=== PATIENT | male | born 1990 | race Caucasian/White ===

== ENCOUNTER 2020-04-23 16:08 | Outpatient (REF) | payer OTHER, SELFPAY ==
[2020-04-23 17:02] LABS: MANUAL DIFF FLAG NO
[2020-04-23 17:07] LABS: Basophils Absolute Auto 0.1 X10*3/uL (0.0-0.2); Basophils Percent Auto 1.1 % (0-2); Eosinophils Percent Auto 0.9 % (0-4); Hematocrit 40.9 % (42-52); Hemoglobin 14.4 g/dl (14.0-18.0); Imm Gran Abs Auto 0.02 X10*3/uL (0.00-0.03); Imm Gran Pct Auto 0.4 % (0.0-0.4); Lymphocytes Absolute Auto 1.6 X10*3/uL (1.2-4.9); Lymphocytes Percent Auto 35.2 % (20-40); Mean Corpuscular HGB Conc 35.2 g/dl (31.0-36.0); Mean Corpuscular Volume 96.7 fL (80-98); Monocytes Absolute Auto 0.5 X10*3/uL (0.1-1.2); Neutrophils Absolute Auto 2.4 X10*3/uL (2.0-8.3); Neutrophils Percent Auto 52.4 % (45-73); Platelet Count 203 X10*3/uL (160-400); Red Blood Count 4.23 X10*6/uL (4.60-5.80); Red Cell Distribution Width 12.5 % (11.0-16.0); White Blood Count 4.6 X10*3/uL (4.8-10.8)
[2020-04-23 17:29] LABS: Alanine Aminotransferase 39 U/L (0-40); Albumin Level 4.3 g/dL (3.5-5.0); Alkaline Phosphatase 61 U/L (39-117); Anion Gap 14 (12-20); Aspartate Amino Transferase 63 U/L (5-37); Bilirubin Total 1.3 mg/dL (0.0-1.0); Blood Urea Nitrogen 12 mg/dL (9-16); Calcium 8.9 mg/dL (8.4-10.2); Carbon Dioxide 30 mmol/L (22-29); Chloride 96 mmol/L (96-108); Estimated Glomerular Filt Rate > 60; Glucose Random 78 mg/dL (60-115); Magnesium 1.8 mg/dL (1.6-2.6); Potassium 4.1 mmol/l (3.3-5.1); Sodium 136 mmol/L (135-145)
[2020-04-23 18:00] LABS: Folate 2.5 ng/mL (> or = 4.0); Vitamin B12 363 pg/mL (200-900)
== END 2020-04-23 16:09 | disposition home or self-care (01) ==
LOC: HO.LAB 16:08
PROVIDERS: PCP Internal Medicine; Visit Provider Internal Medicine
DX: F10.10 Alcohol abuse, uncomplicated (principal); I10 Essential (primary) hypertension
CPT/HCPCS: 36415; 80053; 82607; 82746; 83735; 85025

== ENCOUNTER 2020-09-16 10:27 | Outpatient (REF) | payer OTHER, SELFPAY ==
[2020-09-16 12:20] LABS: SARS COV2 PCR INHOUSE NEGATIVE (Negative)
== END 2020-09-16 10:28 | disposition home or self-care (01) ==
LOC: HO.LAB 10:27
PROVIDERS: Visit Provider Internal Medicine
DX: Z20.822 Contact with and (suspected) exposure to COVID-19 (principal)
CPT/HCPCS: C9803; U0003

== ENCOUNTER 2020-09-17 00:10 | Inpatient (IN) | payer OTHER, SELFPAY ==
[2020-09-17] VITALS (11 sets, daily range): BP systolic 125–150; BP diastolic 08–110; PULSE 69–99; RESP 15–22; TEMP 36.7–36.8; O2SAT 97–98; BMI 23.0
--- NOTE | ~2020-09-17 | XR_ITS ---
EXAMINATION: CHEST 1 VIEW CLINICAL INFORMATION: Chest pain. COMPARISON: None. TECHNIQUE: An AP view of the chest is provided. FINDINGS: The cardiac silhouette is not enlarged. The mediastinal and hilar contours are unremarkable. There are neither pleural effusions nor pneumothoraces. There are no consolidations. The osseous structures are unremarkable. XR/XR chest 1V IMPRESSION: No evidence for acute disease.
--- NOTE | ~2020-09-17 | CT_ITS ---
EXAMINATION: CT ABDOMEN AND PELVIS WITH CONTRAST CLINICAL INFORMATION: Abdominal pain. COMPARISON: None. TECHNIQUE: Contiguous axial thin section helical images of the abdomen and pelvis were performed following the administration of 100 mL of intravenous Omnipaque 350. The data set was reformatted in the coronal and sagittal planes and reviewed on an independent workstation. DLP: 496 mGy-cm. FINDINGS: The visualized lung bases are clear. The visualized portions of the heart are unremarkable. The liver is of normal size and attenuation without focal lesions nor intrahepatic biliary ductal dilation. A normal gallbladder is identified. There is no wall thickening or discernible pericholecystic fluid. The spleen and adrenal glands are unremarkable. The pancreas is of overall normal attenuation. There is edema to the pancreatic tail and distal body. There is fat stranding noted about the pancreatic tail along with a small amount of free fluid. There are no drainable fluid collections. Both kidneys are of normal size and attenuation without hydronephrosis or nephrolithiasis. Following the administration of IV contrast, prompt symmetric nephrograms are displayed. There is neither mesenteric nor retroperitoneal lymphadenopathy. Normal unopacified loops of small and large bowel are identified. A normal appendix is identified. There is a small amount of pelvic free fluid. The urinary bladder is unremarkable. There is neither pelvic nor inguinal lymphadenopathy. Bone windows: Neither sclerotic nor lytic bone lesions are identified. CT/CT abdomen pelvis w con IMPRESSION: Fat stranding noted about an edematous pancreatic tail and distal body with adjacent and trace free fluid suggestive of pancreatitis. There are no drainable fluid collections. Automated exposure control (Care Dose) Adjustment of the mA and/or kv according to patient size (this includes techniques or standardized protocols for targeted exams where dose is matched to indication / reason for exam; i.e. extremities or head).
--- NOTE | 2020-09-17 00:39 | ED_ITS ---
HPI - Abdominal Pain General Chief Complaint: Abdominal Pain Stated Complaint: body aches Time Seen by Provider: 09/17/20 00:39 Source: patient Mode of arrival: EMS Limitations: no limitations History of Present Illness HPI narrative: Patient with history of Crohn's disease is in remission for last 10 years drinks alcohol almost every day comes here with pain in epigastric area for last 3 - 4 days getting worse with nausea and vomiting unable to eat anything MD elicited complaint: abdominal pain Onset (ago): day(s) Location: epigastric Severity: moderate Migration to: epigastric Exacerbating factors: eating and vomiting Associated symptoms: nausea and vomiting Related Data Previous Rx's Medication Instructions Recorded chlordiazepoxide HCl 25 mg capsule 25 mg PO Q8H PRN 10 Days #30 cap 03/31/20 magnesium oxide 400 mg PO BID 30 Days #60 tab 03/31/20 thiamine HCl (vitamin B1) 100 mg 100 mg PO DAILY 30 Days #30 tab 03/31/20 tablet bupropion HCl 150 mg 24 hr tablet, 150 mg PO QAM 30 Days #30 tab 08/11/20 extended release esomeprazole magnesium 40 mg 40 mg PO DAILY 30 Days #30 cap 08/11/20 capsule,delayed release hydroxyzine HCl 25 mg tablet See Rx Instructions .ROUTE 08/11/20 .COMPLEX 30 Days #60 tab Allergies Allergy/AdvReac Type Severity Reaction Status Date / Time citalopram AdvReac Intermediate nausea Verified 08/11/20 17:42 Review of Systems Review of Systems Constitutional : No Weight loss, No Fever, No Chills ENT/Mouth : No sore throat, No Rhinorrhea Eyes: No Eye Pain, No Swelling Cardiovascular : No Chest Pain, no palpitations Respiratory : No Cough, No Sputum, no shortness of breath Gastrointestinal : ++Nausea, ++Vomiting, No Diarrhea, ++ abdominal Pain, no black stools Genitourinary : No Dysuria, No Urinary Frequency Musculoskeletal : No joint pain, No Myalgias, No Joint Swelling Skin : No Skin Lesions, No rash Neuro : No Weakness, No Numbness, No Dizziness, No Headache Psych : No Anxiety/Panic, No Depression Heme/Lymph: No Bruising, No Lymphadenopathy Endocrine : No Polyuria, No Polydipsia All other systems reviewed and are negative Physical Exam Vital Signs: Vital Signs: Last Vital Signs Temp 98.0 F 09/17/20 00:39 Pulse 81 09/17/20 00:54 Resp 18 09/17/20 00:54 BP 139/101 H 09/17/20 00:54 Pulse Ox 98 09/17/20 00:54 Body Mass Index 23.0 Appearance: Alert. Oriented X3. No acute distress. Eyes: Pupils equal, round and reactive to light. ENT: Pharynx normal. Neck: Normal inspection. Neck supple. CVS: Normal heart rate and rhythm. Pulses normal. Respiratory: No respiratory distress. Breath sounds normal. Abdomen: Soft , tenderness epigastric area no rebound tenderness or guarding Bowel sounds are present, no mass palpable, no CVA tenderness Skin: Skin warm and dry. Normal skin color. Normal skin turgor. Extremities: No lower extremity edema. Neuro: Oriented X 3. No motor deficit. No sensory deficit. MDM - Abdominal Pain MDM Narrative Medical decision making narrative: Patient with acute pancreatitis with upper abdominal pain with history of alcohol abuse likely the etiology for pancreatitis. Patient has lactic acidosis secondary to alcohol use and dehydration not from sepsis. Will give him IV fluids admit for pain control and IV hydration patient's triglycerides are also elevated will start him on Lopid Differential Diagnosis Differential diagnosis: Likely abdominal pain and pancreatitis Medical Records Attestation: I reviewed the patient's medical records. Lab Data Attestation: I reviewed the patient's lab results. Result diagrams: 09/17/20 00:57 09/17/20 00:57 Labs: Lab Results 09/17/20 09/17/20 09/17/20 Range/Units 00:57 00:57 00:57 WBC 7.2 (4.8-10.8) X10*3/uL RBC 4.18 L (4.60-5.80) X10*6/uL Hgb 14.5 (14.0-18.0) g/dl Hct 41.1 L (42-52) % MCV 98.3 H (80-98) fL MCH 34.7 H (27.0-33.0) pg MCHC 35.3 (31.0-36.0) g/dl RDW 12.8 (11.0-16.0) % Plt Count 158 L (160-400) X10*3/uL MPV 9.0 L (9.4-12.4) fL Immature Gran % (Auto) 0.8 H (0.0-0.4) % Neut % (Auto) 74.3 H (45-73) % Lymph % (Auto) 19.1 L (20-40) % [place] % (Auto) 4.7 (2-11) % Eos % (Auto) 0.7 (0-4) % Baso % (Auto) 0.4 (0-2) % Lymph # (Auto) 1.4 (1.2-4.9) X10*3/uL [place] # (Auto) 0.3 (0.1-1.2) X10*3/uL Eos # (Auto) 0.1 (0.0-0.4) X10*3/uL Baso # (Auto) 0.0 (0.0-0.2) X10*3/uL Abs Immat Gran (auto) 0.06 H (0.00-0.03) X10*3/uL Absolute Neuts (auto) 5.3 (2.0-8.3) X10*3/uL Absolute Nucleated RBC 0.000 (0.0-0.012) X10*3/uL Nucleated RBC % (auto) 0.0 (0.0-0.2) /100WBC PT 11.4 (10.8-13.0) SEC INR 1.0 (0.9-1.1) APTT 25.0 (24.1-38.0) SEC Sodium 143 (135-145) mmol/L Potassium 3.7 (3.3-5.1) mmol/L Chloride 103 (96-108) mmol/L Carbon Dioxide 25 (22-29) mmol/L Anion Gap 19 (12-20) BUN 13 (9-16) mg/dL Creatinine 0.85 (0.5-1.4) mg/dL Estim Creat Clear Calc 139.8 Estimated GFR > 60 Random Glucose 122 H D (60-115) mg/dL Lactic Acid (0.5-2.0) mmol/L Calcium 7.5 L D (8.4-10.2) mg/dL Magnesium 2.3 (1.6-2.6) mg/dL Total Bilirubin 0.5 (0.0-1.0) mg/dL Direct Bilirubin 0.2 (0.0-0.5) mg/dL AST 93 H (5-37) U/L ALT 65 H (0-40) U/L Alkaline Phosphatase 62 (39-117) U/L Troponin I High Sens (<3.5-35.0) ng/L Total Protein 6.6 (6.5-8.0) g/dL Albumin 4.0 (3.5-5.0) g/dL Triglycerides 782 mg/dL Lipase 387 H (8-78) U/L 09/17/20 09/17/20 Range/Units 00:57 00:57 WBC (4.8-10.8) X10*3/uL RBC (4.60-5.80) X10*6/uL Hgb (14.0-18.0) g/dl Hct (42-52) % MCV (80-98) fL MCH (27.0-33.0) pg MCHC (31.0-36.0) g/dl RDW (11.0-16.0) % Plt Count (160-400) X10*3/uL MPV (9.4-12.4) fL Immature Gran % (Auto) (0.0-0.4) % Neut % (Auto) (45-73) % Lymph % (Auto) (20-40) % [place] % (Auto) (2-11) % Eos % (Auto) (0-4) % Baso % (Auto) (0-2) % Lymph # (Auto) (1.2-4.9) X10*3/uL [place] # (Auto) (0.1-1.2) X10*3/uL Eos # (Auto) (0.0-0.4) X10*3/uL Baso # (Auto) (0.0-0.2) X10*3/uL Abs Immat Gran (auto) (0.00-0.03) X10*3/uL Absolute Neuts (auto) (2.0-8.3) X10*3/uL Absolute Nucleated RBC (0.0-0.012) X10*3/uL Nucleated RBC % (auto) (0.0-0.2) /100WBC PT (10.8-13.0) SEC INR (0.9-1.1) APTT (24.1-38.0) SEC Sodium (135-145) mmol/L Potassium (3.3-5.1) mmol/L Chloride (96-108) mmol/L Carbon Dioxide (22-29) mmol/L Anion Gap (12-20) BUN (9-16) mg/dL Creatinine (0.5-1.4) mg/dL Estim Creat Clear Calc Estimated GFR Random Glucose (60-115) mg/dL Lactic Acid 3.1 H* (0.5-2.0) mmol/L Calcium (8.4-10.2) mg/dL Magnesium (1.6-2.6) mg/dL Total Bilirubin (0.0-1.0) mg/dL Direct Bilirubin (0.0-0.5) mg/dL AST (5-37) U/L ALT (0-40) U/L Alkaline Phosphatase (39-117) U/L Troponin I High Sens < 3.5 (<3.5-35.0) ng/L Total Protein (6.5-8.0) g/dL Albumin (3.5-5.0) g/dL Triglycerides mg/dL Lipase (8-78) U/L Imaging Data CT scan - abdomen: Attestation: I personally reviewed and interpreted this imaging study as follows: Radiologist's impression: Ordering Physician: Nino Vargas MD Date of Service: 09/17/20 Procedure(s): CT abdomen pelvis w con Accession Number(s): [id number] cc: Nino Vargas MD~ EXAMINATION: CT ABDOMEN AND PELVIS WITH CONTRAST CLINICAL INFORMATION: Abdominal pain. COMPARISON: None. TECHNIQUE: Contiguous axial thin section helical images of the abdomen and pelvis were performed following the administration of 100 mL of intravenous Omnipaque 350. The data set was reformatted in the coronal and sagittal planes and reviewed on an independent workstation. DLP: 496 mGy-cm. FINDINGS: The visualized lung bases are clear. The visualized portions of the heart are unremarkable. The liver is of normal size and attenuation without focal lesions nor intrahepatic biliary ductal dilation. A normal gallbladder is identified. There is no wall thickening or discernible pericholecystic fluid. The spleen and adrenal glands are unremarkable. The pancreas is of overall normal attenuation. There is edema to the pancreatic tail and distal body. There is fat stranding noted about the pancreatic tail along with a small amount of free fluid. There are no drainable fluid collections. Both kidneys are of normal size and attenuation without hydronephrosis or nephrolithiasis. Following the administration of IV contrast, prompt symmetric nephrograms are displayed. There is neither mesenteric nor retroperitoneal lymphadenopathy. Normal unopacified loops of small and large bowel are identified. A normal appendix is identified. There is a small amount of pelvic free fluid. The urinary bladder is unremarkable. There is neither pelvic nor inguinal lymphadenopathy. Bone windows: Neither sclerotic nor lytic bone lesions are identified. CT/CT abdomen pelvis w con IMPRESSION: Fat stranding noted about an edematous pancreatic tail and distal body with adjacent and trace free fluid suggestive of pancreatitis. There are no drainable fluid collections. ECG Data Attestation: I personally reviewed and interpreted this ECG as follows: Interpretation: Normal sinus rhythm with heart rate 82 beats per minute normal intervals normal axis no acute ST T wave changes early repolarization of the ST segments no acute ischemia Discharge Plan Discharge Clinical Impression: Alcohol abuse, Essential hypertriglyceridemia Acute alcoholic pancreatitis Qualifiers: Acute pancreatitis complication: no infection or necrosis Qualified Code(s): K85.20 - Alcohol induced acute pancreatitis without necrosis or infection Patient Disposition: Admitted As Inpatient [facility] Past Medical History Medical History Alcohol abuse Anxiety Depression GERD without esophagitis Insomnia Myalgia Ulcerative colitis Surgical History No significant past surgical history Family History Family History Other Family history non-contributory Social History Social History Alcohol intake: current Alcohol intake frequency: 3 or more drinks per day Alcohol type: beer and hard liquor Smoking Status: Current every day smoker Tobacco Type: Cigarette Cigarettes Per Day: 3 Use of substances other than those prescribed or required for medical reasons: No Advance Directives: No
--- NOTE | 2020-09-17 00:52 | ECG_ITS ---
Test Reason : ABD PAIN Blood Pressure : / mmHG Vent. Rate : 082 BPM Atrial Rate : 082 BPM P-R Int : 166 ms QRS Dur : 086 ms QT Int : 382 ms P-R-T Axes : 073 058 056 degrees QTc Int : 446 ms Normal sinus rhythm Possible Left atrial enlargement Borderline ECG No previous ECGs available Referred By: Nino Vargas Electronically Signed By:Rigo Brunson
[2020-09-17 01:02] LABS: Basophils Percent Auto 0.4 % (0-2); Eosinophils Absolute Auto 0.1 X10*3/uL (0.0-0.4); Eosinophils Percent Auto 0.7 % (0-4); Hematocrit 41.1 % (42-52); Hemoglobin 14.5 g/dl (14.0-18.0); Imm Gran Abs Auto 0.06 X10*3/uL (0.00-0.03); Imm Gran Pct Auto 0.8 % (0.0-0.4); Lymphocytes Absolute Auto 1.4 X10*3/uL (1.2-4.9); Lymphocytes Percent Auto 19.1 % (20-40); MANUAL DIFF FLAG NO; Mean Corpuscular HGB Conc 35.3 g/dl (31.0-36.0); Mean Corpuscular Hemoglobin 34.7 pg (27.0-33.0); Mean Corpuscular Volume 98.3 fL (80-98); Monocytes Absolute Auto 0.3 X10*3/uL (0.1-1.2); Monocytes Percent Auto 4.7 % (2-11); Neutrophils Absolute Auto 5.3 X10*3/uL (2.0-8.3); Neutrophils Percent Auto 74.3 % (45-73); Platelet Count 158 X10*3/uL (160-400); Red Blood Count 4.18 X10*6/uL (4.60-5.80); Red Cell Distribution Width 12.8 % (11.0-16.0); White Blood Count 7.2 X10*3/uL (4.8-10.8)
[2020-09-17 01:07] LABS: Prothrombin Time 11.4 SEC (10.8-13.0)
[2020-09-17 01:36] LABS: Lactic Acid 3.1 mmol/L (0.5-2.0)
[2020-09-17 01:37] LABS: Alanine Aminotransferase 65 U/L (0-40); Alkaline Phosphatase 62 U/L (39-117); Anion Gap 19 (12-20); Aspartate Amino Transferase 93 U/L (5-37); Bilirubin Direct 0.2 mg/dL (0.0-0.5); Bilirubin Total 0.5 mg/dL (0.0-1.0); Blood Urea Nitrogen 13 mg/dL (9-16); Calcium 7.5 mg/dL (8.4-10.2); Carbon Dioxide 25 mmol/L (22-29); Chloride 103 mmol/L (96-108); Creatinine Clr Calc Pharmacy 139.8; Estimated Glomerular Filt Rate > 60; Glucose Random 122 mg/dL (60-115); Potassium 3.7 mmol/L (3.3-5.1); Sodium 143 mmol/L (135-145); Total Protein 6.6 g/dL (6.5-8.0)
[2020-09-17 01:42] LABS: Troponin-I High Sensitivity < 3.5 ng/L (<3.5-35.0)
[2020-09-17 01:53] LABS: Lipase 387 U/L (8-78)
[2020-09-17] MEDS: iohexoL 350 MG/ML 100 ML INFUS..BTL IV (02:08)
[2020-09-17 02:15] LABS: Magnesium 2.3 mg/dL (1.6-2.6)
[2020-09-17] MEDS: 0.9 % Sodium Chloride 1,000 ML 999 ML IVCONT ×2 (02:50→04:42)
[2020-09-17] MEDS: Morphine Sulfate 4 MG/ML CARTRIDGE IVPUSH ×2 (02:51→04:42)
[2020-09-17] MEDS: ondansetron HCL 4 MG/2 ML VIAL IVPUSH (02:51)
[2020-09-17] MEDS: Famotidine/PF 20 MG/2 ML VIAL IVPUSH ×2 (02:51→08:57)
[2020-09-17 02:58] LABS: Triglycerides 782 mg/dL
[2020-09-17 03:01] LABS: Reflex Lactate? Lactic Acid Added
--- NOTE | 2020-09-17 03:31 | P.HPHOSP_ITS ---
History of Present Illness Date of Service: 09/17/20 Chief Complaint: Abd pain 30-year-old male with a past medical history of anxiety, depression, alcohol use presented to the hospital with a chief complaint of abdominal pain. Patient reports that he has a history of Crohn's disease and has not had any flares re cently. Has been drinking alcohol on a regular basis. Over the past few days he has been having nausea vomiting unable to keep anything down. Also had epigastric abdominal discomfort or the same period of time. Denies any numbness tingling. Denies any diarrhea. Denies any blood in the vomitus or blood in the stool. Denies any fever chills cough. Review of all other systems is negative except meds were ER course: Per ER team patient noted to have epigastric tenderness and noted to have lipase elevated and are CT scan showed pancolitis. Home a admitted to the hospital for further management. [facility] Medical History Alcohol abuse Anxiety Depression GERD without esophagitis Insomnia Myalgia Ulcerative colitis Family History Other Family history non-contributory Surgical History No significant past surgical history Social History Alcohol intake: current Alcohol intake frequency: 3 or more drinks per day Alcohol type: hard liquor Smoking Status: Current every day smoker Tobacco Type: Cigarette Cigarettes Per Day: 3 Use of substances other than those prescribed or required for medical reasons: Yes Substance Use Type: Marijuana Substance Use Frequency: Occasionally Advance Directives: No service: No Current occupational status: employed Meds Allergies Allergy/AdvReac Type Severity Reaction Status Date / Time citalopram AdvReac Intermediate nausea Verified 09/17/20 05:38 Active Medications: Current Medications Generic Name Dose Route Start Last Admin Trade Name Freq PRN Reason Stop Dose Admin Famotidine 20 mg 09/17/20 09:00 Famotidine/Pf 20 Mg/2 Ml Vial IVPUSH BID LUANN Folic Acid 1 mg 09/17/20 09:00 Folic Acid 1 Mg Tablet PO 09/20/20 08:59 DAILY LUANN Dextrose/Sodium Chloride 1,000 mls @ 100 mls/hr 09/17/20 03:30 D51/2ns IVCONT .Q10H [facility] Lorazepam 1 mg 09/17/20 03:26 Lorazepam 1 Mg Tablet PO 09/21/20 03:25 Q4H PRN Breakthrough alcohol withdrawa Morphine Sulfate 1 mg 09/17/20 03:26 Morphine Sulfate 4 Mg/Ml Cartridge IVPUSH Q4H PRN Pain, Severe (Pain Scale 7-10) Multivitamins 1 tab 09/17/20 09:00 B-Complex With Vitamin C Tablet PO DAILY [facility] Senna 17.2 mg 09/17/20 03:26 Sennosides 8.6 Mg Tablet PO BEDTIME PRN Constipation Sodium Chloride 3 ml 09/17/20 08:00 0.9 % Sodium Chloride Flush 3 Ml Syringe IVFLUSH QSHIFT [facility] Thiamine HCl 100 mg 09/17/20 09:00 Thiamine Hcl 100 Mg Tablet PO 09/20/20 08:59 DAILY [facility] Home Medications Medication Instructions Recorded Confirmed Last Taken Type No Known Home Meds 09/17/20 09/17/20 Unknown History Physical Exam Vital Signs and Narrative: Vital Signs: Last Vital Signs Temp 98.0 F 09/17/20 00:39 Pulse 81 09/17/20 00:54 Resp 18 09/17/20 00:54 BP 139/101 H 09/17/20 00:54 Pulse Ox 98 09/17/20 00:54 Body Mass Index 23.0 Gen: Appears be in no acute distress HEENT: NCAT, dry mucosa. Pulmonary: Vesicular breath sounds, fair air entry CVS: Normal S1-S2 Abdomen: BS+, Soft, diffusely tender but more tender in the epigastric. No guarding no rigidity. Extremities: Warm well perfused Neuro: Alert and awake. Results Labs CBC and Chem 7: 09/17/20 06:59 09/17/20 06:59 Labs: Laboratory Results - last 24 hr 09/17/20 09/17/20 09/17/20 00:57 00:57 00:57 MCV 98.3 H MCH 34.7 H MCHC 35.3 RDW 12.8 Plt Count 158 L MPV 9.0 L Immature Gran % (Auto) 0.8 H Neut % (Auto) 74.3 H Lymph % (Auto) 19.1 L [place] % (Auto) 4.7 Eos % (Auto) 0.7 Baso % (Auto) 0.4 Lymph # (Auto) 1.4 [place] # (Auto) 0.3 Eos # (Auto) 0.1 Baso # (Auto) 0.0 Abs Immat Gran (auto) 0.06 H Absolute Neuts (auto) 5.3 Absolute Nucleated RBC 0.000 Nucleated RBC % (auto) 0.0 PT 11.4 INR 1.0 APTT 25.0 Anion Gap 19 Estim Creat Clear Calc 139.8 Estimated GFR > 60 Random Glucose 122 H D Lactic Acid Calcium 7.5 L D Magnesium 2.3 Total Bilirubin 0.5 Direct Bilirubin 0.2 AST 93 H ALT 65 H Alkaline Phosphatase 62 Troponin I High Sens Total Protein 6.6 Albumin 4.0 Triglycerides 782 Lipase 387 H 09/17/20 09/17/20 00:57 00:57 MCV MCH MCHC RDW Plt Count MPV Immature Gran % (Auto) Neut % (Auto) Lymph % (Auto) [place] % (Auto) Eos % (Auto) Baso % (Auto) Lymph # (Auto) [place] # (Auto) Eos # (Auto) Baso # (Auto) Abs Immat Gran (auto) Absolute Neuts (auto) Absolute Nucleated RBC Nucleated RBC % (auto) PT INR APTT Anion Gap Estim Creat Clear Calc Estimated GFR Random Glucose Lactic Acid 3.1 H* Calcium Magnesium Total Bilirubin Direct Bilirubin AST ALT Alkaline Phosphatase Troponin I High Sens < 3.5 Total Protein Albumin Triglycerides Lipase Imaging Radiologist's Impressions: Impressions Chest X-Ray 09/17/20 00:52 IMPRESSION: No evidence for acute disease. Abdomen/Pelvis CT 09/17/20 00:54 IMPRESSION: Fat stranding noted about an edematous pancreatic tail and distal body with adjacent and trace free fluid suggestive of pancreatitis. There are no drainable fluid collections. Automated exposure control (Care Dose) Adjustment of the mA and/or kv according to patient size (this includes techniques or standardized protocols for targeted exams where dose is matched to indication / reason for exam; i.e. extremities or head). Assessment and Plan (1) Acute alcoholic pancreatitis: Qualifiers: Acute pancreatitis complication: no infection or necrosis Qualified Code(s): K85.20 - Alcohol induced acute pancreatitis without necrosis or infection Status: Acute 30-year-old male with a past medical history of Crohn's disease, anxiety, depression, alcohol use presented to the hospital with a chief complaint of nausea vomiting and abdominal discomfort. Noted to have pancreatitis. Admitted for further management. Acute pancreatitis: Likely in the setting of alcohol use. Also noted to have elevated triglyceride to 780. Pain control IV fluids Zofran p.r.n. Nausea/vomiting: Likely alcoholic gastritis. Pepcid IV b.i.d.. Hypertriglyceridemia: Will keep the patient on gemfibrozil. Recommended repeat triglyceride levels in 6-8 weeks with PCP. Transaminitis: Likely in setting of alcohol use. Will obtain acute hepatitis panel. Monitor liver enzymes. Lactic acidosis: Likely in setting of dehydration/alcohol use. IV fluids. Monitor levels. Alcohol abuse: Monitor on CIWA protocol with Ativan. Will give the patient on thiamine, folate, multivitamins. DVT prophylaxis: SCD boots Code status: Full code
[2020-09-17 03:40] LABS: Cholesterol 169 mg/dL; HDL Cholesterol 35 mg/dL
[2020-09-17] MEDS: LORazepam 2 MG/ML VIAL 1 MG IVPUSH (03:52)
[2020-09-17 04:43] LABS: ~Lactic Acid-LAB USE ONLY 3.2 mmol/L (0.5-2.0)
[2020-09-17] MEDS: Dextrose 5 % and 0.45 % NaCl 1,000 ML 100 ML IVCONT ×2 (05:21→16:05)
[2020-09-17 06:09] LABS: Reflex Lactate? 2 Y
[2020-09-17] MEDS: gemfibroziL 600 MG TABLET PO (06:42)
[2020-09-17 07:18] LABS: MANUAL DIFF FLAG NO
[2020-09-17 07:34] LABS: Basophils Percent Auto 0.2 % (0-2); Eosinophils Percent Auto 0.1 % (0-4); Hematocrit 40.1 % (42-52); Hemoglobin 14.1 g/dl (14.0-18.0); Imm Gran Abs Auto 0.04 X10*3/uL (0.00-0.03); Imm Gran Pct Auto 0.5 % (0.0-0.4); Lymphocytes Absolute Auto 1.7 X10*3/uL (1.2-4.9); Lymphocytes Percent Auto 19.1 % (20-40); Mean Corpuscular HGB Conc 35.2 g/dl (31.0-36.0); Mean Corpuscular Hemoglobin 34.5 pg (27.0-33.0); Mean Platelet Volume 9.3 fL (9.4-12.4); Monocytes Absolute Auto 0.6 X10*3/uL (0.1-1.2); Monocytes Percent Auto 7.1 % (2-11); Neutrophils Absolute Auto 6.3 X10*3/uL (2.0-8.3); Platelet Count 165 X10*3/uL (160-400); Red Blood Count 4.09 X10*6/uL (4.60-5.80); Red Cell Distribution Width 12.6 % (11.0-16.0); White Blood Count 8.7 X10*3/uL (4.8-10.8)
[2020-09-17 07:53] LABS: Anion Gap 17 (12-20); Blood Urea Nitrogen 10 mg/dL (9-16); Calcium 6.8 mg/dL (8.4-10.2); Carbon Dioxide 23 mmol/L (22-29); Chloride 104 mmol/L (96-108); Creatinine Clr Calc Pharmacy 156.4; Estimated Glomerular Filt Rate > 60; Glucose Random 102 mg/dL (60-115); Potassium 4.2 mmol/L (3.3-5.1); Sodium 140 mmol/L (135-145)
[2020-09-17 07:53] LABS: ~Lactic Acid-LAB USE ONLY 3.5 mmol/L (0.5-2.0)
--- NOTE | 2020-09-17 08:04 | PC.NURSE ---
Dr. Sánchez aware of a.m. Calcium and lactate levels and trends from last values.
[2020-09-17 08:55] LABS: HBS Num1 5.75 mIU/mL (0-7.99); HBc Num1 0.11 S/CO (0.00-0.79); Hepatitis A Antibody IgM 0.07 Index (0-0.79); Hepatitis B Core Antibody Nonreactive (Nonreactive); ~HepC Num1 0.08 S/CO (0.00-0.79); ~Hepatitis A Antibody IgM Nonreactive (Nonreactive); ~Hepatitis B Surface Antibody NONREACTIVE (Nonreactive); ~Hepatitis C Antibody Nonreactive (Nonreactive)
[2020-09-17] MEDS: Folic Acid 1 MG TABLET PO (08:56)
[2020-09-17] MEDS: Thiamine HCL 100 MG TABLET PO (08:56)
[2020-09-17] MEDS: Morphine Sulfate 2 MG/ML CARTRIDGE 1 MG IVPUSH (08:57)
[2020-09-17 09:25] LABS: HBsAGNum1 0.13 S/CO (0.00-0.99); Hepatitis B Surface Antigen Negative (Negative)
--- NOTE | 2020-09-17 11:07 | MHC.CM.PN ---
Met with patient in regards to discharge planning. Patient lives alone, ambulates independently and had no services prior to coming to hospital. No services anticipated to be needed because patient is not homebound. PCP verified as Dr Kline. Patient states he has a HCP at [facility] and will attempt to obtain a copy. Patient will need the hospital shuttle for transport home when medically stable. Continue to monitor for d/c needs.
--- NOTE | 2020-09-17 11:11 | MHC.CM.PN ---
[facility] does not have a HCP on file for patient.
[2020-09-17] MEDS: Morphine Sulfate 2 MG/ML CARTRIDGE IVPUSH (14:42)
[2020-09-17] MEDS: 0.9 % Sodium Chloride Flush 3 ML SYRINGE IVFLUSH (16:05)
--- NOTE | 2020-09-17 16:28 | PC.NURSE ---
3 times contacted hospitalist for concerns about need for CIWA and medical management. no answer .continuing to monitor.
--- NOTE | 2020-09-17 16:30 | PC.NURSE ---
3 times contacted hospitalisit for management regarding CIWA. No answer continuing to monitor.
--- NOTE | 2020-09-17 17:11 | PC.NURSE ---
pt to start phenobarb protocol confirmed with both hospitalist and pharmacy.
--- NOTE | 2020-09-17 17:13 | PC.NURSE ---
1600:called pharmacy for 1630 med. not in pyxis. 1713: med documented against. not supplied by pharmacy.
[2020-09-17] MEDS: PHENobarbitaL sodium 130 MG/ML VIAL 310 MG IM (17:32)
--- NOTE | 2020-09-17 19:45 | PC.NURSE ---
ATTEMPTED TO GIVE REPORT X2.
--- NOTE | 2020-09-17 19:45 | PC.NURSE ---
ATTEMPTED TO GIVE REPORT 2X
--- NOTE | 2020-09-17 21:48 | PM.EVENT ---
Event Note Date of Service: 09/17/20 Event Note: Against medical advice note: Patient wanted to leave against medical advice. I spoke to the patient in detail about his current health condition and the risks and benefits involved in staying in the hospital and the receiving the treatment. Patient denies pain hospital. Explained risks and benefits and risks which not only involve worsening current clinical condition and may even lead to . Patient verbalized that he understood the risks and still wanted to leave against medical advice. Signed AMA form.
--- NOTE | 2020-09-18 08:05 | PM.DS ---
DS: Providers Provider Date of Service: 09/18/20 Date of admission: 09/17/20 03:26 Primary care physician: Unknown Physician Consults: 09/17/20 03:26 Consult to Gastroenterology Routine Consulting Provider: Anthony Ba Reason for consultation: pancreatitis DS: Diagnosis Discharge Diagnosis (1) Acute alcoholic pancreatitis: Status: Acute DS: Medications Discharge Medications Home Medications: Home Medications Medication Instructions Recorded Confirmed No Known Home Meds 09/17/20 09/17/20 DS: Summary Hospital Course Hospital Course: Patient was admitted and treated for acute alcoholic pancreatitis, and alcohol withdrawal and left AMA on 09/17/20 around 2300. See additional note from covering provider at that time. Time Spent with Patient Time attestation: Total time spent providing and/or coordinating discharge services: Discharge coordination time: Less than 30 minutes Physical Exam Vital Signs: Vital Signs: Last Vital Signs Temp 98.2 F 09/17/20 11:52 Pulse 76 09/17/20 14:47 Resp 20 09/17/20 14:47 BP 146/103 H 09/17/20 14:47 Pulse Ox 98 09/17/20 14:47 Body Mass Index 23.0 DS: Data Data Completed and Pending Labs on day of discharge: Laboratory Results - last 24 hr 09/17/20 04:04 Hepatitis A IgM Ab Nonreactive Hep Bs Antigen Negative Hep Bs Antibody NONREACTIVE Hep B Core Total Ab Nonreactive Hepatitis C Ab (EIA) Nonreactive Preliminary micro results at discharge 09/17/20 03:32 Blood Culture - Preliminary Blood - Venous No growth after 24 hours. 09/17/20 03:39 Blood Culture - Preliminary Blood - Venous No growth after 24 hours. Discharge Plan Discharge Anticipated Discharge Date/Time: 09/17/20 23:11 Patient Disposition: Left Against Medical Advice Referrals: Physician,Unknown [Primary Care Provider] - Discharge Medications: No Action No Known Home Meds RF: 0 Discharge Orders: Discharge Order (Routine); Ordered 09/17/20 Ordered By: Jacobo Sánchez Care Plan Goals: left ama Health Concerns: left ama Plan of Treatment: left ama Discharge Date/Time: 09/17/20 23:03
== END 2020-09-17 23:03 | disposition left against medical advice (07) | DRG 282 ==
LOC: HO.ED 03:34 → HO.EDOVER 03:36 → HO.IMC 18:47
PROVIDERS: Admitting Provider Hospitalist; Emergency Provider Internal Medicine; PCP Internal Medicine; Visit Provider Internal Medicine
DX: K85.20 Alcohol induced acute pancreatitis without necrosis or infection (principal); E87.2 Acidosis; E78.1 Pure hyperglyceridemia; F17.210 Nicotine dependence, cigarettes, uncomplicated; Z71.6 Tobacco abuse counseling; F41.9 Anxiety disorder, unspecified; F32.9 Major depressive disorder, single episode, unspecified; R74.01 Elevation of levels of liver transaminase levels; F10.10 Alcohol abuse, uncomplicated
CPT/HCPCS: 36415; 71045; 74177; 80048; 80061; 80076; 83605; 83690; 83735; 84478; 84484; 85025; 85610; 85730; 86704; 86706; 86709; 86803; 87040; 87340; 93005; 96361; 96374; 96375; 99285; J2060; J2270; J2405; J2560; Q9967

== ENCOUNTER 2020-10-09 16:11 | Outpatient (REF) | payer OTHER, SELFPAY ==
[2020-10-10 12:29] LABS: Amphetamine Screen Urine Not Detected (Not Detect); Barbiturates, Urine POSITIVE (Not Detect); Benzodiazepines Screen Urine Not Detected (Not Detect); Cannabinoid Screen Urine POSITIVE (Not Detect); Cocaine Screen Urine Not Detected (Not Detect); Opiate Screen Urine Not Detected (Not Detect); Phencyclidine Screen Urine Not Detected (Not Detect)
== END 2020-10-09 16:12 | disposition home or self-care (01) ==
LOC: HO.LAB 16:11
PROVIDERS: Visit Provider Nurse Practitioner Family
DX: Z02.83 Encounter for blood-alcohol and blood-drug test (principal)
CPT/HCPCS: 80307

== ENCOUNTER 2021-05-07 15:16 | Emergency (ER) | payer OTHER, SELFPAY ==
--- NOTE | ~2021-05-07 | XR_ITS ---
EXAMINATION: XR CHEST CLINICAL INFORMATION: Chest pain. COMPARISON: None TECHNIQUE: Frontal view of the chest was obtained. FINDINGS: The lungs are hyperinflated but clear. The heart size and pulmonary vascularity is normal. No gross bony abnormality seen. XR/XR chest 1V IMPRESSION: Hyperinflated lungs without acute process.
--- NOTE | 2021-05-07 15:37 | ECG_ITS ---
Test Reason : NAUSEA/HYPERTENSION Blood Pressure : / mmHG Vent. Rate : 094 BPM Atrial Rate : 094 BPM P-R Int : 132 ms QRS Dur : 074 ms QT Int : 340 ms P-R-T Axes : 082 041 043 degrees QTc Int : 425 ms Normal sinus rhythm Biatrial enlargement Nonspecific ST abnormality Abnormal ECG When compared with ECG of 17-SEP-2020 00:57, No significant change was found Referred By: Generic ED Physician Electronically Signed By:BRANDEN DALTON MD
[2021-05-07 15:54] VITALS: BP 163/120; PULSE 86; RESP 18; TEMP 37.2; O2SAT 99; BMI 23.0
[2021-05-07 16:01] LABS: MANUAL DIFF FLAG NO
[2021-05-07 16:02] LABS: Basophils Percent Auto 0.4 % (0-2); Eosinophils Percent Auto 0.3 % (0-4); Hematocrit 45.4 % (42.0-52.0); Hemoglobin 16.4 g/dl (14.0-18.0); Imm Gran Abs Auto 0.03 X10*3/uL (0.00-0.03); Imm Gran Pct Auto 0.4 % (0.0-0.4); Lymphocytes Absolute Auto 0.9 X10*3/uL (1.2-4.9); Lymphocytes Percent Auto 12.3 % (20-40); Mean Corpuscular HGB Conc 36.1 g/dl (31.0-36.0); Mean Corpuscular Hemoglobin 33.9 pg (27.0-33.0); Mean Corpuscular Volume 93.8 fL (80.0-98.0); Mean Platelet Volume 9.2 fL (9.4-12.4); Monocytes Absolute Auto 0.5 X10*3/uL (0.1-1.2); Monocytes Percent Auto 6.2 % (2-11); Neutrophils Absolute Auto 5.8 x10*3/uL (2.0-8.3); Neutrophils Percent Auto 80.4 % (45-73); Platelet Count 177 X10*3/uL (160-400); Red Blood Count 4.84 X10*6/uL (4.60-5.80); Red Cell Distribution Width 13.1 % (11.0-16.0); White Blood Count 7.2 X10*3/uL (4.8-10.8)
[2021-05-07 16:15] LABS: Anion Gap 20 (12-20); Blood Urea Nitrogen 15 mg/dL (9-16); Calcium 10.1 mg/dL (8.4-10.2); Carbon Dioxide 30 mmol/L (22-29); Chloride 92 mmol/L (96-108); Creatinine Clr Calc Pharmacy 113.2; Estimated Glomerular Filt Rate > 60; Glucose Random 97 mg/dL (60-115); Potassium 3.7 mmol/L (3.3-5.1); Sodium 138 mmol/L (135-145)
[2021-05-07 16:22] LABS: Troponin-I High Sensitivity < 3.5 ng/L (<3.5-35.0)
[2021-05-07 21:30] VITALS: BP 168/124; PULSE 94; RESP 19; O2SAT 99
--- NOTE | 2021-05-07 21:30 | PC.NURSE ---
Pt alert and oriented x4, calm and cooperative. Pt BP very elevated, see charting, MD Aguilar aware. BP taken multiple times. Pt complains of nausea and dizziness at this time. Pt ambulating without issues. Denies headache. Pt restign in stretcher calmly at this time.
[2021-05-07 21:37] VITALS: BP 168/124; PULSE 94
[2021-05-07] MEDS: amLODIPine Besylate 5 MG TABLET PO (21:37)
[2021-05-07 22:03] LABS: COVID-19 Test Negative (Negative)
[2021-05-07 22:17] VITALS: BP 170/119; PULSE 80; RESP 16; O2SAT 99
[2021-05-07 23:04] VITALS: BP 154/118; PULSE 99; RESP 18; O2SAT 96
[2021-05-07 23:13] VITALS: BP 154/118; PULSE 99
[2021-05-07] MEDS: amLODIPine Besylate 10 MG TABLET PO (23:13)
[2021-05-08 00:19] VITALS: BP 173/128; PULSE 89; RESP 16; O2SAT 99
--- NOTE | 2021-05-08 00:29 | ED_ITS ---
HPI - General Adult General Chief complaint: Chest Pain Stated complaint: Chest pain Time Seen by Provider: 05/07/21 18:31 Source: patient Mode of arrival: ambulatory Limitations: no limitations History of Present Illness HPI narrative: 31-year-old male came in for evaluation of nausea and vomiting with diarrhea. 31-year-old male came in from urgent care for further evaluation of elevated high blood pressure diagnosed at the walk-in clinic. Patient been having chest pain for many months burning sensation in the midchest, comes and goes, not exertional, moderate in severity, no other associated symptoms. Never had these symptoms in the past. Related Data Home Medications Medication Instructions Recorded Confirmed No Known Home Meds 09/17/20 05/07/21 Allergies Allergy/AdvReac Type Severity Reaction Status Date / Time citalopram AdvReac Intermediate nausea Verified 05/07/21 15:54 Review of Systems Review of Systems: All other systems are reviewed and are negative Constitutional: Reports as per HPI and Reports no additional constitutional complaints Eyes: Reports as per HPI and Reports no additional eye complaints Reports system reviewed and no additional complaints, except as documented Cardiovascular: Reports as per HPI and Reports no additional cardiovascular complaints Respiratory: Reports as per HPI and Reports no additional respiratory complaints Gastrointestinal: Reports as per HPI and Reports no additional gastrointestinal complaints Genitourinary: Reports no additional female genitourinary complaints Musculoskeletal: Reports no additional musculoskeletal complaints Skin/Breast: Reports system reviewed and no additional complaints, except as docu Psychiatric: Reports no additional psychiatric complaints Endocrine: Reports no additional endocrine complaints Hematologic/Lymphatic: Reports no additional hematologic/lymphatic complaints Allergic/Immunologic: Reports no additional allergic/immunologic complaints Reports system reviewed and no additional complaints, except as documented and Reports Abnormal speech present [facility] Past Medical History Medical History Alcohol abuse Anxiety Depression GERD without esophagitis Insomnia Myalgia Ulcerative colitis Surgical History History of shoulder surgery Family History Family History Other Family history non-contributory Substance use disorder Social History Social History Housing: House Alcohol intake: current Alcohol intake frequency: 3 or more drinks per day Alcohol type: hard liquor Patient Tobacco Use Status: Former Tobacco user Cigarettes Per Day: 3 e-Cigarette/Vaping Use: Never Used Second Hand Smoke Exposure: No Substance Use Type: Marijuana Advance Directives: No Advance Directives Information Provided: No service: No Current occupational status: employed Cognitive needs: No Hearing needs: No Vision needs: Yes (Glasses) Physical Exam Vital Signs: Vital Signs: Last Vital Signs Temp 98.9 F 05/07/21 15:54 Pulse 89 05/08/21 00:19 Resp 16 05/08/21 00:19 BP 173/128 H 05/08/21 00:19 Pulse Ox 99 05/08/21 00:19 Body Mass Index 23.0 Vital signs have been reviewed as appeared to be correct. Blood pressure elevated. Heart rate normal. Respiration rate normal. Temperature normal. Oxygen saturation normal. Appearance: Alert. Oriented X3. No acute distress. Head: Normal external exam. Normocephalic. Atraumatic. No Finney signs noted. No raccoon eyes noted Eyes: PERRLA. EOMI. Conjunctiva and sclera normal. Eyelids normal. ENT: TM's Normal. Pharynx normal. Uvula midline. Moist mucous membranes. No trismus noted. No drooling noted. No muffled voice noted. Neck: Normal inspection. Neck supple. FROM. No adenopathy. Thyroid Normal. No meningeal signs. No neck mass noted. CVS: Normal heart rate and rhythm. Heart sound normal. No murmurs noted. Pulses normal throughout. Respiratory: No respiratory distress. Painless inspiration. Breath sounds normal. No wheezes/rales/rhonchi noted. Chest nontender. No accessory muscle usage noted or decreased air movement noted. Abdomen: Soft and nontender. Bowel sounds normal in all 4 quadrants. No distention noted. No organomegaly noted. No visible injury noted. Back: No CVA tenderness. Full range of motion noted. Skin: Skin warm and dry. Normal skin color. Normal skin turgor. No rashes/lesions/lacerations noted. Extremities: No lower extremity edema. Extremities exhibit normal range of motion. Extremities nontender. Neuro: Oriented X 3. Cranial nerve exam: II-XII are grossly intact No motor deficit. No sensory deficit. Reflexes normal. Medical Decision Making Medical Records Medical records reviewed: Yes I reviewed the patient's medical records. Lab Data Lab results reviewed: Yes I reviewed the patient's lab results. Result diagrams: 05/07/21 15:50 05/07/21 15:50 Labs: Lab Results 05/07/21 05/07/21 05/07/21 Range/Units 15:50 15:50 15:50 WBC 7.2 (4.8-10.8) X10*3/uL RBC 4.84 (4.60-5.80) X10*6/uL Hgb 16.4 (14.0-18.0) g/dl Hct 45.4 (42.0-52.0) % MCV 93.8 (80.0-98.0) fL MCH 33.9 H (27.0-33.0) pg MCHC 36.1 H (31.0-36.0) g/dl RDW 13.1 (11.0-16.0) % Plt Count 177 (160-400) X10*3/uL MPV 9.2 L (9.4-12.4) fL Immature Gran % (Auto) 0.4 (0.0-0.4) % Neut % (Auto) 80.4 H (45-73) % Lymph % (Auto) 12.3 L (20-40) % [place] % (Auto) 6.2 (2-11) % Eos % (Auto) 0.3 (0-4) % Baso % (Auto) 0.4 (0-2) % Lymph # (Auto) 0.9 L (1.2-4.9) X10*3/uL [place] # (Auto) 0.5 (0.1-1.2) X10*3/uL Eos # (Auto) 0.0 (0.0-0.4) X10*3/uL Baso # (Auto) 0.0 (0.0-0.2) X10*3/uL Abs Immat Gran (auto) 0.03 (0.00-0.03) X10*3/uL Absolute Neuts (auto) 5.8 (2.0-8.3) x10*3/uL Absolute Nucleated RBC 0.000 (0.0-0.012) X10*3/uL Nucleated RBC % (auto) 0.0 (0.0-0.2) /100WBC Sodium 138 (135-145) mmol/L Potassium 3.7 (3.3-5.1) mmol/L Chloride 92 L (96-108) mmol/L Carbon Dioxide 30 H (22-29) mmol/L Anion Gap 20 (12-20) BUN 15 (9-16) mg/dL Creatinine 1.04 (0.5-1.4) mg/dL Estim Creat Clear Calc 113.2 Estimated GFR > 60 Random Glucose 97 (60-115) mg/dL Calcium 10.1 D (8.4-10.2) mg/dL Troponin I High Sens < 3.5 (<3.5-35.0) ng/L COVID-19 (ANICETO) (Negative) COVID-19 Clin Com 05/07/21 Range/Units 21:41 WBC (4.8-10.8) X10*3/uL RBC (4.60-5.80) X10*6/uL Hgb (14.0-18.0) g/dl Hct (42.0-52.0) % MCV (80.0-98.0) fL MCH (27.0-33.0) pg MCHC (31.0-36.0) g/dl RDW (11.0-16.0) % Plt Count (160-400) X10*3/uL MPV (9.4-12.4) fL Immature Gran % (Auto) (0.0-0.4) % Neut % (Auto) (45-73) % Lymph % (Auto) (20-40) % [place] % (Auto) (2-11) % Eos % (Auto) (0-4) % Baso % (Auto) (0-2) % Lymph # (Auto) (1.2-4.9) X10*3/uL [place] # (Auto) (0.1-1.2) X10*3/uL Eos # (Auto) (0.0-0.4) X10*3/uL Baso # (Auto) (0.0-0.2) X10*3/uL Abs Immat Gran (auto) (0.00-0.03) X10*3/uL Absolute Neuts (auto) (2.0-8.3) x10*3/uL Absolute Nucleated RBC (0.0-0.012) X10*3/uL Nucleated RBC % (auto) (0.0-0.2) /100WBC Sodium (135-145) mmol/L Potassium (3.3-5.1) mmol/L Chloride (96-108) mmol/L Carbon Dioxide (22-29) mmol/L Anion Gap (12-20) BUN (9-16) mg/dL Creatinine (0.5-1.4) mg/dL Estim Creat Clear Calc Estimated GFR Random Glucose (60-115) mg/dL Calcium (8.4-10.2) mg/dL Troponin I High Sens (<3.5-35.0) ng/L COVID-19 (ANICETO) Negative (Negative) COVID-19 Clin Com See Note Imaging Data Chest x-ray: Attestation: I personally reviewed and interpreted this imaging study as follows: Radiologist's impression: Hyperinflated lungs without acute process ECG Data Attestation: I personally reviewed and interpreted this ECG as follows: Interpretation: 1 normal sinus rhythm at 94 beats per minute, normal axis deviation, normal intervals, LVH, nonspecific ST-T changes. Discharge Plan Discharge Clinical Impression: Hypertension, Viral gastroenteritis Prescriptions: No Action No Known Home Meds RF: 0
== END 2021-05-08 01:12 | disposition home or self-care (01) ==
PROVIDERS: Emergency Provider Emergency Medicine; PCP Internal Medicine
DX: A08.4 Viral intestinal infection, unspecified (principal); I10 Essential (primary) hypertension; R11.2 Nausea with vomiting, unspecified; Z20.822 Contact with and (suspected) exposure to COVID-19
CPT/HCPCS: 36415; 71045; 80048; 84484; 85025; 87635; 93005; 99283; 99284

== ENCOUNTER 2021-05-29 07:55 | Outpatient (REF) | payer OTHER, SELFPAY ==
[2021-05-29 08:01] LABS: MANUAL DIFF FLAG NO
[2021-05-29 08:30] LABS: Basophils Percent Auto 0.7 % (0-2); Eosinophils Absolute Auto 0.1 X10*3/uL (0.0-0.4); Eosinophils Percent Auto 2.4 % (0-4); Hematocrit 38.6 % (42.0-52.0); Hemoglobin 13.5 g/dl (14.0-18.0); Imm Gran Abs Auto 0.02 X10*3/uL (0.00-0.03); Imm Gran Pct Auto 0.4 % (0.0-0.4); Lymphocytes Absolute Auto 1.8 X10*3/uL (1.2-4.9); Mean Corpuscular Hemoglobin 33.1 pg (27.0-33.0); Mean Corpuscular Volume 94.6 fL (80.0-98.0); Mean Platelet Volume 9.2 fL (9.4-12.4); Monocytes Absolute Auto 0.4 X10*3/uL (0.1-1.2); Monocytes Percent Auto 8.2 % (2-11); Neutrophils Absolute Auto 2.2 x10*3/uL (2.0-8.3); Neutrophils Percent Auto 49.3 % (45-73); Platelet Count 176 X10*3/uL (160-400); Red Blood Count 4.08 X10*6/uL (4.60-5.80); Red Cell Distribution Width 12.7 % (11.0-16.0); White Blood Count 4.5 X10*3/uL (4.8-10.8)
[2021-05-29 09:13] LABS: Alanine Aminotransferase 105 U/L (0-40); Albumin Level 4.4 g/dL (3.5-5.0); Alkaline Phosphatase 98 U/L (39-117); Anion Gap 16 (12-20); Aspartate Amino Transferase 164 U/L (5-37); Bilirubin Total 0.5 mg/dL (0.0-1.0); Blood Urea Nitrogen 12 mg/dL (9-16); C Reactive Protein 0.03 mg/dL (< or = 0.50); Calcium 9.5 mg/dL (8.4-10.2); Carbon Dioxide 24 mmol/L (22-29); Chloride 101 mmol/L (96-108); Estimated Glomerular Filt Rate > 60; Glucose Random 92 mg/dL (60-115); Lipase 153 U/L (8-78); Potassium 3.4 mmol/L (3.3-5.1); Sodium 138 mmol/L (135-145); Total Protein 7.5 g/dL (6.5-8.0)
[2021-05-29 09:16] LABS: TSH reflex Free T4 1.84 uIU/mL (0.32-4.0); Vitamin D 25-OH Total 17.4 ng/mL (>30)
[2021-05-29 09:20] LABS: Erythrocyte Sedimentation Rate 4 MM/HR (0-15)
[2021-05-29 10:51] LABS: Vitamin B12 278 pg/mL (200-900)
[2021-05-31 01:27] LABS: Lyme Abs Screen <0.90 index
== END 2021-05-29 07:56 | disposition home or self-care (01) ==
LOC: HO.LAB 07:55
PROVIDERS: PCP Internal Medicine; Visit Provider Internal Medicine
DX: M79.7 Fibromyalgia (principal); I10 Essential (primary) hypertension; E53.8 Deficiency of other specified B group vitamins; E55.9 Vitamin D deficiency, unspecified; R10.9 Unspecified abdominal pain; R20.2 Paresthesia of skin; E78.00 Pure hypercholesterolemia, unspecified
CPT/HCPCS: 36415; 80053; 82306; 82550; 82607; 82746; 83690; 84425; 84443; 85025; 85652; 86140; 86617; 86618

== ENCOUNTER 2021-06-06 11:42 | Inpatient (IN) | payer OTHER, SELFPAY ==
--- NOTE | ~2021-06-06 | US_ITS ---
EXAMINATION: US ABDOMEN LIMITED CLINICAL INFORMATION: Right upper quadrant pain. Elevated LFTs.. COMPARISON: CT dated 09/17/2020 TECHNIQUE: Real-time imaging of the right upper quadrant abdominal viscera. FINDINGS: PANCREAS: Normal. LIVER: Normal. The liver is normal in size. The liver contour is normal. There is diffuse increased liver parenchymal echogenicity, consistent with hepatic steatosis. No focal hepatic lesion. There is no intrahepatic biliary duct dilatation seen. GALLBLADDER: Multiple stones are present within the gallbladder. No gallbladder wall thickening or pericholecystic fluid. Sonographic Santillan sign is negative. COMMON BILE DUCT: Normal in caliber measuring 0.3 cm in diameter. RIGHT KIDNEY: Normal. No hydronephrosis. No renal calculi or focal parenchymal lesions. The kidney measures 12.6 cm in maximum dimension. FREE FLUID: None. US/US abdomen limited IMPRESSION: Cholelithiasis. No sonographic evidence of cholecystitis. Hepatic steatosis. No biliary dilatation.
--- NOTE | ~2021-06-06 | CT_ITS ---
EXAM: CT scan of the head and cervical spine. INDICATION: Reason for Exam fall w/ head strike TECHNIQUE: A noncontrast CT scan was performed from the skull base to the vertex. A noncontrast CT scan of the cervical spine was performed from the base of the skull through T1 at 2.5 mm and 1.25 mm collimation. Coronal and sagittal reformats were obtained at the acquisition workstation. This CT examination was performed using dose optimization techniques as appropriate, variously including the following: *Automated exposure control *Adjustment of mA and/or kV according to patient size (this includes techniques or standardized protocols for targeted exams where dose is matched to indication/reason for exam; i.e. extremities or head) *Use of iterative reconstruction technique DLP: 812 and 502 mGy-cm COMPARISON: None FINDINGS: Head: There is no evidence of acute intracranial hemorrhage or territorial infarction. Pollack-white matter differentiation is preserved. No abnormal mass effect or midline shift. No extra-axial fluid collections. No abnormal attenuation is demonstrated within the brain parenchyma. The ventricles and sulcal spaces are proportional without hydrocephalus. Proportional prominence of the ventricles and sulcal spaces. [place] and soft tissue swelling overlying the vertex of the brain right paramedian location consistent with a subgaleal hematoma. No Fracture. The mastoid air cells and visualized portions of the paranasal sinuses are well aerated. Cervical Spine: The atlantooccipital and atlantoaxial articulations remain well aligned. Straightening of the normal cervical lordosis. Otherwise, there is anatomic alignment of the vertebral bodies and posterior elements. No evidence of acute fracture or subluxation. The vertebral body heights and disc spaces are maintained. There is no prevertebral soft tissue swelling. The thyroid gland and remaining cervical soft tissues are normal in appearance. The lung apices demonstrate no abnormalities. CT/CT cervical spine wo con IMPRESSION: No acute intracranial pathology. No fracture subluxation cervical spine. Soft tissue injury right vertex of skull.
--- NOTE | ~2021-06-06 | XR_ITS ---
EXAMINATION: XR ANKLE, LEFT CLINICAL INFORMATION: Injury. Pain and bruising. COMPARISON: None TECHNIQUE: AP, lateral, and mortise views of the left ankle. FINDINGS: There is an ossific density adjacent to the tip of the medial malleolus. This appears well-corticated and may be related to remote injury. Acute injury is not excluded. Donor site is not evident. There is a small joint effusion. No significant soft tissue swelling is seen. Alignment the ankle mortise is anatomic. XR/XR ankle LT min 3V IMPRESSION: Small ossific density at the tip of the medial malleolus consistent with avulsion injury of undetermined chronicity.
--- NOTE | ~2021-06-06 | CT_ITS ---
EXAM: CT scan of the head and cervical spine. INDICATION: Reason for Exam fall w/ head strike TECHNIQUE: A noncontrast CT scan was performed from the skull base to the vertex. A noncontrast CT scan of the cervical spine was performed from the base of the skull through T1 at 2.5 mm and 1.25 mm collimation. Coronal and sagittal reformats were obtained at the acquisition workstation. This CT examination was performed using dose optimization techniques as appropriate, variously including the following: *Automated exposure control *Adjustment of mA and/or kV according to patient size (this includes techniques or standardized protocols for targeted exams where dose is matched to indication/reason for exam; i.e. extremities or head) *Use of iterative reconstruction technique DLP: 812 and 502 mGy-cm COMPARISON: None FINDINGS: Head: There is no evidence of acute intracranial hemorrhage or territorial infarction. Pollack-white matter differentiation is preserved. No abnormal mass effect or midline shift. No extra-axial fluid collections. No abnormal attenuation is demonstrated within the brain parenchyma. The ventricles and sulcal spaces are proportional without hydrocephalus. Proportional prominence of the ventricles and sulcal spaces. [place] and soft tissue swelling overlying the vertex of the brain right paramedian location consistent with a subgaleal hematoma. No Fracture. The mastoid air cells and visualized portions of the paranasal sinuses are well aerated. Cervical Spine: The atlantooccipital and atlantoaxial articulations remain well aligned. Straightening of the normal cervical lordosis. Otherwise, there is anatomic alignment of the vertebral bodies and posterior elements. No evidence of acute fracture or subluxation. The vertebral body heights and disc spaces are maintained. There is no prevertebral soft tissue swelling. The thyroid gland and remaining cervical soft tissues are normal in appearance. The lung apices demonstrate no abnormalities. CT/CT head/brain wo con IMPRESSION: No acute intracranial pathology. No fracture subluxation cervical spine. Soft tissue injury right vertex of skull.
[2021-06-06 11:49] VITALS: BP 172/111; PULSE 116; RESP 19; TEMP 36.6; O2SAT 98; BMI 24.4
--- NOTE | 2021-06-06 12:20 | ED_ITS ---
HPI - General Adult General Chief complaint: General Medical <ANICETO Villanueva - Last Filed: 06/06/21 14:01> Stated complaint: Seizure <ANICETO Villanueva - Last Filed: 06/06/21 14:01> Time Seen by Provider: 06/06/21 12:05 <ANICETO Villanueva Last Filed: 06/06/21 14:01> Source: patient <ANICETO Villanueva - Last Filed: 06/06/21 14:01> Mode of arrival: ambulatory <ANICETO Villanueva Last Filed: 06/06/21 14:01> Limitations: no limitations <ANICETO Villanueva Last Filed: 06/06/21 14:01> History of Present Illness HPI narrative: 31-year-old male with history of alcohol abuse and dependence, history of alcohol withdrawal seizures, history of acute alcoholic pancreatitis, Crohn's disease, HTN, anxiety, GERD who presents to the ER for evaluation of a head injury after he had a witnessed seizure last night at 5:30pm. He reports daily ETOH use but cannot quantify, states it is different each day. Yesterday he got out of work at 3:30pm, had 2-3 rum drinks and went to his ex-'s house. This is less than his usual ETOH intake. At 5:30 he states he fell backward hitting his head on the ground and had a seizure. His ex- called 911 but he was combative and uncooperative, did not go to the ER. He drove himself home, almost got lost going home. He tried to go to bed and was up all night vomiting. He c/o blurry vision, posterior headache, and anxiety. He reports epigasric abdominal pain and cramping in his abdominal muscles for the last few weeks as well. No bloody diarrhea and no blood in his vomit. <ANICETO Villanueva - Last Filed: 06/06/21 14:01> MD complaint: head lac, s/p seizure <ANICETO Villanueva Last Filed: 06/06/21 14:01> Onset (ago): hour(s) (18) <ANICETO Villanueva Last Filed: 06/06/21 14:01> Location: head <ANICETO Villanueva Last Filed: 06/06/21 14:01> Radiation: non-radiation <ANICETO Villanueva Last Filed: 06/06/21 14:01> Severity: moderate <ANICETO Villanueva Last Filed: 06/06/21 14:01> Severity scale (1-10): 7 <ANICETO Villanueva Last Filed: 06/06/21 14:01> Quality: aching <ANICETO Villanueva Last Filed: 06/06/21 14:01> Pain Consistency: constant <ANICETO Villanueva Last Filed: 06/06/21 14:01> Relieving factors: none <ANICETO Villanueva Last Filed: 06/06/21 14:01> Exacerbating factors: none <ANICETO Villanueva Last Filed: 06/06/21 14:01> Associated symptoms: confusion, diaphoresis, headaches, loss of appetite, malaise, nausea/vomiting, seizure and weakness <ANICETO Villanueva Last Filed: 06/06/21 14:01> Treatments prior to arrival: none <ANICETO Villanueva Last Filed: 06/06/21 14:01> Related Data Home medications: Previous Rx's Medication Instructions Recorded amlodipine 10 mg tablet 10 mg PO DAILY 90 Days #90 tab 05/27/21 <ANICETO Villanueva Last Filed: 06/06/21 14:01> Allergies/adverse reactions: Allergies Allergy/AdvReac Type Severity Reaction Status Date / Time citalopram AdvReac Intermediate nausea Verified 05/28/21 04:17 <ANICETO Villanueva Last Filed: 06/06/21 14:01> Review of Systems Review of Systems: Constitutional: No Fever, No Chills ENT/Mouth: No sore throat, No Rhinorrhea, No Swallowing Difficulty Eyes: No Eye Pain, No Swelling, No Redness, +blurry vision Cardiovascular: No Chest Pain, No SOB, No Orthopnea, No Edema Respiratory: No Cough, No Sputum, No Wheezing, No dyspnea Gastrointestinal: + Nausea, + Vomiting, No Diarrhea, + abdominal Pain, No Hematochezia, No Melena Genitourinary: No Dysuria, No Urinary Frequency, No Hematuria Musculoskeletal: No joint pain, No Myalgias Skin: + Skin Lesions, No rash Neuro: No Weakness, No Numbness, + Dizziness, + Headache Psych: + Anxiety/Panic, + Depression Heme/Lymph: + Bruising, No Lymphadenopathy Endocrine: No Polyuria, No Polydipsia <ANICETO Villanueva - Last Filed: 06/06/21 14:01> [facility] Past Medical History Medical History: Medical History (Updated 06/06/21 @ 15:23 by ANICETO Rizo) Alcohol abuse Anxiety Benign essential hypertension Depression GERD without esophagitis Hypertriglyceridemia Insomnia Myalgia Ulcerative colitis <ANICETO Villanueva - Last Filed: 06/06/21 14:01> Surgical History: Surgical History History of shoulder surgery <ANICETO Villanueva - Last Filed: 06/06/21 14:01> Family History Family History: Family History Other Family history non-contributory Substance use disorder <ANICETO Villanueva - Last Filed: 06/06/21 14:01> Social History Social History: Social History Housing: House Alcohol intake: current Alcohol intake frequency: 3 or more drinks per day Alcohol type: hard liquor Patient Tobacco Use Status: Former Tobacco user e-Cigarette/Vaping Use: Never Used Second Hand Smoke Exposure: No Substance Use Type: Marijuana Advance Directives: No Advance Directives Information Provided: Yes service: No Current occupational status: employed Cognitive needs: No Hearing needs: No Vision needs: Yes (Glasses) <ANICETO Villanueva - Last Filed: 06/06/21 14:01> Physical Exam Vital Signs: Vital Signs: Last Vital Signs Temp 98 F 06/06/21 11:49 Pulse 116 H 06/06/21 11:49 Resp 19 06/06/21 11:49 BP 172/111 H 06/06/21 11:49 Pulse Ox 98 06/06/21 11:49 BMI result Body Mass Index 24.4 <ANICETO Villanueva - Last Filed: 06/06/21 14:01> Vital Signs: Last Vital Signs Temp 98 F 06/06/21 11:49 Pulse 116 H 06/06/21 11:49 Resp 19 06/06/21 11:49 BP 172/111 H 06/06/21 11:49 Pulse Ox 98 06/06/21 11:49 BMI result Body Mass Index 24.4 <ANICETO Rizo - Last Filed: 06/06/21 15:27> Appearance: Alert. Oriented X3. No acute distress. Head: Long hair with dried red blood posteriorly. T shaped deep laceration to the vertex. No active bleeding. Eyes: Pupils equal, round and reactive to light. ENT: Pharynx normal. Neck: Normal inspection. Neck supple. CVS: Tachycardic regular rhythm Pulses normal. Respiratory: No respiratory distress. Breath sounds normal. Abdomen: Soft and nontender. +BS x4 Skin: Skin warm and dry. Normal skin color. Normal skin turgor. No rashes. Extremities: left ankle with diffuse medial ecchymosis and mild swelling, normal ROM, no point tenderness. Neuro: Oriented X 3. No motor deficit. No sensory deficit. Slight tremor of the hands <ANICETO Villanueva - Last Filed: 06/06/21 14:01> Course Course Course Narrative: 31-year-old male with history of alcohol abuse and dependence, history of alcohol withdrawal, pancreatitis, Crohn's, anxiety, HTN, hypertriglyceridemia who presents to the ER with a head laceration and it would is seizure that occurred last night. He has been having ongoing headaches, blurry vision, dizziness and vomiting since. Concern for concussion versus possible intracranial hemorrhage. Stat CT scan has been ordered. He is neurologically intact. He is tachycardic and hypertensive consistent with alcohol withdrawal. Will treat with IV Ativan and clonidine for now. He will require admission to [facility] with phenobarbital protocol. <ANICETO Villanueva - Last Filed: 06/06/21 14:01> Reevaluation(s) Reevaluation #1: -4584-- CT head/brain wo con CT cervical spine wo con IMPRESSION: No acute intracranial pathology. No fracture subluxation cervical spine. Soft tissue injury right vertex of skull. -1518--patient admitted to hospitalist service for further management. Additional potassium repletion ordered IV and p.o. -US abdomen limited IMPRESSION: Cholelithiasis. No sonographic evidence of cholecystitis. Hepatic steatosis. No biliary dilatation. <ANICETO Rizo - Last Filed: 06/06/21 15:27> Procedures Laceration Laceration 1: Description: irregular <ANICETO Villanueva - Last Filed: 06/06/21 14:01> Depth: simple, single layer <ANICETO Villanueva - Last Filed: 06/06/21 14:01> Pre-repair: wound explored and irrigated extensively <ANICETO Villanueva - Last Filed: 06/06/21 14:01> Skin layer closed with: other (manuel - 5) <ANICETO Villanueva - Last Filed: 06/06/21 14:01> Medical Decision Making Lab Data Result diagrams: : 06/06/21 12:59 06/06/21 12:59 <ANICETO Villanueva - Last Filed: 06/06/21 14:01> Labs: Lab Results 06/06/21 06/06/21 06/06/21 Range/Units 12:59 12:59 12:59 WBC 8.3 (4.8-10.8) X10*3/uL RBC 3.88 L (4.60-5.80) X10*6/uL Hgb 13.3 L (14.0-18.0) g/dl Hct 36.8 L (42.0-52.0) % MCV 94.8 (80.0-98.0) fL MCH 34.3 H (27.0-33.0) pg MCHC 36.1 H (31.0-36.0) g/dl RDW 13.4 (11.0-16.0) % Plt Count 171 (160-400) X10*3/uL MPV 9.2 L (9.4-12.4) fL Immature Gran % (Auto) 0.4 (0.0-0.4) % Neut % (Auto) 80.5 H (45-73) % Lymph % (Auto) 9.1 L (20-40) % [place] % (Auto) 9.5 (2-11) % Eos % (Auto) 0.4 (0-4) % Baso % (Auto) 0.1 (0-2) % Lymph # (Auto) 0.8 L (1.2-4.9) X10*3/uL [place] # (Auto) 0.8 (0.1-1.2) X10*3/uL Eos # (Auto) 0.0 (0.0-0.4) X10*3/uL Baso # (Auto) 0.0 (0.0-0.2) X10*3/uL Abs Immat Gran (auto) 0.03 (0.00-0.03) X10*3/uL Absolute Neuts (auto) 6.7 (2.0-8.3) x10*3/uL Absolute Nucleated RBC 0.000 (0.0-0.012) X10*3/uL Nucleated RBC % (auto) 0.0 (0.0-0.2) /100WBC PT (9.9-13.0) SEC INR (0.9-1.1) APTT (24.1-38.0) SEC Sodium 136 (135-145) mmol/L Potassium 2.9 L (3.3-5.1) mmol/L Chloride 98 (96-108) mmol/L Carbon Dioxide 25 (22-29) mmol/L Anion Gap 16 (12-20) BUN 9 (9-16) mg/dL Creatinine 0.84 (0.5-1.4) mg/dL Estim Creat Clear Calc 141.1 Estimated GFR > 60 Random Glucose 93 (60-115) mg/dL Lactic Acid 0.8 (0.5-2.0) mmol/L Calcium 9.4 (8.4-10.2) mg/dL Magnesium 2.1 (1.6-2.6) mg/dL Total Bilirubin 1.8 H (0.0-1.0) mg/dL Direct Bilirubin 0.8 H (0.0-0.5) mg/dL AST 164 H (5-37) U/L ALT 88 H (0-40) U/L Alkaline Phosphatase 98 (39-117) U/L Total Creatine Kinase 1497 H D (38-174) U/L Total Protein 7.4 (6.5-8.0) g/dL Albumin 4.7 (3.5-5.0) g/dL Triglycerides mg/dL Lipase 68 (8-78) U/L Ethyl Alcohol mg/dL COVID-19 (ANICETO) (Negative) COVID-19 Clin Com 06/06/21 06/06/21 06/06/21 Range/Units 12:59 12:59 12:59 WBC (4.8-10.8) X10*3/uL RBC (4.60-5.80) X10*6/uL Hgb (14.0-18.0) g/dl Hct (42.0-52.0) % MCV (80.0-98.0) fL MCH (27.0-33.0) pg MCHC (31.0-36.0) g/dl RDW (11.0-16.0) % Plt Count (160-400) X10*3/uL MPV (9.4-12.4) fL Immature Gran % (Auto) (0.0-0.4) % Neut % (Auto) (45-73) % Lymph % (Auto) (20-40) % [place] % (Auto) (2-11) % Eos % (Auto) (0-4) % Baso % (Auto) (0-2) % Lymph # (Auto) (1.2-4.9) X10*3/uL [place] # (Auto) (0.1-1.2) X10*3/uL Eos # (Auto) (0.0-0.4) X10*3/uL Baso # (Auto) (0.0-0.2) X10*3/uL Abs Immat Gran (auto) (0.00-0.03) X10*3/uL Absolute Neuts (auto) (2.0-8.3) x10*3/uL Absolute Nucleated RBC (0.0-0.012) X10*3/uL Nucleated RBC % (auto) (0.0-0.2) /100WBC PT 10.8 (9.9-13.0) SEC INR 1.0 (0.9-1.1) APTT 28.8 (24.1-38.0) SEC Sodium (135-145) mmol/L Potassium (3.3-5.1) mmol/L Chloride (96-108) mmol/L Carbon Dioxide (22-29) mmol/L Anion Gap (12-20) BUN (9-16) mg/dL Creatinine (0.5-1.4) mg/dL Estim Creat Clear Calc Estimated GFR Random Glucose (60-115) mg/dL Lactic Acid (0.5-2.0) mmol/L Calcium (8.4-10.2) mg/dL Magnesium (1.6-2.6) mg/dL Total Bilirubin (0.0-1.0) mg/dL Direct Bilirubin (0.0-0.5) mg/dL AST (5-37) U/L ALT (0-40) U/L Alkaline Phosphatase (39-117) U/L Total Creatine Kinase (38-174) U/L Total Protein (6.5-8.0) g/dL Albumin (3.5-5.0) g/dL Triglycerides mg/dL Lipase (8-78) U/L Ethyl Alcohol < 10 mg/dL COVID-19 (ANICETO) Negative (Negative) COVID-19 Clin Com See Note 06/06/21 Range/Units 14:14 WBC (4.8-10.8) X10*3/uL RBC (4.60-5.80) X10*6/uL Hgb (14.0-18.0) g/dl Hct (42.0-52.0) % MCV (80.0-98.0) fL MCH (27.0-33.0) pg MCHC (31.0-36.0) g/dl RDW (11.0-16.0) % Plt Count (160-400) X10*3/uL MPV (9.4-12.4) fL Immature Gran % (Auto) (0.0-0.4) % Neut % (Auto) (45-73) % Lymph % (Auto) (20-40) % [place] % (Auto) (2-11) % Eos % (Auto) (0-4) % Baso % (Auto) (0-2) % Lymph # (Auto) (1.2-4.9) X10*3/uL [place] # (Auto) (0.1-1.2) X10*3/uL Eos # (Auto) (0.0-0.4) X10*3/uL Baso # (Auto) (0.0-0.2) X10*3/uL Abs Immat Gran (auto) (0.00-0.03) X10*3/uL Absolute Neuts (auto) (2.0-8.3) x10*3/uL Absolute Nucleated RBC (0.0-0.012) X10*3/uL Nucleated RBC % (auto) (0.0-0.2) /100WBC PT (9.9-13.0) SEC INR (0.9-1.1) APTT (24.1-38.0) SEC Sodium (135-145) mmol/L Potassium (3.3-5.1) mmol/L Chloride (96-108) mmol/L Carbon Dioxide (22-29) mmol/L Anion Gap (12-20) BUN (9-16) mg/dL Creatinine (0.5-1.4) mg/dL Estim Creat Clear Calc Estimated GFR Random Glucose (60-115) mg/dL Lactic Acid (0.5-2.0) mmol/L Calcium (8.4-10.2) mg/dL Magnesium (1.6-2.6) mg/dL Total Bilirubin (0.0-1.0) mg/dL Direct Bilirubin (0.0-0.5) mg/dL AST (5-37) U/L ALT (0-40) U/L Alkaline Phosphatase (39-117) U/L Total Creatine Kinase (38-174) U/L Total Protein (6.5-8.0) g/dL Albumin (3.5-5.0) g/dL Triglycerides 75 mg/dL Lipase (8-78) U/L Ethyl Alcohol mg/dL COVID-19 (ANICETO) (Negative) COVID-19 Clin Com <ANICETO Villanueva - Last Filed: 06/06/21 14:01> Lab Results 06/06/21 06/06/21 06/06/21 Range/Units 12:59 12:59 12:59 WBC 8.3 (4.8-10.8) X10*3/uL RBC 3.88 L (4.60-5.80) X10*6/uL Hgb 13.3 L (14.0-18.0) g/dl Hct 36.8 L (42.0-52.0) % MCV 94.8 (80.0-98.0) fL MCH 34.3 H (27.0-33.0) pg MCHC 36.1 H (31.0-36.0) g/dl RDW 13.4 (11.0-16.0) % Plt Count 171 (160-400) X10*3/uL MPV 9.2 L (9.4-12.4) fL Immature Gran % (Auto) 0.4 (0.0-0.4) % Neut % (Auto) 80.5 H (45-73) % Lymph % (Auto) 9.1 L (20-40) % [place] % (Auto) 9.5 (2-11) % Eos % (Auto) 0.4 (0-4) % Baso % (Auto) 0.1 (0-2) % Lymph # (Auto) 0.8 L (1.2-4.9) X10*3/uL [place] # (Auto) 0.8 (0.1-1.2) X10*3/uL Eos # (Auto) 0.0 (0.0-0.4) X10*3/uL Baso # (Auto) 0.0 (0.0-0.2) X10*3/uL Abs Immat Gran (auto) 0.03 (0.00-0.03) X10*3/uL Absolute Neuts (auto) 6.7 (2.0-8.3) x10*3/uL Absolute Nucleated RBC 0.000 (0.0-0.012) X10*3/uL Nucleated RBC % (auto) 0.0 (0.0-0.2) /100WBC PT (9.9-13.0) SEC INR (0.9-1.1) APTT (24.1-38.0) SEC Sodium 136 (135-145) mmol/L Potassium 2.9 L (3.3-5.1) mmol/L Chloride 98 (96-108) mmol/L Carbon Dioxide 25 (22-29) mmol/L Anion Gap 16 (12-20) BUN 9 (9-16) mg/dL Creatinine 0.84 (0.5-1.4) mg/dL Estim Creat Clear Calc 141.1 Estimated GFR > 60 Random Glucose 93 (60-115) mg/dL Lactic Acid 0.8 (0.5-2.0) mmol/L Calcium 9.4 (8.4-10.2) mg/dL Magnesium 2.1 (1.6-2.6) mg/dL Total Bilirubin 1.8 H (0.0-1.0) mg/dL Direct Bilirubin 0.8 H (0.0-0.5) mg/dL AST 164 H (5-37) U/L ALT 88 H (0-40) U/L Alkaline Phosphatase 98 (39-117) U/L Total Creatine Kinase 1497 H D (38-174) U/L Total Protein 7.4 (6.5-8.0) g/dL Albumin 4.7 (3.5-5.0) g/dL Triglycerides mg/dL Lipase 68 (8-78) U/L Ethyl Alcohol mg/dL COVID-19 (ANICETO) (Negative) COVID-19 Clin Com 06/06/21 06/06/21 06/06/21 Range/Units 12:59 12:59 12:59 WBC (4.8-10.8) X10*3/uL RBC (4.60-5.80) X10*6/uL Hgb (14.0-18.0) g/dl Hct (42.0-52.0) % MCV (80.0-98.0) fL MCH (27.0-33.0) pg MCHC (31.0-36.0) g/dl RDW (11.0-16.0) % Plt Count (160-400) X10*3/uL MPV (9.4-12.4) fL Immature Gran % (Auto) (0.0-0.4) % Neut % (Auto) (45-73) % Lymph % (Auto) (20-40) % [place] % (Auto) (2-11) % Eos % (Auto) (0-4) % Baso % (Auto) (0-2) % Lymph # (Auto) (1.2-4.9) X10*3/uL [place] # (Auto) (0.1-1.2) X10*3/uL Eos # (Auto) (0.0-0.4) X10*3/uL Baso # (Auto) (0.0-0.2) X10*3/uL Abs Immat Gran (auto) (0.00-0.03) X10*3/uL Absolute Neuts (auto) (2.0-8.3) x10*3/uL Absolute Nucleated RBC (0.0-0.012) X10*3/uL Nucleated RBC % (auto) (0.0-0.2) /100WBC PT 10.8 (9.9-13.0) SEC INR 1.0 (0.9-1.1) APTT 28.8 (24.1-38.0) SEC Sodium (135-145) mmol/L Potassium (3.3-5.1) mmol/L Chloride (96-108) mmol/L Carbon Dioxide (22-29) mmol/L Anion Gap (12-20) BUN (9-16) mg/dL Creatinine (0.5-1.4) mg/dL Estim Creat Clear Calc Estimated GFR Random Glucose (60-115) mg/dL Lactic Acid (0.5-2.0) mmol/L Calcium (8.4-10.2) mg/dL Magnesium (1.6-2.6) mg/dL Total Bilirubin (0.0-1.0) mg/dL Direct Bilirubin (0.0-0.5) mg/dL AST (5-37) U/L ALT (0-40) U/L Alkaline Phosphatase (39-117) U/L Total Creatine Kinase (38-174) U/L Total Protein (6.5-8.0) g/dL Albumin (3.5-5.0) g/dL Triglycerides mg/dL Lipase (8-78) U/L Ethyl Alcohol < 10 mg/dL COVID-19 (ANICETO) Negative (Negative) COVID-19 Clin Com See Note 06/06/21 Range/Units 14:14 WBC (4.8-10.8) X10*3/uL RBC (4.60-5.80) X10*6/uL Hgb (14.0-18.0) g/dl Hct (42.0-52.0) % MCV (80.0-98.0) fL MCH (27.0-33.0) pg MCHC (31.0-36.0) g/dl RDW (11.0-16.0) % Plt Count (160-400) X10*3/uL MPV (9.4-12.4) fL Immature Gran % (Auto) (0.0-0.4) % Neut % (Auto) (45-73) % Lymph % (Auto) (20-40) % [place] % (Auto) (2-11) % Eos % (Auto) (0-4) % Baso % (Auto) (0-2) % Lymph # (Auto) (1.2-4.9) X10*3/uL [place] # (Auto) (0.1-1.2) X10*3/uL Eos # (Auto) (0.0-0.4) X10*3/uL Baso # (Auto) (0.0-0.2) X10*3/uL Abs Immat Gran (auto) (0.00-0.03) X10*3/uL Absolute Neuts (auto) (2.0-8.3) x10*3/uL Absolute Nucleated RBC (0.0-0.012) X10*3/uL Nucleated RBC % (auto) (0.0-0.2) /100WBC PT (9.9-13.0) SEC INR (0.9-1.1) APTT (24.1-38.0) SEC Sodium (135-145) mmol/L Potassium (3.3-5.1) mmol/L Chloride (96-108) mmol/L Carbon Dioxide (22-29) mmol/L Anion Gap (12-20) BUN (9-16) mg/dL Creatinine (0.5-1.4) mg/dL Estim Creat Clear Calc Estimated GFR Random Glucose (60-115) mg/dL Lactic Acid (0.5-2.0) mmol/L Calcium (8.4-10.2) mg/dL Magnesium (1.6-2.6) mg/dL Total Bilirubin (0.0-1.0) mg/dL Direct Bilirubin (0.0-0.5) mg/dL AST (5-37) U/L ALT (0-40) U/L Alkaline Phosphatase (39-117) U/L Total Creatine Kinase (38-174) U/L Total Protein (6.5-8.0) g/dL Albumin (3.5-5.0) g/dL Triglycerides 75 mg/dL Lipase (8-78) U/L Ethyl Alcohol mg/dL COVID-19 (ANICETO) (Negative) COVID-19 Clin Com <ANICETO Rizo - Last Filed: 06/06/21 15:27> Critical Care Time Critical Care Time Critical Care Time: Yes <ANICETO Villanueva - Last Filed: 06/06/21 14:01> Total Critical Care Time: 45 <ANICETO Villanueva - Last Filed: 06/06/21 14:01> Attestation: I have personally provided critical care time exclusive of time spent on separately billable procedures. Time includes review of lab data, radiology results, discussion with consultants, and monitoring for potential decompensation. Intervention performed as documented. <ANICETO Villanueva - Last Filed: 06/06/21 14:01> Discharge Plan Discharge Clinical Impression: Alcohol withdrawal seizure Qualifiers: Complication of substance-induced condition: with unspecified complication Qualified Code(s): F10.239 - Alcohol dependence with withdrawal, unspecified Rhabdomyolysis Qualifiers: Rhabdomyolysis type: traumatic Encounter type: initial encounter Qualified Code(s): T79.6XXA - Traumatic ischemia of muscle, initial encounter Laceration of scalp Qualifiers: Encounter type: initial encounter Qualified Code(s): S01.01XA - Laceration without foreign body of scalp, initial encounter <ANICETO Villanueva - Last Filed: 06/06/21 14:01> Patient Disposition: Admitted As Inpatient <ANICETO Villanueva - Last Filed: 06/06/21 14:01>
--- NOTE | 2021-06-06 12:27 | ECG_ITS ---
Test Reason : Seizure and concussion Blood Pressure : / mmHG Vent. Rate : 093 BPM Atrial Rate : 093 BPM P-R Int : 144 ms QRS Dur : 090 ms QT Int : 392 ms P-R-T Axes : 075 047 055 degrees QTc Int : 487 ms Normal sinus rhythm Prolonged QT Abnormal ECG When compared with ECG of 07-MAY-2021 15:43, QT has lengthened Referred By: Veronica Damico Electronically Signed By:ANTOLIN FRANKS MD
[2021-06-06 13:05] LABS: MANUAL DIFF FLAG NO
[2021-06-06 13:07] LABS: Basophils Percent Auto 0.1 % (0-2); Eosinophils Percent Auto 0.4 % (0-4); Hematocrit 36.8 % (42.0-52.0); Hemoglobin 13.3 g/dl (14.0-18.0); Imm Gran Abs Auto 0.03 X10*3/uL (0.00-0.03); Imm Gran Pct Auto 0.4 % (0.0-0.4); Lymphocytes Absolute Auto 0.8 X10*3/uL (1.2-4.9); Lymphocytes Percent Auto 9.1 % (20-40); Mean Corpuscular HGB Conc 36.1 g/dl (31.0-36.0); Mean Corpuscular Hemoglobin 34.3 pg (27.0-33.0); Mean Corpuscular Volume 94.8 fL (80.0-98.0); Mean Platelet Volume 9.2 fL (9.4-12.4); Monocytes Absolute Auto 0.8 X10*3/uL (0.1-1.2); Monocytes Percent Auto 9.5 % (2-11); Neutrophils Absolute Auto 6.7 x10*3/uL (2.0-8.3); Neutrophils Percent Auto 80.5 % (45-73); Platelet Count 171 X10*3/uL (160-400); Red Blood Count 3.88 X10*6/uL (4.60-5.80); Red Cell Distribution Width 13.4 % (11.0-16.0); White Blood Count 8.3 X10*3/uL (4.8-10.8)
[2021-06-06 13:13] LABS: Prothrombin Time 10.8 SEC (9.9-13.0)
[2021-06-06 13:15] LABS: Partial Thromboplastin Time 28.8 SEC (24.1-38.0)
[2021-06-06 13:17] LABS: Lactic Acid 0.8 mmol/L (0.5-2.0)
[2021-06-06 13:21] LABS: COVID-19 Test Negative (Negative); IDNOW Serial# 9DD0AD1C
[2021-06-06 13:26] LABS: Ethanol < 10 mg/dL
[2021-06-06 13:39] LABS: Alanine Aminotransferase 88 U/L (0-40); Albumin Level 4.7 g/dL (3.5-5.0); Alkaline Phosphatase 98 U/L (39-117); Anion Gap 16 (12-20); Aspartate Amino Transferase 164 U/L (5-37); Bilirubin Direct 0.8 mg/dL (0.0-0.5); Bilirubin Total 1.8 mg/dL (0.0-1.0); Blood Urea Nitrogen 9 mg/dL (9-16); Calcium 9.4 mg/dL (8.4-10.2); Carbon Dioxide 25 mmol/L (22-29); Chloride 98 mmol/L (96-108); Creatinine Clr Calc Pharmacy 141.1; Estimated Glomerular Filt Rate > 60; Glucose Random 93 mg/dL (60-115); Lipase 68 U/L (8-78); Magnesium 2.1 mg/dL (1.6-2.6); Potassium 2.9 mmol/L (3.3-5.1); Sodium 136 mmol/L (135-145); Total Protein 7.4 g/dL (6.5-8.0)
[2021-06-06] MEDS: LORazepam 2 MG/ML VIAL IVPUSH (13:43)
[2021-06-06] MEDS: cloNIDine HCL 0.1 MG TABLET PO (13:43)
[2021-06-06] MEDS: ondansetron HCL 4 MG/2 ML VIAL IVPUSH (13:44)
[2021-06-06] MEDS: Diphth,Pertus(ACell),Tet Adult 0.5 ML SYRINGE IM (13:51)
[2021-06-06 14:30] LABS: Triglycerides 75 mg/dL
[2021-06-06 15:23] VITALS: BP 137/93; PULSE 102; RESP 12; TEMP 36.8; O2SAT 99
--- NOTE | 2021-06-06 15:38 | PM.IMHP ---
History of Present Illness Date of Service: 06/06/21 Attending physician on admission: Maria Elena Mckeon Chief Complaint: alcohol withdrawal , seizures. 30-year-old male with a past medical history of anxiety, depression, alcohol use presented to the hospital with a chief complaint of abdominal pain.? Patient reports that he has a history of Crohn's disease and has not had any flares recently.? Has been drinking alcohol on a regular basis mostly gin/rum.? also has seizure episode last evening ,yesterday ?head injury after he had a witnessed seizure last night at 5:30pm. He reports daily ETOH use but cannot quantify, states it is different each day. Yesterday he got out of work at 3:30pm, had 2-3 rum drinks and went to his ex-'s house. This is less than his usual ETOH intake. At 5:30 he states he fell backward hitting his head on the ground and had a seizure. His ex- called 911 but he was combative and uncooperative, did not go to the ER. He drove himself home, almost got lost going home. He tried to go to bed and was up all night vomiting. He has posterior headache, and anxiety ,epigasric abdominal pain and cramping in his abdominal muscles for the last few weeks as well. No bloody diarrhea and no blood in his vomiting.? Denies any blurred vision or epigastric discomfort when I saw the patient but still has significant nausea as per the patient. Denies any fever or chills or cough. Review of all other systems is negative except meds . Review of Systems Review of Systems: as above. Yes all other systems are reviewed and are negative [facility] Medical History Alcohol abuse Anxiety Benign essential hypertension Depression GERD without esophagitis Hypertriglyceridemia Insomnia Myalgia Ulcerative colitis Family History Other Family history non-contributory Substance use disorder Surgical History History of shoulder surgery Social History Household Members: None Housing: Apartment Do you presently have visiting nurse or other home services: No Alcohol intake: current Alcohol intake frequency: 3 or more drinks per day Alcohol type: hard liquor Patient Tobacco Use Status: Former Tobacco user e-Cigarette/Vaping Use: Never Used Second Hand Smoke Exposure: No Use of substances other than those prescribed or required for medical reasons: No Substance Use Type: Marijuana Currently Displaying Signs/Symptoms of Drug Intoxication Withdrawal: No Advance Directives: No Advance Directives Information Provided: Yes Do you have thoughts of harming others: None Do you have a plan to hurt others: No Plan Recently lost weight without trying: Unsure Eating poorly because of decreased appetite: No Nutrition Risks: No Nutritional Risk Poor oral hygiene: No service: No Current occupational status: employed Cognitive needs: No Hearing needs: No Vision needs: Yes (Glasses) Meds Allergies Allergy/AdvReac Type Severity Reaction Status Date / Time citalopram AdvReac Intermediate nausea Verified 05/28/21 04:17 Active Medications: Current Medications Enoxaparin Sodium (Enoxaparin Sodium 40 Mg/0.4 Ml Syringe) 40 mg SUBCUT DAILY [facility] Folic Acid (Folic Acid 1 Mg Tablet) 1 mg PO DAILY [facility] Potassium Chloride () 10 meq in 100 mls @ 100 mls/hr IV Q1H [facility] Stop: 06/06/21 17:29 Labetalol HCl (Labetalol Hcl 100 Mg Tablet) 100 mg PO BID [facility]ANN; Protocol Medication (No Benzodiazepines) 1 each MISCELLANE DAILY [facility] Omeprazole (Omeprazole 20 Mg Capsule.Dr) 20 mg PO BID [facility] Ondansetron HCl (Ondansetron Hcl 4 Mg/2 Ml Vial) 4 mg IVPUSH Q6H PRN PRN Reason: Nausea Pharmacy Consult (Consult Rx Perform Med Rec) 1 each MISCELLANE ONCE PRN PRN Reason: Consult order Phenobarbital (Phenobarbital 30 Mg Tablet) 60 mg PO BID [facility] Stop: 06/08/21 21:01 Phenobarbital (Phenobarbital 30 Mg Tablet) 30 mg PO BID [facility] Stop: 06/10/21 21:01 Phenobarbital (Phenobarbital 30 Mg Tablet) 30 mg PO DAILY [facility] Stop: 06/12/21 09:01 Phenobarbital Sodium (Phenobarbital Sodium 130 Mg/Ml Vial) 279 mg IM Q3H [facility] Stop: 06/06/21 20:01 Sodium Chloride (0.9 % Sodium Chloride Flush 3 Ml Syringe) 3 ml IVFLUSH QSHIFT [facility] Thiamine HCl (Thiamine Hcl 100 Mg Tablet) 100 mg PO DAILY [facility] Physical Exam Vital Signs and Narrative: Vital Signs: Last Vital Signs Temp 98.3 F 06/06/21 15:23 Pulse 102 H 06/06/21 15:23 Resp 12 06/06/21 15:23 BP 137/93 H 06/06/21 15:23 Pulse Ox 99 06/06/21 15:23 BMI result Body Mass Index 24.4 Physical exam: Appearance: Alert.? Oriented X3.? not in distress.? Eyes: Pupils equal, round and reactive to light.? Sclera nonicteric.? ENT: Pharynx normal.? Moist mucous membranes. head : on top in parietal area midlle -laceration-has amnuel.no bump or ozzing noted. cvs: rrr, [id number] , no murmur res: clear to auscultation ,no rhonchii or wheezing abd: no rebound or guarding ,nt, bs present. ext pulses present , no cyanosis ,Gait well balanced well coordinated. neuro: axo3 , nonfocal. Results Labs CBC and Chem 7: 06/07/21 06:20 06/07/21 06:20 Labs: Laboratory Results - last 24 hr 06/06/21 06/06/21 06/06/21 12:59 12:59 12:59 MCV 94.8 MCH 34.3 H MCHC 36.1 H RDW 13.4 Plt Count 171 MPV 9.2 L Immature Gran % (Auto) 0.4 Neut % (Auto) 80.5 H Lymph % (Auto) 9.1 L Imperial % (Auto) 9.5 Eos % (Auto) 0.4 Baso % (Auto) 0.1 Lymph # (Auto) 0.8 L [place] # (Auto) 0.8 Eos # (Auto) 0.0 Baso # (Auto) 0.0 Abs Immat Gran (auto) 0.03 Absolute Neuts (auto) 6.7 Absolute Nucleated RBC 0.000 Nucleated RBC % (auto) 0.0 PT INR APTT Anion Gap 16 Estim Creat Clear Calc 141.1 Estimated GFR > 60 Random Glucose 93 Lactic Acid 0.8 Calcium 9.4 Magnesium 2.1 Total Bilirubin 1.8 H Direct Bilirubin 0.8 H AST 164 H ALT 88 H Alkaline Phosphatase 98 Total Creatine Kinase 1497 H D Total Protein 7.4 Albumin 4.7 Triglycerides Lipase 68 Ethyl Alcohol COVID-19 ([facility]EO) COVID-19 Clin Com 06/06/21 06/06/21 06/06/21 12:59 12:59 12:59 MCV MCH MCHC RDW Plt Count MPV Immature Gran % (Auto) Neut % (Auto) Lymph % (Auto) [place] % (Auto) Eos % (Auto) Baso % (Auto) Lymph # (Auto) [place] # (Auto) Eos # (Auto) Baso # (Auto) Abs Immat Gran (auto) Absolute Neuts (auto) Absolute Nucleated RBC Nucleated RBC % (auto) PT 10.8 INR 1.0 APTT 28.8 Anion Gap Estim Creat Clear Calc Estimated GFR Random Glucose Lactic Acid Calcium Magnesium Total Bilirubin Direct Bilirubin AST ALT Alkaline Phosphatase Total Creatine Kinase Total Protein Albumin Triglycerides Lipase Ethyl Alcohol < 10 COVID-19 (ANICETO) Negative COVID-19 Clin Com See Note 06/06/21 14:14 MCV MCH MCHC RDW Plt Count MPV Immature Gran % (Auto) Neut % (Auto) Lymph % (Auto) [place] % (Auto) Eos % (Auto) Baso % (Auto) Lymph # (Auto) [place] # (Auto) Eos # (Auto) Baso # (Auto) Abs Immat Gran (auto) Absolute Neuts (auto) Absolute Nucleated RBC Nucleated RBC % (auto) PT INR APTT Anion Gap Estim Creat Clear Calc Estimated GFR Random Glucose Lactic Acid Calcium Magnesium Total Bilirubin Direct Bilirubin AST ALT Alkaline Phosphatase Total Creatine Kinase Total Protein Albumin Triglycerides 75 Lipase Ethyl Alcohol COVID-19 (ANICETO) COVID-19 Clin Com Imaging Radiologist's Impressions: Impressions Ankle X-Ray 06/06/21 13:29 IMPRESSION: Small ossific density at the tip of the medial malleolus consistent with avulsion injury of undetermined chronicity. Cervical Spine CT 06/06/21 13:31 IMPRESSION: No acute intracranial pathology. No fracture subluxation cervical spine. Soft tissue injury right vertex of skull. Head CT 06/06/21 13:31 IMPRESSION: No acute intracranial pathology. No fracture subluxation cervical spine. Soft tissue injury right vertex of skull. Abdomen Ultrasound 06/06/21 14:26 IMPRESSION: Cholelithiasis. No sonographic evidence of cholecystitis. Hepatic steatosis. No biliary dilatation. Assessment and Plan (1) Alcohol withdrawal seizure: Qualifiers: Complication of substance-induced condition: with unspecified complication Qualified Code(s): F10.239 - Alcohol dependence with withdrawal, unspecified; R56.9 - Unspecified convulsions Status: Acute (2) Rhabdomyolysis: Qualifiers: Encounter type: initial encounter Rhabdomyolysis type: traumatic Qualified Code(s): T79.6XXA - Traumatic ischemia of muscle, initial encounter Status: Acute (3) Hypokalemia: Status: Acute 30-year-old male with a past medical history of Crohn's disease, anxiety, depression, alcohol use presented to the hospital with a chief complaint of nausea vomiting and abdominal discomfort.? Noted to have pancreatitis.? Admitted for further management. Alcohol withdrwal /seizure :? Monitor on CIWA protocol with pheonbarbital,? Will give the patient on thiamine, folate. Rhabdomyolysis: related to seizure /fall: Continue IV fluids. Nausea/vomiting:? Likely alcoholic gastritis.? ppi/zofran. U tox is positive for marijuana also. Transaminitis:? Likely in setting of alcohol use.? us -cholelitasis , hepatic steatosis ? Monitor liver enzymes. Htn/tchycardia: Probably related to alcohol withdrawal. Added labetalol. Hypokalemia: Repleted p.o. and IV magnesium is normal monitor on tele DVT prophylaxis with subQ Lovenox above management discuss with the patient in detail as well as family member at the bedside, patient full code, assessment and plan coordination time spent 70 minute. Quality Stroke Does the patient have a stroke diagnosis?: No VTE Prior VTE?: No VTE Risk Level:: Medical - moderate - high VTE Device Contraindication: N/A - Device Ordered VTE Drug Contraindication: N/A - Med Ordered
[2021-06-06] MEDS: Potassium Chloride ER 20 MEQ TAB.ER.PRT 40 MEQ PO (15:39)
[2021-06-06] MEDS: Lactated Ringers 1,000 ML 999 ML IV (15:39)
[2021-06-06] MEDS: PHENobarbitaL sodium 130 MG/ML VIAL 372 MG IM (15:40)
[2021-06-06] MEDS: Potassium Chloride Packet 20 MEQ PACKET 40 MEQ PO (15:41)
[2021-06-06] MEDS: Potassium Chloride/H20 10 MEQ/100 ML PIGGYBACK 100 MEQ IV ×2 (15:52→17:47)
[2021-06-06] MEDS: Thiamine HCL 100 MG TABLET PO (17:44)
[2021-06-06] MEDS: Folic Acid 1 MG TABLET PO (17:44)
[2021-06-06] MEDS: PHENobarbitaL sodium 130 MG/ML VIAL 279 MG IM ×2 (17:44→21:11)
[2021-06-06] MEDS: Omeprazole 20 MG CAPSULE.DR PO (17:45)
[2021-06-06] MEDS: Lactated Ringers 1,000 ML 100 ML IVCONT (17:46)
[2021-06-06 17:49] LABS: Appearance Urine CLEAR; Color Urine DK YELLOW; Glucose Urine UA NEG (NEG); Leukocyte Esterase Urine NEG (NEG); Nitrite Urine NEG (NEG); PH 6.5 (5.0-8.0); UACC Culture Trigger NO; Urine Blood NEG (NEG); Urine Ketones 40 MG/DL (NEG); Urine Protein 2+ MG/DL (NEG-TRACE)
[2021-06-06 17:51] LABS: Amphetamine Screen Urine Not Detected (Not Detect); Barbiturates, Urine Not Detected (Not Detect); Benzodiazepines Screen Urine Not Detected (Not Detect); Cannabinoid Screen Urine POSITIVE (Not Detect); Cocaine Screen Urine Not Detected (Not Detect); Fentanyl, urine Not Detected (Not Detect); Opiate Screen Urine Not Detected (Not Detect); Phencyclidine Screen Urine Not Detected (Not Detect)
[2021-06-06 18:00] LABS: Mucus Urine 1+ /LPF; RBC Urine 0-2 /HPF (0); Squamous Epithelial Cell Urine TRACE /LPF; WBC Urine 0-2 /HPF (0-4)
[2021-06-06 21:42] VITALS: BP 138/92; PULSE 70; RESP 18; TEMP 36.7; O2SAT 99
[2021-06-06 22:17] VITALS: BP 138/92; PULSE 70
[2021-06-06] MEDS: Labetalol HCL 100 MG TABLET PO (22:17)
[2021-06-06] MEDS: 0.9 % Sodium Chloride Flush 3 ML SYRINGE IVFLUSH (22:18)
[2021-06-07] VITALS (8 sets, daily range): BP systolic 110–135; BP diastolic 69–88; PULSE 64–80; RESP 16–20; TEMP 36.5–37.1; O2SAT 97–98
[2021-06-07] MEDS: Lactated Ringers 1,000 ML 100 ML IVCONT ×2 (02:29→12:52)
[2021-06-07] MEDS: Omeprazole 20 MG CAPSULE.DR PO ×2 (06:20→16:03)
[2021-06-07 06:24] LABS: MANUAL DIFF FLAG NO
[2021-06-07 06:34] LABS: Basophils Percent Auto 0.4 % (0-2); Eosinophils Absolute Auto 0.2 X10*3/uL (0.0-0.4); Hematocrit 34.8 % (42.0-52.0); Hemoglobin 12.2 g/dl (14.0-18.0); Imm Gran Abs Auto 0.03 X10*3/uL (0.00-0.03); Imm Gran Pct Auto 0.5 % (0.0-0.4); Lymphocytes Absolute Auto 1.7 X10*3/uL (1.2-4.9); Lymphocytes Percent Auto 30.6 % (20-40); Mean Corpuscular HGB Conc 35.1 g/dl (31.0-36.0); Mean Corpuscular Hemoglobin 33.8 pg (27.0-33.0); Mean Corpuscular Volume 96.4 fL (80.0-98.0); Monocytes Absolute Auto 0.4 X10*3/uL (0.1-1.2); Monocytes Percent Auto 7.7 % (2-11); Neutrophils Absolute Auto 3.3 x10*3/uL (2.0-8.3); Neutrophils Percent Auto 57.8 % (45-73); Platelet Count 148 X10*3/uL (160-400); Red Blood Count 3.61 X10*6/uL (4.60-5.80); Red Cell Distribution Width 13.4 % (11.0-16.0); White Blood Count 5.6 X10*3/uL (4.8-10.8)
[2021-06-07 07:04] LABS: Anion Gap 15 (12-20); Blood Urea Nitrogen 7 mg/dL (9-16); Calcium 8.6 mg/dL (8.4-10.2); Carbon Dioxide 24 mmol/L (22-29); Chloride 98 mmol/L (96-108); Creatinine Clr Calc Pharmacy 144.5; Estimated Glomerular Filt Rate > 60; Glucose Random 73 mg/dL (60-115); Potassium 3.2 mmol/L (3.3-5.1); Sodium 134 mmol/L (135-145)
--- NOTE | 2021-06-07 08:05 | HO.PM.IMPN ---
Subjective Subjective Date of Service: 06/07/21 Interval History: alcohol withdrawal, hypokalemia Review of Systems Since has tremors, mild diaphoresis denies any chest pain or shortness of breath or abdominal pain or fever or chills or cough or phlegm. Physical Exam Vital Signs: Vital Signs: Last Vital Signs Temp 98 F 06/07/21 02:43 Pulse 66 06/07/21 02:43 Resp 18 06/07/21 02:43 BP 114/69 06/07/21 02:43 Pulse Ox 98 06/07/21 02:43 BMI result Body Mass Index 24.4 ?Appearance: Alert.? Oriented X3.? not in distress.? Eyes: Pupils equal, round and reactive to light.? Sclera nonicteric.? ENT: Pharynx normal.? Moist mucous membranes. head : on top in parietal area midlle -laceration-has manuel.no bump or ozzing noted. cvs: [id number], [id number] , no murmur res: clear to auscultation ,no rhonchii or wheezing abd: no rebound or guarding ,nt, bs present. ext pulses present , no cyanosis ,Gait well balanced well coordinated. neuro: axo3 , nonfocal. Objective Data Active Medications Enoxaparin Sodium (Enoxaparin Sodium 40 Mg/0.4 Ml Syringe) 40 mg SUBCUT Q24H [facility] Last Admin: 06/06/21 17:46 Dose: Not Given Documented by: MARYAM Non-Admin Reason: Patient Asleep Folic Acid (Folic Acid 1 Mg Tablet) 1 mg PO DAILY [facility] Last Admin: 06/06/21 17:44 Dose: 1 mg Documented by: MARYAM Lactated Ringer's (Lr) 1,000 mls @ 100 mls/hr IVCONT .Q10H [facility] Stop: 06/07/21 17:14 Last Admin: 06/07/21 02:29 Dose: 100 mls/hr Documented by: ANTOIC Labetalol HCl (Labetalol Hcl 100 Mg Tablet) 100 mg PO BID [facility]; Protocol Last Admin: 06/06/21 22:17 Dose: 100 mg Documented by: ANTOIC Medication (No Benzodiazepines) 1 each MISCELLANE DAILY [facility] Omeprazole (Omeprazole 20 Mg Lisbeth.) 20 mg PO BID@0630,1630 [facility] Last Admin: 06/07/21 06:20 Dose: 20 mg Documented by: ANTMELODY Ondansetron HCl (Ondansetron Hcl 4 Mg/2 Ml Vial) 4 mg IVPUSH Q8H PRN PRN Reason: Nausea Pharmacy Consult (Consult Rx Perform Med Rec) 1 each MISCELLANE ONCE PRN PRN Reason: Consult order Phenobarbital (Phenobarbital 30 Mg Tablet) 60 mg PO BID [facility] Stop: 06/08/21 21:01 Phenobarbital (Phenobarbital 30 Mg Tablet) 30 mg PO BID [facility] Stop: 06/10/21 21:01 Phenobarbital (Phenobarbital 30 Mg Tablet) 30 mg PO DAILY [facility] Stop: 06/12/21 09:01 Sodium Chloride (0.9 % Sodium Chloride Flush 3 Ml Syringe) 3 ml IVFLUSH QSHIFT [facility] Last Admin: 06/06/21 22:18 Dose: 3 ml Documented by: STEPHANIE Thiamine HCl (Thiamine Hcl 100 Mg Tablet) 100 mg PO DAILY [facility] Last Admin: 06/06/21 17:44 Dose: 100 mg Documented by: MARYAM Labs CBC & Chem 7: 06/07/21 06:20 06/07/21 06:20 Labs: Laboratory Results - last 24 hr 06/06/21 06/06/21 06/06/21 12:59 12:59 12:59 MCV 94.8 MCH 34.3 H MCHC 36.1 H RDW 13.4 Plt Count 171 MPV 9.2 L Immature Gran % (Auto) 0.4 Neut % (Auto) 80.5 H Lymph % (Auto) 9.1 L [place] % (Auto) 9.5 Eos % (Auto) 0.4 Baso % (Auto) 0.1 Lymph # (Auto) 0.8 L [place] # (Auto) 0.8 Eos # (Auto) 0.0 Baso # (Auto) 0.0 Abs Immat Gran (auto) 0.03 Absolute Neuts (auto) 6.7 Absolute Nucleated RBC 0.000 Nucleated RBC % (auto) 0.0 PT INR APTT Anion Gap 16 Estim Creat Clear Calc 141.1 Estimated GFR > 60 Random Glucose 93 Lactic Acid 0.8 Calcium 9.4 Magnesium 2.1 Total Bilirubin 1.8 H Direct Bilirubin 0.8 H AST 164 H ALT 88 H Alkaline Phosphatase 98 Total Creatine Kinase 1497 H D Total Protein 7.4 Albumin 4.7 Triglycerides Lipase 68 Urine Color Urine Appearance Urine pH Ur Specific [place] Urine Protein Urine Glucose (UA) Urine Ketones Urine Blood Urine Nitrite Ur Leukocyte Esterase Urine RBC Urine WBC Ur Squamous Epith Cells Urine Bacteria Urine Mucus Urine Opiates Screen Urine Fentanyl Screen Ur Barbiturates Screen Ur Phencyclidine Scrn Ur Amphetamines Screen U Benzodiazepines Scrn Urine Cocaine Screen U Marijuana (THC) Screen Ethyl Alcohol COVID-19 (ANICETO) COVID-19 Clin Com 06/06/21 06/06/21 06/06/21 12:59 12:59 12:59 MCV MCH MCHC RDW Plt Count MPV Immature Gran % (Auto) Neut % (Auto) Lymph % (Auto) [place] % (Auto) Eos % (Auto) Baso % (Auto) Lymph # (Auto) [place] # (Auto) Eos # (Auto) Baso # (Auto) Abs Immat Gran (auto) Absolute Neuts (auto) Absolute Nucleated RBC Nucleated RBC % (auto) PT 10.8 INR 1.0 APTT 28.8 Anion Gap Estim Creat Clear Calc Estimated GFR Random Glucose Lactic Acid Calcium Magnesium Total Bilirubin Direct Bilirubin AST ALT Alkaline Phosphatase Total Creatine Kinase Total Protein Albumin Triglycerides Lipase Urine Color Urine Appearance Urine pH Ur Specific [place] Urine Protein Urine Glucose (UA) Urine Ketones Urine Blood Urine Nitrite Ur Leukocyte Esterase Urine RBC Urine WBC Ur Squamous Epith Cells Urine Bacteria Urine Mucus Urine Opiates Screen Urine Fentanyl Screen Ur Barbiturates Screen Ur Phencyclidine Scrn Ur Amphetamines Screen U Benzodiazepines Scrn Urine Cocaine Screen U Marijuana (THC) Screen Ethyl Alcohol < 10 COVID-19 (ANICETO) Negative COVID-19 Clin Com See Note 06/06/21 06/06/21 06/06/21 14:14 17:21 17:21 MCV MCH MCHC RDW Plt Count MPV Immature Gran % (Auto) Neut % (Auto) Lymph % (Auto) [place] % (Auto) Eos % (Auto) Baso % (Auto) Lymph # (Auto) [place] # (Auto) Eos # (Auto) Baso # (Auto) Abs Immat Gran (auto) Absolute Neuts (auto) Absolute Nucleated RBC Nucleated RBC % (auto) PT INR APTT Anion Gap Estim Creat Clear Calc Estimated GFR Random Glucose Lactic Acid Calcium Magnesium Total Bilirubin Direct Bilirubin AST ALT Alkaline Phosphatase Total Creatine Kinase Total Protein Albumin Triglycerides 75 Lipase Urine Color DK YELLOW Urine Appearance CLEAR Urine pH 6.5 Ur Specific [place] 1.020 Urine Protein 2+ H Urine Glucose (UA) NEG Urine Ketones 40 Urine Blood NEG Urine Nitrite NEG Ur Leukocyte Esterase NEG Urine RBC 0-2 Urine WBC 0-2 Ur Squamous Epith Cells TRACE Urine Bacteria NONE Urine Mucus 1+ Urine Opiates Screen Not Detected Urine Fentanyl Screen Not Detected Ur Barbiturates Screen Not Detected Ur Phencyclidine Scrn Not Detected Ur Amphetamines Screen Not Detected U Benzodiazepines Scrn Not Detected Urine Cocaine Screen Not Detected U Marijuana (THC) Screen POSITIVE H Ethyl Alcohol COVID-19 (ANICETO) COVID-19 Clin Com 06/07/21 06/07/21 06:20 06:20 MCV 96.4 MCH 33.8 H MCHC 35.1 RDW 13.4 Plt Count 148 L MPV 9.0 L Immature Gran % (Auto) 0.5 H Neut % (Auto) 57.8 Lymph % (Auto) 30.6 [place] % (Auto) 7.7 Eos % (Auto) 3.0 Baso % (Auto) 0.4 Lymph # (Auto) 1.7 [place] # (Auto) 0.4 Eos # (Auto) 0.2 Baso # (Auto) 0.0 Abs Immat Gran (auto) 0.03 Absolute Neuts (auto) 3.3 Absolute Nucleated RBC 0.000 Nucleated RBC % (auto) 0.0 PT INR APTT Anion Gap 15 Estim Creat Clear Calc 144.5 Estimated GFR > 60 Random Glucose 73 Lactic Acid Calcium 8.6 D Magnesium Total Bilirubin Direct Bilirubin AST ALT Alkaline Phosphatase Total Creatine Kinase Total Protein Albumin Triglycerides Lipase Urine Color Urine Appearance Urine pH Ur Specific [place] Urine Protein Urine Glucose (UA) Urine Ketones Urine Blood Urine Nitrite Ur Leukocyte Esterase Urine RBC Urine WBC Ur Squamous Epith Cells Urine Bacteria Urine Mucus Urine Opiates Screen Urine Fentanyl Screen Ur Barbiturates Screen Ur Phencyclidine Scrn Ur Amphetamines Screen U Benzodiazepines Scrn Urine Cocaine Screen U Marijuana (THC) Screen Ethyl Alcohol COVID-19 (ANICETO) COVID-19 Clin Com Assessment and Plan (1) Alcohol withdrawal seizure: Status: Acute (2) Rhabdomyolysis: Status: Acute Assessment and Plan: 30-year-old male with a past medical history of Crohn's disease, anxiety, depression, alcohol use presented to the hospital with a chief complaint of nausea vomiting and abdominal discomfort.? Noted to have pancreatitis.? Admitted for further management. 1.Alcohol withdrwal /seizure :? Monitor on CIWA protocol with pheonbarbital,? Will give the patient on thiamine, folate. ?2. Rhabdomyolysis: related to seizure /fall: Continue IV fluids. 3.Nausea/vomiting:? Likely alcoholic gastritis.? ppi/zofran. ?U tox is positive for marijuana also. 4.Transaminitis:? Likely in setting of alcohol use.? us -cholelitasis , hepatic steatosis ? Monitor liver enzymes. 5.Htn: ? Probably related to alcohol withdrawal. ? Added labetalol. ? 6.Hypokalemia:? Repleted p.o. again. ?magnesium is normal ?monitor on tele care team eval ?DVT prophylaxis with subQ Lovenox Quality Stroke Does the patient have a stroke diagnosis?: No VTE Prior VTE?: No VTE Risk Level:: Medical - moderate - high VTE Device Contraindication: N/A - Device Ordered VTE Drug Contraindication: N/A - Med Ordered
[2021-06-07] MEDS: Folic Acid 1 MG TABLET PO (10:08)
[2021-06-07] MEDS: Thiamine HCL 100 MG TABLET PO (10:09)
[2021-06-07] MEDS: PHENobarbitaL 30 MG TABLET 60 MG PO ×2 (10:09→21:08)
[2021-06-07] MEDS: Labetalol HCL 100 MG TABLET PO ×2 (10:09→21:08)
[2021-06-07] MEDS: Potassium Chloride Packet 20 MEQ PACKET 40 MEQ PO (10:10)
--- NOTE | 2021-06-07 13:40 | MHC.CM.PN ---
CM MET WITH PT WHO REPORTS HE LIVES ALONE PT REPORTS HE OWNS A 3 FAMILY HOME AND HIS BROTHER LIVES IN ONE OF THE OTHER UNITS PT REPORTS BEING INDEPENDENT WITH NO DME AND NO SERVICES PT CONFIRMS HIS PCP IS JONATHAN [facility] PT REPORTS HE THINKS HE HAS A HCP NAMING HIS BROTHER, MATT HIS AGENT DCP IS HOME WITH NO SERVICES VS HOME WITH CARE/RECOVERY TEAM REFERRALS
[2021-06-07] MEDS: Enoxaparin Sodium 40 MG/0.4 ML SYRINGE SUBCUT (16:03)
--- NOTE | 2021-06-07 18:22 | MHC.RECOVSUP ---
Met with Pt. He states that he has been drinking since the age of 19yrs old.Also states that he wants to change his life tried AA for awhile but loss interests. He saids that he needs something different. We talked about different pathways of recovery.He also stated that he has a place to live and has a job. Gave him some resources and information about different pathways.Will follow up with him this week to find out what else we can do for him.
[2021-06-07] MEDS: 0.9 % Sodium Chloride Flush 3 ML SYRINGE IVFLUSH (21:08)
[2021-06-08 03:24] VITALS: BP 133/79; PULSE 67; RESP 15; TEMP 36.8; O2SAT 99
[2021-06-08] MEDS: Omeprazole 20 MG CAPSULE.DR PO (06:02)
[2021-06-08 06:23] LABS: Anion Gap 11 (12-20); Blood Urea Nitrogen 5 mg/dL (9-16); Carbon Dioxide 28 mmol/L (22-29); Chloride 102 mmol/L (96-108); Creatinine Clr Calc Pharmacy 148.1; Estimated Glomerular Filt Rate > 60; Glucose Random 95 mg/dL (60-115); Potassium 3.7 mmol/L (3.3-5.1); Sodium 137 mmol/L (135-145)
[2021-06-08 07:26] VITALS: BP 133/88; PULSE 83; RESP 18; TEMP 36.9; O2SAT 100
[2021-06-08] MEDS: Folic Acid 1 MG TABLET PO (08:05)
[2021-06-08] MEDS: 0.9 % Sodium Chloride Flush 3 ML SYRINGE IVFLUSH (08:05)
[2021-06-08] MEDS: Labetalol HCL 100 MG TABLET PO (08:06)
[2021-06-08] MEDS: PHENobarbitaL 30 MG TABLET 60 MG PO (08:06)
[2021-06-08] MEDS: Thiamine HCL 100 MG TABLET PO (08:06)
--- NOTE | 2021-06-08 08:29 | PM.DS ---
DS: Providers Provider Date of Service: 06/08/21 Date of admission: 06/06/21 15:31 Primary care physician: Martir Kline MD Consults: 06/07/21 12:30 Consult to Care Team Routine Comment: Reason for consultation: alcohol abuse DS: Diagnosis Discharge Diagnosis (1) Alcohol withdrawal seizure: Status: Acute (2) Rhabdomyolysis: Status: Acute (3) Hypokalemia: Status: Acute DS: Summary Hospital Course Hospital Course: 30-year-old male with a past medical history of anxiety, depression, alcohol use presented to the hospital with a chief complaint of abdominal pain.? Patient reports that he has a history of Crohn's disease and has not had any flares recently.? Has been drinking alcohol on a regular basis mostly gin/rum.? also has seizure episode last evening ,yesterday ?head injury after he had a witnessed seizure last night at 5:30pm. He reports daily ETOH use but cannot quantify, states it is different each day. Yesterday he got out of work at 3:30pm, had 2-3 rum drinks and went to his ex-'s house. This is less than his usual ETOH intake. At 5:30 he states he fell backward hitting his head on the ground and had a seizure. His ex- called 911 but he was combative and uncooperative, did not go to the ER. He drove himself home, almost got lost going home. He tried to go to bed and was up all night vomiting. ?He has posterior headache, and anxiety ,epigasric abdominal pain and cramping in his abdominal muscles for the last few weeks as well. ?No bloody diarrhea and no blood in his vomiting.? Hospital course: Patient came with alcohol withdrawal seizure, started on phenobarb protocol seems to be improving. rhabdomyolysis seems to be related to seizure- given IV fluid, CPK improving slowly,was also encouraged to increase fluid intake. renal function fine. Scalp Laceration: Has 6 manuel, needs to be removed outpatient with PCP or nearest Ed in 1 week. Lft's : seems related to alcohol use , also has hepatic steatosis : lft's improving, follow up with pcp outpatiently. patient was seen by care team: information given,outpatient fu. Above management discussed with the patient in detail length he understand and in agreement with the above plan, time spent 50 minutes and 50% time spent on counseling. Significant findings: As above. Procedures performed: None. Treatment and response: As above. Complications: None. Time Spent with Patient Time attestation: Total time spent providing and/or coordinating discharge services: Discharge coordination time: Greater than 30 minutes Quality: Stroke Does the patient have a stroke diagnosis?: No Physical Exam Vital Signs: Vital Signs: Last Vital Signs Temp 98.4 F 06/08/21 07:26 Pulse 83 06/08/21 07:26 Resp 18 06/08/21 07:26 BP 133/88 06/08/21 07:26 Pulse Ox 100 06/08/21 07:26 BMI result Body Mass Index 24.4 Appearance: Alert.? Oriented X3.? not in distress.? Eyes: Pupils equal, round and reactive to light.? Sclera nonicteric.? ENT: Pharynx normal.? Moist mucous membranes. head : on top in parietal area midlle -laceration-has manuel.no bump or ozzing noted. cvs: rrr, [id number] , no murmur res: clear to auscultation ,no rhonchii or wheezing abd: no rebound or guarding ,nt, bs present. ext pulses present , no cyanosis ,Gait well balanced well coordinated. neuro: axo3 , nonfocal. DS: Data Data Completed and Pending Labs on day of discharge: Laboratory Results - last 24 hr 06/07/21 06/08/21 06:20 05:39 Sodium 137 Potassium 3.7 Chloride 102 Carbon Dioxide 28 Anion Gap 11 L BUN 5 L Creatinine 0.80 Estim Creat Clear Calc 148.1 Estimated GFR > 60 Random Glucose 95 Calcium 9.0 Total Creatine Kinase 1037 H Additional Comments Additional comments: IMPRESSION: Cholelithiasis. No sonographic evidence of cholecystitis. Hepatic steatosis. No biliary dilatation. CT/CT head/brain wo con IMPRESSION: No acute intracranial pathology. No fracture subluxation cervical spine. Soft tissue injury right vertex of skull. ? Discharge Plan Discharge Patient Disposition: Home, Self-Care Discharge Diagnosis: Alcohol withdrawal seizure, hypokalemia, rhabdomyolysis. Referrals: Martir Kline MD [Primary Care Provider] - 1 Week Discharge Medications: New folic acid 1 mg Tablet 1 mg PO DAILY Qty: 30 RF: 0 thiamine mononitrate (vit B1) 100 mg Tablet 100 mg PO DAILY Qty: 30 RF: 0 clonidine HCl 0.1 mg tablet 0.1 mg PO BID PRN (Reason: anxiety) Qty: 14 RF: 0 naltrexone 50 mg tablet 50 mg PO DAILY Qty: 30 RF: 0 Continued amlodipine 10 mg tablet 10 mg PO DAILY 90 Days Qty: 90 RF: 1 Discharge Orders: Discharge Order (Routine); Ordered 06/08/21 Ordered By: Maria Elena Mckeon Diet: advance to usual diet, low fat, low cholesterol and low salt diet Activity on Discharge: As tolerated Stand Alone Forms: Patient Portal Discharge page Care Plan Goals: Patient came with alcohol withdrawal seizure, started on phenobarb protocol seems to be improving. rhabdomyolysis seems to be related to seizure- given IV fluid, CPK improving slowly,was also encouraged to increase fluid intake. renal function fine. Scalp Laceration: Has 6 manuel, needs to be removed outpatient with PCP or nearest Ed in 1 week. patient was seen by care team: information given,outpatient fu. Health Concerns: as above. Plan of Treatment: As above. Assessment: As above. Discharge Date/Time: 06/08/21 12:12
[2021-06-08 08:58] LABS: Alanine Aminotransferase 61 U/L (0-40); Albumin Level 3.8 g/dL (3.5-5.0); Alkaline Phosphatase 74 U/L (39-117); Aspartate Amino Transferase 89 U/L (5-37); Bilirubin Direct 0.3 mg/dL (0.0-0.5); Bilirubin Total 0.6 mg/dL (0.0-1.0)
--- NOTE | 2021-06-08 11:43 | MHC.CM.PN ---
pt dcd home no skilled services ordered by
--- NOTE | 2021-06-08 14:41 | HO.ADDICTCON ---
History of Present Illness Date of Service: Chief Complaint: alcohol withdrawl seizure Reason for Consult: AUD eval and treatment HPI Narrative: Patient is a 31 year old male with alcohol use disorder currently medically admitted for alcohol withdrawal seizure. Met with RSRN and expressed desire to start medication for AUD prior to discharge. Patient seen in room 461. Awake, alert, pleasant, somewhat guarded and providing vague responses, but overall engaged in interview. Reporting drinking has been an issue for quite sometime, but worsened after his divorce a few years ago. States he is drinking approx a 750ml bottle of Bacardi rum daily He has been to ATS, Section 35 commitment, and attempted to detox at home using llibrium from PCP He has not ever taken any medications for alcohol use disorder. He also has not been engaged in any type of recovery support. Denies any other substance use Family history of LARRY Lives in his own apt and works [employer] Medical Evaluation Reviewed: Yes Review of Systems Constitutional: Reports difficulty sleeping, Reports malaise and Reports night sweats Musculoskeletal: Reports muscle cramps Psychiatric: Reports anxiety, Reports depression, Reports difficulty concentrating and Reports anhedonia Diagnostics Vital Signs (24Hr): Vital Signs - 24 hr 06/07/21 15:50 06/07/21 20:00 06/07/21 21:08 Temperature 98 F 98.5 F Pulse Rate 64 78 80 Respiratory Rate 18 18 Blood Pressure 110/70 129/82 133/80 Pulse Oximetry 98 98 06/07/21 23:57 06/08/21 03:24 06/08/21 07:26 Temperature 98.1 F 98.3 F 98.4 F Pulse Rate 74 67 83 Respiratory Rate 16 15 18 Blood Pressure 135/88 133/79 133/88 Pulse Oximetry 98 99 100 BMI result Body Mass Index 24.4 Labs Results: 06/07/21 06:20 06/08/21 05:39 Labs: Laboratory Results - last 48 hr 06/06/21 06/06/21 06/07/21 17:21 17:21 06:20 WBC 5.6 RBC 3.61 L Hgb 12.2 L Hct 34.8 L MCV 96.4 MCH 33.8 H MCHC 35.1 RDW 13.4 Plt Count 148 L MPV 9.0 L Immature Gran % (Auto) 0.5 H Neut % (Auto) 57.8 Lymph % (Auto) 30.6 [place] % (Auto) 7.7 Eos % (Auto) 3.0 Baso % (Auto) 0.4 Lymph # (Auto) 1.7 [place] # (Auto) 0.4 Eos # (Auto) 0.2 Baso # (Auto) 0.0 Abs Immat Gran (auto) 0.03 Absolute Neuts (auto) 3.3 Absolute Nucleated RBC 0.000 Nucleated RBC % (auto) 0.0 Sodium Potassium Chloride Carbon Dioxide Anion Gap BUN Creatinine Estim Creat Clear Calc Estimated GFR Random Glucose Calcium Total Bilirubin Direct Bilirubin AST ALT Alkaline Phosphatase Total Creatine Kinase Total Protein Albumin Urine Color DK YELLOW Urine Appearance CLEAR Urine pH 6.5 Ur Specific [place] 1.020 Urine Protein 2+ H Urine Glucose (UA) NEG Urine Ketones 40 Urine Blood NEG Urine Nitrite NEG Ur Leukocyte Esterase NEG Urine RBC 0-2 Urine WBC 0-2 Ur Squamous Epith Cells TRACE Urine Bacteria NONE Urine Mucus 1+ Urine Opiates Screen Not Detected Urine Fentanyl Screen Not Detected Ur Barbiturates Screen Not Detected Ur Phencyclidine Scrn Not Detected Ur Amphetamines Screen Not Detected U Benzodiazepines Scrn Not Detected Urine Cocaine Screen Not Detected U Marijuana (THC) Screen POSITIVE H 06/07/21 06/08/21 06:20 05:39 WBC RBC Hgb Hct MCV MCH MCHC RDW Plt Count MPV Immature Gran % (Auto) Neut % (Auto) Lymph % (Auto) [place] % (Auto) Eos % (Auto) Baso % (Auto) Lymph # (Auto) [place] # (Auto) Eos # (Auto) Baso # (Auto) Abs Immat Gran (auto) Absolute Neuts (auto) Absolute Nucleated RBC Nucleated RBC % (auto) Sodium 134 L 137 Potassium 3.2 L 3.7 Chloride 98 102 Carbon Dioxide 24 28 Anion Gap 15 11 L BUN 7 L 5 L Creatinine 0.82 0.80 Estim Creat Clear Calc 144.5 148.1 Estimated GFR > 60 > 60 Random Glucose 73 95 Calcium 8.6 D 9.0 Total Bilirubin 0.6 Direct Bilirubin 0.3 AST 89 H ALT 61 H Alkaline Phosphatase 74 D Total Creatine Kinase 1037 H 744 H Total Protein 6.0 L Albumin 3.8 Urine Color Urine Appearance Urine pH Ur Specific [place] Urine Protein Urine Glucose (UA) Urine Ketones Urine Blood Urine Nitrite Ur Leukocyte Esterase Urine RBC Urine WBC Ur Squamous Epith Cells Urine Bacteria Urine Mucus Urine Opiates Screen Urine Fentanyl Screen Ur Barbiturates Screen Ur Phencyclidine Scrn Ur Amphetamines Screen U Benzodiazepines Scrn Urine Cocaine Screen U Marijuana (THC) Screen Imaging Radiology Impressions: ITS Impressions Ankle X-Ray 06/06/21 13:29 IMPRESSION: Small ossific density at the tip of the medial malleolus consistent with avulsion injury of undetermined chronicity. Cervical Spine CT 06/06/21 13:31 IMPRESSION: No acute intracranial pathology. No fracture subluxation cervical spine. Soft tissue injury right vertex of skull. Head CT 06/06/21 13:31 IMPRESSION: No acute intracranial pathology. No fracture subluxation cervical spine. Soft tissue injury right vertex of skull. Abdomen Ultrasound 06/06/21 14:26 IMPRESSION: Cholelithiasis. No sonographic evidence of cholecystitis. Hepatic steatosis. No biliary dilatation. Mental Status Exam Mental Status Exam Patient Appearance: Disheveled Patient Orientation: Person, Place, Time and Situation Level of Consciousness: Awake and Appropriate Patient Behavior: Appropriate and Guarded Mood Description: Blunted Affect Description: Blunted Thought Process: Rumination Thought Content: positive for Bradley Judgement: Fair Medications Allergies Allergies Allergy/AdvReac Type Severity Reaction Status Date / Time citalopram AdvReac Intermediate nausea Verified 05/28/21 04:17 Assessment & Plan Assessment & Plan (1) Alcohol use disorder, severe, dependence: Status: Acute Code(s): F10.20 - Alcohol dependence, uncomplicated Assessment and Plan: Discussed treatment options for alcohol use disorder. patient agreeable to trialing Naltrexone. Explained goals of treatment, side effects, dosing times Discussed accessing recovery supports--RSRN provided folder with resources and reviewed with patient follow up outpatient I spent ___50___ minutes with the patient and/or on the patient floor today, greater than?50% of which was spent counseling/coordinating care. COUNTS INCLUDE 234 BEDS AT THE [facility] Past Medical History Medical History Alcohol abuse Anxiety Benign essential hypertension Depression GERD without esophagitis Hypertriglyceridemia Insomnia Myalgia Ulcerative colitis Family History Family History Other Family history non-contributory Substance use disorder Surgical History Surgical History History of shoulder surgery Social History Social History Household Members: None Housing: Apartment Do you presently have visiting nurse or other home services: No Alcohol intake: current Alcohol intake frequency: 3 or more drinks per day Alcohol type: hard liquor Patient Tobacco Use Status: Former Tobacco user e-Cigarette/Vaping Use: Never Used Second Hand Smoke Exposure: No Substance Use Type: Marijuana service: No Current occupational status: employed Cognitive needs: No Hearing needs: No Vision needs: Yes (Glasses)
== END 2021-06-08 12:12 | disposition home or self-care (01) | DRG 241 ==
LOC: HO.ED 13:35 → HO.EDOVER 15:40 → HO.IMC 18:49
PROVIDERS: Physician Assistant; Admitting Provider Internal Medicine; Emergency Provider Emergency Medicine; PCP Internal Medicine; Visit Provider Internal Medicine
DX: K29.20 Alcoholic gastritis without bleeding (principal); R56.9 Unspecified convulsions; K76.0 Fatty (change of) liver, not elsewhere classified; T79.6XXA Traumatic ischemia of muscle, initial encounter; E87.6 Hypokalemia; S01.01XA Laceration without foreign body of scalp, initial encounter; F10.239 Alcohol dependence with withdrawal, unspecified; I10 Essential (primary) hypertension; R00.0 Tachycardia, unspecified; Z20.822 Contact with and (suspected) exposure to COVID-19; W18.39XA Other fall on same level, initial encounter; Y92.9 Unspecified place or not applicable; Z87.891 Personal history of nicotine dependence; Z79.899 Other long term (current) drug therapy
CPT/HCPCS: 36415; 70450; 72125; 73610; 76705; 80048; 80076; 80307; 81001; 82077; 82550; 83605; 83690; 83735; 84478; 85025; 85610; 85730; 87635; 90471; 90715; 93005; 96365; 96366; 96372; 96375; 99285; 99291; J1650; J2060; J2405; J2560

== ENCOUNTER 2021-06-16 17:27 | Emergency (ER) | payer OTHER, SELFPAY | END 2021-06-16 20:24 | disposition left against medical advice (07) | LOC: HO.ED 20:24 | PROVIDERS: Emergency Provider Emergency Medicine | DX: Z04.1 Encounter for examination and observation following transport accident (principal) ==

== ENCOUNTER → 2021-06-18 16:13 | Outpatient (BNVA) | payer OTHER, SELFPAY | PROVIDERS: Visit Provider Nurse Practitioner Psychiatric/Mental Health ==

== ENCOUNTER 2021-06-19 | Emergency (ER) | payer OTHER, SELFPAY ==
[2021-06-19 00:22] VITALS: BP 171/120; PULSE 92; RESP 16; TEMP 37.1; O2SAT 99; BMI 23.0
== END 2021-06-19 03:06 | disposition left against medical advice (07) ==
PROVIDERS: Emergency Provider Emergency Medicine; PCP Internal Medicine
DX: Z04.1 Encounter for examination and observation following transport accident (principal)
CPT/HCPCS: 99281; 99282

== ENCOUNTER 2021-08-14 16:48 | Inpatient (IN) | payer OTHER, SELFPAY ==
[2021-08-14] VITALS (7 sets, daily range): BP systolic 150–180; BP diastolic 97–123; PULSE 86–140; RESP 18–22; TEMP 36.6–36.9; O2SAT 97–99; BMI 24.4
--- NOTE | 2021-08-14 | ECG_ITS ---
Test Reason : TACHY Blood Pressure : / mmHG Vent. Rate : 114 BPM Atrial Rate : 114 BPM P-R Int : 140 ms QRS Dur : 078 ms QT Int : 374 ms P-R-T Axes : 081 063 066 degrees QTc Int : 515 ms Sinus tachycardia Possible Left atrial enlargement Nonspecific ST abnormality Prolonged QTc Abnormal ECG When compared with ECG of 06-JUN-2021 12:46, QT has lengthened Referred By: Generic ED Physician Electronically Signed By:MONE HERNANDEZ
--- NOTE | ~2021-08-14 | CT_ITS ---
EXAMINATION: CT ABDOMEN AND PELVIS WITHOUT CONTRAST CLINICAL INFORMATION: Abdominal pain. COMPARISON: Abdominal ultrasound dated from 06/06/2021. CT abdomen/pelvis dated from 09/17/2020. TECHNIQUE: Multidetector volumetric imaging was performed from the superior aspect of the liver through the pubic symphysis. Sagittal and coronal reformatted images were obtained on the technologist's workstation. This CT examination was performed using dose optimization techniques as appropriate, variously including the following: *Automated exposure control *Adjustment of mA and/or kV according to patient size (this includes techniques or standardized protocols for targeted exams where dose is matched to indication/reason for exam; i.e. extremities or head) *Use of iterative reconstruction technique DLP: 475 mGy-cm FINDINGS: LUNG BASES: There is a 0.4 cm pulmonary nodule in the right lower lobe (4:1) and a 0.3 cm subpleural nodule in the right lung base (4:80). These are of uncertain significance in a patient of this age. No focal consolidation or pleural effusion. LIVER, GALLBLADDER, AND BILIARY TREE: The liver is enlarged measuring 22 cm craniocaudally with diffuse decreased parenchymal echogenicity suggesting hepatic steatosis. The hepatomegaly is similar when compared to 09/17/2020. Otherwise, the liver is normal in shape without suspicious focal abnormalities. There is a distended gallbladder with stones but no evidence of wall thickening or surrounding inflammatory changes to suspect acute cholecystitis. There is no biliary ductal dilatation. PANCREAS: There is questionable very minimal fat stranding around the pancreatic tail. The main pancreatic duct is nondilated. SPLEEN: Unremarkable. ADRENAL GLANDS: Unremarkable. KIDNEYS AND URETERS: The kidneys are normal in size, shape, and attenuation. No hydronephrosis, hydroureter, or calculi seen. No perinephric stranding. BLADDER: Underdistended limiting assessment of wall thickening. No intraluminal calculi or perivesical fat stranding. GASTROINTESTINAL TRACT: The stomach and the small bowel are nondilated. Normal appendix. No pericolonic inflammatory changes or evidence of bowel obstruction. ABDOMINAL WALL: No significant hernia is appreciated. LYMPH NODES: A few prominent retroperitoneal lymph nodes are stable. No lymphadenopathy by size criteria. VASCULAR: Unremarkable. PELVIC VISCERA: Unremarkable. SOFT TISSUES AND OSSEOUS STRUCTURES: A 2.9 x 1.9 cm lesion in the right psoas muscle (3:73) is increased in size from 1.8 x 1.2 cm on 09/17/2020. The attenuation of this lesion is approximately 29 Hounsfield units. No acute or aggressive appearing osseous abnormalities. CT/CT abdomen pelvis wo con IMPRESSION: Questionable mild fat stranding around the pancreatic tail. Correlate with lipase/amylase levels for acute pancreatitis. Hepatomegaly and progressed hepatic steatosis since 09/17/2020. Cholelithiasis but no evidence of acute cholecystitis. Increased size of an indeterminate intramuscular lesion in the right psoas muscle. This could represent iliopsoas bursitis although overall remains indeterminate. Recommend correlation with an MR.
--- NOTE | ~2021-08-14 | XR_ITS ---
EXAMINATION: XR CHEST CLINICAL INFORMATION: Alcohol withdrawal, tachycardia. COMPARISON: Chest radiograph dated from 05/07/2021. TECHNIQUE: AP view of the chest was obtained. FINDINGS: Normal appearance of the cardiomediastinal silhouette. EKG wires overlie the chest. No focal airspace opacities, pleural effusions or pneumothorax. No acute osseous abnormalities. The visualized upper abdomen is within normal limits. XR/XR chest 1V IMPRESSION: No acute cardiopulmonary findings.
[2021-08-14] MEDS: 0.9 % Sodium Chloride 1,000 ML 999 ML IVCONT (17:24)
[2021-08-14] MEDS: ondansetron HCL 4 MG/2 ML VIAL IVPUSH (17:24)
[2021-08-14] MEDS: LORazepam 2 MG/ML VIAL IVPUSH ×2 (17:24→19:47)
[2021-08-14] MEDS: Labetalol HCL 100 MG/20 ML VIAL 10 MG IVPUSH ×2 (17:27→17:53)
--- NOTE | 2021-08-14 17:29 | ED.ALCOHOL ---
HPI - Alcohol General Chief Complaint: Abdominal Pain Stated Complaint: Vomiting Time Seen by Provider: 08/14/21 17:08 Source: patient Mode of arrival: ambulatory Limitations: no limitations History of Present Illness HPI narrative: 31-year-old male presents with abdominal pain, nausea, vomiting, and reports to be in alcohol withdrawal. MD complaint: alcohol withdrawal Last drink: Days (ago) (2) Amount of alcohol consumed: 750 mL per day or more Chronic alcohol use: Yes Previous visits for alcohol intoxication: Yes Recent trauma: No Associated symptoms: nausea, vomiting, diaphoresis, tremors, abdominal pain and depression Treatments prior to arrival: none Related Data Home Medications Medication Instructions Recorded Confirmed esomeprazole magnesium 20 mg 20 mg PO DAILY 08/14/21 08/14/21 capsule,delayed release (Nexium) Allergies Allergy/AdvReac Type Severity Reaction Status Date / Time citalopram AdvReac Intermediate nausea Verified 08/14/21 21:55 Review of Systems Review of Systems: Constitutional: No Weight loss, No Fever, No Chills, No Night Sweats, No Fatigue, No Malaise ENT/Mouth: No Hearing loss, No Ear Pain, No Nasal Congestion, No Sinus Pain, No Hoarseness, No sore throat, No Rhinorrhea, No Swallowing Difficulty Eyes: No Eye Pain, No Swelling, No Redness, No Foreign Body, No Discharge, No Vision Changes Cardiovascular: No Chest Pain, No SOB, No Dyspnea on Exertion, No Orthopnea, No Edema, No Palpitations Respiratory: No Cough, No Sputum, No Wheezing, No Smoke Exposure, No Dyspnea Gastrointestinal: Positive Nausea, Positive Vomiting, positive no, positive abdominal Pain, No Hematochezia, No Melena Genitourinary: no irregular bleeding, No Dysuria, No Urinary Frequency, No Hematuria, No Urinary Incontinence, No Urgency, No Flank Pain, No Urinary Flow Changes, No Hesitancy Musculoskeletal: No joint pain, No Myalgias, No Joint Swelling Skin: No Skin Lesions, No rash Neuro: No Weakness, No Numbness, No Paresthesias, No Loss of Consciousness, No Dizziness, No Headache Psych: Positive alcohol withdrawal, No Anxiety/Panic, No Depression, No SI/HI/AH/VH, No Social Issues Heme/Lymph: No Bruising, No Bleeding,No Lymphadenopathy Endocrine: No Polyuria, No Polydipsia, No Temperature Intolerance Yes all other systems are reviewed and are negative PMFSH Past Medical History Attestation statement: The following information was validated with the patient. Source: old records reviewed Medical History Alcohol abuse Anxiety Benign essential hypertension Depression GERD without esophagitis Hypertriglyceridemia Insomnia Myalgia Ulcerative colitis Surgical History History of shoulder surgery Family History Family History Other Family history non-contributory Substance use disorder Social History Social History Household Members: None Housing: Apartment Do you presently have visiting nurse or other home services: No Alcohol intake: former Patient Tobacco Use Status: Former Tobacco user e-Cigarette/Vaping Use: Never Used Second Hand Smoke Exposure: No Substance Use Type: Marijuana Advance Directives: No Advance Directives Information Provided: No service: No Current occupational status: employed Cognitive needs: No Hearing needs: No Vision needs: Yes (Glasses) Physical Exam ED Vital Signs: Vital Signs - 24 hr 08/14/21 16:52 08/14/21 17:05 08/14/21 17:49 Temperature 98.4 F 98 F Pulse Rate 140 H 114 H 90 Respiratory Rate 18 22 H 20 Blood Pressure 155/119 H 180/123 H 150/103 H Pulse Oximetry 98 98 97 08/14/21 19:29 Temperature Pulse Rate 88 Respiratory Rate 20 Blood Pressure 150/104 H Pulse Oximetry 98 BMI result Body Mass Index 24.4 Appearance: Alert. Oriented X3. Moderate distress. Acute alcohol withdrawal. Eyes: Pupils equal, round and reactive to light. EOMI. No nystagmus. Sclerae nonicteric. ENT: Pharynx normal. Dry mucous membranes. Neck: Normal inspection. Neck supple. CVS: Tachycardic heart rate and rhythm. Pulses equal to all extremities. Respiratory: No respiratory distress. Breath sounds normal. Abdomen: Soft and diffusely tender. Skin: Skin warm and diaphoretic. Normal skin color. Normal skin turgor. Extremities: No lower extremity edema. Moves all extremities against resistance. Gait not tested for safety. Neuro: No motor deficit. No sensory deficit. Cranial nerves 2-12 intact. Course Course Course Narrative: 31-year-old male presents in alcohol withdrawal with abdominal pain nausea vomiting and delusions. Has a history of seizures with alcohol withdrawal. Was admitted twice once in August and in May of 2021 for EtOH withdrawal requiring phenobarbital protocol. Seizure and aspiration precautions in place at this time. Pressures are elevated 115/119 with heart rate of 140. Will give Ativan 2 mg IV push, labetalol 10, normal saline at 100 mL/hr, 4 mg of IV push Zofran, CIWA protocol, and labs. Will discuss this with pyridine recovery operator for possible detox after ETOH withdrawal admission. 17:52 repeat blood pressure 167/110, will give a 2nd dose of labetalol 10 and initiate phenobarbital protocol. 19:38 phenobarbital has not yet been administered. CIWA score is 20. Order for 2 mg of IV Ativan prior to phenobarbital initiation. Discussion with hospitalist regarding plan of care to admit for EtOH withdrawal and alcoholic pancreatitis 20:40 Critical Mag, repleted with 2 g Mag sulfate IV. 21:45 discussion with [address] regarding CT scan read. inflamation around the tail of pancreas, collection in the right psoas. Reported to hospitalist. Consultations Consultation #1: Lynn Time: 19:39 MDM - Alcohol Differential Diagnosis Differential diagnosis: Likely alcohol dependence, alcohol withdrawal delirium, hypomagnesemia, alcohol intoxication, alcohol withdrawal syndrome and alcohol withdrawal seizure Medical Records Attestation: I reviewed the patient's medical records. Lab Data Attestation: I reviewed the patient's lab results. Result diagrams: 08/14/21 19:41 08/14/21 19:41 Labs: Lab Results 08/14/21 08/14/21 08/14/21 Range/Units 17:51 19:40 19:41 WBC 11.6 H (4.8-10.8) X10*3/uL RBC 4.31 L (4.60-5.80) X10*6/uL Hgb 14.9 D (14.0-18.0) g/dl Hct 41.2 L (42.0-52.0) % MCV 95.6 (80.0-98.0) fL MCH 34.6 H (27.0-33.0) pg MCHC 36.2 H (31.0-36.0) g/dl RDW 13.1 (11.0-16.0) % Plt Count 155 L (160-400) X10*3/uL MPV 9.0 L (9.4-12.4) fL Immature Gran % (Auto) 0.3 (0.0-0.4) % Neut % (Auto) 82.7 H (45-73) % Lymph % (Auto) 11.2 L (20-40) % Maverick % (Auto) 5.5 (2-11) % Eos % (Auto) 0.0 (0-4) % Baso % (Auto) 0.3 (0-2) % Lymph # (Auto) 1.3 (1.2-4.9) X10*3/uL Maverick # (Auto) 0.6 (0.1-1.2) X10*3/uL Eos # (Auto) 0.0 (0.0-0.4) X10*3/uL Baso # (Auto) 0.0 (0.0-0.2) X10*3/uL Abs Immat Gran (auto) 0.04 H (0.00-0.03) X10*3/uL Absolute Neuts (auto) 9.6 H (2.0-8.3) x10*3/uL Absolute Nucleated RBC 0.000 (0.0-0.012) X10*3/uL Nucleated RBC % (auto) 0.0 (0.0-0.2) /100WBC PT (9.9-13.0) SEC INR (0.9-1.1) APTT (24.1-38.0) SEC Sodium (135-145) mmol/L Potassium (3.3-5.1) mmol/L Chloride (96-108) mmol/L Carbon Dioxide (22-29) mmol/L Anion Gap (12-20) BUN (9-16) mg/dL Creatinine (0.5-1.4) mg/dL Estim Creat Clear Calc Estimated GFR POC Glucose 110 (60-115) mg/dL Random Glucose (60-115) mg/dL Calcium (8.4-10.2) mg/dL Magnesium (1.6-2.6) mg/dL Total Bilirubin (0.0-1.0) mg/dL Direct Bilirubin (0.0-0.5) mg/dL AST (5-37) U/L ALT (0-40) U/L Alkaline Phosphatase (39-117) U/L Ammonia (13-55) umol/L Total Creatine Kinase (38-174) U/L Troponin I High Sens (<3.5-35.0) ng/L Total Protein (6.5-8.0) g/dL Albumin (3.5-5.0) g/dL Lipase (8-78) U/L Ethyl Alcohol mg/dL COVID-19 (ANICETO) Negative (Negative) COVID-19 Clin Com See Note 08/14/21 08/14/21 08/14/21 Range/Units 19:41 19:41 19:41 WBC (4.8-10.8) X10*3/uL RBC (4.60-5.80) X10*6/uL Hgb (14.0-18.0) g/dl Hct (42.0-52.0) % MCV (80.0-98.0) fL MCH (27.0-33.0) pg MCHC (31.0-36.0) g/dl RDW (11.0-16.0) % Plt Count (160-400) X10*3/uL MPV (9.4-12.4) fL Immature Gran % (Auto) (0.0-0.4) % Neut % (Auto) (45-73) % Lymph % (Auto) (20-40) % Maverick % (Auto) (2-11) % Eos % (Auto) (0-4) % Baso % (Auto) (0-2) % Lymph # (Auto) (1.2-4.9) X10*3/uL Maverick # (Auto) (0.1-1.2) X10*3/uL Eos # (Auto) (0.0-0.4) X10*3/uL Baso # (Auto) (0.0-0.2) X10*3/uL Abs Immat Gran (auto) (0.00-0.03) X10*3/uL Absolute Neuts (auto) (2.0-8.3) x10*3/uL Absolute Nucleated RBC (0.0-0.012) X10*3/uL Nucleated RBC % (auto) (0.0-0.2) /100WBC PT 13.0 (9.9-13.0) SEC INR 1.1 (0.9-1.1) APTT 28.4 (24.1-38.0) SEC Sodium 140 (135-145) mmol/L Potassium 4.0 (3.3-5.1) mmol/L Chloride 97 (96-108) mmol/L Carbon Dioxide 26 (22-29) mmol/L Anion Gap 21 H (12-20) BUN 18 H D (9-16) mg/dL Creatinine 0.89 (0.5-1.4) mg/dL Estim Creat Clear Calc 133.2 Estimated GFR > 60 POC Glucose (60-115) mg/dL Random Glucose 106 (60-115) mg/dL Calcium 9.0 (8.4-10.2) mg/dL Magnesium 1.4 L* (1.6-2.6) mg/dL Total Bilirubin 2.2 H (0.0-1.0) mg/dL Direct Bilirubin 1.3 H (0.0-0.5) mg/dL AST 406 H (5-37) U/L ALT 262 H (0-40) U/L Alkaline Phosphatase 290 H D (39-117) U/L Ammonia 82 H (13-55) umol/L Total Creatine Kinase (38-174) U/L Troponin I High Sens (<3.5-35.0) ng/L Total Protein 7.5 D (6.5-8.0) g/dL Albumin 4.3 (3.5-5.0) g/dL Lipase 393 H (8-78) U/L Ethyl Alcohol mg/dL COVID-19 (ANICETO) (Negative) COVID-19 Clin Com 08/14/21 08/14/21 08/14/21 Range/Units 19:41 19:41 19:41 WBC (4.8-10.8) X10*3/uL RBC (4.60-5.80) X10*6/uL Hgb (14.0-18.0) g/dl Hct (42.0-52.0) % MCV (80.0-98.0) fL MCH (27.0-33.0) pg MCHC (31.0-36.0) g/dl RDW (11.0-16.0) % Plt Count (160-400) X10*3/uL MPV (9.4-12.4) fL Immature Gran % (Auto) (0.0-0.4) % Neut % (Auto) (45-73) % Lymph % (Auto) (20-40) % Maverick % (Auto) (2-11) % Eos % (Auto) (0-4) % Baso % (Auto) (0-2) % Lymph # (Auto) (1.2-4.9) X10*3/uL Maverick # (Auto) (0.1-1.2) X10*3/uL Eos # (Auto) (0.0-0.4) X10*3/uL Baso # (Auto) (0.0-0.2) X10*3/uL Abs Immat Gran (auto) (0.00-0.03) X10*3/uL Absolute Neuts (auto) (2.0-8.3) x10*3/uL Absolute Nucleated RBC (0.0-0.012) X10*3/uL Nucleated RBC % (auto) (0.0-0.2) /100WBC PT (9.9-13.0) SEC INR (0.9-1.1) APTT (24.1-38.0) SEC Sodium (135-145) mmol/L Potassium (3.3-5.1) mmol/L Chloride (96-108) mmol/L Carbon Dioxide (22-29) mmol/L Anion Gap (12-20) BUN (9-16) mg/dL Creatinine (0.5-1.4) mg/dL Estim Creat Clear Calc Estimated GFR POC Glucose (60-115) mg/dL Random Glucose (60-115) mg/dL Calcium (8.4-10.2) mg/dL Magnesium (1.6-2.6) mg/dL Total Bilirubin (0.0-1.0) mg/dL Direct Bilirubin (0.0-0.5) mg/dL AST (5-37) U/L ALT (0-40) U/L Alkaline Phosphatase (39-117) U/L Ammonia (13-55) umol/L Total Creatine Kinase 142 D (38-174) U/L Troponin I High Sens 3.8 (<3.5-35.0) ng/L Total Protein (6.5-8.0) g/dL Albumin (3.5-5.0) g/dL Lipase (8-78) U/L Ethyl Alcohol < 10 mg/dL COVID-19 (ANICETO) (Negative) COVID-19 Clin Com Imaging Data Chest x-ray: Attestation: I personally reviewed and interpreted this imaging study as follows: Radiologist's impression: EXAMINATION: XR CHEST CLINICAL INFORMATION: Alcohol withdrawal, tachycardia. COMPARISON: Chest radiograph dated from 05/07/2021. TECHNIQUE: AP view of the chest was obtained. FINDINGS: Normal appearance of the cardiomediastinal silhouette. EKG wires overlie the chest. No focal airspace opacities, pleural effusions or pneumothorax. No acute osseous abnormalities. The visualized upper abdomen is within normal limits. XR/XR chest 1V IMPRESSION: No acute cardiopulmonary findings. CT scan - abdomen: Attestation: I personally reviewed and interpreted this imaging study as follows: Radiologist's impression: FINDINGS: LUNG BASES: There is a 0.4 cm pulmonary nodule in the right lower lobe (4:1) and a 0.3 cm subpleural nodule in the right lung base (4:80). These are of uncertain significance in a patient of this age. No focal consolidation or pleural effusion.? LIVER, GALLBLADDER, AND BILIARY TREE: The liver is enlarged measuring 22 cm craniocaudally with diffuse decreased parenchymal echogenicity suggesting hepatic steatosis. The hepatomegaly is similar when compared to 09/17/2020. Otherwise, the liver is normal in shape without suspicious focal abnormalities. There is a distended gallbladder with stones but no evidence of wall thickening or surrounding inflammatory changes to suspect acute cholecystitis. There is no biliary ductal dilatation. PANCREAS: There is questionable very minimal fat stranding around the pancreatic tail. The main pancreatic duct is nondilated.? SPLEEN: Unremarkable.? ADRENAL GLANDS: Unremarkable.? KIDNEYS AND URETERS: The kidneys are normal in size, shape, and attenuation. No hydronephrosis, hydroureter, or calculi seen. No perinephric stranding. ? BLADDER: Underdistended limiting assessment of wall thickening. No intraluminal calculi or perivesical fat stranding.? GASTROINTESTINAL TRACT: The stomach and the small bowel are nondilated. Normal appendix. No pericolonic inflammatory changes or evidence of bowel obstruction.? ABDOMINAL WALL: No significant hernia is appreciated.? LYMPH NODES: A few prominent retroperitoneal lymph nodes are stable. No lymphadenopathy by size criteria. VASCULAR: Unremarkable. PELVIC VISCERA: Unremarkable.? SOFT TISSUES AND OSSEOUS STRUCTURES: A 2.9 x 1.9 cm lesion in the right psoas muscle (3:73) is increased in size from 1.8 x 1.2 cm on 09/17/2020. The attenuation of this lesion is approximately 29 Hounsfield units. No acute or aggressive appearing osseous abnormalities.? CT/CT abdomen pelvis wo con IMPRESSION: Questionable mild fat stranding around the pancreatic tail. Correlate with lipase/amylase levels for acute pancreatitis. ? Hepatomegaly and progressed hepatic steatosis since 09/17/2020. ? Cholelithiasis but no evidence of acute cholecystitis. ? Increased size of an indeterminate intramuscular lesion in the right psoas muscle. This could represent iliopsoas bursitis although overall remains indeterminate. Recommend correlation with an MR. ECG Data ECG #1: Attestation: I personally reviewed and interpreted this ECG as follows: ECG interpretation date: 08/14/21 ECG interpretation time: 16:58 Prior ECG tracings: available for review Interpretation: Vent. rate 114 BPM MO interval 140 ms QRS duration 78 ms QT/QTc 374/515 ms P-R-T axes 81 63 66 Sinus tachycardia Possible Left atrial enlargement Nonspecific ST abnormality Abnormal ECG When compared with ECG of 06-JUN-2021 12:46, No significant change was found Critical Care Time Critical Care Time Critical Care Time: Yes Total Critical Care Time: 45 Attestation: I have personally provided critical care time exclusive of time spent on separately billable procedures. Time includes review of laboratory data, radiology results, discussion with consultants, and monitoring for potential decompensation. Interventions were performed as documented. Discharge Plan Discharge Clinical Impression: Alcohol abuse, Alcohol use disorder, severe, dependence, Alcohol withdrawal, Pancreatitis Patient Disposition: Admitted As Inpatient
--- NOTE | 2021-08-14 17:50 | MHC.RECOVSUP ---
? Reason for consult Recovery Support o Current location: ED[facility] o Identified substance use concern: Alcohol - Withdrawal - Seeking ATS (detox) - Support ? Intervention: <del>o</del> <del>ATS</del> <del>bed</del> <del>search</del> <del>started/completed/in</del> <del>process</del> <del>o</del> <del>MAT</del> <del>started</del> <del>or</del> <del>to</del> <del>be</del> <del>started</del> o Community resources provided o Harm reduction discussion ? Plan: o Referral to [facility] <del>o</del> <del>Bed</del> <del>search</del> <del>in</del> <del>progress</del> <del>to</del> o Follow up tomorrow o Patient awaiting crisis evaluation o Patient to follow up with [facility] after discharge ? Additional information: Met with Patient..We talk Harm Reduction...We talked about [facility]..And we talked about MAT. and was given info on MAT.. But client would like would like a follow up really thinking about trying MAT.
[2021-08-14 17:55] LABS: Glucose, Whole Blood 110 mg/dL (60-115)
--- NOTE | 2021-08-14 18:00 | PHA.MEDREC ---
Pharmacy Consult ? Medication Reconciliation Pharmacy has completed the medication reconciliation. Paradise NavasD
--- NOTE | 2021-08-14 19:43 | PC.NURSE ---
This RN to bedside, pt resting on stretcher in NAD. Pt HTN on assessment, CIWA as charted and reported to Corinne GOLD. This RN requesting more aggressive tx for etoh withdrawal d/t CIWA score and the fact that pt had not yet rec'd phenobarb IM by previous RN as previously ordered. Corinne GOLD ordered ativan, pt to be medicated with this prior to admin of phenobarb. Pt with noted tremor, dry heaves, sweat on forehead as documented. Pt stretcher low locked, rails raised, railings padded for seizure precautions, call schwartz within reach.
[2021-08-14 19:47] LABS: MANUAL DIFF FLAG NO
[2021-08-14 19:50] LABS: Basophils Percent Auto 0.3 % (0-2); Hematocrit 41.2 % (42.0-52.0); Hemoglobin 14.9 g/dl (14.0-18.0); Imm Gran Abs Auto 0.04 X10*3/uL (0.00-0.03); Imm Gran Pct Auto 0.3 % (0.0-0.4); Lymphocytes Absolute Auto 1.3 X10*3/uL (1.2-4.9); Lymphocytes Percent Auto 11.2 % (20-40); Mean Corpuscular HGB Conc 36.2 g/dl (31.0-36.0); Mean Corpuscular Hemoglobin 34.6 pg (27.0-33.0); Mean Corpuscular Volume 95.6 fL (80.0-98.0); Monocytes Absolute Auto 0.6 X10*3/uL (0.1-1.2); Monocytes Percent Auto 5.5 % (2-11); Neutrophils Absolute Auto 9.6 x10*3/uL (2.0-8.3); Neutrophils Percent Auto 82.7 % (45-73); Platelet Count 155 X10*3/uL (160-400); Red Blood Count 4.31 X10*6/uL (4.60-5.80); Red Cell Distribution Width 13.1 % (11.0-16.0); White Blood Count 11.6 X10*3/uL (4.8-10.8)
[2021-08-14] MEDS: PHENobarbitaL sodium 130 MG/ML VIAL 372 MG IM (19:51)
[2021-08-14 20:03] LABS: COVID-19 Test Negative (Negative)
[2021-08-14 20:09] LABS: Ethanol < 10 mg/dL
[2021-08-14 20:13] LABS: INTERNATIONAL NORM RATIO 1.1 (0.9-1.1)
[2021-08-14 20:16] LABS: Partial Thromboplastin Time 28.4 SEC (24.1-38.0)
[2021-08-14 20:17] LABS: Troponin-I High Sensitivity 3.8 ng/L (<3.5-35.0)
[2021-08-14 20:33] LABS: Ammonia 82 umol/L (13-55)
[2021-08-14 20:37] LABS: Alanine Aminotransferase 262 U/L (0-40); Albumin Level 4.3 g/dL (3.5-5.0); Alkaline Phosphatase 290 U/L (39-117); Anion Gap 21 (12-20); Aspartate Amino Transferase 406 U/L (5-37); Bilirubin Direct 1.3 mg/dL (0.0-0.5); Bilirubin Total 2.2 mg/dL (0.0-1.0); Blood Urea Nitrogen 18 mg/dL (9-16); Carbon Dioxide 26 mmol/L (22-29); Chloride 97 mmol/L (96-108); Creatinine Clr Calc Pharmacy 133.2; Estimated Glomerular Filt Rate > 60; Glucose Random 106 mg/dL (60-115); Lipase 393 U/L (8-78); Magnesium 1.4 mg/dL (1.6-2.6); Sodium 140 mmol/L (135-145); Total Protein 7.5 g/dL (6.5-8.0)
--- NOTE | 2021-08-14 20:51 | P.HPHOSP_ITS ---
History of Present Illness Date of Service: 08/14/21 Chief Complaint: abd pain, N/V this is a 31-year-old male with past medical history of alcohol abuse, hypertension, Crohn's,insomnia, history of alcohol withdrawal seizures, hypertriglyceridemia, anxiety, GERD, depression, who presents to the hospital with complaints of abdominal pain, nausea vomiting, poor appetite for the past 1 week. Patient reports that he is a daily alcohol drinker with the last drink on Tuesday. Patient is also complaining of epigastric abdominal pain, nonradiating, associated with nausea, vomiting today. He feels daily, has dizziness. He has also been experiencing leg cramps headaches which is in the acceptable region. He is complaining of exertional shortness of breath, burning chest pain. Patient reports no diarrhea, no urinary symptoms and no lower extremity edema. Patient reports that he has history of hypertension as well as Crohn disease but he is not compliant with medications and he took himself off meds for these conditions. on arrival to the ED patient hemodynamically stable with a heart rate of 114, respiratory rate of 22, blood pressure 180/123, satting 98% on room air. Labs are significant for WBC count of 11.6, hemoglobin of 14.9, hematocrit 41.2, BUN of 18, Mag of 1.4, total bili of 2.2, direct bili of 1.3, AST of 406, ALT of 262, alk-phos of 290, ammonia of 82 lipase of 393, triglycerides of 77, UA negative. abdominal pelvic CT shows inflammation around the tail of pancreas concerning for pancreatitis. Patient's started on IV fluids and will be admitted for further management Review of Systems Review of Systems: Yes all other systems are reviewed and are negative [facility] Medical History (Updated 08/15/21 @ 06:32 by Andres Bailey MD) Alcohol abuse Anxiety Benign essential hypertension Crohn's disease Depression GERD without esophagitis Hypertriglyceridemia Insomnia Myalgia Ulcerative colitis Family History Other Family history non-contributory Substance use disorder Surgical History History of shoulder surgery Social History Household Members: None Housing: Apartment Do you presently have visiting nurse or other home services: No Alcohol intake: former Patient Tobacco Use Status: Former Tobacco user e-Cigarette/Vaping Use: Never Used Second Hand Smoke Exposure: No Substance Use Type: Marijuana Advance Directives: No Advance Directives Information Provided: No service: No Current occupational status: employed Cognitive needs: No Hearing needs: No Vision needs: Yes (Glasses) Meds Allergies Allergy/AdvReac Type Severity Reaction Status Date / Time citalopram AdvReac Intermediate nausea Verified 08/14/21 21:55 Active Medications: Current Medications Magnesium Sulfate (Magnesium Sulfate/H2o) 2 gm in 50 mls @ 25 mls/hr IV ONCE ONE Stop: 08/14/21 22:39 Medication (No Benzodiazepines) 1 each MISCELLANE DAILY [facility] Phenobarbital (Phenobarbital 30 Mg Tablet) 60 mg PO BID [facility] Stop: 08/16/21 21:01 Phenobarbital (Phenobarbital 30 Mg Tablet) 30 mg PO BID [facility] Stop: 08/18/21 21:01 Phenobarbital (Phenobarbital 15 Mg Tablet) 15 mg PO DAILY [facility] Stop: 08/20/21 09:01 Phenobarbital Sodium (Phenobarbital Sodium 130 Mg/Ml Vial) 279 mg IM 0200,2300 [facility] Stop: 08/15/21 02:01 Home Medications Medication Instructions Recorded Confirmed Last Taken Type esomeprazole magnesium 20 mg 20 mg PO DAILY 08/14/21 08/14/21 Unknown History capsule,delayed release (Nexium) Physical Exam Vital Signs and Narrative: Vital Signs: Last Vital Signs Temp 98 F 08/14/21 17:05 Pulse 88 08/14/21 19:29 Resp 20 08/14/21 19:29 BP 150/104 H 08/14/21 19:29 Pulse Ox 98 08/14/21 19:29 BMI result Body Mass Index 24.4 Const: General: cooperative and no acute distress Orientation/consciousness: patient oriented x3 Eyes: General: appearance normal, both eyes and all related structures Pupils: Equal, round and reactive pupils present Resp: Effort & Inspection: normal respiratory effort Auscultation: clear to auscultation bilaterally Cardio: Rate: regular rate Rhythm: regular rhythm GI: Other: epigastric tenderness, no rebound or guarding Palpation (GI): Soft to palpation Auscultation: normal bowel sounds Skin: General skin exam: no rashes or lesions noted Neuro: General: patient oriented x3 Cranial nerves: Yes Equal, round and reactive pupils present Cognition (Neuro): normal cognition Extrem: General: Yes normal to inspection and Yes no pedal edema Results Labs CBC and Chem 7: 08/14/21 19:41 08/14/21 19:41 Labs: Laboratory Results - last 24 hr 08/14/21 08/14/21 08/14/21 17:51 19:40 19:41 MCV 95.6 MCH 34.6 H MCHC 36.2 H RDW 13.1 Plt Count 155 L MPV 9.0 L Immature Gran % (Auto) 0.3 Neut % (Auto) 82.7 H Lymph % (Auto) 11.2 L [place] % (Auto) 5.5 Eos % (Auto) 0.0 Baso % (Auto) 0.3 Lymph # (Auto) 1.3 [place] # (Auto) 0.6 Eos # (Auto) 0.0 Baso # (Auto) 0.0 Abs Immat Gran (auto) 0.04 H Absolute Neuts (auto) 9.6 H Absolute Nucleated RBC 0.000 Nucleated RBC % (auto) 0.0 PT INR APTT Anion Gap Estim Creat Clear Calc Estimated GFR POC Glucose 110 Random Glucose Calcium Magnesium Total Bilirubin Direct Bilirubin AST ALT Alkaline Phosphatase Ammonia Total Creatine Kinase Total Protein Albumin Lipase Ethyl Alcohol COVID-19 (ANICETO) Negative COVID-19 Clin Com See Note 08/14/21 08/14/21 08/14/21 19:41 19:41 19:41 MCV MCH MCHC RDW Plt Count MPV Immature Gran % (Auto) Neut % (Auto) Lymph % (Auto) [place] % (Auto) Eos % (Auto) Baso % (Auto) Lymph # (Auto) [place] # (Auto) Eos # (Auto) Baso # (Auto) Abs Immat Gran (auto) Absolute Neuts (auto) Absolute Nucleated RBC Nucleated RBC % (auto) PT 13.0 INR 1.1 APTT 28.4 Anion Gap 21 H Estim Creat Clear Calc 133.2 Estimated GFR > 60 POC Glucose Random Glucose 106 Calcium 9.0 Magnesium 1.4 L* Total Bilirubin 2.2 H Direct Bilirubin 1.3 H AST 406 H ALT 262 H Alkaline Phosphatase 290 H D Ammonia 82 H Total Creatine Kinase Total Protein 7.5 D Albumin 4.3 Lipase 393 H Ethyl Alcohol COVID-19 (ANICETO) COVID-19 Clin Com 08/14/21 08/14/21 19:41 19:41 MCV MCH MCHC RDW Plt Count MPV Immature Gran % (Auto) Neut % (Auto) Lymph % (Auto) [place] % (Auto) Eos % (Auto) Baso % (Auto) Lymph # (Auto) [place] # (Auto) Eos # (Auto) Baso # (Auto) Abs Immat Gran (auto) Absolute Neuts (auto) Absolute Nucleated RBC Nucleated RBC % (auto) PT INR APTT Anion Gap Estim Creat Clear Calc Estimated GFR POC Glucose Random Glucose Calcium Magnesium Total Bilirubin Direct Bilirubin AST ALT Alkaline Phosphatase Ammonia Total Creatine Kinase 142 D Total Protein Albumin Lipase Ethyl Alcohol < 10 COVID-19 (ANICETO) COVID-19 Clin Com Imaging Radiologist's Impressions: Impressions Chest X-Ray 08/14/21 17:26 IMPRESSION: No acute cardiopulmonary findings. Assessment and Plan (1) Acute pancreatitis: Status: Acute (2) Alcohol withdrawal: Status: Acute (3) Hypertensive crisis: Status: Acute (4) Hypertriglyceridemia: Status: Acute (5) Alcohol use disorder, severe, dependence: Status: Acute Plan this is a 31-year-old male with past medical history of alcohol abuse, Crohn's disease, anxiety, depression, hypertriglyceridemia, history of vanc cystitis, and alcohol withdrawal seizures,history of rhabdomyolysis who presents to the hospital with complaints of abdominal pain nausea vomiting, found to have acute pancreatitis as well as alcohol withdrawals # acute pancreatitis - most likely secondary to alcohol abuse as well as hypertriglyceridemia - history of alcohol abuse, triglycerides of 977 - at this time will treat him with aggressive IV fluids, statin, and fenofibrate - trend triglycerides - NPO - pain control # alcohol abuse with alcohol withdrawal - high Ciwa - started on phenobarb protocol - folic acid and thiamine supplement # hypertensive crisis - presented with elevated blood pressure - most likely secondary to noncompliance as well as exacerbated by pain - status post labetalol 10 mg iv x 2 - BP improved, will start him on amlodipine daily # depression anxiety - will start him on hydroxyzine p.r.n. # history of Crohn's disease - not in exacerbation - follow-up outpatient DVT prophylaxis Lovenox Quality Stroke Does the patient have a stroke diagnosis?: No VTE Prior VTE?: No VTE Risk Level:: Medical - moderate - high VTE Device Contraindication: Treatment Not Indicated VTE Drug Contraindication: N/A - Med Ordered
[2021-08-14 20:58] LABS: Appearance Urine CLEAR; Color Urine YELLOW; Glucose Urine UA NEG (NEG); Leukocyte Esterase Urine NEG (NEG); Nitrite Urine NEG (NEG); Specific Gravity - Urine >= 1.030 (1.005-1.025); UACC Culture Trigger NO; Urine Blood NEG (NEG); Urine Ketones 5 MG/DL (NEG); Urine Protein 2+ MG/DL (NEG-TRACE)
[2021-08-14 21:07] LABS: RBC Urine 0-2 /HPF (0); Squamous Epithelial Cell Urine TRACE /LPF; WBC Urine 0-2 /HPF (0-4)
[2021-08-14 21:17] LABS: Amphetamine Screen Urine Not Detected (Not Detect); Barbiturates, Urine Not Detected (Not Detect); Benzodiazepines Screen Urine Not Detected (Not Detect); Cannabinoid Screen Urine POSITIVE (Not Detect); Cocaine Screen Urine Not Detected (Not Detect); Fentanyl, urine Not Detected (Not Detect); Opiate Screen Urine Not Detected (Not Detect); Phencyclidine Screen Urine Not Detected (Not Detect)
[2021-08-14] MEDS: Enoxaparin Sodium 40 MG/0.4 ML SYRINGE SUBCUT (21:57)
[2021-08-14] MEDS: Magnesium Sulfate/H2O 2 GM/50 ML PIGGYBACK IV (21:57)
[2021-08-14] MEDS: Lactated Ringers 1,000 ML 250 ML IVCONT (21:59)
[2021-08-14 22:05] LABS: Triglycerides 977 mg/dL
[2021-08-14] MEDS: PHENobarbitaL sodium 130 MG/ML VIAL 279 MG IM (23:17)
[2021-08-14] MEDS: hydrOXYzine HCL 25 MG TABLET PO (23:34)
[2021-08-15] MEDS: Lactated Ringers 1,000 ML 250 ML IVCONT ×4 (02:06→14:08)
[2021-08-15] MEDS: PHENobarbitaL sodium 130 MG/ML VIAL 279 MG IM (02:08)
--- NOTE | 2021-08-15 03:24 | PC.NURSE ---
Initial contact: pt alert + oriented x4. answers questions appropriately. Pt resps are even and unlabored LS are clear. Pt is Ns on the monitor in the 90s. abd is soft non-tender. pt states no complaints at this time. Skin is pwd. moves all ext independently
[2021-08-15 05:53] VITALS: BP 153/103; PULSE 73; RESP 18; O2SAT 96
[2021-08-15 07:41] LABS: MANUAL DIFF FLAG NO
[2021-08-15 07:57] LABS: Magnesium 2.2 mg/dL (1.6-2.6)
--- NOTE | 2021-08-15 07:58 | P.PNIM_ITS ---
Subjective Subjective Date of Service: 08/15/21 Interval History: alcohol withdrawal Review of Systems Patient is still tremulous, anxious, denies any chest pain or shortness of breath or abdominal pain or fever chills. Physical Exam Vital Signs: Vital Signs: Last Vital Signs Temp 98 F 08/14/21 17:05 Pulse 73 08/15/21 05:53 Resp 18 08/15/21 05:53 BP 153/103 H 08/15/21 05:53 Pulse Ox 96 08/15/21 05:53 BMI result Body Mass Index 24.4 Appearance: Alert.? Oriented X3.? not in distress.? Eyes: Pupils equal, round and reactive to light.? Sclera slightly icteric .? ENT: Pharynx normal.? Moist mucous membranes. cvs: rrr, [id number] , no murmur res: clear to auscultation ,no rhonchii or wheezing abd: no rebound or guarding, still has epigastric tenderness, bs present. ext pulses present , no cyanosis neuro: axo3 , nonfocal. Objective Data Active Medications Acetaminophen (Acetaminophen 325 Mg Tablet) 650 mg PO Q6H PRN PRN Reason: Pain, Mild (Pain Scale 1-3) Amlodipine Besylate (Amlodipine Besylate 5 Mg Tablet) 5 mg PO DAILY [facility]; Protocol Atorvastatin Calcium (Atorvastatin Calcium 40 Mg Tablet) 40 mg PO BEDTIME [facility] Docusate Sodium (Docusate Sodium 100 Mg Capsule) 100 mg PO DAILY PRN PRN Reason: Constipation Enoxaparin Sodium (Enoxaparin Sodium 40 Mg/0.4 Ml Syringe) 40 mg SUBCUT Q24H [facility] Last Admin: 08/14/21 21:57 Dose: 40 mg Documented by: MARGOT Fenofibrate (Fenofibrate 160 Mg Tablet) 160 mg PO DAILY [facility] Folic Acid (Folic Acid 1 Mg Tablet) 1 mg PO DAILY [facility] Hydromorphone HCl (Hydromorphone Hcl 0.5 Mg/0.5 Ml Syringe) 0.5 mg IVPUSH Q4H PRN; Protocol PRN Reason: Pain, Severe (Pain Scale 7-10) Hydroxyzine HCl (Hydroxyzine Hcl 25 Mg Tablet) 25 mg PO Q8H PRN PRN Reason: anxiety/restlessness Last Admin: 08/14/21 23:34 Dose: 25 mg Documented by: MARGOT Lactated Ringer's (Lr) 1,000 mls @ 250 mls/hr IVCONT .Q4H [facility] Last Admin: 08/15/21 06:04 Dose: 250 mls/hr Documented by: CHRIS Medication (No Benzodiazepines) 1 each MISCELLANE DAILY [facility] Omeprazole (Omeprazole 20 Mg Capsule.Dr) 20 mg PO DAILY@0630 [facility] Ondansetron HCl (Ondansetron Hcl 4 Mg/2 Ml Vial) 4 mg IVPUSH Q8H PRN PRN Reason: Nausea and Vomiting Phenobarbital (Phenobarbital 30 Mg Tablet) 60 mg PO BID [facility] Stop: 08/16/21 21:01 Phenobarbital (Phenobarbital 30 Mg Tablet) 30 mg PO BID [facility] Stop: 08/18/21 21:01 Phenobarbital (Phenobarbital 15 Mg Tablet) 15 mg PO DAILY [facility] Stop: 08/20/21 09:01 Sodium Chloride (0.9 % Sodium Chloride Flush 3 Ml Syringe) 3 ml IVFLUSH QSHIFT [facility] Last Admin: 08/14/21 22:52 Dose: Not Given Documented by: MARGOT Non-Admin Reason: IV Running Thiamine HCl (Thiamine Hcl 100 Mg Tablet) 100 mg PO DAILY [facility] Labs CBC & Chem 7: 08/15/21 07:27 08/15/21 07:27 Labs: Laboratory Results - last 24 hr 08/14/21 08/14/21 08/14/21 17:51 19:40 19:41 MCV 95.6 MCH 34.6 H MCHC 36.2 H RDW 13.1 Plt Count 155 L MPV 9.0 L Immature Gran % (Auto) 0.3 Neut % (Auto) 82.7 H Lymph % (Auto) 11.2 L [place] % (Auto) 5.5 Eos % (Auto) 0.0 Baso % (Auto) 0.3 Lymph # (Auto) 1.3 [place] # (Auto) 0.6 Eos # (Auto) 0.0 Baso # (Auto) 0.0 Abs Immat Gran (auto) 0.04 H Absolute Neuts (auto) 9.6 H Absolute Nucleated RBC 0.000 Nucleated RBC % (auto) 0.0 PT INR APTT Anion Gap Estim Creat Clear Calc Estimated GFR POC Glucose 110 Random Glucose Calcium Magnesium Total Bilirubin Direct Bilirubin AST ALT Alkaline Phosphatase Ammonia Total Creatine Kinase Total Protein Albumin Triglycerides Lipase Urine Color Urine Appearance Urine pH Ur Specific [place] Urine Protein Urine Glucose (UA) Urine Ketones Urine Blood Urine Nitrite Ur Leukocyte Esterase Urine RBC Urine WBC Ur Squamous Epith Cells Urine Bacteria Urine Opiates Screen Urine Fentanyl Screen Ur Barbiturates Screen Ur Phencyclidine Scrn Ur Amphetamines Screen U Benzodiazepines Scrn Urine Cocaine Screen U Marijuana (THC) Screen Ethyl Alcohol COVID-19 (ANICETO) Negative COVID-19 Clin Com See Note 08/14/21 08/14/21 08/14/21 19:41 19:41 19:41 MCV MCH MCHC RDW Plt Count MPV Immature Gran % (Auto) Neut % (Auto) Lymph % (Auto) [place] % (Auto) Eos % (Auto) Baso % (Auto) Lymph # (Auto) [place] # (Auto) Eos # (Auto) Baso # (Auto) Abs Immat Gran (auto) Absolute Neuts (auto) Absolute Nucleated RBC Nucleated RBC % (auto) PT 13.0 INR 1.1 APTT 28.4 Anion Gap 21 H Estim Creat Clear Calc 133.2 Estimated GFR > 60 POC Glucose Random Glucose 106 Calcium 9.0 Magnesium 1.4 L* Total Bilirubin 2.2 H Direct Bilirubin 1.3 H AST 406 H ALT 262 H Alkaline Phosphatase 290 H D Ammonia 82 H Total Creatine Kinase Total Protein 7.5 D Albumin 4.3 Triglycerides 977 Lipase 393 H Urine Color Urine Appearance Urine pH Ur Specific [place] Urine Protein Urine Glucose (UA) Urine Ketones Urine Blood Urine Nitrite Ur Leukocyte Esterase Urine RBC Urine WBC Ur Squamous Epith Cells Urine Bacteria Urine Opiates Screen Urine Fentanyl Screen Ur Barbiturates Screen Ur Phencyclidine Scrn Ur Amphetamines Screen U Benzodiazepines Scrn Urine Cocaine Screen U Marijuana (THC) Screen Ethyl Alcohol COVID-19 (ANICETO) COVID-19 Clin Com 08/14/21 08/14/21 08/14/21 19:41 19:41 20:51 MCV MCH MCHC RDW Plt Count MPV Immature Gran % (Auto) Neut % (Auto) Lymph % (Auto) [place] % (Auto) Eos % (Auto) Baso % (Auto) Lymph # (Auto) [place] # (Auto) Eos # (Auto) Baso # (Auto) Abs Immat Gran (auto) Absolute Neuts (auto) Absolute Nucleated RBC Nucleated RBC % (auto) PT INR APTT Anion Gap Estim Creat Clear Calc Estimated GFR POC Glucose Random Glucose Calcium Magnesium Total Bilirubin Direct Bilirubin AST ALT Alkaline Phosphatase Ammonia Total Creatine Kinase 142 D Total Protein Albumin Triglycerides Lipase Urine Color YELLOW Urine Appearance CLEAR Urine pH 6.0 Ur Specific [place] >= 1.030 H Urine Protein 2+ H Urine Glucose (UA) NEG Urine Ketones 5 Urine Blood NEG Urine Nitrite NEG Ur Leukocyte Esterase NEG Urine RBC 0-2 Urine WBC 0-2 Ur Squamous Epith Cells TRACE Urine Bacteria NONE Urine Opiates Screen Urine Fentanyl Screen Ur Barbiturates Screen Ur Phencyclidine Scrn Ur Amphetamines Screen U Benzodiazepines Scrn Urine Cocaine Screen U Marijuana (THC) Screen Ethyl Alcohol < 10 COVID-19 (ANICETO) COVID-19 [facility] 08/14/21 08/15/21 20:51 07:27 MCV MCH MCHC RDW Plt Count MPV Immature Gran % (Auto) Neut % (Auto) Lymph % (Auto) [place] % (Auto) Eos % (Auto) Baso % (Auto) Lymph # (Auto) [place] # (Auto) Eos # (Auto) Baso # (Auto) Abs Immat Gran (auto) Absolute Neuts (auto) Absolute Nucleated RBC Nucleated RBC % (auto) PT INR APTT Anion Gap Estim Creat Clear Calc Estimated GFR POC Glucose Random Glucose Calcium Magnesium 2.2 Total Bilirubin Direct Bilirubin AST ALT Alkaline Phosphatase Ammonia Total Creatine Kinase Total Protein Albumin Triglycerides Lipase Urine Color Urine Appearance Urine pH Ur Specific [place] Urine Protein Urine Glucose (UA) Urine Ketones Urine Blood Urine Nitrite Ur Leukocyte Esterase Urine RBC Urine WBC Ur Squamous Epith Cells Urine Bacteria Urine Opiates Screen Not Detected Urine Fentanyl Screen Not Detected Ur Barbiturates Screen Not Detected Ur Phencyclidine Scrn Not Detected Ur Amphetamines Screen Not Detected U Benzodiazepines Scrn Not Detected Urine Cocaine Screen Not Detected U Marijuana (THC) Screen POSITIVE H Ethyl Alcohol COVID-19 (ANICETO) COVID-19 [facility] Assessment and Plan (1) Hypertriglyceridemia: Status: Acute (2) Alcohol withdrawal: Status: Acute (3) Pancreatitis: Status: Acute Plan 31-year-old male with past medical history of alcohol abuse, Crohn's disease, anxiety, depression, hypertriglyceridemia,? history of vanc cystitis, and alcohol withdrawal seizures,history of rhabdomyolysis who presents to the hospital? with complaints of abdominal pain nausea vomiting, found to have acute pancreatitis as well as alcohol withdrawals 1.acute pancreatitis -? most likely secondary to alcohol abuse as well as? hypertriglyceridemia -? history of alcohol abuse, triglycerides of 977- treding down 590-577 -? at this time will treat him with aggressive IV fluids, statin, and fenofibrate, pain control -? trend triglycerides -? NPO if does not improves -then need Gi eval. 2.? alcohol abuse with alcohol withdrawal - high Ciwa, on phenobarb protocol,folic acid and thiamine supplement 3. hypertension uncontrolled:-? presented with elevated blood pressure -? most likely secondary to noncompliance as well as exacerbated by pain -? status post labetalol 10 mg iv x 2 -? BP improving , will adjust amlodipine 10 mg daily. 4. depression anxiety-? will start him on hydroxyzine p.r.n. 5.? history of Crohn's disease - not in exacerbation -? follow-up outpatient ?DVT prophylaxis Lovenox Above management discussed with the patient within length he understand and in agreement the plan, time spent 70 minute. Quality Stroke Does the patient have a stroke diagnosis?: No VTE Prior VTE?: No VTE Risk Level:: Medical - moderate - high VTE Device Contraindication: Treatment Not Indicated VTE Drug Contraindication: N/A - Med Ordered
[2021-08-15 08:05] LABS: Basophils Percent Auto 0.5 % (0-2); Eosinophils Percent Auto 0.8 % (0-4); Hematocrit 38.5 % (42.0-52.0); Hemoglobin 13.4 g/dl (14.0-18.0); Imm Gran Abs Auto 0.01 X10*3/uL (0.00-0.03); Imm Gran Pct Auto 0.3 % (0.0-0.4); Lymphocytes Absolute Auto 1.4 X10*3/uL (1.2-4.9); Lymphocytes Percent Auto 35.5 % (20-40); Mean Corpuscular HGB Conc 34.8 g/dl (31.0-36.0); Mean Corpuscular Volume 97.7 fL (80.0-98.0); Mean Platelet Volume 9.6 fL (9.4-12.4); Monocytes Absolute Auto 0.3 X10*3/uL (0.1-1.2); Monocytes Percent Auto 7.8 % (2-11); Neutrophils Absolute Auto 2.2 x10*3/uL (2.0-8.3); Neutrophils Percent Auto 55.1 % (45-73); Platelet Count 120 X10*3/uL (160-400); Red Blood Count 3.94 X10*6/uL (4.60-5.80); Red Cell Distribution Width 12.9 % (11.0-16.0)
[2021-08-15 08:11] LABS: Triglycerides 590 mg/dL
[2021-08-15 08:24] LABS: Anion Gap 16 (12-20); Blood Urea Nitrogen 15 mg/dL (9-16); Calcium 8.3 mg/dL (8.4-10.2); Carbon Dioxide 28 mmol/L (22-29); Chloride 98 mmol/L (96-108); Creatinine Clr Calc Pharmacy 136.2; Estimated Glomerular Filt Rate > 60; Glucose Random 90 mg/dL (60-115); Potassium 3.3 mmol/L (3.3-5.1); Sodium 139 mmol/L (135-145)
[2021-08-15 08:25] LABS: Alanine Aminotransferase 198 U/L (0-40); Albumin Level 3.8 g/dL (3.5-5.0); Alkaline Phosphatase 256 U/L (39-117); Aspartate Amino Transferase 318 U/L (5-37); Bilirubin Direct 1.3 mg/dL (0.0-0.5); Bilirubin Total 2.3 mg/dL (0.0-1.0); Total Protein 6.3 g/dL (6.5-8.0)
[2021-08-15] MEDS: Insulin Regular, Human 100 UNIT/ML 3 ML VIAL 10 UNIT IVPUSH (09:10)
[2021-08-15] MEDS: Folic Acid 1 MG TABLET PO (09:14)
[2021-08-15] MEDS: Omeprazole 20 MG CAPSULE.DR PO (09:14)
[2021-08-15] MEDS: Atorvastatin Calcium 40 MG TABLET PO (09:14)
[2021-08-15] MEDS: Thiamine HCL 100 MG TABLET PO (09:14)
[2021-08-15] MEDS: amLODIPine Besylate 5 MG TABLET PO ×2 (09:14→15:13)
[2021-08-15] MEDS: PHENobarbitaL 30 MG TABLET 60 MG PO (09:15)
--- NOTE | 2021-08-15 09:36 | PC.NURSE ---
this typewriter ribbon winder assumed care of this pt at 0700. 0630 meds given by this typewriter ribbon winder. pt alert and oriented, vss. pt denies pain, he reports tingling in his feet. denies blurry vision/dizziness/headache. no visible tremors, none felt, none reported. meds given as documented. will contact pharmacy regarding meds not loaded in ed pyxis.
[2021-08-15 10:21] LABS: Glucose, Whole Blood 95 mg/dL (60-115)
--- NOTE | 2021-08-15 10:30 | PC.NURSE ---
IV dextrose not given, POC 95. Pt seen by Dr. Valle. meds acknowledged as documented. will continue to monitor.
[2021-08-15] MEDS: Fenofibrate 160 MG TABLET PO (11:15)
--- NOTE | 2021-08-15 11:28 | MHC.CM.PN ---
PT REPORTS HE LIVES ALONE AND HIS BROTHER LIVES IN THE SAME THREE-FAMILY HOME PT REPORTS BEING FULLY INDEPENDENT WITH CARE, HAVING NO SERVICES AND NO DME PT STATES HIS BROTHER, MATT, IS HIS HCP, COPY REQUESTED PTS PCP IS [facility] CURRENT DC PLAN IS HOME WITH NO SERVICES PT WILL NEED ASSISTANCE WITH TRANSPORTATION AT DC
--- NOTE | 2021-08-15 11:30 | PC.NURSE ---
pt seen by Furnace Helper. no complaints.
[2021-08-15 12:50] LABS: Triglycerides 521 mg/dL
[2021-08-15 15:55] VITALS: BP 156/113; PULSE 72; RESP 17; TEMP 36.8; O2SAT 97
[2021-08-15 16:03] LABS: Glucose, Whole Blood 81 mg/dL (60-115)
[2021-08-15 19:06] VITALS: BP 156/108; PULSE 79; RESP 16; TEMP 36.9; O2SAT 98
[2021-08-15 19:22] LABS: Triglycerides 337 mg/dL
--- NOTE | 2021-08-15 20:04 | PM.EVENT ---
Event Note Date of Service: 08/15/21 Event Note: pt wants to leave AMA. does not give a particular reason. He is aware that he is being treated for acute pancreatitis and alcohol withdrawal and knows the risk with not treating both completely. I discussed the risk with him extensively including end organ damage as a result of not completely treating his pancreatitis as well as withdrawal seizures and DTs in regards to his alcohol withdrawal pt is alerr, oriented to self, place and time and verbalizes understanding of risk. wants to leave AMA anyways.
--- NOTE | 2021-08-15 20:05 | PC.NURSE ---
Pt wanted to go AMA at shift change around 194, Dr. Bailey was called and came to talk to the pt. Pt insisted on going AMA, AMA form signed by pt and witnessed by 2nd RN, pt claimed he will walked home and have no ride, Nursing gaming floor supervisor was made aware, IVline removed and pt left at 2004.
--- NOTE | 2021-08-16 07:05 | PM.DS ---
DS: Providers Provider Date of Service: 08/15/21 Date of admission: 08/14/21 20:48 Primary care physician: Martir Kline MD Consults: 08/15/21 16:45 Consult to Gastroenterology Routine Consulting Provider: [facility] [place] Gastroenterology Services Reason for consultation: Pancreatitis/elevated TG/lft's Has provider been notified: No DS: Diagnosis Discharge Diagnosis (1) Hypertriglyceridemia: Status: Acute (2) Alcohol withdrawal: Status: Acute (3) Pancreatitis: Status: Acute DS: Summary Hospital Course Hospital Course: date of service and discharge : 08/15/21 31-year-old male with past medical history of alcohol abuse, Crohn's disease, anxiety, depression, hypertriglyceridemia,? history of vanc cystitis, and alcohol withdrawal seizures,history of rhabdomyolysis who presents to the hospital? with complaints of abdominal pain nausea vomiting, found to have acute pancreatitis as well as alcohol withdrawals. final diagnosis: acute pancreatitis , alcohol withdrawal , uncontrolled htn patient left against medical advise . prescription for amlodipine sent to his pharmacy. Time Spent with Patient Time attestation: Total time spent providing and/or coordinating discharge services: Discharge coordination time: Greater than 30 minutes Quality: Stroke Does the patient have a stroke diagnosis?: No Physical Exam Vital Signs: Vital Signs: Last Vital Signs Temp 98.4 F 08/15/21 19:06 Pulse 79 08/15/21 19:06 Resp 16 08/15/21 19:06 BP 156/108 H 08/15/21 19:06 Pulse Ox 98 08/15/21 19:06 BMI result Body Mass Index 24.4 left against medical advise last night. DS: Data Data Completed and Pending Completed studies during hospitalization [Text1]: Procedures Detoxification Services for Substance Abuse Treatment (06/06/21) Repair Scalp Skin, External Approach (06/06/21) Labs on day of discharge: Laboratory Results - last 24 hr 08/15/21 08/15/21 08/15/21 07:27 07:27 07:27 WBC 4.0 L RBC 3.94 L Hgb 13.4 L Hct 38.5 L MCV 97.7 MCH 34.0 H MCHC 34.8 RDW 12.9 Plt Count 120 L MPV 9.6 Immature Gran % (Auto) 0.3 Neut % (Auto) 55.1 Lymph % (Auto) 35.5 [place] % (Auto) 7.8 Eos % (Auto) 0.8 Baso % (Auto) 0.5 Lymph # (Auto) 1.4 [place] # (Auto) 0.3 Eos # (Auto) 0.0 Baso # (Auto) 0.0 Abs Immat Gran (auto) 0.01 Absolute Neuts (auto) 2.2 Absolute Nucleated RBC 0.000 Nucleated RBC % (auto) 0.0 Sodium 139 Potassium 3.3 Chloride 98 Carbon Dioxide 28 Anion Gap 16 BUN 15 Creatinine 0.87 Estim Creat Clear Calc 136.2 Estimated GFR > 60 POC Glucose Random Glucose 90 Calcium 8.3 L D Magnesium 2.2 Total Bilirubin 2.3 H Direct Bilirubin 1.3 H AST 318 H ALT 198 H Alkaline Phosphatase 256 H Total Protein 6.3 L Albumin 3.8 Triglycerides 08/15/21 08/15/21 08/15/21 07:27 10:18 12:26 WBC RBC Hgb Hct MCV MCH MCHC RDW Plt Count MPV Immature Gran % (Auto) Neut % (Auto) Lymph % (Auto) [place] % (Auto) Eos % (Auto) Baso % (Auto) Lymph # (Auto) [place] # (Auto) Eos # (Auto) Baso # (Auto) Abs Immat Gran (auto) Absolute Neuts (auto) Absolute Nucleated RBC Nucleated RBC % (auto) Sodium Potassium Chloride Carbon Dioxide Anion Gap BUN Creatinine Estim Creat Clear Calc Estimated GFR POC Glucose 95 Random Glucose Calcium Magnesium Total Bilirubin Direct Bilirubin AST ALT Alkaline Phosphatase Total Protein Albumin Triglycerides 590 521 08/15/21 08/15/21 15:59 19:05 WBC RBC Hgb Hct MCV MCH MCHC RDW Plt Count MPV Immature Gran % (Auto) Neut % (Auto) Lymph % (Auto) [place] % (Auto) Eos % (Auto) Baso % (Auto) Lymph # (Auto) [place] # (Auto) Eos # (Auto) Baso # (Auto) Abs Immat Gran (auto) Absolute Neuts (auto) Absolute Nucleated RBC Nucleated RBC % (auto) Sodium Potassium Chloride Carbon Dioxide Anion Gap BUN Creatinine Estim Creat Clear Calc Estimated GFR POC Glucose 81 Random Glucose Calcium Magnesium Total Bilirubin Direct Bilirubin AST ALT Alkaline Phosphatase Total Protein Albumin Triglycerides 337 Discharge Plan Discharge Patient Disposition: Left Against Medical Advice Discharge Diagnosis: pancreatitis Referrals: Martir Kline MD [Primary Care Provider] - 1 Week Discharge Medications: New amlodipine 5 mg tablet 5 mg PO DAILY Qty: 30 0RF Continued esomeprazole magnesium [Nexium] 20 mg Capsule,Delayed Release(Dr/Ec) 20 mg PO DAILY 0RF Discharge Orders: Discharge Order (Routine); Ordered 08/16/21 Ordered By: Maria Elena Mckeon Care Plan Goals: Left against medical advise. Health Concerns: left against medical advise . Plan of Treatment: Left against medical advise. Assessment: Left against medical advise. Discharge Date/Time: 08/15/21 20:20
== END 2021-08-15 20:20 | disposition left against medical advice (07) | DRG 282 ==
LOC: HO.ED 19:40 → HO.EDOVER 20:55
PROVIDERS: Nurse Practitioner Family; Admitting Provider Internal Medicine; Emergency Provider Internal Medicine; PCP Internal Medicine; Visit Provider Internal Medicine
DX: K85.20 Alcohol induced acute pancreatitis without necrosis or infection (principal); F10.231 Alcohol dependence with withdrawal delirium; I16.9 Hypertensive crisis, unspecified; E78.1 Pure hyperglyceridemia; F32.A Depression, unspecified; F41.9 Anxiety disorder, unspecified; K50.90 Crohn's disease, unspecified, without complications; K21.9 Gastro-esophageal reflux disease without esophagitis; I10 Essential (primary) hypertension; F10.229 Alcohol dependence with intoxication, unspecified; Y90.0 Blood alcohol level of less than 20 mg/100 ml; Z91.14 Patient's other noncompliance with medication regimen; Z20.822 Contact with and (suspected) exposure to COVID-19; Z87.891 Personal history of nicotine dependence; Z79.899 Other long term (current) drug therapy
CPT/HCPCS: 36415; 71045; 74176; 80048; 80076; 80307; 81001; 82077; 82140; 82550; 82947; 83690; 83735; 84478; 84484; 85025; 85610; 85730; 87635; 93005; 96361; 96365; 96366; 96372; 96375; 96376; 99285; 99291; J1650; J2060; J2405; J2560; J3475

== ENCOUNTER 2021-09-09 15:53 | Inpatient (IN) | payer OTHER, SELFPAY ==
--- NOTE | ~2021-09-09 | CT_ITS ---
Indication: Seizure EXAMINATION: CT of the brain and CT of the cervical spine. Axial imaging with coronal and sagittal reformatted images. This CT examination was performed using dose optimization techniques as appropriate, variously including the following: *Automated exposure control *Adjustment of mA and/or kV according to patient size (this includes techniques or standardized protocols for targeted exams where dose is matched to indication/reason for exam; i.e. extremities or head) *Use of iterative reconstruction technique. Radiation dose is 891 and 498. Comparison to previous exam from 06/06/2021 CT brain; There is no midline shift. There is no mass effect. There is no hemorrhage. The basal cisterns appear patent. The posterior fossa risk grossly within normal limits. There is no extra-axial collection. Motion degrades this exam. There is no fracture on the bone windows. CT cervical spine; Degenerative changes. No acute fracture or dislocation. CT/CT head/brain wo con IMPRESSION: Negative acute noncontrast CT of the brain. Some limitation from motion here. No fracture or dislocation of the cervical spine.
--- NOTE | ~2021-09-09 | XR_ITS ---
EXAMINATION: XR CHEST CLINICAL INFORMATION: Seizure. Evaluate for aspiration. COMPARISON: Previous chest x-ray most recent July 2021 TECHNIQUE: Frontal view of the chest was obtained. FINDINGS: No significant abnormality is noted involving the heart, lungs, mediastinum, bony thorax or soft tissues. XR/XR chest 1V IMPRESSION: Unremarkable examination.
--- NOTE | ~2021-09-09 | CT_ITS ---
Indication: Seizure EXAMINATION: CT of the brain and CT of the cervical spine. Axial imaging with coronal and sagittal reformatted images. This CT examination was performed using dose optimization techniques as appropriate, variously including the following: *Automated exposure control *Adjustment of mA and/or kV according to patient size (this includes techniques or standardized protocols for targeted exams where dose is matched to indication/reason for exam; i.e. extremities or head) *Use of iterative reconstruction technique. Radiation dose is 891 and 498. Comparison to previous exam from 06/06/2021 CT brain; There is no midline shift. There is no mass effect. There is no hemorrhage. The basal cisterns appear patent. The posterior fossa risk grossly within normal limits. There is no extra-axial collection. Motion degrades this exam. There is no fracture on the bone windows. CT cervical spine; Degenerative changes. No acute fracture or dislocation. CT/CT cervical spine wo con IMPRESSION: Negative acute noncontrast CT of the brain. Some limitation from motion here. No fracture or dislocation of the cervical spine.
[2021-09-09] MEDS: LORazepam 2 MG/ML VIAL IVPUSH ×3 (16:08→16:33)
--- NOTE | 2021-09-09 16:08 | ECG_ITS ---
Test Reason : SEIZURES Blood Pressure : / mmHG Vent. Rate : 122 BPM Atrial Rate : 122 BPM P-R Int : 144 ms QRS Dur : 074 ms QT Int : 326 ms P-R-T Axes : 067 039 024 degrees QTc Int : 464 ms Sinus tachycardia Possible Left atrial enlargement Borderline ECG When compared with ECG of 14-AUG-2021 16:58, No significant change was found Referred By: Opal Kee Electronically Signed By:ANTOLIN FRANKS MD
[2021-09-09 16:09] VITALS: BP 156/108; BP 165/112; PULSE 114; PULSE 135; RESP 18; TEMP 36.6; O2SAT 98; BMI 23.0
[2021-09-09] MEDS: 0.9 % Sodium Chloride 1,000 ML 999 ML IVCONT ×2 (16:15→16:46)
--- NOTE | 2021-09-09 16:16 | ED.SEIZURE ---
HPI - Seizure General Chief Complaint: Seizure Stated Complaint: SZ activity Time Seen by Provider: 09/09/21 16:07 Source: patient and old records reviewed Mode of arrival: EMS Limitations: other (mildly postictal) History of Present Illness complaint: seizure Onset (ago): minute(s) Description of Episode: loss of consciousness and tonic-clonic movement Witnessed: Yes - by Bystander (no headstrike reported to EMS) Trauma: No Seizure History: Yes (alcohol withdrawal seizure admitted recently here for same) Place: Work Possible Precipitating Event: alcohol withdrawal Associated symptoms: other (n/v) Treatments prior to arrival: other (zofran 4mg) Related Data Home Medications Medication Instructions Recorded Confirmed No Known Home Meds 09/09/21 09/09/21 Allergies Allergy/AdvReac Type Severity Reaction Status Date / Time citalopram AdvReac Intermediate nausea Verified 08/14/21 21:55 Review of Systems Review of Systems: ROS unable to be obtained due to patient being postictal [facility] Past Medical History Source: old records reviewed Medical History Alcohol abuse Anxiety Benign essential hypertension Crohn's disease Depression GERD without esophagitis Hypertriglyceridemia Insomnia Myalgia Ulcerative colitis Surgical History History of shoulder surgery Family History Family History Other Family history non-contributory Substance use disorder Social History Social History Household Members: None Housing: Apartment Do you presently have visiting nurse or other home services: No Alcohol intake: current Patient Tobacco Use Status: Former Tobacco user e-Cigarette/Vaping Use: Never Used Second Hand Smoke Exposure: No Substance Use Type: Marijuana Advance Directives: No Advance Directives Information Provided: No service: No Current occupational status: employed Cognitive needs: No Hearing needs: No Vision needs: Yes (Glasses) Physical Exam Vital Signs: Vital Signs: Last Vital Signs Temp 98.3 F 09/09/21 19:51 Pulse 108 H 09/09/21 19:51 Resp 18 09/09/21 19:51 BP 162/107 H 09/09/21 19:51 Pulse Ox 100 09/09/21 19:51 BMI result Body Mass Index 23.0 Appearance: Alert. Oriented X (person/place). Moderate acute distress. Eyes: Pupils equal, round and reactive to light. 4mm ENT: Pharynx normal. Atraumatic Neck: Normal inspection. Neck supple. CVS: tachycardic heart rate and rhythm. Pulses normal. Respiratory: No respiratory distress. Breath sounds normal. Abdomen: Soft and non-tender. : incontinent of urine Skin: Skin warm and diaphoretic. Normal skin color. Normal skin turgor. Extremities: No lower extremity edema. Neuro: Oriented X 2 (person/place). No motor deficit. No sensory deficit. Course Course Course Narrative: repeat seizure activity 60 seconds GCT then very aggressive after event - thrashing repeat IV ativan given postictal agitation - total of 6mg IV ativan ordered from arrival for seizures and postictal agitation O2 sat 98% on NRB doing stable at this time post ativan, phenobarb pending lactic acidosis due to seizure and not infection or severe sepsis 3L of IVF ordered, patient markedly improving at this time doing much better, able to sip water and urinate with minimal assistance patient improved at this time alert and oriented x 3 lactic acid cleared VS elevated but similar as last time, appears very comfortable at this time, had issues with HTN and tachycardia last time was DC on amlodipine - will start on 5mg amlodipine for now (he has not been taking any medications) BMP improved MDM - Seizure MDM Narrative Medical decision making narrative: 31 yo male hx of alcohol abuse, ETOH withdrawal seizures he is postictal now but had a seizure at work no reported head strike - he tells me he last drank yesterady. Will obtain CT head/cspine, labs, EKG, give IV ativan 2mg on arrival to ED, IV thiamine/magnesium/zofran. Anticipate admission to hospital pending workup - similar presentation in the past. Lab Data Result diagrams: 09/09/21 17:01 09/09/21 19:26 Labs: Lab Results 09/09/21 09/09/21 09/09/21 Range/Units 17:01 17:01 17:01 WBC 8.3 (4.8-10.8) X10*3/uL RBC 3.97 L (4.60-5.80) X10*6/uL Hgb 13.8 L (14.0-18.0) g/dl Hct 40.5 L (42.0-52.0) % MCV 102.0 H (80.0-98.0) fL MCH 34.8 H (27.0-33.0) pg MCHC 34.1 (31.0-36.0) g/dl RDW 13.3 (11.0-16.0) % Plt Count 153 L D (160-400) X10*3/uL MPV 9.1 L (9.4-12.4) fL Immature Gran % (Auto) 0.7 H (0.0-0.4) % Neut % (Auto) 65.8 (45-73) % Lymph % (Auto) 26.6 (20-40) % [place] % (Auto) 5.8 (2-11) % Eos % (Auto) 0.6 (0-4) % Baso % (Auto) 0.5 (0-2) % Lymph # (Auto) 2.2 (1.2-4.9) X10*3/uL [place] # (Auto) 0.5 (0.1-1.2) X10*3/uL Eos # (Auto) 0.1 (0.0-0.4) X10*3/uL Baso # (Auto) 0.0 (0.0-0.2) X10*3/uL Abs Immat Gran (auto) 0.06 H (0.00-0.03) X10*3/uL Absolute Neuts (auto) 5.5 (2.0-8.3) x10*3/uL Absolute Nucleated RBC 0.000 (0.0-0.012) X10*3/uL Nucleated RBC % (auto) 0.0 (0.0-0.2) /100WBC PT (9.9-13.0) SEC INR (0.9-1.1) Sodium 140 (135-145) mmol/L Potassium 3.8 (3.3-5.1) mmol/L Chloride 103 (96-108) mmol/L Carbon Dioxide 7 L* D (22-29) mmol/L Anion Gap 34 H (12-20) BUN 10 (9-16) mg/dL Creatinine 1.06 (0.5-1.4) mg/dL Estim Creat Clear Calc 111.1 Estimated GFR > 60 Random Glucose 107 (60-115) mg/dL Lactic Acid (0.5-2.0) mmol/L Lactic Acid F/U @ 2Hr (0.5-2.0) mmol/L Calcium 9.3 D (8.4-10.2) mg/dL Magnesium 3.3 H (1.6-2.6) mg/dL Total Bilirubin 0.7 (0.0-1.0) mg/dL Direct Bilirubin 0.2 (0.0-0.5) mg/dL AST 153 H (5-37) U/L ALT 89 H (0-40) U/L Alkaline Phosphatase 173 H D (39-117) U/L Total Creatine Kinase 412 H D (38-174) U/L Total Protein 8.2 H D (6.5-8.0) g/dL Albumin 4.8 D (3.5-5.0) g/dL Lipase 189 H (8-78) U/L Urine Opiates Screen (Not Detect) Urine Fentanyl Screen (Not Detect) Ur Barbiturates Screen (Not Detect) Ur Phencyclidine Scrn (Not Detect) Ur Amphetamines Screen (Not Detect) U Benzodiazepines Scrn (Not Detect) Urine Cocaine Screen (Not Detect) U Marijuana (THC) Screen (Not Detect) Ethyl Alcohol mg/dL COVID-19 (ANICETO) Negative (Negative) COVID-19 Clin Com See Note 09/09/21 09/09/21 09/09/21 Range/Units 17:01 17:13 17:13 WBC (4.8-10.8) X10*3/uL RBC (4.60-5.80) X10*6/uL Hgb (14.0-18.0) g/dl Hct (42.0-52.0) % MCV (80.0-98.0) fL MCH (27.0-33.0) pg MCHC (31.0-36.0) g/dl RDW (11.0-16.0) % Plt Count (160-400) X10*3/uL MPV (9.4-12.4) fL Immature Gran % (Auto) (0.0-0.4) % Neut % (Auto) (45-73) % Lymph % (Auto) (20-40) % [place] % (Auto) (2-11) % Eos % (Auto) (0-4) % Baso % (Auto) (0-2) % Lymph # (Auto) (1.2-4.9) X10*3/uL [place] # (Auto) (0.1-1.2) X10*3/uL Eos # (Auto) (0.0-0.4) X10*3/uL Baso # (Auto) (0.0-0.2) X10*3/uL Abs Immat Gran (auto) (0.00-0.03) X10*3/uL Absolute Neuts (auto) (2.0-8.3) x10*3/uL Absolute Nucleated RBC (0.0-0.012) X10*3/uL Nucleated RBC % (auto) (0.0-0.2) /100WBC PT 13.5 H (9.9-13.0) SEC INR 1.2 H (0.9-1.1) Sodium (135-145) mmol/L Potassium (3.3-5.1) mmol/L Chloride (96-108) mmol/L Carbon Dioxide (22-29) mmol/L Anion Gap (12-20) BUN (9-16) mg/dL Creatinine (0.5-1.4) mg/dL Estim Creat Clear Calc Estimated GFR Random Glucose (60-115) mg/dL Lactic Acid 18.9 H* (0.5-2.0) mmol/L Lactic Acid F/U @ 2Hr (0.5-2.0) mmol/L Calcium (8.4-10.2) mg/dL Magnesium (1.6-2.6) mg/dL Total Bilirubin (0.0-1.0) mg/dL Direct Bilirubin (0.0-0.5) mg/dL AST (5-37) U/L ALT (0-40) U/L Alkaline Phosphatase (39-117) U/L Total Creatine Kinase (38-174) U/L Total Protein (6.5-8.0) g/dL Albumin (3.5-5.0) g/dL Lipase (8-78) U/L Urine Opiates Screen (Not Detect) Urine Fentanyl Screen (Not Detect) Ur Barbiturates Screen (Not Detect) Ur Phencyclidine Scrn (Not Detect) Ur Amphetamines Screen (Not Detect) U Benzodiazepines Scrn (Not Detect) Urine Cocaine Screen (Not Detect) U Marijuana (THC) Screen (Not Detect) Ethyl Alcohol < 10 mg/dL COVID-19 (ANICETO) (Negative) COVID-19 Clin Com 09/09/21 09/09/21 09/09/21 Range/Units 17:42 19:08 19:26 WBC (4.8-10.8) X10*3/uL RBC (4.60-5.80) X10*6/uL Hgb (14.0-18.0) g/dl Hct (42.0-52.0) % MCV (80.0-98.0) fL MCH (27.0-33.0) pg MCHC (31.0-36.0) g/dl RDW (11.0-16.0) % Plt Count (160-400) X10*3/uL MPV (9.4-12.4) fL Immature Gran % (Auto) (0.0-0.4) % Neut % (Auto) (45-73) % Lymph % (Auto) (20-40) % [place] % (Auto) (2-11) % Eos % (Auto) (0-4) % Baso % (Auto) (0-2) % Lymph # (Auto) (1.2-4.9) X10*3/uL [place] # (Auto) (0.1-1.2) X10*3/uL Eos # (Auto) (0.0-0.4) X10*3/uL Baso # (Auto) (0.0-0.2) X10*3/uL Abs Immat Gran (auto) (0.00-0.03) X10*3/uL Absolute Neuts (auto) (2.0-8.3) x10*3/uL Absolute Nucleated RBC (0.0-0.012) X10*3/uL Nucleated RBC % (auto) (0.0-0.2) /100WBC PT (9.9-13.0) SEC INR (0.9-1.1) Sodium 137 (135-145) mmol/L Potassium 3.6 (3.3-5.1) mmol/L Chloride 104 (96-108) mmol/L Carbon Dioxide 20 L (22-29) mmol/L Anion Gap 17 (12-20) BUN 8 L (9-16) mg/dL Creatinine 0.83 (0.5-1.4) mg/dL Estim Creat Clear Calc 141.9 Estimated GFR > 60 Random Glucose 95 (60-115) mg/dL Lactic Acid (0.5-2.0) mmol/L Lactic Acid F/U @ 2Hr 1.2 (0.5-2.0) mmol/L Calcium 8.4 D (8.4-10.2) mg/dL Magnesium (1.6-2.6) mg/dL Total Bilirubin (0.0-1.0) mg/dL Direct Bilirubin (0.0-0.5) mg/dL AST (5-37) U/L ALT (0-40) U/L Alkaline Phosphatase (39-117) U/L Total Creatine Kinase (38-174) U/L Total Protein (6.5-8.0) g/dL Albumin (3.5-5.0) g/dL Lipase (8-78) U/L Urine Opiates Screen Not Detected (Not Detect) Urine Fentanyl Screen Not Detected (Not Detect) Ur Barbiturates Screen POSITIVE H (Not Detect) Ur Phencyclidine Scrn Not Detected (Not Detect) Ur Amphetamines Screen Not Detected (Not Detect) U Benzodiazepines Scrn Not Detected (Not Detect) Urine Cocaine Screen Not Detected (Not Detect) U Marijuana (THC) Screen POSITIVE H (Not Detect) Ethyl Alcohol mg/dL COVID-19 (ANICETO) (Negative) COVID-19 Clin Com ECG Data Attestation: I personally reviewed and interpreted this ECG as follows: ECG interpretation date: 09/09/21 ECG interpretation time: 17:55 Interpretation: Rate: 122 Rhythm: sinus tachycardia [place]: normal Normal P waves. Normal VIK. Normal QRS complex. ST T wave : normal no ELISABETH qTC: normal prior studies: no acute ischemia The study has been interpreted contemporaneously by me. Critical Care Time Critical Care Time Critical Care Time: Yes Total Critical Care Time: 60 Attestation: review of records, repeat IV ativan, reassessments, seizure control, phenobarb protocol I attest to this time spent taking care of the patient Discharge Plan Discharge Clinical Impression: Alcohol abuse, Acidosis, lactic, Elevated liver function tests Alcohol withdrawal seizure Qualifiers: Complication of substance-induced condition: uncomplicated Qualified Code(s): F10.230 - Alcohol dependence with withdrawal, uncomplicated Patient Disposition: Admitted As Inpatient
[2021-09-09] MEDS: ondansetron HCL 4 MG/2 ML VIAL IVPUSH (16:19)
[2021-09-09] MEDS: Thiamine HCL 200 MG in 0.9 % Sodium Chloride 100 ML 204 MG IV (16:19)
[2021-09-09] MEDS: Magnesium Sulfate/H2O 2 GM/50 ML PIGGYBACK IV (16:26)
[2021-09-09] MEDS: PHENobarbitaL sodium 130 MG/ML VIAL 308 MG IM (16:37)
[2021-09-09 16:47] VITALS: BP 154/76; PULSE 120; RESP 22; TEMP 36.6; O2SAT 96
[2021-09-09 17:08] LABS: MANUAL DIFF FLAG NO
[2021-09-09 17:13] LABS: Basophils Percent Auto 0.5 % (0-2); Eosinophils Absolute Auto 0.1 X10*3/uL (0.0-0.4); Eosinophils Percent Auto 0.6 % (0-4); Hematocrit 40.5 % (42.0-52.0); Hemoglobin 13.8 g/dl (14.0-18.0); Imm Gran Abs Auto 0.06 X10*3/uL (0.00-0.03); Imm Gran Pct Auto 0.7 % (0.0-0.4); Lymphocytes Absolute Auto 2.2 X10*3/uL (1.2-4.9); Lymphocytes Percent Auto 26.6 % (20-40); Mean Corpuscular HGB Conc 34.1 g/dl (31.0-36.0); Mean Corpuscular Hemoglobin 34.8 pg (27.0-33.0); Mean Platelet Volume 9.1 fL (9.4-12.4); Monocytes Absolute Auto 0.5 X10*3/uL (0.1-1.2); Monocytes Percent Auto 5.8 % (2-11); Neutrophils Absolute Auto 5.5 x10*3/uL (2.0-8.3); Neutrophils Percent Auto 65.8 % (45-73); Platelet Count 153 X10*3/uL (160-400); Red Blood Count 3.97 X10*6/uL (4.60-5.80); Red Cell Distribution Width 13.3 % (11.0-16.0); White Blood Count 8.3 X10*3/uL (4.8-10.8)
[2021-09-09 17:25] LABS: INTERNATIONAL NORM RATIO 1.2 (0.9-1.1); Prothrombin Time 13.5 SEC (9.9-13.0)
[2021-09-09 17:27] LABS: COVID-19 Test Negative (Negative)
[2021-09-09 17:41] LABS: Ethanol < 10 mg/dL
--- NOTE | 2021-09-09 17:45 | PHA.MEDREC ---
Pharmacy Consult ? Medication Reconciliation Pharmacy has completed the medication reconciliation. PT DOES NOT TAKE ANY MEDS OR VITAMINS
[2021-09-09] MEDS: 0.9 % Sodium Chloride 1,000 ML 999 ML IV (17:51)
[2021-09-09 17:54] LABS: Alanine Aminotransferase 89 U/L (0-40); Albumin Level 4.8 g/dL (3.5-5.0); Alkaline Phosphatase 173 U/L (39-117); Anion Gap 34 (12-20); Aspartate Amino Transferase 153 U/L (5-37); Bilirubin Direct 0.2 mg/dL (0.0-0.5); Bilirubin Total 0.7 mg/dL (0.0-1.0); Blood Urea Nitrogen 10 mg/dL (9-16); Calcium 9.3 mg/dL (8.4-10.2); Carbon Dioxide 7 mmol/L (22-29); Chloride 103 mmol/L (96-108); Creatinine Clr Calc Pharmacy 111.1; Estimated Glomerular Filt Rate > 60; Glucose Random 107 mg/dL (60-115); Lactic Acid 18.9 mmol/L (0.5-2.0); Lipase 189 U/L (8-78); Magnesium 3.3 mg/dL (1.6-2.6); Potassium 3.8 mmol/L (3.3-5.1); Sodium 140 mmol/L (135-145); Total Protein 8.2 g/dL (6.5-8.0)
[2021-09-09 18:08] LABS: Amphetamine Screen Urine Not Detected (Not Detect); Barbiturates, Urine POSITIVE (Not Detect); Benzodiazepines Screen Urine Not Detected (Not Detect); Cannabinoid Screen Urine POSITIVE (Not Detect); Cocaine Screen Urine Not Detected (Not Detect); Fentanyl, urine Not Detected (Not Detect); Opiate Screen Urine Not Detected (Not Detect); Phencyclidine Screen Urine Not Detected (Not Detect)
[2021-09-09 19:06] LABS: Reflex Lactate? Lactic Acid Added
[2021-09-09 19:21] LABS: ~Lactic Acid-LAB USE ONLY 1.2 mmol/L (0.5-2.0)
[2021-09-09 19:50] LABS: Anion Gap 17 (12-20); Blood Urea Nitrogen 8 mg/dL (9-16); Calcium 8.4 mg/dL (8.4-10.2); Carbon Dioxide 20 mmol/L (22-29); Chloride 104 mmol/L (96-108); Creatinine Clr Calc Pharmacy 141.9; Estimated Glomerular Filt Rate > 60; Glucose Random 95 mg/dL (60-115); Potassium 3.6 mmol/L (3.3-5.1); Sodium 137 mmol/L (135-145)
[2021-09-09 19:51] VITALS: BP 162/107; PULSE 108; RESP 18; TEMP 36.8; O2SAT 100
[2021-09-09] MEDS: amLODIPine Besylate 5 MG TABLET PO (19:57)
[2021-09-09 21:03] VITALS: BP 167/108; PULSE 108; RESP 22; O2SAT 99
[2021-09-09] MEDS: PHENobarbitaL sodium 130 MG/ML VIAL 231 MG IM (21:51)
[2021-09-09 21:54] VITALS: BP 163/106; PULSE 87; RESP 16; O2SAT 96
[2021-09-09 22:44] VITALS: BP 136/81; PULSE 94; RESP 18; O2SAT 98
--- NOTE | 2021-09-09 23:33 | PM.IMHP ---
History of Present Illness Date of Service: 09/09/21 Chief Complaint: seizure 31-year-old male with past medical history of alcohol abuse, hypertension, Crohn's, insomnia, and history of alcohol withdrawal seizure as well as hyperlipidemia, anxiety and depression GERD, who presents to the hospital after having multiple seizure episodes. Patient is very postictal, he also received multiple doses of Ativan in the ED and is currently very somnolent and unable to give much history. History is obtained from ED physician. It appears that patient was seizing at work, EMS was called, on arrival to the ED patient had few more episodes of seizure activity, patient was given 6 mg of IV Ativan and was started on phenobarb and stabilized. On arrival to the ED patient was found to have tachycardia, tachypnea, hypertension, satting 96% on room air. Labs were significant for WBC count of 8.3, hemoglobin of 13.8 hematocrit of 40.5, PT of 13.5, INR of 1.2, lactic acid of 18.9, AST of 153, ALT of 89, alk-phos of 173, lipase of 189, UA positive for barbiturates as well as marijuana, COVID negative Head CT negative, chest x-ray negative, glucose 1 CT negative According to ED physician who got history from the patient before he became obtunded was at his last drink was the day prior to presentation Given his alcohol withdrawal seizures, I anticipate a medically necessary 2 night admission for management of alcohol withdrawal and monitoring response response Review of Systems Review of Systems: Yes all other systems are reviewed and are negative [facility] Medical History Alcohol abuse Anxiety Benign essential hypertension Crohn's disease Depression GERD without esophagitis Hypertriglyceridemia Insomnia Myalgia Ulcerative colitis Family History Other Family history non-contributory Substance use disorder Surgical History History of shoulder surgery Social History Household Members: None Housing: Apartment Do you presently have visiting nurse or other home services: No Alcohol intake: current Patient Tobacco Use Status: Former Tobacco user e-Cigarette/Vaping Use: Never Used Second Hand Smoke Exposure: No Use of substances other than those prescribed or required for medical reasons: Unknown Substance Use Type: Marijuana Advance Directives: No Advance Directives Information Provided: No service: No Current occupational status: employed Cognitive needs: No Hearing needs: No Vision needs: Yes (Glasses) Meds Allergies Allergy/AdvReac Type Severity Reaction Status Date / Time citalopram AdvReac Intermediate nausea Verified 08/14/21 21:55 Active Medications: Current Medications Acetaminophen (Acetaminophen 325 Mg Tablet) 650 mg PO Q6H PRN PRN Reason: Pain, Mild (Pain Scale 1-3) Enoxaparin Sodium (Enoxaparin Sodium 40 Mg/0.4 Ml Syringe) 40 mg SUBCUT Q24H [facility] Folic Acid (Folic Acid 1 Mg Tablet) 1 mg PO DAILY [facility] Lactated Ringer's (Lr) 1,000 mls @ 100 mls/hr IVCONT .Q10H [facility] Ondansetron HCl (Ondansetron Hcl 4 Mg/2 Ml Vial) 4 mg IVPUSH Q8H PRN PRN Reason: Nausea and Vomiting Pharmacy Consult (Consult Rx Perform Med Rec) 1 each MISCELLANE ONCE PRN PRN Reason: Consult order Phenobarbital (Phenobarbital 30 Mg Tablet) 60 mg PO BID [facility] Stop: 09/11/21 21:01 Phenobarbital (Phenobarbital 30 Mg Tablet) 30 mg PO BID [facility] Stop: 09/13/21 21:01 Phenobarbital (Phenobarbital 15 Mg Tablet) 15 mg PO DAILY [facility] Stop: 09/15/21 09:01 Phenobarbital Sodium (Phenobarbital Sodium 130 Mg/Ml Vial) 231 mg IM 0000,2100 [facility] Stop: 09/10/21 00:01 Last Admin: 09/09/21 21:51 Dose: 231 mg Documented by: Sodium Chloride (0.9 % Sodium Chloride Flush 3 Ml Syringe) 3 ml IVFLUSH QSHIFT [facility] Thiamine HCl (Thiamine Hcl 100 Mg Tablet) 100 mg PO DAILY [facility] Home Medications Medication Instructions Recorded Confirmed Last Taken Type amlodipine 10 mg tablet 1 tab PO DAILY 09/10/21 09/10/21 Unknown History clonidine HCl 0.1 mg tablet 1 tab PO BID PRN 09/10/21 09/10/21 Unknown History folic acid 1 mg tablet 1 tab PO DAILY 09/10/21 09/10/21 Unknown History naltrexone 50 mg tablet mg PO 03/24/22 Unknown History thiamine HCl (vitamin B1) 100 mg 1 tab PO DAILY 09/10/21 09/10/21 Unknown History tablet Physical Exam Vital Signs and Narrative: Vital Signs: Last Vital Signs Temp 98.3 F 09/09/21 19:51 Pulse 94 09/09/21 22:44 Resp 18 09/09/21 22:44 BP 136/81 09/09/21 22:44 Pulse Ox 98 09/09/21 22:44 BMI result Body Mass Index 23.0 Const: Other: obtunded but arousable to painful stimuli General: no acute distress Eyes: General: appearance normal, both eyes and all related structures Pupils: Equal, round and reactive pupils present Resp: Effort & Inspection: normal respiratory effort Auscultation: clear to auscultation bilaterally Cardio: Rate: regular rate Rhythm: regular rhythm GI: Palpation (GI): Soft to palpation Auscultation: normal bowel sounds Skin: General skin exam: no rashes or lesions noted Neuro: Cranial nerves: Yes Equal, round and reactive pupils present Cognition (Neuro): normal cognition Extrem: General: Yes normal to inspection and Yes no pedal edema Results Labs CBC and Chem 7: 09/10/21 05:47 09/09/21 19:26 Labs: Laboratory Results - last 24 hr 09/09/21 09/09/21 09/09/21 17:01 17:01 17:01 MCV 102.0 H MCH 34.8 H MCHC 34.1 RDW 13.3 Plt Count 153 L D MPV 9.1 L Immature Gran % (Auto) 0.7 H Neut % (Auto) 65.8 Lymph % (Auto) 26.6 [place] % (Auto) 5.8 Eos % (Auto) 0.6 Baso % (Auto) 0.5 Lymph # (Auto) 2.2 [place] # (Auto) 0.5 Eos # (Auto) 0.1 Baso # (Auto) 0.0 Abs Immat Gran (auto) 0.06 H Absolute Neuts (auto) 5.5 Absolute Nucleated RBC 0.000 Nucleated RBC % (auto) 0.0 PT INR Anion Gap 34 H Estim Creat Clear Calc 111.1 Estimated GFR > 60 Random Glucose 107 Lactic Acid Lactic Acid F/U @ 2Hr Calcium 9.3 D Magnesium 3.3 H Total Bilirubin 0.7 Direct Bilirubin 0.2 AST 153 H ALT 89 H Alkaline Phosphatase 173 H D Total Creatine Kinase 412 H D Total Protein 8.2 H D Albumin 4.8 D Lipase 189 H Urine Opiates Screen Urine Fentanyl Screen Ur Barbiturates Screen Ur Phencyclidine Scrn Ur Amphetamines Screen U Benzodiazepines Scrn Urine Cocaine Screen U Marijuana (THC) Screen Ethyl Alcohol COVID-19 (ANICETO) Negative COVID-19 Clin Com See Note 09/09/21 09/09/21 09/09/21 17:01 17:13 17:13 MCV MCH MCHC RDW Plt Count MPV Immature Gran % (Auto) Neut % (Auto) Lymph % (Auto) [place] % (Auto) Eos % (Auto) Baso % (Auto) Lymph # (Auto) [place] # (Auto) Eos # (Auto) Baso # (Auto) Abs Immat Gran (auto) Absolute Neuts (auto) Absolute Nucleated RBC Nucleated RBC % (auto) PT 13.5 H INR 1.2 H Anion Gap Estim Creat Clear Calc Estimated GFR Random Glucose Lactic Acid 18.9 H* Lactic Acid F/U @ 2Hr Calcium Magnesium Total Bilirubin Direct Bilirubin AST ALT Alkaline Phosphatase Total Creatine Kinase Total Protein Albumin Lipase Urine Opiates Screen Urine Fentanyl Screen Ur Barbiturates Screen Ur Phencyclidine Scrn Ur Amphetamines Screen U Benzodiazepines Scrn Urine Cocaine Screen U Marijuana (THC) Screen Ethyl Alcohol < 10 COVID-19 (ANICETO) COVID-19 Clin Com 09/09/21 09/09/21 09/09/21 17:42 19:08 19:26 MCV MCH MCHC RDW Plt Count MPV Immature Gran % (Auto) Neut % (Auto) Lymph % (Auto) [place] % (Auto) Eos % (Auto) Baso % (Auto) Lymph # (Auto) [place] # (Auto) Eos # (Auto) Baso # (Auto) Abs Immat Gran (auto) Absolute Neuts (auto) Absolute Nucleated RBC Nucleated RBC % (auto) PT INR Anion Gap 17 Estim Creat Clear Calc 141.9 Estimated GFR > 60 Random Glucose 95 Lactic Acid Lactic Acid F/U @ 2Hr 1.2 Calcium 8.4 D Magnesium Total Bilirubin Direct Bilirubin AST ALT Alkaline Phosphatase Total Creatine Kinase Total Protein Albumin Lipase Urine Opiates Screen Not Detected Urine Fentanyl Screen Not Detected Ur Barbiturates Screen POSITIVE H Ur Phencyclidine Scrn Not Detected Ur Amphetamines Screen Not Detected U Benzodiazepines Scrn Not Detected Urine Cocaine Screen Not Detected U Marijuana (THC) Screen POSITIVE H Ethyl Alcohol COVID-19 (ANICETO) COVID-19 Clin Com Imaging Radiologist's Impressions: Impressions Chest X-Ray 09/09/21 16:20 IMPRESSION: Unremarkable examination. Cervical Spine CT 09/09/21 18:37 IMPRESSION: Negative acute noncontrast CT of the brain. Some limitation from motion here. No fracture or dislocation of the cervical spine. Head CT 09/09/21 18:37 IMPRESSION: Negative acute noncontrast CT of the brain. Some limitation from motion here. No fracture or dislocation of the cervical spine. Assessment and Plan (1) Alcohol withdrawal seizure: Status: Acute (2) Acidosis, lactic: Status: Acute (3) Elevated liver function tests: Status: Acute Plan This is a 31-year-old male with past medical history of alcohol abuse with alcohol withdrawal seizures as well as pancreatitis presents to the hospital found to have multiple seizures due to alcohol withdrawal # alcohol withdrawal seizures - last drink over 24 hours prior to presentation - witnessed to have multiple seizures in the ED - start on phenobarb - will add supplemental thiamine and folic acid - monitor response # lactic acidosis - likely secondary to seizure activity - no evidence of infection - resolved with IV fluids # elevated lipase - patient has no abdominal pain - 3-4 times normal - at this time will monitor for any epigastric characteristic abdominal pain, if it develops, consider obtaining abdominal CT given his history of pancreatitis # anxiety and depression - hydroxyzine p.r.n. # hypertension - elevated BP - resume amlodipine and clonidine DVT prophylaxis: Lovenox Quality Stroke Does the patient have a stroke diagnosis?: No VTE Prior VTE?: No VTE Risk Level:: Medical - moderate - high VTE Device Contraindication: Treatment Not Indicated VTE Drug Contraindication: N/A - Med Ordered
[2021-09-10] MEDS: Lactated Ringers 1,000 ML 100 ML IVCONT (00:07)
[2021-09-10] MEDS: PHENobarbitaL sodium 130 MG/ML VIAL 231 MG IM (00:08)
[2021-09-10] MEDS: Enoxaparin Sodium 40 MG/0.4 ML SYRINGE SUBCUT (00:08)
[2021-09-10] MEDS: 0.9 % Sodium Chloride Flush 3 ML SYRINGE IVFLUSH (00:09)
[2021-09-10 01:16] VITALS: BP 135/85
[2021-09-10 01:43] VITALS: BP 152/106; PULSE 79; RESP 19; O2SAT 97
--- NOTE | 2021-09-10 01:52 | PC.NURSE ---
Patient came in was given 2mg iv ativan x [address] Kee ordered another dose of iv ativan 2mg,zofran. Patient still was't responding was given a total of 6mg iv ativan finally stopped seizing. Patient started on phenobarbital for Etoh withdrawl. Patients blood pressures have been elevated given amlodipine wtih good effect. blood pressures go up and down. tele: sinus tach 130's when first arrived to ED now sinus rythym 80's. Patient denies any pain. Will continue to monitor.
[2021-09-10 04:00] VITALS: BP 157/107; PULSE 86; RESP 20; O2SAT 98
--- NOTE | 2021-09-10 04:25 | PC.NURSE ---
pt is sleeping at this time. Elevated bp. Hospitalist Dr. Bailey notified. No new orders at this time.
[2021-09-10 06:01] LABS: MANUAL DIFF FLAG NO
[2021-09-10 06:08] LABS: Basophils Percent Auto 0.5 % (0-2); Eosinophils Absolute Auto 0.1 X10*3/uL (0.0-0.4); Eosinophils Percent Auto 0.8 % (0-4); Hematocrit 35.7 % (42.0-52.0); Imm Gran Abs Auto 0.01 X10*3/uL (0.00-0.03); Imm Gran Pct Auto 0.2 % (0.0-0.4); Lymphocytes Absolute Auto 1.5 X10*3/uL (1.2-4.9); Lymphocytes Percent Auto 24.2 % (20-40); Mean Corpuscular HGB Conc 36.4 g/dl (31.0-36.0); Mean Corpuscular Hemoglobin 34.7 pg (27.0-33.0); Mean Corpuscular Volume 95.2 fL (80.0-98.0); Mean Platelet Volume 9.5 fL (9.4-12.4); Monocytes Absolute Auto 0.6 X10*3/uL (0.1-1.2); Monocytes Percent Auto 9.4 % (2-11); Neutrophils Absolute Auto 3.9 x10*3/uL (2.0-8.3); Neutrophils Percent Auto 64.9 % (45-73); Platelet Count 122 X10*3/uL (160-400); Red Blood Count 3.75 X10*6/uL (4.60-5.80); Red Cell Distribution Width 12.7 % (11.0-16.0); White Blood Count 6.1 X10*3/uL (4.8-10.8)
[2021-09-10 06:09] VITALS: BP 136/95; PULSE 78; RESP 16; O2SAT 99
[2021-09-10 06:54] LABS: Anion Gap 16 (12-20); Blood Urea Nitrogen 6 mg/dL (9-16); Calcium 7.9 mg/dL (8.4-10.2); Carbon Dioxide 21 mmol/L (22-29); Chloride 101 mmol/L (96-108); Creatinine Clr Calc Pharmacy 147.2; Estimated Glomerular Filt Rate > 60; Glucose Random 71 mg/dL (60-115); Potassium 2.9 mmol/L (3.3-5.1); Sodium 135 mmol/L (135-145)
--- NOTE | 2021-09-10 07:54 | PC.NURSE ---
PT AWAKE AND OFFERS NO COMPLAINTS. REMAINS IN A NSR ON THE MONITOR WITH STABLE VITALS. HE IS TOLERATING PO INTAKE
[2021-09-10 07:56] VITALS: BP 141/78; PULSE 86; RESP 16; O2SAT 97
--- NOTE | 2021-09-10 08:20 | HE.PHANOTE ---
Med rec was completed by pharmacist Jovita and no home medications were reports. SP Mullen over wrote the home list and continue medications that were last filled in [facility]. I confirmed with patient again this morning that he takes no medications at home. Poornima Hurd, YosefD
[2021-09-10] MEDS: Folic Acid 1 MG TABLET PO (09:37)
[2021-09-10] MEDS: Thiamine HCL 100 MG TABLET PO (09:37)
[2021-09-10] MEDS: Potassium Chloride ER 20 MEQ TAB.ER.PRT 40 MEQ PO (09:38)
[2021-09-10] MEDS: PHENobarbitaL 30 MG TABLET 60 MG PO (09:39)
--- NOTE | 2021-09-10 12:15 | PC.NURSE ---
Provider at bedside talking to pt, explaning to pt the best for him to stay at the hospital for monitoring, phenobarp administation-pt requesting d/c from the hospital at this time-MD explained to pt importance of abstinence from ETOH to present future seizures and advised pt to maintain adequate fluid hydration. Pt verbalized understanding.
--- NOTE | 2021-09-10 14:02 | MHC.CM.PN ---
Met with patient in regards to discharge planning. Patient lives alone, ambulates independently and had no services prior to coming to the hospital. PCP is Dr Kline. Patient denies having a HCP. Information provided. Patient not interested in completing on at this time. Patient has not received any covid vaccines. Patient will walk home when medically stable. Continue to monitor for d/c needs.
--- NOTE | 2021-09-10 14:17 | PM.EVENT ---
Event Note Date of Service: 09/10/21 Event Note: Discharge summary Discharge diagnosis Alcohol abuse and withdrawal Alcohol withdrawal seizures Transaminitis Hypokalemia lactic acidosis The patient was admitted to the hospital and treated with IV fluid, phenobarbital protocol with fair response. When he woke up he decided to leave against medical advice I went directly and spoke to him convincing him to stay to finish his treatment. The patient eloped the emergency without signing any papers.
--- NOTE | 2021-09-11 09:56 | MHC.CM.PN ---
Patient left AMA.
== END 2021-09-10 15:55 | disposition left against medical advice (07) | DRG 770 ==
LOC: HO.ED 18:10 → HO.EDOVER 23:39
PROVIDERS: Admitting Provider Internal Medicine; Emergency Provider Emergency Medicine; PCP Internal Medicine; Visit Provider Student in an Organized Health Care Education/Training Program
DX: F10.230 Alcohol dependence with withdrawal, uncomplicated (principal); E87.2 Acidosis; R56.9 Unspecified convulsions; Z20.822 Contact with and (suspected) exposure to COVID-19; E78.5 Hyperlipidemia, unspecified; K21.9 Gastro-esophageal reflux disease without esophagitis; I10 Essential (primary) hypertension; F41.9 Anxiety disorder, unspecified; F32.A Depression, unspecified
CPT/HCPCS: 36415; 70450; 71045; 72125; 80048; 80076; 80307; 82077; 82550; 83605; 83690; 83735; 85025; 85610; 87635; 93005; 99285; J1650; J2060; J2405; J2560; J3411; J3475

== ENCOUNTER 2021-10-20 10:18 | Outpatient (REF) | payer OTHER, SELFPAY ==
[2021-10-20 11:22] LABS: COVID-19 Test Negative (Negative); IDNOW Serial# 08D9AD1C
== END 2021-10-20 10:19 | disposition home or self-care (01) ==
LOC: HO.LAB 10:18
PROVIDERS: Visit Provider Internal Medicine
DX: Z20.822 Contact with and (suspected) exposure to COVID-19 (principal)
CPT/HCPCS: 87635; C9803

== ENCOUNTER 2021-10-21 02:50 | Emergency (ER) | payer OTHER, SELFPAY ==
[2021-10-21 03:04] VITALS: BP 151/121; PULSE 152; RESP 22; TEMP 36.8; O2SAT 97; BMI 50.8
== END 2021-10-21 03:48 | disposition left against medical advice (07) ==
PROVIDERS: Emergency Provider Emergency Medicine
DX: R11.10 Vomiting, unspecified (principal)
CPT/HCPCS: 99281; 99282

== ENCOUNTER 2021-10-21 04:06 | Emergency (ER) | payer OTHER, SELFPAY ==
[2021-10-21 04:16] VITALS: BP 172/112; BP 182/126; PULSE 110; PULSE 120; RESP 18; TEMP 36.7; O2SAT 94; O2SAT 99; BMI 23.6
--- NOTE | 2021-10-21 04:36 | ECG_ITS ---
Test Reason : MEDICAL CLEARANCE Blood Pressure : / mmHG Vent. Rate : 122 BPM Atrial Rate : 122 BPM P-R Int : 142 ms QRS Dur : 076 ms QT Int : 328 ms P-R-T Axes : 000 025 148 degrees QTc Int : 467 ms Suspect limb leads reversal Sinus tachycardia Low voltage QRS Lateral infarct , age undetermined Abnormal ECG When compared with ECG of 09-SEP-2021 17:47, Nonspecific T wave abnormality now evident in Lateral leads Referred By: Ilene Figueroa Electronically Signed By:Rigo Brunson
[2021-10-21 05:03] LABS: MANUAL DIFF FLAG NO
[2021-10-21 05:06] LABS: Basophils Percent Auto 0.5 % (0-2); Eosinophils Absolute Auto 0.1 X10*3/uL (0.0-0.4); Eosinophils Percent Auto 1.8 % (0-4); Hematocrit 43.9 % (42.0-52.0); Imm Gran Abs Auto 0.02 X10*3/uL (0.00-0.03); Imm Gran Pct Auto 0.4 % (0.0-0.4); Lymphocytes Percent Auto 36.5 % (20-40); Mean Corpuscular HGB Conc 36.4 g/dl (31.0-36.0); Mean Corpuscular Hemoglobin 33.4 pg (27.0-33.0); Mean Corpuscular Volume 91.6 fL (80.0-98.0); Mean Platelet Volume 9.4 fL (9.4-12.4); Monocytes Absolute Auto 0.3 X10*3/uL (0.1-1.2); Monocytes Percent Auto 5.2 % (2-11); Neutrophils Absolute Auto 3.1 x10*3/uL (2.0-8.3); Neutrophils Percent Auto 55.6 % (45-73); Platelet Count 160 X10*3/uL (160-400); Red Blood Count 4.79 X10*6/uL (4.60-5.80); Red Cell Distribution Width 11.9 % (11.0-16.0); White Blood Count 5.6 X10*3/uL (4.8-10.8)
[2021-10-21 05:16] LABS: Ethanol 232 mg/dL
[2021-10-21 05:19] LABS: COVID-19 Test Negative (Negative); IDNOW Serial# 55D5AD1C; Influenza A Negative (Negative); Influenza B2 Negative (Negative)
[2021-10-21 05:21] LABS: Alanine Aminotransferase 57 U/L (0-40); Albumin Level 4.6 g/dL (3.5-5.0); Alkaline Phosphatase 88 U/L (39-117); Anion Gap 20 (12-20); Aspartate Amino Transferase 74 U/L (5-37); Bilirubin Total 0.9 mg/dL (0.0-1.0); Blood Urea Nitrogen 9 mg/dL (9-16); Calcium 9.5 mg/dL (8.4-10.2); Carbon Dioxide 26 mmol/L (22-29); Chloride 100 mmol/L (96-108); Creatinine Clr Calc Pharmacy 118.5; Estimated Glomerular Filt Rate > 60; Glucose Random 94 mg/dL (60-115); Lipase 96 U/L (8-78); Potassium 3.1 mmol/L (3.3-5.1); Sodium 143 mmol/L (135-145); Total Protein 7.7 g/dL (6.5-8.0)
[2021-10-21] MEDS: 0.9 % Sodium Chloride 1,000 ML 999 ML IV ×2 (05:32→05:52)
--- NOTE | 2021-10-21 05:42 | ED_ITS ---
HPI - Alcohol General Chief Complaint: ETOH/Substance Use Stated Complaint: Psych Time Seen by Provider: 10/21/21 04:35 Source: patient Mode of arrival: EMS History of Present Illness HPI narrative: 31-year-old male with known alcohol dependence is brought in by EMS for wondering on a sidewalk outside of a home that was not his own. On speaking with the patient at bedside he states that he is already been in detox and his insurance company is not covering what it should and that it cost approximately 5-6000 dollars and he does not have the money for this so at this time he states he is declining alcohol detox. Patient states that he has spent the last day with several episodes of nausea and vomiting, but otherwise denies shortness of breath/chest pain/palpitations. Patient states that he shakes so badly that he is unable to work and is concerned regarding financial responsibilities this month. Patient owns his own home. Otherwise, he denies any fever, chills and is requesting water. Related Data Home Medications Medication Instructions Recorded Confirmed No Known Home Meds 09/10/21 09/10/21 Allergies Allergy/AdvReac Type Severity Reaction Status Date / Time citalopram AdvReac Intermediate nausea Verified 08/14/21 21:55 Review of Systems Review of Systems: Pertinent positives and negatives as stated in the HPI 10 point review of systems is otherwise negative. [facility] Past Medical History Source: nursing notes reviewed Medical History Alcohol abuse Anxiety Benign essential hypertension Crohn's disease Depression GERD without esophagitis Hypertriglyceridemia Insomnia Myalgia Ulcerative colitis Surgical History History of shoulder surgery Family History Family History Other Family history non-contributory Substance use disorder Social History Social History Household Members: None Housing: Apartment Do you presently have visiting nurse or other home services: No Alcohol intake: current Patient Tobacco Use Status: Former Tobacco user e-Cigarette/Vaping Use: Never Used Second Hand Smoke Exposure: No Substance Use Type: Marijuana Advance Directives: No service: No Current occupational status: employed Cognitive needs: No Hearing needs: No Vision needs: Yes (Glasses) Physical Exam ED Vital Signs: Vital Signs - 24 hr 10/21/21 04:16 10/21/21 06:29 Temperature 98.1 F 99.1 F Pulse Rate 120 H 111 H Respiratory Rate 18 20 Blood Pressure 182/126 H 165/113 H Pulse Oximetry 99 98 BMI result Body Mass Index 23.6 VITAL SIGNS: Reviewed. GENERAL: Well developed, well nourished, in no acute distress. HEAD: Normocephalic/atraumatic EYES: PERRLA, EOMI EARS: Ext canals without abnormality OROPHARYNX: no oral lesions noted, posterior pharynx clear LUNGS: Normal breath sounds. No adventitious sounds or accessory muscle use. SpO2<99> CARDIOVASCULAR: Regular rate and rhythm without noted murmurs ABDOMEN: Soft, mild tenderness in epigastric, non-distended with bowel sounds. SKIN: Inspection of the skin reveals no rashes NEUROLOGIC: GCS-15 and oriented x 4. Strength and sensation to light touch were grossly intact x 4. Course Course Course Narrative: 31-year-old male with history and clinical presentation consistent with alcohol intoxication and likely alcohol gastritis. On review of all investigations there is a noted mildly elevated lipase. Patient does not appear to be withdrawing at this time and suspect that patient's heart rate is likely due to dehydration. Patient will be aggressively rehydrated and case management will discuss resources that the patient can pursue regarding his concerns of housing. He declines detox at this time. MDM - Alcohol Lab Data Result diagrams: 10/21/21 04:53 10/21/21 04:53 Labs: Lab Results 10/21/21 10/21/21 10/21/21 Range/Units 04:53 04:53 04:53 WBC 5.6 (4.8-10.8) X10*3/uL RBC 4.79 D (4.60-5.80) X10*6/uL Hgb 16.0 D (14.0-18.0) g/dl Hct 43.9 D (42.0-52.0) % MCV 91.6 (80.0-98.0) fL MCH 33.4 H (27.0-33.0) pg MCHC 36.4 H (31.0-36.0) g/dl RDW 11.9 (11.0-16.0) % Plt Count 160 D (160-400) X10*3/uL MPV 9.4 (9.4-12.4) fL Immature Gran % (Auto) 0.4 (0.0-0.4) % Neut % (Auto) 55.6 (45-73) % Lymph % (Auto) 36.5 (20-40) % [place] % (Auto) 5.2 (2-11) % Eos % (Auto) 1.8 (0-4) % Baso % (Auto) 0.5 (0-2) % Lymph # (Auto) 2.0 (1.2-4.9) X10*3/uL [place] # (Auto) 0.3 (0.1-1.2) X10*3/uL Eos # (Auto) 0.1 (0.0-0.4) X10*3/uL Baso # (Auto) 0.0 (0.0-0.2) X10*3/uL Abs Immat Gran (auto) 0.02 (0.00-0.03) X10*3/uL Absolute Neuts (auto) 3.1 (2.0-8.3) x10*3/uL Absolute Nucleated RBC 0.000 (0.0-0.012) X10*3/uL Nucleated RBC % (auto) 0.0 (0.0-0.2) /100WBC Sodium (135-145) mmol/L Potassium (3.3-5.1) mmol/L Chloride (96-108) mmol/L Carbon Dioxide (22-29) mmol/L Anion Gap (12-20) BUN (9-16) mg/dL Creatinine (0.5-1.4) mg/dL Estim Creat Clear Calc Estimated GFR Random Glucose (60-115) mg/dL Calcium (8.4-10.2) mg/dL Total Bilirubin (0.0-1.0) mg/dL AST (5-37) U/L ALT (0-40) U/L Alkaline Phosphatase (39-117) U/L Total Protein (6.5-8.0) g/dL Albumin (3.5-5.0) g/dL Lipase (8-78) U/L Ethyl Alcohol mg/dL COVID-19 (ANICETO) Negative (Negative) COVID-19 Clin Com See Note Influenza Type A (JEREL) Negative (Negative) Influenza Type B (JEREL) Negative (Negative) Influenza A & B Note See Note 10/21/21 10/21/21 Range/Units 04:53 04:53 WBC (4.8-10.8) X10*3/uL RBC (4.60-5.80) X10*6/uL Hgb (14.0-18.0) g/dl Hct (42.0-52.0) % MCV (80.0-98.0) fL MCH (27.0-33.0) pg MCHC (31.0-36.0) g/dl RDW (11.0-16.0) % Plt Count (160-400) X10*3/uL MPV (9.4-12.4) fL Immature Gran % (Auto) (0.0-0.4) % Neut % (Auto) (45-73) % Lymph % (Auto) (20-40) % [place] % (Auto) (2-11) % Eos % (Auto) (0-4) % Baso % (Auto) (0-2) % Lymph # (Auto) (1.2-4.9) X10*3/uL [place] # (Auto) (0.1-1.2) X10*3/uL Eos # (Auto) (0.0-0.4) X10*3/uL Baso # (Auto) (0.0-0.2) X10*3/uL Abs Immat Gran (auto) (0.00-0.03) X10*3/uL Absolute Neuts (auto) (2.0-8.3) x10*3/uL Absolute Nucleated RBC (0.0-0.012) X10*3/uL Nucleated RBC % (auto) (0.0-0.2) /100WBC Sodium 143 (135-145) mmol/L Potassium 3.1 L (3.3-5.1) mmol/L Chloride 100 (96-108) mmol/L Carbon Dioxide 26 (22-29) mmol/L Anion Gap 20 (12-20) BUN 9 (9-16) mg/dL Creatinine 1.00 (0.5-1.4) mg/dL Estim Creat Clear Calc 118.5 Estimated GFR > 60 Random Glucose 94 (60-115) mg/dL Calcium 9.5 D (8.4-10.2) mg/dL Total Bilirubin 0.9 (0.0-1.0) mg/dL AST 74 H (5-37) U/L ALT 57 H (0-40) U/L Alkaline Phosphatase 88 D (39-117) U/L Total Protein 7.7 (6.5-8.0) g/dL Albumin 4.6 (3.5-5.0) g/dL Lipase 96 H (8-78) U/L Ethyl Alcohol 232 mg/dL COVID-19 (ANICETO) (Negative) COVID-19 Clin Com Influenza Type A (JEREL) (Negative) Influenza Type B (JEREL) (Negative) Influenza A & B Note ECG Data ECG #1: Attestation: I personally reviewed and interpreted this ECG as follows: Prior ECG tracings: available for review Interpretation: Sinus tachycardia, HR-122, no STEMI, FL/QRS/QTC are within normal limits. Discharge Plan Discharge Clinical Impression: Alcohol abuse, Alcohol intoxication Patient Disposition: Still a Patient Instructions: Alcohol Intoxication (ED), Alcohol Use Disorder (ED) Additional Instructions: Please follow-up with your primary care provider in the next 1-2 days for re- evaluation and further assistance. Do not hesitate to return to the emergency room for any acute changes. Prescriptions: No Action No Known Home Meds 0RF
--- NOTE | 2021-10-21 05:50 | PC.NURSE ---
IV fluids put on pressure bag at provider's request.
[2021-10-21] MEDS: ondansetron HCL 4 MG/2 ML VIAL IVPUSH (05:51)
[2021-10-21 06:29] VITALS: BP 165/113; PULSE 111; RESP 20; TEMP 37.3; O2SAT 98
[2021-10-21] MEDS: chlordiazePOXIDE HCl 25 MG CAPSULE 50 MG PO (07:53)
[2021-10-21] MEDS: LORazepam 2 MG/ML VIAL 1 MG IVPUSH (07:53)
--- NOTE | 2021-10-21 09:14 | MHC.CM.ED ---
Received case management consult. Patient left before being seen by case management.
== END 2021-10-21 08:23 | disposition still patient (30) ==
PROVIDERS: Emergency Provider Student in an Organized Health Care Education/Training Program
DX: F10.229 Alcohol dependence with intoxication, unspecified (principal); Y90.7 Blood alcohol level of 200-239 mg/100 ml; I10 Essential (primary) hypertension; Z20.822 Contact with and (suspected) exposure to COVID-19
CPT/HCPCS: 36415; 80053; 82077; 83690; 85025; 87502; 87635; 93005; 96361; 96374; 96375; 99284; J2060; J2405

== ENCOUNTER 2021-10-30 14:13 | Inpatient (IN) | payer OTHER, SELFPAY ==
[2021-10-30] VITALS (9 sets, daily range): BP systolic 144–180; BP diastolic 93–117; PULSE 96–138; RESP 15–21; TEMP 36.6; O2SAT 97–99; BMI 24.4
--- NOTE | ~2021-10-30 | US_ITS ---
EXAMINATION: US ABDOMEN LIMITED CLINICAL INFORMATION: Vomiting pain. COMPARISON: None TECHNIQUE: Real-time imaging of the right upper quadrant abdominal viscera. FINDINGS: The region the pancreas is felt to be unremarkable. Tail is not seen. There is no free fluid. Liver is enlarged. Measures 22 cm. Echogenicity is increased. Most consistent with fatty change. Hepatitis cannot be excluded. The gallbladder is showing stones. There is no evidence of gallbladder wall edema. Common duct is 3 mm within normal limits. The right kidney is 13 cm. No hydronephrosis. US/US abdomen limited IMPRESSION: Cholelithiasis but no convincing evidence for cholecystitis. Enlarged echogenic liver may well be fatty change. There is no free fluid
--- NOTE | ~2021-10-30 | CT_ITS ---
EXAMINATION: CT ABDOMEN AND PELVIS WITHOUT CONTRAST CLINICAL INFORMATION: Acute pancreatitis with gallbladder stone COMPARISON: Abdominal ultrasound 10/30/2021, CT abdomen pelvis 08/14/2021 TECHNIQUE: Multidetector volumetric imaging was performed from the superior aspect of the liver through the pubic symphysis. Sagittal and coronal reformatted images were obtained on the technologist's workstation. This CT examination was performed using dose optimization techniques as appropriate, variously including the following: *Automated exposure control *Adjustment of mA and/or kV according to patient size (this includes techniques or standardized protocols for targeted exams where dose is matched to indication/reason for exam; i.e. extremities or head) *Use of iterative reconstruction technique DLP: 508 mGy-cm FINDINGS: LUNG BASES: Unremarkable. ABDOMINAL AND PELVIC WALL: Unremarkable. LIVER AND BILIARY TREE: Hypoattenuating hepatic parenchyma suggesting hepatic steatosis. Liver is enlarged measuring 24.7 cm in span. GALLBLADDER: Cholelithiasis without CT findings of acute cholecystitis. No radiopaque choledocholithiasis. PANCREAS: Lack of intravenous contrast limits assessment for pancreatic enhancement. There is peripancreatic inflammatory fat stranding and free fluid along the tail of the pancreas compatible with history of pancreatitis. No organized fluid collection or pancreatic duct dilatation. SPLEEN: Spleen is enlarged measuring 13.1 cm in span. ADRENAL GLANDS: Unremarkable. KIDNEYS AND URETERS: Unremarkable. GASTROINTESTINAL TRACT: Colonic wall thickening along the splenic flexure, possibly reactive in the setting of known pancreatitis. Normal appendix. VASCULAR: Unremarkable. LYMPH NODES/PERITONEUM: No lymphadenopathy. FREE FLUID: None. BLADDER: Unremarkable. PELVIC VISCERA: Similar 3.0 x 1.8 cm low-attenuation collection associated with the right iliopsoas muscle not significantly changed from prior previously 2.9 x 1.8 cm. OSSEOUS STRUCTURES: Unremarkable. CT/CT abdomen pelvis wo con IMPRESSION: Findings of acute pancreatitis with peripancreatic free fluid and fat stranding along the tail of the pancreas. Lack of intravenous contrast limits assessment for pancreatic enhancement. Colonic wall thickening along the splenic flexure, possibly reactive in the setting of known pancreatitis, however colitis would appear similar. Cholelithiasis without CT findings of acute cholecystitis. No radiopaque choledocholithiasis. Hepatomegaly and hepatic steatosis. Similar 3.0 cm low-attenuation collection associated with the right iliopsoas muscle not significantly changed from recent prior, possibly reflective of iliopsoas bursitis. MR could be confirmatory.
--- NOTE | ~2021-10-30 | CT_ITS ---
EXAMINATION: CT HEAD WITHOUT CONTRAST CLINICAL INFORMATION: Headache COMPARISON: 09/09/2021 TECHNIQUE: Contiguous axial imaging was performed from the skull base to vertex without intravenous contrast. This CT examination was performed using dose optimization techniques as appropriate, variously including the following: * Automated exposure control * Adjustment of mA and/or kV according to patient size (this includes techniques or standardized protocols for targeted exams where dose is matched to indication/reason for exam; i.e. extremities or head) Use of iterative reconstruction technique DLP: 875 mGy-cm. FINDINGS: There is no evidence of acute intracranial hemorrhage or territorial infarction. No abnormal mass effect or midline shift is seen. Pollack to white matter differentiation is well preserved. No extra-axial fluid collections are identified. No hydrocephalus. No significant volume loss. There is no abnormal attenuation within the brain parenchyma. The osseous structures and soft tissues are normal. The mastoid air cells and visualized portions of the paranasal sinuses are well aerated. CT/CT head/brain wo con IMPRESSION: No acute intracranial pathology.
--- NOTE | 2021-10-30 14:30 | ECG_ITS ---
Test Reason : TACHYCARDIA Blood Pressure : / mmHG Vent. Rate : 131 BPM Atrial Rate : 131 BPM P-R Int : 128 ms QRS Dur : 076 ms QT Int : 394 ms P-R-T Axes : 068 051 066 degrees QTc Int : 581 ms Sinus tachycardia Possible Left atrial enlargement Nonspecific ST abnormality Abnormal ECG When compared with ECG of 21-OCT-2021 05:13, Criteria for Lateral infarct are no longer Present Nonspecific T wave abnormality no longer evident in Inferior leads Referred By: Generic ED Physician Electronically Signed By:ANTOLIN FRANKS MD
[2021-10-30] MEDS: LORazepam 2 MG/ML VIAL IM (15:32)
[2021-10-30] MEDS: Midazolam HCl/PF 2 MG/2 ML VIAL 4 MG IM (15:37)
--- NOTE | 2021-10-30 15:37 | PC.NURSE ---
pt post ictal s/p tonic clonic seizure, pt diaphoretic, agitated. mom at bedside reported that pt was in detox for 6 days 3-4 weeks ago, relapsed last week reportedly drinks a handle of whiskey every 1-2 days. last alcohol intake was 1 week ago.
[2021-10-30] MEDS: 0.9 % Sodium Chloride 1,000 ML 999 ML IVCONT ×2 (15:42→16:45)
[2021-10-30 15:43] LABS: Glucose, Whole Blood 142 mg/dL (60-115)
[2021-10-30] MEDS: LORazepam 2 MG/ML VIAL IVPUSH (15:47)
--- NOTE | 2021-10-30 15:52 | ED_ITS ---
HPI - Seizure General Chief Complaint: Nausea/Vomiting/Diarrhea Stated Complaint: nausea/vomiting Time Seen by Provider: 10/30/21 15:35 Source: family and old records reviewed Mode of arrival: EMS Limitations: altered mental status (seizure) History of Present Illness complaint: seizure and other (n/v doesn't feel well) Onset (ago): day(s) (not sure was seen briefly by mom on Tuesday) Description of Episode: loss of consciousness and tonic-clonic movement -: minutes(s) (1) Witnessed: Yes - by Bystander (triage staff) Trauma: No Seizure History: Yes (alcohol withdrawal seizure admitted recently here for same) Place: triage Possible Precipitating Event: alcohol withdrawal Associated symptoms: loss of appetite, weakness and other (nausea/vomiting) Treatments prior to arrival: none Related Data Home Medications Medication Instructions Recorded Confirmed No Known Home Meds 09/10/21 09/10/21 Allergies Allergy/AdvReac Type Severity Reaction Status Date / Time citalopram AdvReac Intermediate nausea Verified 08/14/21 21:55 Review of Systems Review of Systems: ROS unable to be obtained due to seizure and postictal state PMFSH Past Medical History Source: old records reviewed Medical History Alcohol abuse Anxiety Benign essential hypertension Crohn's disease Depression GERD without esophagitis Hypertriglyceridemia Insomnia Myalgia Ulcerative colitis Surgical History History of shoulder surgery Family History Family History Other Family history non-contributory Substance use disorder Social History Social History Household Members: None Housing: Apartment Do you presently have visiting nurse or other home services: No Alcohol intake: current Patient Tobacco Use Status: Former Tobacco user e-Cigarette/Vaping Use: Never Used Second Hand Smoke Exposure: No Substance Use Type: Marijuana Advance Directives: No Advance Directives Information Provided: No service: No Current occupational status: employed Cognitive needs: No Hearing needs: No Vision needs: Yes (Glasses) Physical Exam Vital Signs: Vital Signs: Last Vital Signs Temp 98 F 10/30/21 14:26 Pulse 135 H 10/30/21 15:55 Resp 20 10/30/21 15:55 BP 146/103 H 10/30/21 15:55 Pulse Ox 98 10/30/21 15:55 BMI result Body Mass Index 24.4 Appearance: Confused Oriented X1. Moderate acute distress. Eyes: Pupils equal, round and reactive to light. 4mm ENT: Pharynx normal other than small abrasion to lower lip no active bleeding Neck: Normal inspection. Neck supple. CVS: tachycardic heart rate and rhythm. Pulses normal. Respiratory: No respiratory distress. Breath sounds normal. Abdomen: Soft and nontender. Skin: Skin warm and diaphoretic. Normal skin color. Normal skin turgor. Extremities: No lower extremity edema. No calf ttp Neuro: Oriented X 1. No motor deficit. No sensory deficit. Tremors noted, postictal Course Course Course Narrative: signed out to Dr. Singh pending workup and admission MDM - Seizure MDM Narrative Medical decision making narrative: 31 yo male with hx of ETOH abuse cannot tell me his last drink presented / asking for detox at that time but left prior to help, comes in with n/v/d abdominal pain per family but then the patient had seizure in waiting room postictal on arrival to treatment room admitted by me recently for ETOH withdrawal seizure requiring mutliple doses of benzos - he is postictal, abrasion to lip, agitated after seizure. At this time labs, IVF, IM benzos switch to IVF, zofran, IV magnesium, start phenobarb protocol. Anticipate admission Lab Data Result diagrams: 10/30/21 15:57 10/30/21 15:58 Labs: Lab Results 10/30/21 10/30/21 10/30/21 Range/Units 15:39 15:57 15:57 WBC 12.2 H (4.8-10.8) X10*3/uL RBC 4.53 L (4.60-5.80) X10*6/uL Hgb 15.4 (14.0-18.0) g/dl Hct 42.6 (42.0-52.0) % MCV 94.0 (80.0-98.0) fL MCH 34.0 H (27.0-33.0) pg MCHC 36.2 H (31.0-36.0) g/dl RDW 13.2 (11.0-16.0) % Immature Gran % (Auto) 0.4 (0.0-0.4) % Neut % (Auto) 76.0 H (45-73) % Lymph % (Auto) 12.8 L (20-40) % [place] % (Auto) 10.5 (2-11) % Eos % (Auto) 0.1 (0-4) % Baso % (Auto) 0.2 (0-2) % Lymph # (Auto) 1.6 (1.2-4.9) X10*3/uL [place] # (Auto) 1.3 H (0.1-1.2) X10*3/uL Eos # (Auto) 0.0 (0.0-0.4) X10*3/uL Baso # (Auto) 0.0 (0.0-0.2) X10*3/uL Abs Immat Gran (auto) 0.05 H (0.00-0.03) X10*3/uL Absolute Neuts (auto) 9.2 H (2.0-8.3) x10*3/uL Absolute Nucleated RBC 0.000 (0.0-0.012) X10*3/uL Nucleated RBC % (auto) 0.0 (0.0-0.2) /100WBC Sodium (135-145) mmol/L Potassium (3.3-5.1) mmol/L Chloride (96-108) mmol/L Carbon Dioxide (22-29) mmol/L Anion Gap (12-20) BUN (9-16) mg/dL Creatinine (0.5-1.4) mg/dL Estim Creat Clear Calc Estimated GFR POC Glucose 142 H (60-115) mg/dL Random Glucose (60-115) mg/dL Calcium (8.4-10.2) mg/dL Total Bilirubin (0.0-1.0) mg/dL Direct Bilirubin (0.0-0.5) mg/dL AST (5-37) U/L ALT (0-40) U/L Alkaline Phosphatase (39-117) U/L Ammonia (13-55) umol/L Troponin I High Sens < 3.5 (<3.5-35.0) ng/L Total Protein (6.5-8.0) g/dL Albumin (3.5-5.0) g/dL Lipase (8-78) U/L Ethyl Alcohol mg/dL 10/30/21 10/30/21 10/30/21 Range/Units 15:57 15:57 15:58 WBC (4.8-10.8) X10*3/uL RBC (4.60-5.80) X10*6/uL Hgb (14.0-18.0) g/dl Hct (42.0-52.0) % MCV (80.0-98.0) fL MCH (27.0-33.0) pg MCHC (31.0-36.0) g/dl RDW (11.0-16.0) % Immature Gran % (Auto) (0.0-0.4) % Neut % (Auto) (45-73) % Lymph % (Auto) (20-40) % [place] % (Auto) (2-11) % Eos % (Auto) (0-4) % Baso % (Auto) (0-2) % Lymph # (Auto) (1.2-4.9) X10*3/uL [place] # (Auto) (0.1-1.2) X10*3/uL Eos # (Auto) (0.0-0.4) X10*3/uL Baso # (Auto) (0.0-0.2) X10*3/uL Abs Immat Gran (auto) (0.00-0.03) X10*3/uL Absolute Neuts (auto) (2.0-8.3) x10*3/uL Absolute Nucleated RBC (0.0-0.012) X10*3/uL Nucleated RBC % (auto) (0.0-0.2) /100WBC Sodium 141 (135-145) mmol/L Potassium 3.0 L (3.3-5.1) mmol/L Chloride 96 (96-108) mmol/L Carbon Dioxide 13 L (22-29) mmol/L Anion Gap 35 H (12-20) BUN 13 (9-16) mg/dL Creatinine 1.09 (0.5-1.4) mg/dL Estim Creat Clear Calc 108.7 Estimated GFR > 60 POC Glucose (60-115) mg/dL Random Glucose 135 H D (60-115) mg/dL Calcium 9.2 (8.4-10.2) mg/dL Total Bilirubin 1.7 H (0.0-1.0) mg/dL Direct Bilirubin 0.8 H (0.0-0.5) mg/dL AST 462 H (5-37) U/L ALT 236 H (0-40) U/L Alkaline Phosphatase 144 H D (39-117) U/L Ammonia 118 H (13-55) umol/L Troponin I High Sens (<3.5-35.0) ng/L Total Protein 7.5 (6.5-8.0) g/dL Albumin 4.4 (3.5-5.0) g/dL Lipase 256 H (8-78) U/L Ethyl Alcohol < 10 mg/dL ECG Data Attestation: I personally reviewed and interpreted this ECG as follows: ECG interpretation date: 10/30/21 ECG interpretation time: 15:53 Interpretation: Rate: 131 Rhythm: sinus tachycardia [place]: normal Normal P waves. Normal VIK. Normal QRS complex. ST T wave : non-specific no ST qTC: prolonged prior studies: similar to prior The study has been interpreted contemporaneously by me. . Critical Care Time Critical Care Time Critical Care Time: Yes Total Critical Care Time: 35 Attestation: review of records, repeat IM medications for seizure control, IVF x 2L I attest to this time spent taking care of the patient Discharge Plan Discharge Clinical Impression: Alcohol withdrawal seizure Patient Disposition: Still a Patient Prescriptions: No Action No Known Home Meds 0RF
[2021-10-30] MEDS: Magnesium Sulfate/H2O 2 GM/50 ML PIGGYBACK IV (15:54)
[2021-10-30] MEDS: ondansetron HCL 4 MG/2 ML VIAL IVPUSH (15:54)
[2021-10-30 16:05] LABS: Eosinophils Percent Auto 0.1 % (0-4); Imm Gran Abs Auto 0.05 X10*3/uL (0.00-0.03); Imm Gran Pct Auto 0.4 % (0.0-0.4); MANUAL DIFF FLAG SCAN; PLT CLUMP 1; Red Cell Distribution Width 13.2 % (11.0-16.0); SCAN SMEAR FLAG 1
[2021-10-30 16:06] LABS: Basophils Percent Auto 0.2 % (0-2); Hematocrit 42.6 % (42.0-52.0); Hemoglobin 15.4 g/dl (14.0-18.0); Lymphocytes Absolute Auto 1.6 X10*3/uL (1.2-4.9); Lymphocytes Percent Auto 12.8 % (20-40); Mean Corpuscular HGB Conc 36.2 g/dl (31.0-36.0); Monocytes Absolute Auto 1.3 X10*3/uL (0.1-1.2); Monocytes Percent Auto 10.5 % (2-11); Neutrophils Absolute Auto 9.2 x10*3/uL (2.0-8.3); Red Blood Count 4.53 X10*6/uL (4.60-5.80)
[2021-10-30 16:12] LABS: Ammonia 118 umol/L (13-55)
[2021-10-30 16:18] LABS: Ethanol < 10 mg/dL
[2021-10-30 16:21] LABS: White Blood Count 12.2 X10*3/uL (4.8-10.8)
[2021-10-30 16:23] LABS: Alanine Aminotransferase 236 U/L (0-40); Albumin Level 4.4 g/dL (3.5-5.0); Alkaline Phosphatase 144 U/L (39-117); Anion Gap 35 (12-20); Aspartate Amino Transferase 462 U/L (5-37); Bilirubin Direct 0.8 mg/dL (0.0-0.5); Bilirubin Total 1.7 mg/dL (0.0-1.0); Blood Urea Nitrogen 13 mg/dL (9-16); Calcium 9.2 mg/dL (8.4-10.2); Carbon Dioxide 13 mmol/L (22-29); Chloride 96 mmol/L (96-108); Creatinine Clr Calc Pharmacy 108.7; Estimated Glomerular Filt Rate > 60; Glucose Random 135 mg/dL (60-115); Lipase 256 U/L (8-78); Sodium 141 mmol/L (135-145); Total Protein 7.5 g/dL (6.5-8.0)
[2021-10-30 16:24] LABS: Troponin-I High Sensitivity < 3.5 ng/L (<3.5-35.0)
[2021-10-30 16:26] LABS: COVID-19 Test Negative (Negative); IDNOW Serial# 55D5AD1C; Influenza A Negative (Negative); Influenza B2 Negative (Negative)
[2021-10-30 16:32] LABS: Lactic Acid 18.8 mmol/L (0.5-2.0)
[2021-10-30 16:34] LABS: SLIDE REVIEW VERIFIED
[2021-10-30] MEDS: Thiamine HCL 200 MG in 0.9 % Sodium Chloride 100 ML 204 MG IV (16:57)
[2021-10-30] MEDS: Famotidine/PF 20 MG/2 ML VIAL IVPUSH (16:57)
[2021-10-30] MEDS: Potassium Chloride/H20 10 MEQ/100 ML PIGGYBACK 100 MEQ IV ×2 (17:00→18:32)
--- NOTE | 2021-10-30 17:00 | PC.NURSE ---
patient having tonic clonic seizure at this time, patient turning to the right side. this RN did not witness start of seizure, but patient seized in front of this RN for about 30 secs. patient having foaming at mouth during seizure.
[2021-10-30] MEDS: 0.9 % Sodium Chloride 1,000 ML 999 ML IV (17:04)
[2021-10-30 18:01] LABS: Reflex Lactate? Lactic Acid Added
--- NOTE | 2021-10-30 19:15 | PC.NURSE ---
pt c/o burning at IV site infusing Potassium. pt notified that potassium can burn, IV site on RA checked for patency + blood return. no local adverse reaction. K+ switched to other IV on left arm. pt still c/o burning, IV also checked for patency. notified and approved a decreased rate dose. K+ infusing at 50 cc/hr
[2021-10-30] MEDS: Potassium Chloride/H20 10 MEQ/100 ML PIGGYBACK 75 MEQ IV ×2 (20:46→22:08)
[2021-10-30 21:00] LABS: Anion Gap 13 (12-20); Blood Urea Nitrogen 10 mg/dL (9-16); Calcium 7.8 mg/dL (8.4-10.2); Carbon Dioxide 26 mmol/L (22-29); Chloride 101 mmol/L (96-108); Creatinine Clr Calc Pharmacy 164.6; Estimated Glomerular Filt Rate > 60; Glucose Random 96 mg/dL (60-115); Potassium 3.2 mmol/L (3.3-5.1); Sodium 137 mmol/L (135-145)
[2021-10-30] MEDS: traMADoL HCL 50 MG TABLET PO (21:18)
[2021-10-30] MEDS: PHENobarbitaL 200 MG, PHENobarbitaL 30 MG 230 MG PO (21:41)
[2021-10-30 22:17] LABS: Appearance Urine CLEAR; Color Urine YELLOW; Glucose Urine UA NEG (NEG); Leukocyte Esterase Urine NEG (NEG); Nitrite Urine NEG (NEG); UACC Culture Trigger NO; Urine Blood NEG (NEG); Urine Ketones 15 MG/DL (NEG); Urine Protein 1+ MG/DL (NEG-TRACE)
[2021-10-30 22:30] LABS: Bacteria Urine 1+ /LPF; Squamous Epithelial Cell Urine 1+ /LPF
[2021-10-30 22:31] LABS: Amorphous Sediment Urine 2+ /LPF; Amphetamine Screen Urine Not Detected (Not Detect); Barbiturates, Urine POSITIVE (Not Detect); Benzodiazepines Screen Urine POSITIVE (Not Detect); Cannabinoid Screen Urine Not Detected (Not Detect); Cocaine Screen Urine Not Detected (Not Detect); Fentanyl, urine Not Detected (Not Detect); Mucus Urine 1+ /LPF; Opiate Screen Urine Not Detected (Not Detect); Phencyclidine Screen Urine Not Detected (Not Detect); Sperm Urine NOTED
--- NOTE | 2021-10-30 23:19 | PM.IMHP ---
History of Present Illness Date of Service: 10/30/21 Chief Complaint: Alcohol withdrawal 31-year-old male with a past medical history of alcohol abuse, cannabis use, anxiety, depression, history of Crohn's disease presented to the hospital with a chief complaint of alcohol withdrawal. Patient reports that for the past 1 week is not feeling well; has been having nausea vomiting and abdominal discomfort; abdominal pain is diffuse and more so in the lower quadrants; denies any diarrhea. Denies any chest pain or palpitations. Reports he has multiple episodes of vomiting; denies any blood in the vomitus or stool. Mentions he has not been eating well. Per family at bedside reports that patient was in detox last month; relapsed about 2 weeks ago and for the past 3 weeks he has been not feeling well. Last drink was about 1 week ago. Review of all other systems is negative except mentioned above ER course: Per ER team patient while in the waiting area, being drawn labs; had an episode of tonic clonic seizure-lasted 30 seconds; patient was postictal; had form in the mouth; patient received IM Ativan, Versed, IV Ativan; was briefly agitated. Patient noted to have hypokalemia, severe lactic acidosis, severe anion gap acidosis, transaminitis. Patient received IV fluids. Started on phenobarb protocol. Admitted to the hospital for further management. [facility] Medical History Alcohol abuse Anxiety Benign essential hypertension Crohn's disease Depression GERD without esophagitis Hypertriglyceridemia Insomnia Myalgia Ulcerative colitis Family History Other Family history non-contributory Substance use disorder Surgical History History of shoulder surgery Social History Household Members: None Housing: Apartment Do you presently have visiting nurse or other home services: No Alcohol intake: current Patient Tobacco Use Status: Former Tobacco user e-Cigarette/Vaping Use: Never Used Second Hand Smoke Exposure: No Substance Use Type: Marijuana Advance Directives: No Advance Directives Information Provided: No service: No Current occupational status: employed Cognitive needs: No Hearing needs: No Vision needs: Yes (Glasses) Meds Allergies Allergy/AdvReac Type Severity Reaction Status Date / Time citalopram AdvReac Intermediate nausea Verified 08/14/21 21:55 Active Medications: Current Medications Enoxaparin Sodium (Enoxaparin Sodium 40 Mg/0.4 Ml Syringe) 40 mg SUBCUT Q24H [facility] Famotidine (Famotidine/Pf 20 Mg/2 Ml Vial) 20 mg IVPUSH BID [facility] Folic Acid (Folic Acid 1 Mg Tablet) 1 mg PO DAILY [facility] Stop: 11/03/21 08:59 Dextrose/Sodium Chloride (D51/2ns) 1,000 mls @ 100 mls/hr IVCONT .Q10H [facility] Melatonin (Melatonin 3 Mg Tablet) 6 mg PO BEDTIME PRN PRN Reason: Insomnia Multivitamins/Vitamin C (Multivitamin Tablet) 1 tab PO DAILY [facility] Stop: 11/03/21 08:59 Pharmacy Consult (Consult Rx Etoh Phenob Po Dose) 1 each MISCELLANE ONCE PRN; Protocol PRN Reason: Consult order Phenobarbital (Phenobarbital 30 Mg Tablet) 60 mg PO BID [facility] Stop: 11/01/21 21:01 Phenobarbital (Phenobarbital 30 Mg Tablet) 30 mg PO BID [facility] Stop: 11/03/21 21:01 Phenobarbital (Phenobarbital 30 Mg Tablet) 30 mg PO DAILY [facility] Stop: 11/05/21 09:01 Phenobarbital 200 mg/ (Phenobarbital 30 mg) 230 mg PO Q3H [facility] Stop: 10/31/21 00:01 Last Admin: 10/30/21 21:41 Dose: 230 mg Documented by: Senna (Sennosides 8.6 Mg Tablet) 17.2 mg PO BEDTIME PRN PRN Reason: Constipation Sodium Chloride (0.9 % Sodium Chloride Flush 3 Ml Syringe) 3 ml IVFLUSH QSHIFT [facility] Thiamine HCl (Thiamine Hcl 100 Mg Tablet) 100 mg PO DAILY [facility] Stop: 11/03/21 08:59 Home Medications Medication Instructions Recorded Confirmed Last Taken Type amlodipine 10 mg tablet 1 tab PO DAILY 10/31/21 10/31/21 3 Months Ago History ~08/03/21 folic acid 1 mg tablet 1 tab PO DAILY 10/31/21 10/31/21 3 Months Ago History ~08/03/21 thiamine HCl (vitamin B1) 100 mg 1 tab PO DAILY 10/31/21 10/31/21 3 Months Ago History tablet ~08/03/21 Physical Exam Vital Signs and Narrative: Vital Signs: Last Vital Signs Temp 98 F 10/30/21 14:26 Pulse 96 10/30/21 22:08 Resp 21 H 10/30/21 21:42 BP 162/110 H 10/30/21 22:08 Pulse Ox 97 10/30/21 22:08 BMI result Body Mass Index 24.4 Gen: Appears be in no acute distress HEENT: NCAT, dry mucosa. Pulmonary: Vesicular breath sounds, fair air entry CVS: Normal S1-S2 Abdomen: BS+, Soft, Nontender Extremities: Warm well perfused Neuro: Alert and awake. Grossly nonfocal Results Labs CBC and Chem 7: 10/30/21 15:57 10/30/21 20:34 Labs: Laboratory Results - last 24 hr 10/30/21 10/30/21 10/30/21 15:39 15:57 15:57 MCV 94.0 MCH 34.0 H MCHC 36.2 H RDW 13.2 Plt Count TNP MPV Not Reportable Immature Gran % (Auto) 0.4 Neut % (Auto) 76.0 H Lymph % (Auto) 12.8 L [place] % (Auto) 10.5 Eos % (Auto) 0.1 Baso % (Auto) 0.2 Lymph # (Auto) 1.6 [place] # (Auto) 1.3 H Eos # (Auto) 0.0 Baso # (Auto) 0.0 Abs Immat Gran (auto) 0.05 H Absolute Neuts (auto) 9.2 H Absolute Nucleated RBC 0.000 Nucleated RBC % (auto) 0.0 Smear Tech's Comments VERIFIED Anion Gap Estim Creat Clear Calc Estimated GFR POC Glucose 142 H Random Glucose Lactic Acid Lactic Acid F/U @ 2Hr Calcium Magnesium Total Bilirubin Direct Bilirubin AST ALT Alkaline Phosphatase Ammonia Troponin I High Sens < 3.5 Total Protein Albumin Lipase Urine Color Urine Appearance Urine pH Ur Specific [place] Urine Protein Urine Glucose (UA) Urine Ketones Urine Blood Urine Nitrite Ur Leukocyte Esterase Urine RBC Urine WBC Ur Squamous Epith Cells Amorphous Sediment Urine Bacteria Hyaline Casts Urine Mucus Urine Sperm Urine Opiates Screen Urine Fentanyl Screen Ur Barbiturates Screen Ur Phencyclidine Scrn Ur Amphetamines Screen U Benzodiazepines Scrn Urine Cocaine Screen U Marijuana (THC) Screen Ethyl Alcohol COVID-19 (ANICETO) COVID-19 Clin Com Influenza Type A (JEREL) Influenza Type B (JEREL) Influenza A & B Note 10/30/21 10/30/21 10/30/21 15:57 15:57 15:57 MCV MCH MCHC RDW Plt Count MPV Immature Gran % (Auto) Neut % (Auto) Lymph % (Auto) [place] % (Auto) Eos % (Auto) Baso % (Auto) Lymph # (Auto) [place] # (Auto) Eos # (Auto) Baso # (Auto) Abs Immat Gran (auto) Absolute Neuts (auto) Absolute Nucleated RBC Nucleated RBC % (auto) Smear Tech's Comments Anion Gap Estim Creat Clear Calc Estimated GFR POC Glucose Random Glucose Lactic Acid 18.8 H* Lactic Acid F/U @ 2Hr Calcium Magnesium Total Bilirubin Direct Bilirubin AST ALT Alkaline Phosphatase Ammonia Troponin I High Sens Total Protein Albumin Lipase Urine Color Urine Appearance Urine pH Ur Specific [employer] Urine Protein Urine Glucose (UA) Urine Ketones Urine Blood Urine Nitrite Ur Leukocyte Esterase Urine RBC Urine WBC Ur Squamous Epith Cells Amorphous Sediment Urine Bacteria Hyaline Casts Urine Mucus Urine Sperm Urine Opiates Screen Urine Fentanyl Screen Ur Barbiturates Screen Ur Phencyclidine Scrn Ur Amphetamines Screen U Benzodiazepines Scrn Urine Cocaine Screen U Marijuana (THC) Screen Ethyl Alcohol COVID-19 (ANICETO) Negative COVID-19 Clin Com See Note Influenza Type A (JEREL) Negative Influenza Type B (JEREL) Negative Influenza A & B Note See Note 10/30/21 10/30/21 10/30/21 15:57 15:57 15:58 MCV MCH MCHC RDW Plt Count MPV Immature Gran % (Auto) Neut % (Auto) Lymph % (Auto) [place] % (Auto) Eos % (Auto) Baso % (Auto) Lymph # (Auto) [place] # (Auto) Eos # (Auto) Baso # (Auto) Abs Immat Gran (auto) Absolute Neuts (auto) Absolute Nucleated RBC Nucleated RBC % (auto) Smear Tech's Comments Anion Gap 35 H Estim Creat Clear Calc 108.7 Estimated GFR > 60 POC Glucose Random Glucose 135 H D Lactic Acid Lactic Acid F/U @ 2Hr Calcium 9.2 Magnesium Total Bilirubin 1.7 H Direct Bilirubin 0.8 H AST 462 H ALT 236 H Alkaline Phosphatase 144 H D Ammonia 118 H Troponin I High Sens Total Protein 7.5 Albumin 4.4 Lipase 256 H Urine Color Urine Appearance Urine pH Ur Specific [employer] Urine Protein Urine Glucose (UA) Urine Ketones Urine Blood Urine Nitrite Ur Leukocyte Esterase Urine RBC Urine WBC Ur Squamous Epith Cells Amorphous Sediment Urine Bacteria Hyaline Casts Urine Mucus Urine Sperm Urine Opiates Screen Urine Fentanyl Screen Ur Barbiturates Screen Ur Phencyclidine Scrn Ur Amphetamines Screen U Benzodiazepines Scrn Urine Cocaine Screen U Marijuana (THC) Screen Ethyl Alcohol < 10 COVID-19 (ANICETO) COVID-19 Clin Com Influenza Type A (JEREL) Influenza Type B (JEREL) Influenza A & B Note 10/30/21 10/30/21 10/30/21 19:49 20:34 21:33 MCV MCH MCHC RDW Plt Count MPV Immature Gran % (Auto) Neut % (Auto) Lymph % (Auto) [place] % (Auto) Eos % (Auto) Baso % (Auto) Lymph # (Auto) [place] # (Auto) Eos # (Auto) Baso # (Auto) Abs Immat Gran (auto) Absolute Neuts (auto) Absolute Nucleated RBC Nucleated RBC % (auto) Smear Tech's Comments Anion Gap 13 Estim Creat Clear Calc 164.6 Estimated GFR > 60 POC Glucose Random Glucose 96 Lactic Acid Lactic Acid F/U @ 2Hr 1.0 Calcium 7.8 L D Magnesium 2.0 Total Bilirubin Direct Bilirubin AST ALT Alkaline Phosphatase Ammonia Troponin I High Sens Total Protein Albumin Lipase Urine Color YELLOW Urine Appearance CLEAR Urine pH 7.0 Ur Specific [employer] [place] 1.020 Urine Protein 1+ H Urine Glucose (UA) NEG Urine Ketones 15 Urine Blood NEG Urine Nitrite NEG Ur Leukocyte Esterase NEG Urine RBC 1-4 Urine WBC 1-4 Ur Squamous Epith Cells 1+ Amorphous Sediment 2+ Urine Bacteria 1+ Hyaline Casts 1-4 Urine Mucus 1+ Urine Sperm NOTED Urine Opiates Screen Urine Fentanyl Screen Ur Barbiturates Screen Ur Phencyclidine Scrn Ur Amphetamines Screen U Benzodiazepines Scrn Urine Cocaine Screen U Marijuana (THC) Screen Ethyl Alcohol COVID-19 (ANICETO) COVID-19 Clin Com Influenza Type A (JEREL) Influenza Type B (JEREL) Influenza A & B Note 10/30/21 21:33 MCV MCH MCHC RDW Plt Count MPV Immature Gran % (Auto) Neut % (Auto) Lymph % (Auto) [place] % (Auto) Eos % (Auto) Baso % (Auto) Lymph # (Auto) [place] # (Auto) Eos # (Auto) Baso # (Auto) Abs Immat Gran (auto) Absolute Neuts (auto) Absolute Nucleated RBC Nucleated RBC % (auto) Smear Tech's Comments Anion Gap Estim Creat Clear Calc Estimated GFR POC Glucose Random Glucose Lactic Acid Lactic Acid F/U @ 2Hr Calcium Magnesium Total Bilirubin Direct Bilirubin AST ALT Alkaline Phosphatase Ammonia Troponin I High Sens Total Protein Albumin Lipase Urine Color Urine Appearance Urine pH Ur Specific [employer] [place] Urine Protein Urine Glucose (UA) Urine Ketones Urine Blood Urine Nitrite Ur Leukocyte Esterase Urine RBC Urine WBC Ur Squamous Epith Cells Amorphous Sediment Urine Bacteria Hyaline Casts Urine Mucus Urine Sperm Urine Opiates Screen Not Detected Urine Fentanyl Screen Not Detected Ur Barbiturates Screen POSITIVE H Ur Phencyclidine Scrn Not Detected Ur Amphetamines Screen Not Detected U Benzodiazepines Scrn POSITIVE H Urine Cocaine Screen Not Detected U Marijuana (THC) Screen Not Detected Ethyl Alcohol COVID-19 (ANICETO) COVID-19 Clin Com Influenza Type A (JEREL) Influenza Type B (JEREL) Influenza A & B Note Imaging Radiologist's Impressions: Impressions Abdomen Ultrasound 10/30/21 16:59 IMPRESSION: Cholelithiasis but no convincing evidence for cholecystitis. Enlarged echogenic liver may well be fatty change. There is no free fluid Abdomen/Pelvis CT 10/30/21 18:25 IMPRESSION: Findings of acute pancreatitis with peripancreatic free fluid and fat stranding along the tail of the pancreas. Lack of intravenous contrast limits assessment for pancreatic enhancement. Colonic wall thickening along the splenic flexure, possibly reactive in the setting of known pancreatitis, however colitis would appear similar. Cholelithiasis without CT findings of acute cholecystitis. No radiopaque choledocholithiasis. Hepatomegaly and hepatic steatosis. Similar 3.0 cm low-attenuation collection associated with the right iliopsoas muscle not significantly changed from recent prior, possibly reflective of iliopsoas bursitis. MR could be confirmatory. Assessment and Plan (1) Acidosis, lactic: Status: Acute (2) Acute alcoholic pancreatitis: Status: Acute (3) Elevated liver function tests: Status: Acute (4) Acute pancreatitis: Status: Acute Plan 31-year-old male with a past medical history of alcohol abuse, cannabis use, anxiety, depression, history of Crohn's disease presented to the hospital with a chief complaint of not feeling well/nausea/vomiting/abdominal discomfort; noted to be in alcohol withdrawal/pancreatitis/withdrawal seizure. Alcohol abuse/withdrawal: Monitor on CIWA protocol with phenobarbital Continue thiamine folate and multivitamins Gentle IV fluids Seizure episode: Likely alcohol withdrawal seizure. Patient had tonic clonic episode in the ER. Patient received multiple doses of IV Ativan, IM Ativan, Versed dose in the ER. IV Ativan p.r.n.. Seizure precautions. Severe lactic acidosis: In the setting of seizure episode. Improved with IV hydration. Severe anion gap acidosis: In the setting of lactic acidosis/alcoholic ketoacidosis. Improved with IV fluids. Hypokalemia: Repleted Acute pancreatitis: Likely in setting of alcohol use versus gallstone. Gastroenterology consult. NPO. Pain control. IV fluids. CT abdomen showed acute pancreatitis with peripancreatic free fluid. Also noted colonic wall thickening at the splenic flexure adjacent to the pancreas-likely reactive. Colitis in the differential. Will empirically cover with antibiotics for now. Follow the fever curve Hypertensive urgency: Likely in setting of alcohol withdrawal. Patient was demoted on amlodipine-noncompliance; will start the patient on amlodipine 5 mg daily. Also labetalol p.r.n.. Patient does report headaches. Will obtain CT head. DVT prophylaxis: Lovenox Code status: Full code Quality Stroke Does the patient have a stroke diagnosis?: No VTE Prior VTE?: No VTE Risk Level:: Medical - moderate - high VTE Device Contraindication: Treatment Not Indicated VTE Drug Contraindication: N/A - Med Ordered
--- NOTE | 2021-10-30 23:41 | PC.NURSE ---
pt resting in bed, reports he still has a dull headache after tramadol administration. mother at bedside.
[2021-10-31] VITALS (8 sets, daily range): BP systolic 138–164; BP diastolic 97–114; PULSE 80–90; RESP 15–20; TEMP 36.7–36.9; O2SAT 96–97
[2021-10-31] MEDS: PHENobarbitaL 200 MG, PHENobarbitaL 30 MG 230 MG PO (00:30)
[2021-10-31] MEDS: Potassium Chloride ER 20 MEQ TAB.ER.PRT 40 MEQ PO (00:30)
[2021-10-31] MEDS: cefTRIAXone sodium 1 GM in 0.9 % Sodium Chloride 50 ML IV (00:31)
[2021-10-31] MEDS: 0.9 % Sodium Chloride Flush 3 ML SYRINGE IVFLUSH (00:32)
[2021-10-31] MEDS: Dextrose 5 % and 0.45 % NaCl 1,000 ML 100 ML IVCONT (00:36)
[2021-10-31] MEDS: metroNIDAZOLE/NS 500 MG/100 ML PIGGYBACK 100 MG IV ×3 (01:31→14:43)
[2021-10-31] MEDS: amLODIPine Besylate 5 MG TABLET PO ×2 (01:38→09:13)
--- NOTE | 2021-10-31 02:15 | PC.NURSE ---
pt resting comfortably in bed, pt able to take meds whole with no difficulty. mother at bedside
--- NOTE | 2021-10-31 04:44 | PC.NURSE ---
Patient states he has a moderate headache and patient is diaphoretic. Hospitalist made aware and prescribed ativan as well as something for a headache.
[2021-10-31] MEDS: Labetalol HCL 100 MG/20 ML VIAL 10 MG IVPUSH (04:55)
[2021-10-31] MEDS: LORazepam 2 MG/ML VIAL 1 MG IVPUSH (04:56)
[2021-10-31 06:56] LABS: MANUAL DIFF FLAG NO
[2021-10-31 07:04] LABS: Basophils Percent Auto 0.4 % (0-2); Eosinophils Absolute Auto 0.1 X10*3/uL (0.0-0.4); Eosinophils Percent Auto 2.1 % (0-4); Hematocrit 35.5 % (42.0-52.0); Imm Gran Abs Auto 0.02 X10*3/uL (0.00-0.03); Imm Gran Pct Auto 0.4 % (0.0-0.4); Lymphocytes Absolute Auto 1.1 X10*3/uL (1.2-4.9); Lymphocytes Percent Auto 21.4 % (20-40); Mean Corpuscular HGB Conc 36.6 g/dl (31.0-36.0); Mean Corpuscular Hemoglobin 33.7 pg (27.0-33.0); Monocytes Absolute Auto 0.5 X10*3/uL (0.1-1.2); Monocytes Percent Auto 8.9 % (2-11); Neutrophils Absolute Auto 3.4 x10*3/uL (2.0-8.3); Neutrophils Percent Auto 66.8 % (45-73); Red Blood Count 3.86 X10*6/uL (4.60-5.80); White Blood Count 5.2 X10*3/uL (4.8-10.8)
[2021-10-31 07:41] LABS: Anion Gap 15 (12-20); Blood Urea Nitrogen 6 mg/dL (9-16); Calcium 7.6 mg/dL (8.4-10.2); Carbon Dioxide 25 mmol/L (22-29); Chloride 99 mmol/L (96-108); Creatinine Clr Calc Pharmacy 176.9; Estimated Glomerular Filt Rate > 60; Glucose Random 98 mg/dL (60-115); Potassium 2.6 mmol/L (3.3-5.1); Sodium 136 mmol/L (135-145)
[2021-10-31 07:59] LABS: Mean Platelet Volume 9.8 fL (9.4-12.4); Platelet Count 91 X10*3/uL (160-400)
--- NOTE | 2021-10-31 08:14 | PHA.MEDREC ---
Pharmacy Consult ? Medication Reconciliation Pharmacy has completed the medication reconciliation.
[2021-10-31] MEDS: Enoxaparin Sodium 40 MG/0.4 ML SYRINGE SUBCUT (09:11)
[2021-10-31] MEDS: PHENobarbitaL 30 MG TABLET 60 MG PO (09:12)
[2021-10-31] MEDS: Famotidine/PF 20 MG/2 ML VIAL IVPUSH (09:12)
[2021-10-31] MEDS: Multivitamin TABLET 1 TAB PO (09:13)
[2021-10-31] MEDS: Folic Acid 1 MG TABLET PO (09:13)
[2021-10-31] MEDS: Thiamine HCL 100 MG TABLET PO (09:13)
[2021-10-31] MEDS: Lactated Ringers 1,000 ML 150 ML IVCONT ×2 (09:21→16:49)
[2021-10-31 09:31] LABS: Triglycerides 176 mg/dL
--- NOTE | 2021-10-31 09:43 | P.PNIM_ITS ---
Subjective Subjective Date of Service: 10/31/21 Interval History: cc: abd pain, weakness interval history:a bit better today, no appetite Cardiovascular Cardiovascular: Reports no additional cardiovascular complaints Respiratory Respiratory: Reports no additional respiratory complaints Physical Exam Vital Signs: Vital Signs: Last Vital Signs Temp 98.1 F 10/31/21 05:52 Pulse 84 10/31/21 05:52 Resp 18 10/31/21 05:52 BP 148/97 H 10/31/21 06:24 Pulse Ox 97 10/31/21 05:52 BMI result Body Mass Index 24.4 General: lethargic, ill appearing, diaphoretic Resp: CTA bilateral, no accessory muscles used CVS: S1,S2,RRR GI: soft, tender, non distended Neuro: motor grossly intact, lethargic Psych: appropriate affect, appropriate insight Objective Data Active Medications Amlodipine Besylate (Amlodipine Besylate 5 Mg Tablet) 5 mg PO DAILY [facility]; Protocol Last Admin: 10/31/21 09:13 Dose: 5 mg Documented by: LUIS Enoxaparin Sodium (Enoxaparin Sodium 40 Mg/0.4 Ml Syringe) 40 mg SUBCUT Q24H [facility] Last Admin: 10/31/21 09:11 Dose: 40 mg Documented by: LUIS Famotidine (Famotidine/Pf 20 Mg/2 Ml Vial) 20 mg IVPUSH BID [facility] Last Admin: 10/31/21 09:12 Dose: 20 mg Documented by: LUIS Folic Acid (Folic Acid 1 Mg Tablet) 1 mg PO DAILY [facility] Stop: 11/03/21 08:59 Last Admin: 10/31/21 09:13 Dose: 1 mg Documented by: LUIS Metronidazole (Flagyl) 500 mg in 100 mls @ 100 mls/hr IV Q8H [facility] Last Infusion: 10/31/21 08:55 Dose: 100 mls/hr Documented by: LUIS Ceftriaxone Sodium 1 gm/ (Sodium Chloride) 50 mls @ 100 mls/hr IV Q24H [facility] Lactated Ringer's (Lr) 1,000 mls @ 150 mls/hr IVCONT .Q6H40M [facility] Last Admin: 10/31/21 09:21 Dose: 150 mls/hr Documented by: LUIS Labetalol HCl (Labetalol Hcl 100 Mg/20 Ml Vial) 10 mg IVPUSH Q4H PRN PRN Reason: BP>160/90 Last Admin: 10/31/21 04:55 Dose: 10 mg Documented by: MAKAYLA Lorazepam (Lorazepam 2 Mg/Ml Vial) 1 mg IVPUSH Q2H PRN PRN Reason: Seizures Melatonin (Melatonin 3 Mg Tablet) 6 mg PO BEDTIME PRN PRN Reason: Insomnia Multivitamins/Vitamin C (Multivitamin Tablet) 1 tab PO DAILY [facility] Stop: 11/03/21 08:59 Last Admin: 10/31/21 09:13 Dose: 1 tab Documented by: LUIS Pharmacy Consult (Consult Rx Etoh Phenob Po Dose) 1 each MISCELLANE ONCE PRN; Protocol PRN Reason: Consult order Phenobarbital (Phenobarbital 30 Mg Tablet) 60 mg PO BID [facility] Stop: 11/01/21 21:01 Last Admin: 10/31/21 09:12 Dose: 60 mg Documented by: LUIS Phenobarbital (Phenobarbital 30 Mg Tablet) 30 mg PO BID [facility] Stop: 11/03/21 21:01 Phenobarbital (Phenobarbital 30 Mg Tablet) 30 mg PO DAILY [facility] Stop: 11/05/21 09:01 Senna (Sennosides 8.6 Mg Tablet) 17.2 mg PO BEDTIME PRN PRN Reason: Constipation Sodium Chloride (0.9 % Sodium Chloride Flush 3 Ml Syringe) 3 ml IVFLUSH QSHIFT [facility] Last Admin: 10/31/21 08:56 Dose: Not Given Documented by: LUIS Non-Admin Reason: IV Running Thiamine HCl (Thiamine Hcl 100 Mg Tablet) 100 mg PO DAILY [facility] Stop: 11/03/21 08:59 Last Admin: 10/31/21 09:13 Dose: 100 mg Documented by: LUIS Labs CBC & Chem 7: 10/31/21 06:12 10/31/21 06:12 Labs: Laboratory Results - last 24 hr 10/30/21 10/30/21 10/30/21 15:39 15:57 15:57 MCV 94.0 MCH 34.0 H MCHC 36.2 H RDW 13.2 Plt Count TNP MPV Not Reportable Immature Gran % (Auto) 0.4 Neut % (Auto) 76.0 H Lymph % (Auto) 12.8 L Martin % (Auto) 10.5 Eos % (Auto) 0.1 Baso % (Auto) 0.2 Lymph # (Auto) 1.6 Martin # (Auto) 1.3 H Eos # (Auto) 0.0 Baso # (Auto) 0.0 Abs Immat Gran (auto) 0.05 H Absolute Neuts (auto) 9.2 H Absolute Nucleated RBC 0.000 Nucleated RBC % (auto) 0.0 Smear Tech's Comments VERIFIED Anion Gap Estim Creat Clear Calc Estimated GFR POC Glucose 142 H Random Glucose Lactic Acid Lactic Acid F/U @ 2Hr Calcium Magnesium Total Bilirubin Direct Bilirubin AST ALT Alkaline Phosphatase Ammonia Troponin I High Sens < 3.5 Total Protein Albumin Triglycerides Lipase Urine Color Urine Appearance Urine pH Ur Specific Elba Urine Protein Urine Glucose (UA) Urine Ketones Urine Blood Urine Nitrite Ur Leukocyte Esterase Urine RBC Urine WBC Ur Squamous Epith Cells Amorphous Sediment Urine Bacteria Hyaline Casts Urine Mucus Urine Sperm Urine Opiates Screen Urine Fentanyl Screen Ur Barbiturates Screen Ur Phencyclidine Scrn Ur Amphetamines Screen U Benzodiazepines Scrn Urine Cocaine Screen U Marijuana (THC) Screen Ethyl Alcohol COVID-19 (ANICETO) COVID-19 Clin Com Influenza Type A (JEREL) Influenza Type B (JEREL) Influenza A & B Note 10/30/21 10/30/21 10/30/21 15:57 15:57 15:57 MCV MCH MCHC RDW Plt Count MPV Immature Gran % (Auto) Neut % (Auto) Lymph % (Auto) Martin % (Auto) Eos % (Auto) Baso % (Auto) Lymph # (Auto) Martin # (Auto) Eos # (Auto) Baso # (Auto) Abs Immat Gran (auto) Absolute Neuts (auto) Absolute Nucleated RBC Nucleated RBC % (auto) Smear Tech's Comments Anion Gap Estim Creat Clear Calc Estimated GFR POC Glucose Random Glucose Lactic Acid 18.8 H* Lactic Acid F/U @ 2Hr Calcium Magnesium Total Bilirubin Direct Bilirubin AST ALT Alkaline Phosphatase Ammonia Troponin I High Sens Total Protein Albumin Triglycerides Lipase Urine Color Urine Appearance Urine pH Ur Specific Elba Urine Protein Urine Glucose (UA) Urine Ketones Urine Blood Urine Nitrite Ur Leukocyte Esterase Urine RBC Urine WBC Ur Squamous Epith Cells Amorphous Sediment Urine Bacteria Hyaline Casts Urine Mucus Urine Sperm Urine Opiates Screen Urine Fentanyl Screen Ur Barbiturates Screen Ur Phencyclidine Scrn Ur Amphetamines Screen U Benzodiazepines Scrn Urine Cocaine Screen U Marijuana (THC) Screen Ethyl Alcohol COVID-19 (ANICETO) Negative COVID-19 Clin Com See Note Influenza Type A (JEREL) Negative Influenza Type B (JEREL) Negative Influenza A & B Note See Note 10/30/21 10/30/21 10/30/21 15:57 15:57 15:58 MCV MCH MCHC RDW Plt Count MPV Immature Gran % (Auto) Neut % (Auto) Lymph % (Auto) Martin % (Auto) Eos % (Auto) Baso % (Auto) Lymph # (Auto) Martin # (Auto) Eos # (Auto) Baso # (Auto) Abs Immat Gran (auto) Absolute Neuts (auto) Absolute Nucleated RBC Nucleated RBC % (auto) Smear Tech's Comments Anion Gap 35 H Estim Creat Clear Calc 108.7 Estimated GFR > 60 POC Glucose Random Glucose 135 H D Lactic Acid Lactic Acid F/U @ 2Hr Calcium 9.2 Magnesium Total Bilirubin 1.7 H Direct Bilirubin 0.8 H AST 462 H ALT 236 H Alkaline Phosphatase 144 H D Ammonia 118 H Troponin I High Sens Total Protein 7.5 Albumin 4.4 Triglycerides Lipase 256 H Urine Color Urine Appearance Urine pH Ur Specific Elba Urine Protein Urine Glucose (UA) Urine Ketones Urine Blood Urine Nitrite Ur Leukocyte Esterase Urine RBC Urine WBC Ur Squamous Epith Cells Amorphous Sediment Urine Bacteria Hyaline Casts Urine Mucus Urine Sperm Urine Opiates Screen Urine Fentanyl Screen Ur Barbiturates Screen Ur Phencyclidine Scrn Ur Amphetamines Screen U Benzodiazepines Scrn Urine Cocaine Screen U Marijuana (THC) Screen Ethyl Alcohol < 10 COVID-19 (ANICETO) COVID-19 Clin Com Influenza Type A (JEREL) Influenza Type B (JEREL) Influenza A & B Note 10/30/21 10/30/21 10/30/21 19:49 20:34 21:33 MCV MCH MCHC RDW Plt Count MPV Immature Gran % (Auto) Neut % (Auto) Lymph % (Auto) Martin % (Auto) Eos % (Auto) Baso % (Auto) Lymph # (Auto) Martin # (Auto) Eos # (Auto) Baso # (Auto) Abs Immat Gran (auto) Absolute Neuts (auto) Absolute Nucleated RBC Nucleated RBC % (auto) Smear Tech's Comments Anion Gap 13 Estim Creat Clear Calc 164.6 Estimated GFR > 60 POC Glucose Random Glucose 96 Lactic Acid Lactic Acid F/U @ 2Hr 1.0 Calcium 7.8 L D Magnesium 2.0 Total Bilirubin Direct Bilirubin AST ALT Alkaline Phosphatase Ammonia Troponin I High Sens Total Protein Albumin Triglycerides Lipase Urine Color YELLOW Urine Appearance CLEAR Urine pH 7.0 Ur Specific Elba 1.020 Urine Protein 1+ H Urine Glucose (UA) NEG Urine Ketones 15 Urine Blood NEG Urine Nitrite NEG Ur Leukocyte Esterase NEG Urine RBC 1-4 Urine WBC 1-4 Ur Squamous Epith Cells 1+ Amorphous Sediment 2+ Urine Bacteria 1+ Hyaline Casts 1-4 Urine Mucus 1+ Urine Sperm NOTED Urine Opiates Screen Urine Fentanyl Screen Ur Barbiturates Screen Ur Phencyclidine Scrn Ur Amphetamines Screen U Benzodiazepines Scrn Urine Cocaine Screen U Marijuana (THC) Screen Ethyl Alcohol COVID-19 (ANICETO) COVID-19 Clin Com Influenza Type A (JEREL) Influenza Type B (JEREL) Influenza A & B Note 10/30/21 10/31/21 10/31/21 21:33 06:12 06:12 MCV 92.0 MCH 33.7 H MCHC 36.6 H RDW 13.0 Plt Count 91 L D MPV 9.8 Immature Gran % (Auto) 0.4 Neut % (Auto) 66.8 Lymph % (Auto) 21.4 Martin % (Auto) 8.9 Eos % (Auto) 2.1 Baso % (Auto) 0.4 Lymph # (Auto) 1.1 L Martin # (Auto) 0.5 Eos # (Auto) 0.1 Baso # (Auto) 0.0 Abs Immat Gran (auto) 0.02 Absolute Neuts (auto) 3.4 Absolute Nucleated RBC 0.000 Nucleated RBC % (auto) 0.0 Smear Tech's Comments Anion Gap 15 Estim Creat Clear Calc 176.9 Estimated GFR > 60 POC Glucose Random Glucose 98 Lactic Acid Lactic Acid F/U @ 2Hr Calcium 7.6 L Magnesium Total Bilirubin Direct Bilirubin AST ALT Alkaline Phosphatase Ammonia Troponin I High Sens Total Protein Albumin Triglycerides 176 Lipase Urine Color Urine Appearance Urine pH Ur Specific Elba Urine Protein Urine Glucose (UA) Urine Ketones Urine Blood Urine Nitrite Ur Leukocyte Esterase Urine RBC Urine WBC Ur Squamous Epith Cells Amorphous Sediment Urine Bacteria Hyaline Casts Urine Mucus Urine Sperm Urine Opiates Screen Not Detected Urine Fentanyl Screen Not Detected Ur Barbiturates Screen POSITIVE H Ur Phencyclidine Scrn Not Detected Ur Amphetamines Screen Not Detected U Benzodiazepines Scrn POSITIVE H Urine Cocaine Screen Not Detected U Marijuana (THC) Screen Not Detected Ethyl Alcohol COVID-19 (ANICETO) COVID-19 Clin Com Influenza Type A (JEREL) Influenza Type B (JEREL) Influenza A & B Note Assessment and Plan (1) Acute alcoholic pancreatitis: Status: Acute Plan 31M presented with abd pain, seizure acute pancreatitis multifactorial ETOH, history of hypertriglyceridemia (as high as 977 in jul 2021, now 176) does have some cholelithiasis without cbd dilitation npo, IVF - changed to LR, pain control GI eval alcohol dependence with withdrawal and seizure phenobarb, ciwa possible colitis rocephin, flagyl htn amlodipine dvt prophylaxis - lovenox full code reason for continued hospitalization:signifant pain, no appetite, needs ivf, close monitoring Quality Stroke Does the patient have a stroke diagnosis?: No VTE Prior VTE?: No VTE Risk Level:: Medical - moderate - high VTE Device Contraindication: Treatment Not Indicated VTE Drug Contraindication: N/A - Med Ordered
--- NOTE | 2021-10-31 13:33 | MHC.CM.PN ---
pt in ed unarousable pts mom sitting bedside she explins that pt had been at [facility] in [place] for 6 days when they found out they were out of network pt will be seen by care team
--- NOTE | 2021-10-31 17:42 | MHC.RECOVSUP ---
Recovery Support note: Patient is a 31 year old [place] speaking male who presented to [facility] ED due to n/v and abdominal pain. Patient had a seizure while in the ED. This content writer checked in with patient to discuss alcohol use and recovery supports. Patient reports he would like to stop drinking after discharge, stating I'd like to feel better and whenever I drink I end up here and it's getting expensive. Patient reports he does not want to stay in the hospital until Tuesday. Encouraged patient to discuss this with doctor tomorrow. Patient is not interested in CSS however is willing to discuss outpatient recovery supports. This content writer will follow up with patient on 11/01 to discuss supports and provide resources and referrals.
--- NOTE | 2021-10-31 18:39 | PM.EVENT ---
Event Note Date of Service: 10/31/21 Event Note: GI Consult-Full note dictated. Hx from patient and EMR. Imp: Alcohol-induced pancreatitis and hepatitis. I don't think the gallstones nor previously elevated triglycerides are playing a role at this time. He appears to be improving from a clinical standpoint and is without any worrisome signs nor symptoms at this time. He has had no further vomiting and his abdominal exam is benign. He is hungry and would like to go home tomorrow so he can go to work on Tuesday. Rec: Start clear liquids, F/U labs in AM. Advance diet tomorrow if stable. I advised him of the need to avoid EtOH mcfp so as to prevent further issues with his pancreas and liver. He understood and was comfortable with this plan. Thanks
--- NOTE | 2021-10-31 19:35 | PC.NURSE ---
Pt told Edison SNOWDEN that he would like to leave the hospital. Edison SNOWDEN told pt that he would send a message to the hospitalists to see if this is possible. Will continue to monitor.
--- NOTE | 2021-10-31 20:15 | PC.NURSE ---
pt asking for discharge and his IV pulled. there is a note from 1840 stating he was agreeable to stay tonight and dc tomorrow, and when asked about this pt states plan has changed, i want to leave now states he will sign out AMA. refusing to be hooked up to monitor technician again stating that he already took the stickers off. notified who asked to have his mother try to convince him to stay
--- NOTE | 2021-10-31 20:18 | PC.NURSE ---
pt is refusing to let me call his mother,, refusing to call her, pt educated that he is at high risk for seizure and this is the best place for him, and he can be dc in morning, but pt states nope, i want to go now notified
--- NOTE | 2021-10-31 20:35 | PC.NURSE ---
per MD, pt educated that he is not allowed to drive per law for 6 months of seizure free activity pt laughed, and stated i dont have a car, that fine this RN reminded pt that his mother was at his bedside all night because she was concerned for his wellbeing. pt states ok this RN asked what made him change his mind from staying tonight and pt states i want to leave, people are yelling, pt asked if he would stay if he got a room change and stated that no he will not stay. pt further educated about his high risk for additional seizures. pt asking when he can go. this RN stated that he will tell the MD. MD Chandler notified
--- NOTE | 2021-10-31 23:06 | CONS_ITS ---
DATE OF SERVICE: 10/31/2021 REASON FOR CONSULTATION: Abdominal pain, hepatitis, and pancreatitis. HISTORY OF PRESENT ILLNESS: This has been obtained from the patient and the medical record. The patient is a 31-year-old male, who describes a long-standing history of alcohol abuse with intermittent periods of sobriety. However, most recently, after being discharged from the previous alcohol rehab stay in September, he has been drinking again. He describes drinking upwards of a bottle of whiskey daily for about a week now. He began having episodes of abdominal pain and vomiting about 2 days ago. He denies any signs of hematemesis nor coffee-ground emesis. He denies any signs of jaundice. He came to the ER due to ongoing symptoms and was found to have some pancreatitis and hepatitis. Since admission here, he reports that things are better. He is no longer having any vomiting and reports that his abdominal pain has almost completely resolved. He denies any diarrhea. He denies any melena nor hematochezia. He was here in August with some elevated pancreas enzymes as well. He denies any previous history of pancreatitis, ulcer disease, nor liver disease as far as he knows. He denies any drug use besides marijuana. He has not been using any medication at home. His present medications here in the hospital include amlodipine, IV ceftriaxone, Lovenox, IV Pepcid, folic acid, labetalol p.r.n., lorazepam p.r.n., magnesium, melatonin, IV Flagyl, vitamins, phenobarbital, Senokot p.r.n., and thiamine. PAST MEDICAL HISTORY: Alcohol abuse. He denies any history of [place], diabetes, stroke, lung disease, nor kidney disease. History of depression. He does describe a history of Crohn's disease in the distant past, but has not needed any treatment for that. There is a reported history of hypertension, anxiety, and insomnia. He did have an elevated triglyceride level earlier this year. Shoulder surgery. 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 He lives by himself. He smokes tobacco occasionally. He uses marijuana. Alcohol as above. FAMILY HISTORY: Noncontributory. REVIEW OF SYSTEMS: Constitutional he has been feeling poorly at home with anorexia and vomiting. SKIN: No jaundice. CARDIAC: No chest pain. PULMONARY: No coughing, no hemoptysis. GI: As above. PHYSICAL EXAMINATION: GENERAL: The patient is a pleasant alert male. He is in no distress. He appears comfortable. SKIN: Warm and dry. Nonjaundiced. HEENT: Anicteric sclerae. NECK: Supple. CARDIAC: Normal S1, S2. ABDOMEN: Soft, nondistended. Normal bowel sounds with some minimal epigastric tenderness but without mass rebound. EXTREMITIES: Without edema. LABORATORY DATA: White blood cell count 12.2 yesterday and 5.2 today. Hemoglobin 15.4 yesterday and 13.0 today. Platelets 91,000 today. Sodium 136, potassium 2.6, chloride 99, CO2 25, BUN 6, creatinine 0.7. LFTs yesterday showed total bilirubin of 1.7, direct bilirubin 0.8, AST 462, ALT 236, alkaline phosphatase 144. Albumin 4.4, lipase 256. His ammonia level is 118 yesterday. Lactic acid level was 18.8 yesterday. Toxicology screen yesterday was positive for barbiturates and benzodiazepines. Ethanol level was less than 10. His imaging, abdominal ultrasound from yesterday showed somewhat enlarged liver with probable fatty liver but without any sign of liver mass nor biliary disease. Gallbladder showed stones, but no evidence of any cholecystitis. His CT scan described fatty liver and an enlarged liver. There were gallstones but no evidence of any cholecystitis. There was some evidence of inflammation in the tail of the pancreas compatible with pancreatitis. There was some splenomegaly. There was some colon wall thickening in the area of the splenic flexure. There is no ascites. IMPRESSION: Given the patient's clinical history, this appears to be consistent with his acute alcohol-induced pancreatitis and acute alcohol-induced hepatitis. I do not think his gallstones nor previous history of hypertriglyceridemia are playing a role in his current presentation. He does not show any signs of biliary disease. He probably has some component of chronic liver disease at this point given the thrombocytopenia and enlarged spleen. He does not show any signs of liver decompensation at this time. He did have an elevated ammonia level, but presently does not show any signs of encephalopathy at this time. His abdominal exam is just about benign, and he is not having any particular abdominal pain. At this point, I think he can start clear liquids. Followup laboratories have been ordered for the morning. He does want to go home tomorrow so he can go back to work on Tuesday. If his laboratories are stable and he is tolerating liquids, he can have his diet advanced tomorrow as well. I would not recommend cholecystectomy at this time given what appears to be alcohol-induced problems with both his liver and pancreas. I did have a detailed discussion with him today and advised him of the need to avoid alcohol long-term to prevent further issues with his liver and pancreas. Of note, he does not show any clinical signs of colitis, and I would therefore stop his antibiotics. I think the changes on the CT scan are probably related to the pancreatitis in that area. The patient was comfortable with this plan. Thank you for the consultation. MD MIGUEL Varghese/ASAEL / [id number] MTDD
--- NOTE | 2021-11-01 06:48 | P.EN_ITS ---
Event Note Date of Service: 11/01/21 Event Note: against medical advise note: Patient mentioned that he does not want state. Explained to the patient about the risks of leaving against medical advice including worsening of the current situation may even lead to seizures and . patient verbalized that he un derstood the risks and he still wanted to leave AMA. Patient is explained in detail that he should not be driving at least 6 months of Seizure free period per [facility] state law. Patient signed AMA form.
--- NOTE | 2021-11-01 06:55 | PM.DS ---
DS: Providers Provider Date of Service: 10/31/21 Date of admission: 10/30/21 23:15 Primary care physician: Martir Kline MD Consults: 10/30/21 23:15 Consult to Gastroenterology Routine Consulting Provider: Anthony Ba Reason for consultation: Transaminitis, pancreatitis DS: Diagnosis Discharge Diagnosis (1) Acute alcoholic pancreatitis: Status: Acute DS: Summary Hospital Course Hospital Course: from intial hpi: Chief Complaint: Alcohol withdrawal 31-year-old male with a past medical history of alcohol abuse, cannabis use, anxiety, depression, history of Crohn's disease presented to the hospital with a chief complaint of alcohol withdrawal.? Patient reports that for the past 1 week is not feeling well; has been having nausea vomiting and abdominal discomfort; abdominal pain is diffuse and more so in the lower quadrants; denies any diarrhea.? Denies any chest pain or palpitations.? Reports he has multiple episodes of vomiting; denies any blood in the vomitus or stool.? Mentions he has not been eating well.? Per family at bedside reports that patient was in detox last month; relapsed about 2 weeks ago and for the past 3 weeks he has been not feeling well.? Last drink was about 1 week ago.? Review of all other systems is negative except mentioned above ER course: Per ER team patient while in the waiting area, being drawn labs; had an episode of tonic clonic seizure-lasted 30 seconds; patient was postictal; had form in the mouth; patient received IM Ativan, Versed, IV Ativan; was briefly agitated.? Patient noted to have hypokalemia, severe lactic acidosis, severe anion gap acidosis, transaminitis.? Patient received IV fluids.? Started on phenobarb protocol.? Admitted to the hospital for further management. hospital course: Patient was admitted for acute alcoholic but does and pancreatitis. he does have history of hypertriglyceridemia, however, his triglycerides were only 176 and not felt to be contributory. He did have some cholelithiasis on imaging but without CBD dilatation and not considered to be the etiology. Patient was made NPO, given IV fluids and pain control. For his alcohol dependence with withdrawal complicated by seizure he was given phenobarbital. For his hypertension he was given amlodipine. Overnight on October 31 patient decided to leave against medical advice. Time Spent with Patient Time attestation: Total time spent providing and/or coordinating discharge services: Discharge coordination time: Greater than 30 minutes Quality: Safe Use of Opioids Does Pt have an Active Cancer Diagnosis on the Problem List?: No Quality: Stroke Does the patient have a stroke diagnosis?: No Physical Exam Vital Signs: Vital Signs: Last Vital Signs Temp 98.4 F 10/31/21 15:10 Pulse 88 10/31/21 15:10 Resp 15 10/31/21 15:10 BP 138/102 H 10/31/21 15:10 Pulse Ox 97 10/31/21 15:10 BMI result Body Mass Index 24.4 DS: Data Data Completed and Pending Completed studies during hospitalization [Text1]: Procedures Detoxification Services for Substance Abuse Treatment (09/09/21) Repair Scalp Skin, External Approach (06/06/21) Labs on day of discharge: Laboratory Results - last 24 hr 10/31/21 10/31/21 06:12 06:12 WBC 5.2 RBC 3.86 L Hgb 13.0 L Hct 35.5 L MCV 92.0 MCH 33.7 H MCHC 36.6 H RDW 13.0 Plt Count 91 L D MPV 9.8 Immature Gran % (Auto) 0.4 Neut % (Auto) 66.8 Lymph % (Auto) 21.4 [place] % (Auto) 8.9 Eos % (Auto) 2.1 Baso % (Auto) 0.4 Lymph # (Auto) 1.1 L [place] # (Auto) 0.5 Eos # (Auto) 0.1 Baso # (Auto) 0.0 Abs Immat Gran (auto) 0.02 Absolute Neuts (auto) 3.4 Absolute Nucleated RBC 0.000 Nucleated RBC % (auto) 0.0 Sodium 136 Potassium 2.6 L Chloride 99 Carbon Dioxide 25 Anion Gap 15 BUN 6 L Creatinine 0.67 Estim Creat Clear Calc 176.9 Estimated GFR > 60 Random Glucose 98 Calcium 7.6 L Triglycerides 176 Discharge Plan Discharge Patient Disposition: Left Against Medical Advice Discharge Diagnosis: seizrue, pancreatitis Referrals: Martir Kline MD [Primary Care Provider] - 1 Week Discharge Medications: No Action thiamine HCl (vitamin B1) 100 mg tablet 1 tab PO DAILY 0RF amlodipine 10 mg tablet 1 tab PO DAILY 0RF folic acid 1 mg tablet 1 tab PO DAILY 0RF Discharge Orders: Discharge Order (Routine); Ordered 11/01/21 Ordered By: Tino Ward Stand Alone Forms: Against Medical Advice Care Plan Goals: recovery Health Concerns: etoh Plan of Treatment: no etoh Assessment: see hansa Discharge Date/Time: 10/31/21 21:17
[2021-11-02 07:45] LABS: HBS Num1 6.68 mIU/mL (0-7.99); HBc Num1 0.07 S/CO (0.00-0.79); Hepatitis B Core Antibody Nonreactive (Nonreactive); Hepatitis B Surface Antigen Negative (Negative); ~HepC Num1 0.24 S/CO (0.00-0.79); ~Hepatitis B Surface Antibody NONREACTIVE (Nonreactive); ~Hepatitis C Antibody Nonreactive (Nonreactive)
[2021-11-04 07:57] LABS: Hepatitis A Antibody IgM 0.24 Index (0-0.79); ~Hepatitis A Antibody IgM Nonreactive (Nonreactive)
== END 2021-10-31 21:17 | disposition left against medical advice (07) | DRG 280 ==
LOC: HO.ED 20:24 → HO.EDOVER 23:21 → HO.IMC 10-31 20:51
PROVIDERS: Emergency Medicine; Admitting Provider Hospitalist; Emergency Provider Internal Medicine; PCP Internal Medicine; Visit Provider Internal Medicine
DX: K70.10 Alcoholic hepatitis without ascites (principal); K85.20 Alcohol induced acute pancreatitis without necrosis or infection; E87.2 Acidosis; R56.9 Unspecified convulsions; E78.1 Pure hyperglyceridemia; K52.9 Noninfective gastroenteritis and colitis, unspecified; F10.239 Alcohol dependence with withdrawal, unspecified; F32.A Depression, unspecified; Z20.822 Contact with and (suspected) exposure to COVID-19; Z87.891 Personal history of nicotine dependence; Z88.8 Allergy status to other drugs, medicaments and biological substances; Z79.899 Other long term (current) drug therapy
CPT/HCPCS: 36415; 70450; 74176; 76705; 80048; 80076; 80307; 81001; 81003; 82077; 82140; 82947; 83605; 83690; 83735; 84478; 84484; 85025; 86704; 86706; 86709; 86803; 87340; 87502; 87635; 93005; 96361; 96365; 96366; 96367; 96372; 96375; 99285; 99291; J0696; J1650; J2060; J2250; J2405; J3411; J3475

== ENCOUNTER → 2021-11-12 16:26 | Outpatient (BNVA) | payer OTHER, SELFPAY | PROVIDERS: PCP Internal Medicine; Visit Provider Nurse Practitioner Psychiatric/Mental Health | DX: Z13.89 Encounter for screening for other disorder (principal) ==

== ENCOUNTER 2022-08-24 07:59 | Emergency (ER) | payer SELFPAY ==
[2022-08-24 08:04] VITALS: BP 147/111; PULSE 109; RESP 18; TEMP 36.2; O2SAT 97; BMI 23.0
[2022-08-24 08:12] LABS: MANUAL DIFF FLAG NO
[2022-08-24 08:17] LABS: Basophils Absolute Auto 0.1 X10*3/uL (0.0-0.2); Basophils Percent Auto 0.7 % (0-2); Eosinophils Absolute Auto 0.1 X10*3/uL (0.0-0.4); Eosinophils Percent Auto 1.2 % (0-4); Hematocrit 36.6 % (42.0-52.0); Hemoglobin 13.1 g/dl (14.0-18.0); Imm Gran Abs Auto 0.05 X10*3/uL (0.00-0.03); Imm Gran Pct Auto 0.7 % (0.0-0.4); Lymphocytes Absolute Auto 1.8 X10*3/uL (1.2-4.9); Lymphocytes Percent Auto 25.2 % (20-40); Mean Corpuscular HGB Conc 35.8 g/dl (31.0-36.0); Mean Corpuscular Hemoglobin 33.6 pg (27.0-33.0); Mean Corpuscular Volume 93.8 fL (80.0-98.0); Mean Platelet Volume 8.6 fL (9.4-12.4); Monocytes Absolute Auto 0.6 X10*3/uL (0.1-1.2); Monocytes Percent Auto 8.9 % (2-11); Neutrophils Absolute Auto 4.6 x10*3/uL (2.0-8.3); Neutrophils Percent Auto 63.3 % (45-73); Platelet Count 163 X10*3/uL (160-400); Red Cell Distribution Width 13.2 % (11.0-16.0); White Blood Count 7.2 X10*3/uL (4.8-10.8)
--- NOTE | 2022-08-24 08:22 | ED_ITS ---
HPI - General Adult General Chief complaint: Wound/Laceration Stated complaint: Infected tongue Time Seen by Provider: 08/24/22 08:21 Source: patient Mode of arrival: ambulatory Limitations: no limitations History of Present Illness HPI narrative: Patient is a 32 year old assigned male at with a history of alcohol abuse and alcohol withdrawal seizures presenting to the emergency department today with a possible tongue infection. Patient states that the other day he was not drinking alcohol and had an alcohol withdrawal seizure, causing him to bite his tongue. Patient states that now he believes his tongue is infected. Patient states that he does not want any resources or alcohol detox. Patient denies any dizziness, lightheadedness, abdominal pain, nausea, vomiting, fever, chills, blurry vision, double vision, loss of vision, chest pain, difficulty breathing, shortness of breath, back pain, night sweats, pain with urination, increased urinary frequency, increased urinary urgency, blood in his urine or stool, syncope or a near syncopal episode, recent trauma or falls, bowel incontinence, bladder incontinence, bowel retention, bladder retention, or any other complaints at this time. Onset (ago): day(s) Severity: mild Severity scale (1-10): 2 Pain Consistency: constant Relieving factors: none Exacerbating factors: none Associated symptoms: denies other symptoms Treatments prior to arrival: none Related Data Home Medications Medication Instructions Recorded Confirmed amlodipine 10 mg tablet 1 tab PO DAILY 10/31/21 10/31/21 folic acid 1 mg tablet 1 tab PO DAILY 10/31/21 10/31/21 thiamine HCl (vitamin B1) 100 mg 1 tab PO DAILY 10/31/21 10/31/21 tablet Previous Rx's Medication Instructions Recorded amoxicillin 875 mg-potassium 1 tab PO BID 10 days #20 tabs 08/23/22 clavulanate 125 mg tablet amoxicillin 875 mg-potassium 1 tab PO BID 7 days #14 tabs 08/24/22 clavulanate 125 mg tablet chlorhexidine gluconate 0.12 % 15 ml buccal BID #118 mL 08/24/22 mouthwash (Peridex) Allergies Allergy/AdvReac Type Severity Reaction Status Date / Time citalopram AdvReac Intermediate nausea Verified 08/14/21 21:55 Review of Systems Constitutional: Constitutional: Reports no additional constitutional complaints, Denies chills, Denies fever(s) and Denies night sweats Eyes: Eyes: Reports no additional eye complaints, Denies blurry vision, Denies change in vision, Denies diplopia, Denies eye discharge, Denies loss of vision and Denies eye pain ENT: Denies dizziness Comments: left sided tongue pain / poss infection Cardiovascular: Cardiovascular: Reports no additional cardiovascular complaints, Denies chest pain, Denies lightheadedness, Denies Loss of Consciou sness and Denies dyspnea Respiratory: Respiratory: Reports no additional respiratory complaints and Denies dyspnea Gastrointestinal: Gastrointestinal: Reports no additional gastrointestinal co mplaints, Denies abdominal pain, Denies melena, Denies hematochezia, Denies change in bowel habits and Denies change in stool character Genitourinary: Genitourinary: Reports no additional male genitourinary complaints, Denies hematuria, Denies oliguria, Denies difficulty urinating, Denies dysuria, Denies urinary frequency, Denies urinary hesitancy, Denies urinary incontinence and Denies urinary urgency Musculoskeletal: Musculoskeletal: Reports no additional musculoskeletal complaints, Denies numbness and Denies tingling Neurologic: Denies dizziness, Denies loss of vision, Denies numbness and Denies tingling Psychiatric: Psychiatric: Reports no additional psychiatric complaints Endocrine: Endocrine: Reports no additional endocrine complaints Hematologic/Lymphatic: Hematologic/Lymphatic: Reports no additional hematologic/lymphatic complaints Allergic/Immunologic: Allergic/Immunologic: Reports no additional allergic/immunologic complaints [facility] Past Medical History Attestation statement: The following information was validated with the patient. Source: old records reviewed and nursing notes reviewed Medical History Alcohol abuse Anxiety Benign essential hypertension Crohn's disease Depression GERD without esophagitis Hypertriglyceridemia Insomnia Myalgia Ulcerative colitis Surgical History History of shoulder surgery Family History Family History Other Family history non-contributory Substance use disorder Social History Social History Household Members: None Housing: Apartment Do you presently have visiting nurse or other home services: No Alcohol intake: current Patient Tobacco Use Status: Former Tobacco user e-Cigarette/Vaping Use: Never Used Second Hand Smoke Exposure: No Substance Use Type: Marijuana Advance Directives: No Advance Directives Information Provided: No service: No Current occupational status: employed Cognitive needs: No Hearing needs: No Vision needs: Yes (Glasses) Physical Exam ED Vital Signs: Vital Signs - 24 hr 08/24/22 08:04 Temperature 97.1 F Pulse Rate 109 H Respiratory Rate 18 Blood Pressure 147/111 H Pulse Oximetry 97 Oxygen Delivery Method Room Air BMI result Body Mass Index 23.0 Const General: cooperative, no acute distress, alert and awake Nutritional Appearance: well nourished Orientation/consciousness: patient oriented x3 Limitations: no limitations HENMT Head: Yes normal to inspection and Yes atraumatic Ears: hearing grossly normal bilaterally and external ears normal General nose exam: Normal external nose present, no nasal discharge noted and no epistaxis Face and sinus: Yes normal facial exam, No abrasion and No laceration Mouth: Normal oral and palatal mucosa present, no drooling and no muffled voice Teeth image: 1. Yellowish tissue with closed wound in the middle, consistent with an infect ed tongue laceration Eyes General: appearance normal, both eyes and all related structures Periorbital: periorbital findings normal Eyelids: Yes eyelids normal Conjunctivae: conjunctivae normal Pupils: Equal, round and reactive pupils present EOM: EOMs intact bilaterally Neck Neck: Yes normal visual inspection, Yes full ROM and Yes no lymphadenopathy Chest Chest palpation & inspection: normal inspection of the chest Resp Effort & Inspection: normal respiratory effort and able to speak in complete sentences Auscultation: clear to auscultation bilaterally Cardio Rate: regular rate Rhythm: regular rhythm GI Inspection: Yes normal to inspection Palpation (GI): Soft to palpation, not firm, nontender, no guarding and not rigid Neuro General: patient oriented x3 and moves all extremities Cranial nerves: Yes Equal, round and reactive pupils present Cognition (Neuro): normal cognition Motor exam (neuro): 5/5 motor strength present throughout Sensory Exam: Normal double simultaneous stimulation for sensation Coordination: [id number] test normal Extrem General: Yes normal to inspection, Yes full ROM and Yes capillary refill normal Psych Appearance: grossly normal Mental Status: mental status grossly normal Affect: normal affect Attitude: cooperative Thought process: Normal thought process present Thought content: Normal thought content present Insight: Good insight present (Psych) Medications Administered Discontinued Medications Generic Name Dose Route Start Last Admin Trade Name Freq PRN Reason Stop Dose Admin Amoxicillin/Clavulanate Potassium 875 mg 08/24/22 08:36 08/24/22 08:53 Amoxicillin/Potassium Clav 875 Mg Tablet PO 08/24/22 08:37 875 mg ONCE ONE Administration Medical Decision Making Medical Decision Making [facility] Narrative: Patient is a 32 year old assigned male at with a history of alcohol abuse and alcohol withdrawal seizures presenting to the emergency department today with a possibly infected tongue laceration. Patient's physical exam showed an area on the left side of the tongue consistent with an infected laceration but no gaping areas or active bleeding. Patient's blood work was consistent with the patient's baseline. I explained my physical exam findings as well as all test results to the patient. I answered all questions asked by the patient. I stressed the importance of the patient taking his medication as prescribed. I stressed the importance of the patient following up with his primary care provider and a dentist. I stressed the importance of the patient returning to [facility] emergency department immediately if his symptoms were to worsen or if he were to develop any dizziness, shortness of breath, difficulty breathing, chest pain, blurry vision, loss of vision, nausea, vomiting, abdominal pain, fever, chills, back pain, or any other complaints. Patient verbalized agreement and understanding with this treatment plan and discharge. Differential Diagnosis Differential Diagnoses: The differential diagnosis associated with the presentation includes tongue infection Lab Data [facility] Lab Attestation statement: I reviewed the patient's lab results. 08/24/22 08:07 08/24/22 08:07 Labs: Lab Results 08/24/22 08/24/22 Range/Units 08:07 08:07 WBC 7.2 (4.8-10.8) X10*3/uL RBC 3.90 L (4.60-5.80) X10*6/uL Hgb 13.1 L (14.0-18.0) g/dl Hct 36.6 L (42.0-52.0) % MCV 93.8 (80.0-98.0) fL MCH 33.6 H (27.0-33.0) pg MCHC 35.8 (31.0-36.0) g/dl RDW 13.2 (11.0-16.0) % Plt Count 163 D (160-400) X10*3/uL MPV 8.6 L (9.4-12.4) fL Immature Gran % (Auto) 0.7 H (0.0-0.4) % Neut % (Auto) 63.3 (45-73) % Lymph % (Auto) 25.2 (20-40) % [place] % (Auto) 8.9 (2-11) % Eos % (Auto) 1.2 (0-4) % Baso % (Auto) 0.7 (0-2) % Lymph # (Auto) 1.8 (1.2-4.9) X10*3/uL [place] # (Auto) 0.6 (0.1-1.2) X10*3/uL Eos # (Auto) 0.1 (0.0-0.4) X10*3/uL Baso # (Auto) 0.1 (0.0-0.2) X10*3/uL Abs Immat Gran (auto) 0.05 H (0.00-0.03) X10*3/uL Absolute Neuts (auto) 4.6 (2.0-8.3) x10*3/uL Absolute Nucleated RBC 0.000 (0.0-0.012) X10*3/uL Nucleated RBC % (auto) 0.0 (0.0-0.2) /100WBC Sodium 143 (135-145) mmol/L Potassium 3.3 D (3.3-5.1) mmol/L Chloride 97 (96-108) mmol/L Carbon Dioxide 30 H (22-29) mmol/L Anion Gap 19 (12-20) BUN 8 L (9-16) mg/dL Creatinine 0.78 (0.5-1.4) mg/dL Estim Creat Clear Calc 149.6 Estimated GFR > 60 Random Glucose 105 (60-115) mg/dL Calcium 9.3 D (8.4-10.2) mg/dL Total Bilirubin 0.6 (0.0-1.0) mg/dL AST 333 H (5-37) U/L ALT 138 H (0-40) U/L Alkaline Phosphatase 190 H (39-117) U/L Total Protein 7.1 (6.5-8.0) g/dL Albumin 4.1 (3.5-5.0) g/dL Discharge Plan Discharge Clinical Impression: Tongue infection Patient Disposition: Home, Self-Care Additional Instructions: Follow up with your primary care provider and a dentist. Return to the emergency department immediately if your symptoms worsen or if you develop any dizziness, shortness of breath, difficulty breathing, chest pain, blurry vision, loss of vision, nausea, vomiting, abdominal pain, fever, chills, back pain, or any other complaints. Call or visit any of the clinics below to establish with a dentist: [facility] [address] [place] [address] [facility] [address] [facility], [address] Moises Garcia [address] [place] [address] [facility] [address] [place] [id number] [facility] [address] [place] [address] [place] [address] [place] [address] Prescriptions: New amoxicillin-pot clavulanate 875-125 mg tablet 1 tab PO BID 7 Days Qty: 14 0RF chlorhexidine gluconate [Peridex] 0.12 % mouthwash 15 ml buccal BID Qty: 118 0RF No Action amoxicillin-pot clavulanate 875-125 mg tablet 1 tab PO BID 10 Days Qty: 20 0RF thiamine HCl (vitamin B1) 100 mg tablet 1 tab PO DAILY amlodipine 10 mg tablet 1 tab PO DAILY folic acid 1 mg tablet 1 tab PO DAILY Referrals: Martir Kline MD [Primary Care Provider] - Interventions: ED Discharge Assessment Last Done: 08/24/22 09:15 Discharge Date/Time: 08/24/22 09:16 Print Language: Lao
[2022-08-24 08:31] LABS: Alanine Aminotransferase 138 U/L (0-40); Albumin Level 4.1 g/dL (3.5-5.0); Alkaline Phosphatase 190 U/L (39-117); Anion Gap 19 (12-20); Aspartate Amino Transferase 333 U/L (5-37); Bilirubin Total 0.6 mg/dL (0.0-1.0); Blood Urea Nitrogen 8 mg/dL (9-16); Calcium 9.3 mg/dL (8.4-10.2); Carbon Dioxide 30 mmol/L (22-29); Chloride 97 mmol/L (96-108); Creatinine Clr Calc Pharmacy 149.6; Estimated Glomerular Filt Rate > 60; Glucose Random 105 mg/dL (60-115); Potassium 3.3 mmol/L (3.3-5.1); Sodium 143 mmol/L (135-145); Total Protein 7.1 g/dL (6.5-8.0)
[2022-08-24] MEDS: Amoxicillin/Potassium Clav 875 MG TABLET PO (08:53)
== END 2022-08-24 09:16 | disposition home or self-care (01) ==
PROVIDERS: Emergency Provider Emergency Medicine; PCP Internal Medicine
DX: K14.0 Glossitis (principal); Z79.899 Other long term (current) drug therapy
CPT/HCPCS: 36415; 80053; 85025; 99282; 99283

== ENCOUNTER 2023-02-08 10:16 | Outpatient (AMB) | payer BC, SELFPAY ==
[2023-02-08 10:20] VITALS: BP 130/68; PULSE 63; O2SAT 99; BMI 22.4
--- NOTE | 2023-02-08 10:20 | A.OFFPC_ITS ---
Vital Signs 02/08/23 10:20 Height 6 ft Weight 165 lb BMI 22.4 BP 130/68 Blood Pressure Location Lt brachial Position Sitting Pulse 63 Pulse Source Pulse Oximeter Pulse Oximetry (%) 99 Oxygen Delivery Method Room Air Intake Visit Reasons: Rash in groin area Allergies citalopram Adverse Reaction (Intermediate, Verified 02/08/23 10:20) nausea Tobacco use date assessed: 12/17/22 Dental Screening Dental Screen Date: 02/08/23 Did you have a dental visit in the last 12 months?: Yes Did you have a dental problem in the last 6 months where you did not have access to dental care?: No Was dental information given to patient?: Patient has dentist HPI HPI Comments History of Present Illness Details 32-year-old male past medical history significant for alcohol use disorder, alcohol withdrawal seizure, hypertriglyceridemia, hypertension, GERD, depression. Patient Dr. Kline last seen in November, presents today for itchy rash comes and goes at base of penis x 4 months. Denies any penile lesions, discharge and urinary symptoms. Patient offered rn international for exam, he declined. Mild scrotal redness noted at base of penies, no lesions or open areas noted. [facility] Medical History Alcohol abuse Anxiety Benign essential hypertension Crohn's disease Depression GERD without esophagitis Hypertriglyceridemia Insomnia Myalgia Ulcerative colitis Surgical History History of shoulder surgery Family History Other Family history non-contributory Substance use disorder Social History Household Members: None Housing: Apartment Do you presently have visiting nurse or other home services: No Alcohol intake: current Patient Tobacco Use Status: Current everyday Tobacco user Tobacco use type: Cigarette Cigarettes Per Day: 10 e-Cigarette/Vaping Use: Never Used Second Hand Smoke Exposure: Yes Substance Use Type: Marijuana service: No Current occupational status: employed Cognitive needs: No Hearing needs: No Vision needs: Yes (Glasses) Questionnaire PHQ-9 Over the last 2 weeks, how often have you been bothered by any of the following problems? 1. Little interest or pleasure in doing things: not at all 2. Feeling down, depressed, or hopeless: not at all 3. Trouble falling or staying asleep, or sleeping too much: not at all 4. Feeling tired or having little energy: not at all 5. Poor appetite or overeating: not at all 6. Feeling bad about yourself - or that you are a failure or have let yourself or your family down: not at all 7. Trouble concentrating on things, such as reading the newspaper or watching television: not at all 8. Moving or speaking so slowly that other people could have noticed. Or the opposite - being so fidgety or restless that you have been moving around a lot more than usual: not at all 9. Thoughts that you would be better off or of hurting yourself in some way: not at all Total score: 0 Depression Screening Interpretation: Negative 99169 - PHQ-9 Billing: Yes Source: Developed by Drs. Jaspreet Jay, Gloria Landaverde, Sunday Salas and colleagues, with an educational azul from [employer]. Thrive Questionnaire Date Thrive assessed: 12/17/22 AUDIT C Alcohol Use Questionnaire (AUDIT-C) 1. How often do you have a drink containing alcohol?: Never 3. How often do you have six or more drinks on one occasion?: Never Total Score: 0 Score Reviewed/Action Taken: Yes VIANEY-7 AMB Questionnaire VIANEY-7 Date VIANEY - 7 assessed: 12/17/22 Source: Developed by Drs. Jaspreet Jay, Gloria Landaverde, Sunday Salas and colleagues, with an educational azul from [employer]. Review of Systems Const Denies chills, Denies fatigue, Denies fever(s) and Denies poor appetite Eyes Denies no additional complaints ENT Reports Normal hearing present Card Denies chest pain, Denies syncope, Denies rapid heart rate and Denies dyspnea Resp Denies cough and Denies dyspnea GI Denies change in stool character, Denies constipation, Denies diarrhea, Denies nausea and Denies vomiting Denies dysuria, Denies urinary frequency and Denies urinary urgency Skin/Breast Reports rash (redness at base of penis) Neuro Reports Normal hearing present, Denies confusion and Denies syncope Psych Denies confusion Endo Denies fatigue Physical exam (Primary Care) Vital Signs: Last Vital Signs Pulse 63 02/08/23 10:20 BP 130/68 02/08/23 10:20 Pulse Ox 99 02/08/23 10:20 Oxygen Delivery Method Room Air 02/08/23 10:20 BMI result Body Mass Index 22.4 Tobacco/Smoking Status: Tobacco use Status Tobacco use date assessed 12/17/22 02/08/23 10:24 Patient Tobacco Use Status Current everyday Tobacco 02/08/23 10:24 Tobacco use type Cigarette 02/08/23 10:24 e-Cigarette/Vaping Use Never Used 02/08/23 10:24 PHQ-9: PHQ-9 Score PHQ-9: Total score 0 02/08/23 10:24 Depression Screening Interpretation: Negative Thrive Assessment: Date of Thrive Assessment Date Thrive assessed 12/17/22 02/08/23 10:24 Const General: No confusion Orientation/consciousness: No confusion HENMT Head: Yes normocephalic and Yes atraumatic Eyes Conjunctivae: conjunctivae normal Chest Chest palpation & inspection: normal inspection of the chest Resp Effort & Inspection: normal respiratory effort Auscultation: clear to auscultation bilaterally, no crackles, no rhonchi and no wheezes Cardio Rate: regular rate Rhythm: regular rhythm Heart sounds: S1 normal heart sound present and S2 normal heart sound present GI Inspection: Yes normal to inspection Skin Rashes: other (Mild erythema noted at left signed scrotum at the base of the penis. ) Neuro General: No confusion Cranial nerves: Yes Normal hearing present Extrem General: No edema Assessment and Plan Assessment & Plan (1) Scrotal erythema: Code(s): N50.89 - Other specified disorders of the male genital organs Plan: Likely related to fungal rash will send nystatin cream. Signs and symptoms reviewed with patient when to follow-up with PCP. Plan Keep scheduled physical exam in March with PCP or follow-up sooner needed. Medications: New nystatin 1 appl topical DAILY 15 grams 0RF N50.89 - Other specified disorders of the male genital organs Coding Level of Care Code Est Pt Level 3 (90810) Diagnoses Scrotal erythema N50.89
== END 2023-02-08 11:05 | disposition home or self-care (01) ==
PROVIDERS: PCP Internal Medicine; Visit Provider Nurse Practitioner Family
DX: N50.89 Other specified disorders of the male genital organs (principal)
CPT/HCPCS: 99213

== ENCOUNTER 2023-02-10 01:07 | Emergency (ER) | payer BC, SELFPAY ==
--- NOTE | ~2023-02-10 | XR_ITS ---
EXAMINATION: XR KNEE, RIGHT CLINICAL INFORMATION: Knee pain. Rule out dislocation. COMPARISON: None available. TECHNIQUE: AP, lateral and bilateral oblique views of the right knee. FINDINGS: No fracture or joint effusion. Alignment is anatomic. Joint spaces are maintained. No abnormal soft tissue calcification. XR/XR knee RT 4V IMPRESSION: Unremarkable plain radiographs of the right knee.
== END 2023-02-10 04:00 | disposition home or self-care (01) ==
PROVIDERS: Emergency Provider Internal Medicine; PCP Internal Medicine
DX: S83.8X1A Sprain of other specified parts of right knee, initial encounter (principal); X50.0XXA Overexertion from strenuous movement or load, initial encounter; Y93.31 Activity, mountain climbing, rock climbing and wall climbing; Y92.828 Other wilderness area as the place of occurrence of the external cause; Y99.9 Unspecified external cause status
CPT/HCPCS: 73564; 99283

== ENCOUNTER 2023-02-23 08:39 | Outpatient (AMB) | payer BC, SELFPAY ==
[2023-02-23 09:25] VITALS: BP 110/78; PULSE 67; O2SAT 98; BMI 22.5
--- NOTE | 2023-02-23 09:25 | MHC.PC.OV ---
Vital Signs 02/23/23 09:25 Height 6 ft Weight 166 lb 2 oz BMI 22.5 BP 110/78 Blood Pressure Location Lt brachial Position Sitting Pulse 67 Pulse Source Pulse Oximeter Pulse Oximetry (%) 98 Oxygen Delivery Method Room Air Intake Visit Reasons: [facility] [place] [facility] [place] right knee injury Health Insurance Adjuster Required: No Accompanied by: Self / Same As Patient Allergies citalopram Adverse Reaction (Intermediate, Verified 12/11/23 23:41) nausea Tobacco use date assessed: 02/23/23 Dental Screening Dental Screen Date: 02/23/23 Did you have a dental visit in the last 12 months?: Yes Did you have a dental problem in the last 6 months where you did not have access to dental care?: No Was dental information given to patient?: Patient has dentist HPI [facility] [place] [facility] [place] right knee injury HPI Details Patient comes in today for follow-up of his right knee injury States that he apparently sprained his right knee about a week ago He went to the ER last week for further evaluation and was sent for x-rays of the knee, which came out negative He was advised that he just pain his right knee and if his knee symptoms do not improve significantly over the next week or two, then he should follow-up with his PCP for further management He was reportedly advised to rest and ice his knee as needed and to take some OTC pain meds to help relieve his knee symptoms Patient states that his right knee pain has not improved much over the past week and notes (+) pain especially over the medial aspect of his right knee with weight-bearing and walking Adds that he has been breaking out in an itchy and irritated rash over his inguinal areas bilaterally over the past couple of weeks and he would like to get something to help clear this up No other acute complaints or symptoms are noted [facility] Medical History Knee effusion, right Crohn's disease Hypertriglyceridemia Benign essential hypertension Ulcerative colitis Insomnia Anxiety GERD without esophagitis Myalgia Depression Alcohol abuse Surgical History History of shoulder surgery Family History Other Family history non-contributory Substance use disorder Social History Household Members: None Housing: Apartment Do you presently have visiting nurse or other home services: No Alcohol intake: current Comment: pt states better without movement Patient Tobacco Use Status: Current everyday Tobacco user Tobacco use type: Cigarette Cigarettes Per Day: 10 e-Cigarette/Vaping Use: Never Used Second Hand Smoke Exposure: Yes Substance Use Type: Marijuana Advance Directives: No Advance Directives Information Provided: No service: No Current occupational status: employed 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 1. Little interest or pleasure in doing things: not at all 2. Feeling down, depressed, or hopeless: not at all 3. Trouble falling or staying asleep, or sleeping too much: not at all 4. Feeling tired or having little energy: not at all 5. Poor appetite or overeating: not at all 6. Feeling bad about yourself - or that you are a failure or have let yourself or your family down: not at all 7. Trouble concentrating on things, such as reading the newspaper or watching television: not at all 8. Moving or speaking so slowly that other people could have noticed. Or the opposite - being so fidgety or restless that you have been moving around a lot more than usual: not at all 9. Thoughts that you would be better off or of hurting yourself in some way: not at all Total score: 0 Depression Screening Interpretation: Negative 80550 - PHQ-9 Billing: Yes Source: Developed by Drs. Jaspreet Jay, Gloria Landaverde, Sunday Salas and colleagues, with an educational azul from [employer]. Thrive Questionnaire Date Thrive assessed: 02/23/23 I am a: Patient What is your living situation today?: I have a steady place to live Within the past 12 months, did the food you bought not last and you didn't have the money to get more?: Never true Within the past 12 months, did you worry whether your food would run out before you got money to buy more?: Never true Do you have trouble paying for medicines?: No Do you have trouble getting transportation to medical appointments?: No Do you have trouble paying your heating and electricity bill?: No Do you have trouble taking care of your child, family member or friend?: No Do you have trouble with day-to-day activities such as bathing, preparing meals, shopping, managing finances, etc.?: No Are you currently unemployed and looking for a job?: No Are you interested in more education?: No Please select the resources that you would like help with: None Currently or been in a relationship where the following occur: no concerns reported AUDIT C Alcohol Use Questionnaire (AUDIT-C) 1. How often do you have a drink containing alcohol?: Never 3. How often do you have six or more drinks on one occasion?: Never Total Score: 0 Score Reviewed/Action Taken: Yes VIANEY-7 AMB Questionnaire VIANEY-7 Date VIANEY - 7 assessed: 02/23/23 Feeling nervous, anxious, or on edge: 0 = Not at all Not being able to stop or control worryin = Not at all Worrying too much about different things: 0 = Not at all Trouble relaxin = Not at all Being so restless that it is hard to sit still: 0 = Not at all Becoming easily annoyed or irritable: 0 = Not at all Feeling afraid as if something awful might happen: 0 = Not at all Total VIANEY-7 score (0-4 normal; 5-9 mild; 10-14 moderate; 15-21 severe): 0 Source: Developed by Drs. Jaspreet Jay, Gloria Landaverde, Sunday Salas and colleagues, with an educational azul from [employer]. Review of Systems Const Denies chills, Denies fatigue, Denies fever(s) and Denies headache(s) ENT Denies dysphagia, Denies dizziness, Denies otalgia, Denies headache(s), Denies neck pain, Denies odynophagia and Denies sore throat Card Denies chest pain, Denies palpitations and Denies dyspnea Resp Denies chest congestion, Denies cough and Denies dyspnea GI Denies abdominal pain, Denies constipation, Denies dysphagia, Denies heartburn, Denies diarrhea, Denies nausea, Denies odynophagia and Denies vomiting Denies difficulty urinating, Denies dysuria, Denies nocturia and Denies urinary frequency Musc Denies back pain, Reports arthralgias (over the right knee) and Denies neck pain Skin/Breast Details: (+) recurrent itchy rash over the inguinal areas recently Neuro Denies dizziness and Denies headache(s) Endo Denies fatigue and Denies palpitations Physical exam (Primary Care) Vital Signs: Last Vital Signs Pulse 67 02/23/23 09:25 BP 110/78 02/23/23 09:25 Pulse Ox 98 02/23/23 09:25 Oxygen Delivery Method Room Air 02/23/23 09:25 BMI result Body Mass Index 22.5 Tobacco/Smoking Status: Tobacco use Status Tobacco use date assessed 02/23/23 02/23/23 09:27 Patient Tobacco Use Status Current everyday Tobacco 02/23/23 09:27 Tobacco use type Cigarette 02/23/23 09:27 e-Cigarette/Vaping Use Never Used 02/23/23 09:27 PHQ-9: PHQ-9 Score PHQ-9: Total score 0 02/23/23 10:04 Depression Screening Interpretation: Negative Thrive Assessment: Date of Thrive Assessment Date Thrive assessed 02/23/23 02/23/23 09:27 Currently or been in a relationship where the following occur: no concerns reported Const General: no acute distress and alert Neck Neck: Yes supple and No lymphadenopathy Thyroid: Thyroid normal Resp Auscultation: clear to auscultation bilaterally, no rales and no wheezes Cardio Rate: regular rate Rhythm: regular rhythm Heart sounds: no murmurs GI Palpation (GI): Soft to palpation and nontender Auscultation: normal bowel sounds General: Yes no CVA tenderness Back/Spine/Pelvis Back: no CVA tenderness Thoracic/Lumbar Spine: No lumbar spinal tenderness Skin Other: (+) erythematous patchy pruritic rash over the inguinal areas bilaterally Extrem General: Yes no clubbing, cyanosis or edema Right lower extremity: knee Details: tenderness Location: of the medial joint line; no swelling Coding Level of Care Code Est Pt Level 3 (00825) Diagnoses Sprain of medial collateral ligament of right knee, sequela S83.411S Encounter type: sequela Involved ligament of knee: medial collateral ligament Tinea cruris B35.6
== END 2023-02-23 10:51 | disposition home or self-care (01) ==
PROVIDERS: PCP Internal Medicine; Visit Provider Internal Medicine
DX: S83.411S Sprain of medial collateral ligament of right knee, sequela (principal); B35.6 Tinea cruris
CPT/HCPCS: 99499

== ENCOUNTER 2023-03-03 09:07 | Outpatient (AMB) | payer BC, SELFPAY ==
--- NOTE | 2023-03-03 09:13 | MHC.OFFVIS ---
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 Patient reports that he was hiking on 02/10/23 when he landed on the leg weird and has had pain since then. His pain is mostly felt on the medial aspect of the knee, his pain is felt all the time but worse with gait initiation after prolonged sitting. His job requires prolonged standing, walking and lifting. He has been out of work since the day of the injury, PCP wrote note to keep him out until April 03. 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 He is unable to return to nl activities. He has medial sided pain with catching and giving way. PFSH Medical History Knee effusion, right Crohn's disease Hypertriglyceridemia Benign essential hypertension Ulcerative colitis Insomnia Anxiety GERD without esophagitis Myalgia Depression Alcohol abuse Surgical History History of shoulder surgery Family History Other Family history non-contributory Substance use disorder Social History (Updated 03/03/23 @ 09:18 by Elizabeth Umanzor [facility]) Household Members: None Housing: Apartment Do you presently have visiting nurse or other home services: No Alcohol intake: current Patient Tobacco Use Status: Current everyday Tobacco user Tobacco use type: Cigarette Cigarettes Per Day: 10 e-Cigarette/Vaping Use: Never Used Second Hand Smoke Exposure: Yes Substance Use Type: Marijuana service: No Current occupational status: employed 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 Resp Other: No audible wheezing Effort & Inspection: normal respiratory effort Cardio Other: Radial pulse palpable with no rythmic abnormalities Back/Spine/Pelvis Cervical Spine: normal cervical lordosis Skin General skin exam: no rashes or lesions noted Neuro General: no focal motor deficits Extrem Other: Moderate effusion + Medial steinmen's Psych Appearance: grossly normal and well kempt Mental Status: mental status grossly normal Speech and movement: Normal speech and movement present Affect: normal affect Attitude: cooperative Results Reviewed Results Reviewed: I personally reviewed relevant radiographs. Nl knee radiographs Assessment & Plan Assessment & Plan (1) Knee effusion, right: Code(s): M25.461 - Effusion, right knee Plan: Traumatic effusion with giving way and pain. Xrays nl. MRI to assess internal derangement. Orders: Orders MR knee RT wo con 03/03/23 M25.461 - Effusion, right knee Coding Level of Care Code New Pt Level 4 (36608) Diagnoses Knee effusion, right M25.461
== END 2023-03-03 09:50 | disposition home or self-care (01) ==
PROVIDERS: PCP Internal Medicine; Visit Provider Orthopaedic Surgery
DX: M25.461 Effusion, right knee (principal)
CPT/HCPCS: 99204

== ENCOUNTER → 2023-03-03 09:07 | Outpatient (BNVA) | payer BC, SELFPAY | PROVIDERS: PCP Internal Medicine; Visit Provider Orthopaedic Surgery ==

== ENCOUNTER 2023-03-31 10:05 | Outpatient (AMB) | payer BC, SELFPAY ==
--- NOTE | 2023-03-31 10:42 | MHC.OFFVIS ---
Intake Vital Signs 03/31/23 10:44 Height 6 ft Weight 166 lb BMI 22.5 Intake Visit Reasons: ov- MRI follow up of right knee Intake Note: Jaspreet is a 32 year old male who presents today for an MRI review of the right knee. (MRI done at [facility] [[email or web address] Injury on 02/10/23 while hiking. He reports that the knee has been improving but he is still having some pain. He finds that this pain is present after long periods of sitting or laying. He is currently out of work, he has concerns about long periods of standing and walking. Allergies citalopram Adverse Reaction (Intermediate, Verified 03/31/23 10:44) nausea HPI ov- MRI follow up of right knee HPI Details Jaspreet is a 32 year old man who returns for an MRI review of his right knee pain, DOI: 02/11/23. He continues to complain of pain in the medial aspect of his knee, worse with prolonged sitting or laying. He is currently out of work, since his injury, and he is concerned about long periods of standing or walking. He says he has not been pushing his activity level since his injury, and the most walking he does is when walking his dog. PFS Medical History Knee effusion, right Crohn's disease Hypertriglyceridemia Benign essential hypertension Ulcerative colitis Insomnia Anxiety GERD without esophagitis Myalgia Depression Alcohol abuse Surgical History History of shoulder surgery Family History Other Family history non-contributory Substance use disorder Social History Household Members: None Housing: Apartment Do you presently have visiting nurse or other home services: No Alcohol intake: current Patient Tobacco Use Status: Current everyday Tobacco user Tobacco use type: Cigarette Cigarettes Per Day: 10 e-Cigarette/Vaping Use: Never Used Second Hand Smoke Exposure: Yes Substance Use Type: Marijuana service: No Current occupational status: employed 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 Cognitive needs: No Hearing needs: No Vision needs: Yes (Glasses) Review of Systems Const All systems reviewed & are unremarkable except as noted in HPI and below Physical Exam Vital Signs: BMI result Body Mass Index 22.5 Const General: no acute distress, alert and awake Orientation/consciousness: patient oriented x3 HEENT Head: Yes normocephalic and Yes atraumatic Eyes EOM: EOMs intact bilaterally Resp Effort & Inspection: normal respiratory effort and able to speak in complete sentences Cardio Jugular venous distension: no JVD Skin General skin exam: turgor normal Rashes: no rashes Neuro General: patient oriented x3 Extrem Other: Right Knee: Psych Appearance: grossly normal Affect: normal affect Attitude: cooperative Results Reviewed Results Reviewed: I personally reviewed relevant MR images Acute ACL sprain and partial tear of the proximal femoral origin of the ACL There is a prominent valgus stress impaction bone contusion of the posterior lateral tibial plateau There is a grade 1 acute sprain of the MCL with adjascent stress response in the MFC medially. 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 He has pain with prolonged ambulation, standing, or twisting activities, and is concerned about his ability to return to work. His pain has improved since his injury but continues to be present. I discussed his diagnosis and treatment options, I do not recommend surgery. I recommend he remain active as tolerated, and be mindful to not push through pain. Exercises for strengthening were given to him. He was given a note to return with sedentary work only until his next appointment. He will follow up in 6 weeks to discuss his RTW status. Plan Scribed for Conor Atkins MD by Gonzalo Dunlap, ophthalmic medical technician, on 03/31/23 at 11:05 AM, EST. Coding Level of Care Code Est Pt Level 4 (36826) Diagnoses New tear of anterior cruciate ligament of right knee S83.511A
[2023-03-31 10:44] VITALS: BMI 22.5
== END 2023-03-31 11:56 | disposition home or self-care (01) ==
PROVIDERS: PCP Internal Medicine; Visit Provider Orthopaedic Surgery
DX: S83.511A Sprain of anterior cruciate ligament of right knee, initial encounter (principal)
CPT/HCPCS: 99213

== ENCOUNTER → 2023-03-31 10:05 | Outpatient (BNVA) | payer BC, SELFPAY | PROVIDERS: PCP Internal Medicine; Visit Provider Orthopaedic Surgery ==

== ENCOUNTER 2023-05-09 08:22 | Outpatient (AMB) | payer BC, SELFPAY ==
--- NOTE | 2023-05-09 08:24 | MHC.OFFVIS ---
Intake Vital Signs 05/09/23 08:25 Height 6 ft Weight 166 lb BMI 22.5 Intake Visit Reasons: OV - Left Knee ACL Injury Intake Note: 32 year old man with ACL sprain and bony contusion of his right knee, S/P twisting injury, DOI: 02/11/23.Patient presents today to discuss work status. reports that he is doing well, making improvements while still feeling mild discomfort/pain. He believes that he is able to return to work Allergies citalopram Adverse Reaction (Intermediate, Verified 05/09/23 08:25) nausea HPI OV - Left Knee ACL Injury HPI Details Jaspreet is a 33 year old man who returns for a follow-up of his right ACL sprain, DOI: 02/11/23. He says he feels better overall. He continues to have some mild pain with activity, but says this has improved since his last appointment. He continues to work on strengthening exercises at home, and has been working sedentary duty at his job. He feels he is ready to return to work proper and would like to discuss his RTW status. PFSH Medical History Knee effusion, right Crohn's disease Hypertriglyceridemia Benign essential hypertension Ulcerative colitis Insomnia Anxiety GERD without esophagitis Myalgia Depression Alcohol abuse Surgical History History of shoulder surgery Family History Other Family history non-contributory Substance use disorder Social History Household Members: None Housing: Apartment Do you presently have visiting nurse or other home services: No Alcohol intake: current Patient Tobacco Use Status: Current everyday Tobacco user Tobacco use type: Cigarette Cigarettes Per Day: 10 e-Cigarette/Vaping Use: Never Used Second Hand Smoke Exposure: Yes Substance Use Type: Marijuana service: No Current occupational status: employed 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 Cognitive needs: No Hearing needs: No Vision needs: Yes (Glasses) Review of Systems Const All systems reviewed & are unremarkable except as noted in HPI and below Physical Exam Vital Signs: BMI result Body Mass Index 22.5 Const General: no acute distress, alert and awake Orientation/consciousness: patient oriented x3 HEENT Head: Yes normocephalic and Yes atraumatic Eyes EOM: EOMs intact bilaterally Resp Effort & Inspection: normal respiratory effort and able to speak in complete sentences Cardio Jugular venous distension: no JVD Skin General skin exam: turgor normal Rashes: no rashes Neuro General: patient oriented x3 Extrem Other: Right Knee: FUll ROM 1+ stable lachmans no effusion stable to v/v stress Psych Appearance: grossly normal Affect: normal affect Attitude: cooperative Results Reviewed Results Reviewed: I personally reviewed relevant MR images Acute ACL sprain and partial tear of the proximal femoral origin of the ACL There is a prominent valgus stress impaction bone contusion of the posterior lateral tibial plateau There is a grade 1 acute sprain of the MCL with adjascent stress response in the MFC medially. 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 His pain has improved since his injury and he feels he is able to engage in regular activity. I recommend he remain active as tolerated, continue to perform strengthening exercises and return to normal activities as tolerated. He was given a note to return to work without restrictions. He will follow up prn. Plan Scribed for Conor Atkins MD by Gonzalo Dunlap, medical office assistant, on 05/09/23 at 8:40 AM, EST. Coding Level of Care Code Est Pt Level 3 (21747) Diagnoses New tear of anterior cruciate ligament of right knee S83.511A
[2023-05-09 08:25] VITALS: BMI 22.5
== END 2023-05-09 09:21 | disposition home or self-care (01) ==
PROVIDERS: PCP Internal Medicine; Visit Provider Orthopaedic Surgery
DX: S83.511A Sprain of anterior cruciate ligament of right knee, initial encounter (principal)
CPT/HCPCS: 99213

== ENCOUNTER → 2023-05-09 08:22 | Outpatient (BNVA) | payer BC, SELFPAY | PROVIDERS: PCP Internal Medicine; Visit Provider Orthopaedic Surgery ==

== ENCOUNTER 2023-10-05 13:14 | Emergency (ER) | payer BC, SELFPAY ==
[2023-10-05 13:33] VITALS: BP 130/88; PULSE 95; RESP 16; TEMP 37; O2SAT 98; BMI 21.7
--- NOTE | 2023-10-05 13:34 | ED.GENADULT ---
HPI - General Adult General Chief complaint: General Medical Stated complaint: allergic reaction, rash all over Time Seen by Provider: 10/05/23 17:52 Source: patient Mode of arrival: ambulatory Limitations: no limitations History of Present Illness HPI narrative: 33 year old male with pmhx significant for GERD, alcohol abuse, alcoholic pancreatits, anxiety, depression, HDL, elevated LFTs presents to the ED for evaluation of nausea, abdominal cramping, and rash x2 days. Admits rash began on his neck and torso today. States that it is itchy. Denies known allergies. Denies new detergents, soaps, lotions. Admits to having red and green cabbage with turnips this week which he does not typically eat. Endorses tick bite to inner right thigh 1 month ago and was able to remove the tick himself. Denies fevers, vomiting, joint pain, chest pain/tightness, dyspnea, throat swelling/pain. Related Data Previous Rx's ?Medication ?Instructions ?Recorded ibuprofen 800 mg tablet 800 mg PO Q8H PRN pain #90 tabs 02/23/23 nystatin 100,000 unit/gram topical 1 appl topical TID 10 days #60 03/10/23 powder grams diphenhydramine HCl 50 mg tablet 50 mg PO Q6-8H PRN itching #20 tabs 10/05/23 (Benadryl Allergy) prednisone 20 mg tablet 40 mg (2 x 20 mg) PO DAILY 5 days 10/05/23 #10 tabs Allergies Allergy/AdvReac Type Severity Reaction Status Date / Time citalopram AdvReac Intermediate nausea Verified 10/05/23 13:36 Review of Systems Review of Systems: Constitutional: No fever, chills, fatigue, night sweats, weight changes ENT/Mouth: No ear pain, hearing loss, nasal congestion, sinus pain, rhinorrhea, sore throat Eyes: No eye pain, swelling, redness, vision changes, discharge Cardio: No chest pain, palpitations, DILL, orthopnea, peripheral edema Pulm: No SOB, cough, sputum, wheezing, dyspnea, hemoptysis GI: No nausea, vomiting, hematemesis, abdominal pain, diarrhea, constipation, hematochezia, melena, + abdominal cramping : No irregular bleeding, dysuria, frequency, urgency, hesitancy, hematuria, flank pain, urinary flow changes, urinary incontinence or retention MSK: No back pain, neck pain, joint pain, myalgias Skin: No lesions, +rash Neuro: No weakness, numbness, paresthesias, LOC, dizziness, headache Psych: No anxiety/panic, depression, SI/HI, AH/VH All other systems reviewed and are negative. [facility] Past Medical History Attestation statement: The following information was validated with the patient. Source: old records reviewed and nursing notes reviewed Medical History Knee effusion, right Crohn's disease Hypertriglyceridemia Benign essential hypertension Ulcerative colitis Insomnia Anxiety GERD without esophagitis Myalgia Depression Alcohol abuse Surgical History History of shoulder surgery Family History Family History Other Family history non-contributory Substance use disorder Social History Social History Household Members: None Housing: Apartment Do you presently have visiting nurse or other home services: No Alcohol intake: current Comment: pt states better without movement Patient Tobacco Use Status: Current everyday Tobacco user Tobacco use type: Cigarette Cigarettes Per Day: 10 e-Cigarette/Vaping Use: Never Used Second Hand Smoke Exposure: Yes Substance Use Type: Marijuana Advance Directives: No Advance Directives Information Provided: No service: No Current occupational status: employed 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 Cognitive needs: No Hearing needs: No Vision needs: Yes (Glasses) Physical Exam ED Vital Signs: Vital Signs - 24 hr 10/05/23 13:33 10/05/23 17:52 10/05/23 17:58 Temperature 98.6 F 97.6 F 97.6 F Pulse Rate 95 70 70 Respiratory Rate 16 18 18 Blood Pressure 130/88 139/94 H 139/94 H Pulse Oximetry 98 100 100 Oxygen Delivery Method Room Air Room Air Room Air BMI result Body Mass Index 21.7 Afebrile Const General: cooperative, healthy appearing, comfortable and no acute distress Orientation/consciousness: oriented to person, oriented to place, oriented to time and patient oriented x3 Limitations: no limitations HENMT Head: Yes normal to inspection, Yes No palpable skull fracture present, Yes normocephalic and Yes atraumatic Mouth: Normal oral and palatal mucosa present Eyes General: appearance normal, both eyes and all related structures Conjunctivae: conjunctivae normal Sclerae: sclerae normal Pupils: Equal, round and reactive pupils present Neck Neck: Yes normal visual inspection, Yes full ROM and Yes no lymphadenopathy Resp Effort & Inspection: normal respiratory effort and able to speak in complete sentences Auscultation: clear to auscultation bilaterally Cardio Rate: regular rate Rhythm: regular rhythm GI Inspection: Yes normal to inspection Palpation (GI): Soft to palpation and nontender Skin Other: + erythematous, maculopapular rash noted to neck and torso. No sloughing. No pustules. Spares palms/soles/web spaces. Spares mucous membranes. No target lesions. Does not follow a dermatomal pattern. Neuro General: oriented to person, oriented to place, oriented to time, patient oriented x3 and gait normal Cranial nerves: Yes Equal, round and reactive pupils present Extrem General: Yes normal to inspection, Yes full ROM and Yes capillary refill normal Course Course Course Narrative: RME:?33 yo male hx GERD, etoh abuse, alcoholic pancreatits, anxiety, depression, HDL, elevated LFTs, here w/ nausea w/o vomiting, diffuse abd cramping, diffuse body rash x2days. No known allergies. No new detergents, soaps, lotions. had red/green cabbage and turnips this week which he does not typically eat. endorses tick bite to inner right thigh 1 mo ago. he was able to remove the tick himself. no fevers, chest pain/tightness, dyspnea, throat swelling/pain. labs, tick panel ordered. Full HPI, ROS and PE to be performed by the primary ED provider. Reevaluation(s) Reevaluation #1: 1026-- patient states that while in the waiting room, his itchiness has resolved and rash has subsided. he states that he would like to be discharged. > CBC leukocytosis or left shift. No eosinophilia. No anemia. H&H stable. Chemistry without acute electrolyte abnormality requiring intervention. Liver function WNL. Tick panel and lyme test pending. > discussed all workup results with patient. Will give him dose of Benadryl prior to discharge. Benadryl and 5 day course of prednisone sent to pharmacy. Patient is agreeable with this treatment. Advised patient that we will call him with any positive results of tick/Lyme testing. He states that he will be following up with his PCP this week. Patient has remained stable throughout ED visit today. Discussed worrisome signs and symptoms and when to return to the ED. All questions answered at this time. Patient is agreeable with disposition and stable for discharge. Medications Administered Discontinued Medications Generic Name Dose Route Start Last Admin Trade Name Jerome PRN Reason Stop Dose Admin Diphenhydramine HCl 50 mg 10/05/23 17:53 10/05/23 17:55 Diphenhydramine Hcl 25 Mg Capsule PO 10/05/23 17:54 50 mg ONCE ONE Administration Medical Decision Making Medical Decision Making [facility] Narrative: 33 year old male with pmhx significant for GERD, etoh abuse, alcoholic pancreatits, anxiety, depression, HDL, elevated LFTs presents to the ED for evaluation of nausea, abdominal cramping, and diffuse body rash x2 days. Vital signs stable, afebrile. Nontoxic appearing and in no acute distress. On exam, there is an erythematous, maculopapular rash noted to neck and torso. No sloughing. No pustules. Spares palms/soles/web spaces. Spares mucous membranes. No target lesions. Does not follow a dermatomal pattern. No cervical LAD. Airway patent. Posterior oropharynx without erythema or edema, no peritonsillar masses or tonsillar hypertrophy. Lungs are CTA bilaterally. No joint edema. Abdomen is soft, nondistended, nontender to palpation, no rebound tenderness or guarding. Normoactive bowel sounds x4. Differential diagnosis includes contact dermatitis, allergic dermatitis, tick-borne pathology. Low suspicion for Lyme, SJS/TEN, shingles, herpes, scabies, liver failure, anaphylaxis. Plan for labs, tick bourne and lyme panel. Differential Diagnosis Differential Diagnoses: The differential diagnosis associated with the presentation includes as above. Admission/Observation Not indicated Lab Data [facility] Lab Attestation statement: I reviewed the patient's lab results. As above 10/05/23 14:00 10/05/23 14:00 Labs: Lab Results 10/05/23 Range/Units 14:00 WBC 7.5 (4.8-10.8) X10*3/uL RBC 4.68 (4.60-5.80) X10*6/uL Hgb 15.2 (14.0-18.0) g/dl Hct 43.3 (42.0-52.0) % MCV 92.5 (80.0-98.0) fL MCH 32.5 (27.0-33.0) pg MCHC 35.1 (31.0-36.0) g/dl RDW 12.5 (11.0-16.0) % Plt Count 215 D (160-400) X10*3/uL MPV 9.5 (9.4-12.4) fL Immature Gran % (Auto) 0.3 (0.0-0.4) % Neut % (Auto) 70.6 (45-73) % Lymph % (Auto) 22.5 (20-40) % [place] % (Auto) 4.7 (2-11) % Eos % (Auto) 1.6 (0-4) % Baso % (Auto) 0.3 (0-2) % Lymph # (Auto) 1.7 (1.2-4.9) X10*3/uL [place] # (Auto) 0.4 (0.1-1.2) X10*3/uL Eos # (Auto) 0.1 (0.0-0.4) X10*3/uL Baso # (Auto) 0.0 (0.0-0.2) X10*3/uL Abs Immat Gran (auto) 0.02 (0.00-0.03) X10*3/uL Absolute Neuts (auto) 5.3 (2.0-8.3) x10*3/uL Absolute Nucleated RBC 0.000 (0.0-0.012) X10*3/uL Nucleated RBC % (auto) 0.0 (0.0-0.2) /100WBC Sodium 143 (135-145) mmol/L Potassium 4.1 (3.3-5.1) mmol/L Chloride 108 (96-108) mmol/L Carbon Dioxide 28 (22-29) mmol/L Anion Gap 11 L (12-20) BUN 12 (9-16) mg/dL Creatinine 0.83 (0.5-1.4) mg/dL Estim Creat Clear Calc 131.1 Estimated GFR > 60 Random Glucose 98 (60-115) mg/dL Calcium 9.3 (8.4-10.2) mg/dL Magnesium 2.0 (1.6-2.6) mg/dL Total Bilirubin 0.3 (0.0-1.0) mg/dL AST 34 (5-37) U/L ALT 31 (0-40) U/L Alkaline Phosphatase 57 (39-117) U/L Total Protein 6.9 (6.5-8.0) g/dL Albumin 4.4 (3.5-5.0) g/dL Lipase 56 (8-78) U/L External Record Review External record reviewed: Inpatient record, Office record, Outpatient record, Prior outpatient labs, Prior outpatient radiology, Primary care record and Outside ED record Prescription Management I considered prescription management with: Other (Prednisone, Benadryl) Chronic Conditions Patient?s care impacted by: Other (etoh use disorder) Social Determinants Patient?s care significantly limited by Social Determinants of Health including: Other Social Determinant of Health Critical Care Time Critical Care Time Critical Care Time: No Discharge Plan Discharge Clinical Impression: Rash Patient Disposition: Home, Self-Care Instructions: Acute Rash (ED) Additional Instructions: Your labs today are reassuring. Your blood was sent to the lab for evaluation of lyme disease or tick bourne illness. You will be contacted if any of these results return positive. A 5 day course of Prednisone has been sent to your pharmacy. Please take this over the next 4 days. You already received a dose of steroids in the ED today. You may also take OTC Benadryl as needed for itching. Please follow-up with your primary care provider regarding your visit today. You have also been provided with a referral to a plugger man for follow-up. Please call him to make a an appointment. They will not call you Return to the emergency department if your symptoms persist or worsen. In the case of an emergency call 911.. Prescriptions: New Benadryl Allergy 50 mg tablet 50 mg PO Q6-8H PRN (Reason: itching) Qty: 20 0RF prednisone 20 mg tablet 40 mg PO DAILY 5 Days Qty: 10 0RF No Action nystatin 100,000 unit/gram powder 1 appl topical TID 10 Days Qty: 60 1RF ibuprofen 800 mg tablet 800 mg PO Q8H PRN (Reason: pain) Qty: 90 1RF Rx Instructions: Take with food Referrals: Martir Kline MD [Primary Care Provider] - Anabel Aceves PA-C [Physician Sociology Instructor] - Stand Alone Forms: Work/School Release Interventions: ED Discharge Assessment Last Done: 10/05/23 17:58 Discharge Date/Time: 10/05/23 17:59 Print Language: Egyptian
[2023-10-05 14:05] LABS: MANUAL DIFF FLAG NO
[2023-10-05 14:08] LABS: Basophils Percent Auto 0.3 % (0-2); Eosinophils Absolute Auto 0.1 X10*3/uL (0.0-0.4); Eosinophils Percent Auto 1.6 % (0-4); Hematocrit 43.3 % (42.0-52.0); Hemoglobin 15.2 g/dl (14.0-18.0); Imm Gran Abs Auto 0.02 X10*3/uL (0.00-0.03); Imm Gran Pct Auto 0.3 % (0.0-0.4); Lymphocytes Absolute Auto 1.7 X10*3/uL (1.2-4.9); Lymphocytes Percent Auto 22.5 % (20-40); Mean Corpuscular HGB Conc 35.1 g/dl (31.0-36.0); Mean Corpuscular Hemoglobin 32.5 pg (27.0-33.0); Mean Corpuscular Volume 92.5 fL (80.0-98.0); Mean Platelet Volume 9.5 fL (9.4-12.4); Monocytes Absolute Auto 0.4 X10*3/uL (0.1-1.2); Monocytes Percent Auto 4.7 % (2-11); Neutrophils Absolute Auto 5.3 x10*3/uL (2.0-8.3); Neutrophils Percent Auto 70.6 % (45-73); Platelet Count 215 X10*3/uL (160-400); Red Blood Count 4.68 X10*6/uL (4.60-5.80); Red Cell Distribution Width 12.5 % (11.0-16.0); White Blood Count 7.5 X10*3/uL (4.8-10.8)
[2023-10-05 14:31] LABS: Alanine Aminotransferase 31 U/L (0-40); Albumin Level 4.4 g/dL (3.5-5.0); Alkaline Phosphatase 57 U/L (39-117); Anion Gap 11 (12-20); Aspartate Amino Transferase 34 U/L (5-37); Blood Urea Nitrogen 12 mg/dL (9-16); Calcium 9.3 mg/dL (8.4-10.2); Carbon Dioxide 28 mmol/L (22-29); Chloride 108 mmol/L (96-108); Creatinine Clr Calc Pharmacy 131.1; Estimated Glomerular Filt Rate > 60; Glucose Random 98 mg/dL (60-115); Lipase 56 U/L (8-78); Potassium 4.1 mmol/L (3.3-5.1); Sodium 143 mmol/L (135-145); Total Protein 6.9 g/dL (6.5-8.0)
[2023-10-05 15:02] LABS: Bilirubin Total 0.3 mg/dL (0.0-1.0)
[2023-10-05 17:52] VITALS: BP 139/94; PULSE 70; RESP 18; TEMP 36.4; O2SAT 100
[2023-10-05] MEDS: diphenhydrAMINE HCL 25 MG CAPSULE 50 MG PO (17:55)
[2023-10-05 17:58] VITALS: BP 139/94; PULSE 70; RESP 18; TEMP 36.4; O2SAT 100
[2023-10-06 10:33] LABS: Lyme Abs Screen <0.90 index
[2023-10-06 22:39] LABS: A. Phagocytphilium DNA,RT-PCR NOT DETECTED (NOT DETECTED); Babesia Microti DNA, RT-PCR NOT DETECTED (NOT DETECTED); Borrelia Miyamotoi,DNA RT-PCR NOT DETECTED (NOT DETECTED); E.Chaffeensis DNA RT-PCR NOT DETECTED (NOT DETECTED); Lyme(Borrelia ssp)DNA RT-PCR NOT DETECTED (NOT DETECTED)
== END 2023-10-05 17:59 | disposition home or self-care (01) ==
PROVIDERS: Physician Assistant Medical; Emergency Provider Emergency Medicine; PCP Internal Medicine
DX: L50.0 Allergic urticaria (principal); R79.89 Other specified abnormal findings of blood chemistry; R11.0 Nausea; F17.210 Nicotine dependence, cigarettes, uncomplicated; Z79.899 Other long term (current) drug therapy
CPT/HCPCS: 36415; 80053; 83690; 83735; 85025; 86617; 86618; 87468; 87469; 87478; 87484; 87798; 99282; 99283

== ENCOUNTER 2023-11-04 14:48 | Emergency (ER) | payer BC, SELFPAY ==
[2023-11-04 14:57] VITALS: BP 144/93; PULSE 97; RESP 20; TEMP 37; O2SAT 97; BMI 21.2
--- NOTE | 2023-11-04 15:00 | ED.GENADULT ---
HPI - General Adult General Chief complaint: Wound/Laceration Stated complaint: Facial lac Time Seen by Provider: 11/04/23 15:29 Source: patient, RN notes reviewed and old records reviewed Mode of arrival: ambulatory Limitations: no limitations History of Present Illness HPI narrative: 33-year-old male with past medical history significant for hypertriglyceridemia, etoh abuse, etoh withdrawal seizure, hypertension, anxiety, GERD, and depression presents to the ED today for evaluation of facial laceration he sustained FINISH REMOVER. He admits that while on a jog with his dog he accidentally ran into a stop sign, striking his left upper and lower lip. The area immediately began bleeding and he noted a large gash to his lip, prompting him to come to the ED for further evaluation. Denies LOC. Not on AC. Denies fevers, chills, headache, dizziness, vision changes. No other complaints. Tetanus is not up to date. Related Data Previous Rx's ?Medication ?Instructions ?Recorded ibuprofen 800 mg tablet 800 mg PO Q8H PRN pain #90 tabs 02/23/23 nystatin 100,000 unit/gram topical 1 appl topical TID 10 days #60 03/10/23 powder grams diphenhydramine HCl 50 mg tablet 50 mg PO Q6-8H PRN itching #20 tabs 10/05/23 (Benadryl Allergy) prednisone 20 mg tablet 40 mg (2 x 20 mg) PO DAILY 5 days 10/05/23 #10 tabs clindamycin HCl 300 mg capsule 300 mg PO TID 5 days #15 caps 11/04/23 Allergies Allergy/AdvReac Type Severity Reaction Status Date / Time citalopram AdvReac Intermediate nausea Verified 11/04/23 15:00 Review of Systems Review of Systems: Constitutional: No fever, chills, fatigue, night sweats, weight changes ENT/Mouth: No ear pain, hearing loss, nasal congestion, sinus pain, rhinorrhea, sore throat Eyes: No eye pain, swelling, redness, vision changes, discharge Cardio: No chest pain, palpitations, DILL, orthopnea, peripheral edema Pulm: No SOB, cough, sputum, wheezing, dyspnea, hemoptysis GI: No nausea, vomiting, hematemesis, abdominal pain, diarrhea, constipation, hematochezia, melena : No irregular bleeding, dysuria, frequency, urgency, hesitancy, hematuria, flank pain, urinary flow changes, urinary incontinence or retention MSK: No back pain, neck pain, joint pain, myalgias Skin: No lesions, rashes, +lip laceration Neuro: No weakness, numbness, paresthesias, LOC, dizziness, headache Psych: No anxiety/panic, depression, SI/HI, AH/VH All other systems reviewed and are negative. [facility] Past Medical History Attestation statement: The following information was validated with the patient. Source: old records reviewed and nursing notes reviewed Medical History Knee effusion, right Crohn's disease Hypertriglyceridemia Benign essential hypertension Ulcerative colitis Insomnia Anxiety GERD without esophagitis Myalgia Depression Alcohol abuse Surgical History History of shoulder surgery Family History Family History Other Family history non-contributory Substance use disorder Social History Social History Household Members: None Housing: Apartment Do you presently have visiting nurse or other home services: No Alcohol intake: current Comment: pt states better without movement Patient Tobacco Use Status: Current everyday Tobacco user Tobacco use type: Cigarette Cigarettes Per Day: 10 e-Cigarette/Vaping Use: Never Used Second Hand Smoke Exposure: Yes Substance Use Type: Marijuana Advance Directives: No Advance Directives Information Provided: Yes Do you have a plan to hurt others: No Plan service: No Current occupational status: employed 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 Cognitive needs: No Hearing needs: No Vision needs: Yes (Glasses) Physical Exam ED Vital Signs: Vital Signs - 24 hr 11/04/23 14:57 11/04/23 18:09 Temperature 98.6 F 98.6 F Pulse Rate 97 97 Respiratory Rate 20 20 Blood Pressure 144/93 H 144/93 H Pulse Oximetry 97 97 Oxygen Delivery Method Room Air Room Air BMI result Body Mass Index 21.2 Hypertensive, vitals otherwise WNL Const General: cooperative, healthy appearing, comfortable and no acute distress Orientation/consciousness: patient oriented x3 Limitations: no limitations HENMT Other: + refer to photos below + 2cm vertical linear laceration noted to left upper lip through rigo border. not [id number]. small, 1cm laceration noted to left lower lip through vermilion border. 3cm linear laceration noted to internal aspect of left lower lip. bleeding controlled. no foreign body. dentition and tongue wnl. + Posterior oropharynx without erythema/edema. Uvula midline. Controlling secretions and speaking in complete sentences + No submandublar or submental LAD + No cervical LAD Eyes General: appearance normal, both eyes and all related structures Neck Neck: Yes normal visual inspection, Yes full ROM and Yes no lymphadenopathy Skin Other: + refer to photo above. Neuro General: patient oriented x3 and gait normal Course Course Course Narrative: This is an RME done by ANICETO Cabral: Additional HPI, ROS, PE not included below will be deferred to primary provider. 33 year old male presents with facial laceration, patient reports he was running with his dog, did not see a stop sign, hit his face against the stop sign, since then had a laceration to the left upper lip. No loss of consciousness. Not on blood thinners. Appearance: Alert.? Oriented X3.? No acute cardiopulmonary distress distress.? Head: Normocephalic, laceration to the left upper lip, no step-offs or deformities Neck: Normal inspection.? Neck supple.? CVS: Pulses normal.? Respiratory: No respiratory distress.? Abdomen: Soft and nontender.? Skin: ? Normal skin color. Extremities: 5/5 strength to bilateral upper and lower extremities Neuro: Oriented X 3.? No motor deficit.? No sensory deficit. Reevaluation(s) Reevaluation #1: 1700-- Discussed laceration repair with patient. As the laceration is through the vermilion border, I explained to the patient that I will try to line up the border as best as I can as an emergency department provider. I informed him that there are side effects of deformity. He verbalizes understanding consents to laceration repair. 1740-- Laceration repaired with sutures. Patient tolerated well. Tetanus updated. Will send clindamycin to pharmacy for infection prophylaxis. Patient has remained stable throughout ED visit today. Discussed worrisome signs and symptoms and when to return to the ED. All questions answered at this time. Patient is agreeable with disposition and stable for discharge. Medications Administered Discontinued Medications Generic Name Dose Route Start Last Admin Trade Name Freq PRN Reason Stop Dose Admin Diphtheria/Tetanus/Acell Pertussis 0.5 ml 11/04/23 15:00 11/04/23 15:57 Diphth,Pertus(Acell),Tet Adult 0.5 Ml Syringe IM 11/04/23 15:01 0.5 ml .ONCE ONE Administration Lidocaine HCl 5 ml 11/04/23 15:45 11/04/23 15:58 Lidocaine Hcl 1 % Mpf 5 Ml Vial INFILTRATI 11/04/23 15:46 5 ml ONCE ONE Administration Lidocaine HCl 5 ml 11/04/23 15:45 11/04/23 15:58 Lidocaine Hcl 1 % Mpf 5 Ml Vial INFILTRATI 11/04/23 15:46 5 ml ONCE ONE Administration Procedures Laceration Laceration 1: Site: lip Side (If applicable): left Size (cm): 2 Description: linear Depth: simple, single layer Local Anesthetic: lidocaine 1% Amount of anesthesia used (mL): 2 Pre-repair: wound explored and irrigated extensively Skin layer closed with: other (prolene) Size (cm): 5-0 (vicryl) and 6-0 (prolene) Number of sutures: 4 Laceration 2: Site: lip Side (If applicable): left Size (cm): 1 Description: linear Depth: simple, single layer Local Anesthetic: lidocaine 1% Amount of anesthesia used (mL): 1 Pre-repair: wound explored and irrigated extensively Skin layer closed with: other (prolene) Size (cm): 4-0 Number of sutures: 1 Technique: simple, interrupted Laceration 3: Site: lip Side (If applicable): left Size (cm): 3 Description: linear Depth: simple, single layer Local Anesthetic: lidocaine 1% Amount of anesthesia used (mL): 7 Pre-repair: wound explored and irrigated extensively Skin layer closed with: vicryl Size (cm): 5-0 Number of sutures: 6 Technique: simple, interrupted Medical Decision Making Medical Decision Making MDM Narrative: 33-year-old male with past medical history significant for hypertriglyceridemia, etoh abuse, etoh withdrawal seizure, hypertension, anxiety, GERD, and depression presents to the ED today for evaluation of facial laceration he sustained FINISH REMOVER. Vitals stable. He is nontoxic appearing and in NAD. On exam, 2cm vertical linear laceration noted to left upper lip through rigo border. not [id number]. Small, 1cm laceration noted to left lower lip through vermilion border. 3cm linear laceration noted to internal aspect of left lower lip. bleeding controlled. no foreign body. dentition and tongue wnl. Differential diagnosis includes abrasion, laceration. Unlikely dental injury, tooth avulsion. Plan for tetanus booster, laceration repair, and re-evaluation. Differential Diagnosis Differential Diagnoses: The differential diagnosis associated with the presentation includes As above Admission/Observation Not indicated External Record Review External record reviewed: Inpatient record, Office record, Outpatient record, Prior outpatient labs, Prior outpatient radiology, Primary care record and Outside ED record Prescription Management I considered prescription management with: Pain Medication and Antibiotic (Clindamycin) Critical Care Time Critical Care Time Critical Care Time: Yes Total Critical Care Time: 40 Attestation: Critical care time in the amount of 40 minutes has been provided to the patient in terms of direct patient care, frequent reevaluation, review and interpretation of medical data and results, and management of potentially life-threatening conditions. This is all outside of any medical procedures. Discharge Plan Discharge Clinical Impression: Laceration of vermilion border of upper lip Patient Disposition: Home, Self-Care Instructions: Care For Your Stitches (ED), Laceration (ED), Care For Your Absorbable Stitches (ED), Stitches Removal (ED) Additional Instructions: You were evaluated in the emergency department today for laceration to your upper and lower lip. These lacerations were repaired with sutures. You received 15 sutures in total. 4 of the sutures need to be removed in 3-5 days. Three to your upper lip and one to your lower lip. You may return to the ED to have these removed. Clindamycin as an antibiotic that has been sent to your pharmacy to prevent infection. Take this three times daily for 5 days. Do not stop taking this early or skip any doses as this may cause infection to persist or worsen. Return to the ED for worsening symptoms. In the case of an emergency call 911. Prescriptions: New clindamycin HCl 300 mg capsule 300 mg PO TID 5 Days Qty: 15 0RF No Action nystatin 100,000 unit/gram powder 1 appl topical TID 10 Days Qty: 60 1RF Benadryl Allergy 50 mg tablet 50 mg PO Q6-8H PRN (Reason: itching) Qty: 20 0RF prednisone 20 mg tablet 40 mg PO DAILY 5 Days Qty: 10 0RF ibuprofen 800 mg tablet 800 mg PO Q8H PRN (Reason: pain) Qty: 90 1RF Rx Instructions: Take with food Referrals: Martir Kline MD [Primary Care Provider] - Stand Alone Forms: Work/School Release Interventions: ED Discharge Assessment Last Done: 11/04/23 18:09 Discharge Date/Time: 11/04/23 18:09 Print Language: Marshallese
[2023-11-04] MEDS: Diphth,Pertus(ACell),Tet Adult 0.5 ML SYRINGE IM (15:57)
[2023-11-04] MEDS: Lidocaine HCl 1 % MPF 5 ML VIAL INFILTRATI ×2 (15:58)
[2023-11-04 18:09] VITALS: BP 144/93; PULSE 97; RESP 20; TEMP 37; O2SAT 97
== END 2023-11-04 18:09 | disposition home or self-care (01) ==
PROVIDERS: Emergency Provider Internal Medicine; PCP Internal Medicine
DX: S01.511A Laceration without foreign body of lip, initial encounter (principal); W22.8XXA Striking against or struck by other objects, initial encounter; Y93.02 Activity, running; Y92.9 Unspecified place or not applicable; Y99.9 Unspecified external cause status; Z23 Encounter for immunization
CPT/HCPCS: 12014; 90471; 90715; 99282; 99284

== ENCOUNTER 2023-11-10 12:46 | Emergency (ER) | payer BC, SELFPAY ==
[2023-11-10 13:38] VITALS: BP 124/90; PULSE 66; RESP 16; TEMP 36.6; O2SAT 99; BMI 23.1
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
[2023-11-10 13:47] VITALS: BP 124/90; PULSE 66; RESP 16; TEMP 36.6; O2SAT 99
== END 2023-11-10 13:53 | disposition home or self-care (01) ==
PROVIDERS: Emergency Provider Emergency Medicine; PCP Internal Medicine
DX: Z48.02 Encounter for removal of sutures (principal)
CPT/HCPCS: 99282

== ENCOUNTER 2023-12-11 22:43 | Emergency (ER) | payer BC, SELFPAY ==
[2023-12-11 23:38] VITALS: BP 143/90; PULSE 79; RESP 18; TEMP 37.1; O2SAT 97; BMI 23.2
--- NOTE | 2023-12-12 01:21 | ED_ITS ---
HPI - General Adult General Chief complaint: Back Pain/Injury Stated complaint: hurt back gardening Time Seen by Provider: 12/12/23 01:19 Source: patient Mode of arrival: ambulatory Limitations: no limitations History of Present Illness ED Provider: Sarah Rebolledo PA-C HPI narrative: Patient is a 33 year old assigned male at with a history of alcohol abuse presenting to the emergency department today with low back pain. Patient states that he was gardening earlier today and his low back has been bothering him ever since. Patient states that he would like a note for work because that work involves a lot of leaning over and straining of his back. Patient denies any dizziness, lightheadedness, abdominal pain, nausea, vomiting, fever, chills, blurry vision, double vision, loss of vision, chest pain, difficulty breathing, shortness of breath, night sweats, pain with urination, increased urinary frequency, increased urinary urgency, blood in his urine or stool, syncope or a near syncopal episode, recent trauma or falls, bowel incontinence, bladder incontinence, or any other complaints at this time. Onset (ago): hour(s) Radiation: back Severity: mild Severity scale (1-10): 4 Quality: aching and dull Pain Consistency: constant Relieving factors: none Exacerbating factors: movement Associated symptoms: denies other symptoms Treatments prior to arrival: none Related Data Previous Rx's ?Medication ?Instructions ?Recorded ibuprofen 800 mg tablet 800 mg PO Q8H PRN pain #90 tabs 02/23/23 nystatin 100,000 unit/gram topical 1 appl topical TID 10 days #60 03/10/23 powder grams diphenhydramine HCl 50 mg tablet 50 mg PO Q6-8H PRN itching #20 tabs 10/05/23 (Benadryl Allergy) prednisone 20 mg tablet 40 mg (2 x 20 mg) PO DAILY 5 days 10/05/23 #10 tabs clindamycin HCl 300 mg capsule 300 mg PO TID 5 days #15 caps 11/04/23 Allergies Allergy/AdvReac Type Severity Reaction Status Date / Time citalopram AdvReac Intermediate nausea Verified 12/11/23 23:41 Review of Systems Constitutional: Constitutional: Reports no additional constitutional complaints, Denies chills, Denies fever(s) and Denies night sweats Eyes: Eyes: Reports no additional eye complaints, Denies blurry vision, Denies change in vision, Denies diplopia, Denies eye discharge, Denies loss of vision and Denies eye pain ENT: Denies dizziness Cardiovascular: Cardiovascular: Reports no additional cardiovascular complaints, Denies chest pain, Denies lightheadedness, Denies Loss of Consciousness and Denies dyspnea Respiratory: Respiratory: Reports no additional respiratory complaints and Denies dyspnea Gastrointestinal: Gastrointestinal: Reports no additional gastrointestinal complaints, Denies abdominal pain, Denies melena, Denies hematochezia, Denies change in bowel habits and Denies change in stool character Genitourinary: Genitourinary: Reports no additional male genitourinary complaints, Denies hematuria, Denies oliguria, Denies difficulty urinating, Denies dysuria, Denies urinary frequency, Denies urinary hesitancy, Denies urinary incontinence and Denies urinary urgency Musculoskeletal: Musculoskeletal: Reports no additional musculoskeletal complaints, Reports back pain, Denies numbness and Denies tingling Neurologic: Denies dizziness, Denies loss of vision, Denies numbness and Denies tingling Psychiatric: Psychiatric: Reports no additional psychiatric complaints Endocrine: Endocrine: Reports no additional endocrine complaints Hematologic/Lymphatic: Hematologic/Lymphatic: Reports no additional hematologic/lymphatic complaints Allergic/Immunologic: Allergic/Immunologic: Reports no additional allergic/immunologic complaints [facility] Past Medical History Attestation statement: The following information was validated with the patient. Source: old records reviewed and nursing notes reviewed Medical History Knee effusion, right Crohn's disease Hypertriglyceridemia Benign essential hypertension Ulcerative colitis Insomnia Anxiety GERD without esophagitis Myalgia Depression Alcohol abuse Surgical History History of shoulder surgery Family History Family History Other Family history non-contributory Substance use disorder Social History Social History Household Members: None Housing: Apartment Do you presently have visiting nurse or other home services: No Alcohol intake: current Comment: pt states better without movement Patient Tobacco Use Status: Current everyday Tobacco user Tobacco use type: Cigarette Cigarettes Per Day: 10 e-Cigarette/Vaping Use: Never Used Second Hand Smoke Exposure: Yes Substance Use Type: Marijuana Advance Directives: No Advance Directives Information Provided: No service: No Current occupational status: employed 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 Cognitive needs: No Hearing needs: No Vision needs: Yes (Glasses) Physical Exam ED Vital Signs: Vital Signs - 24 hr 12/11/23 23:38 Temperature 98.7 F Pulse Rate 79 Respiratory Rate 18 Blood Pressure 143/90 H Pulse Oximetry 97 Oxygen Delivery Method Room Air BMI result Body Mass Index 23.2 Const General: cooperative, no acute distress, alert and awake Nutritional Appearance: well nourished Orientation/consciousness: patient oriented x3 Limitations: no limitations HENMT Head: Yes normal to inspection and Yes atraumatic Ears: hearing grossly normal bilaterally and external ears normal General nose exam: Normal external nose present, no nasal discharge noted and no epistaxis Face and sinus: Yes normal facial exam, No abrasion and No laceration Mouth: Normal oral and palatal mucosa present, no drooling and no muffled voice Eyes General: appearance normal, both eyes and all related structures Periorbital: periorbital findings normal Eyelids: Yes eyelids normal Conjunctivae: conjunctivae normal Pupils: Equal, round and reactive pupils present EOM: EOMs intact bilaterally Neck Neck: Yes normal visual inspection, Yes full ROM and Yes no lymphadenopathy Chest Chest palpation & inspection: normal inspection of the chest Resp Effort & Inspection: normal respiratory effort and able to speak in complete sentences GI Inspection: Yes normal to inspection Neuro General: patient oriented x3 and moves all extremities Cranial nerves: Yes Equal, round and reactive pupils present Cognition (Neuro): normal cognition Motor exam (neuro): 5/5 motor strength present throughout Sensory Exam: Normal double simultaneous stimulation for sensation Coordination: [id number] test normal Extrem General: Yes normal to inspection, Yes full ROM and Yes capillary refill normal Psych Appearance: grossly normal Mental Status: mental status grossly normal Affect: normal affect Attitude: cooperative Thought process: Normal thought process present Thought content: Normal thought content present Insight: Good insight present (Psych) Medical Decision Making Medical Decision Making MDM Narrative: Patient is a 33 year old assigned male at with a history of alcohol abuse presenting to the emergency department today with low back pain. Patient's physical exam was unremarkable. I explained my physical exam findings to the patient. I answered all questions asked by the patient. I stressed the importance of the patient taking his medication as prescribed. I stressed the importance of the patient following up with his primary care provider. I stressed the importance of the patient returning to the emergency department immediately if his symptoms were to worsen or if he were to develop any dizziness, shortness of breath, difficulty breathing, chest pain, blurry vision, loss of vision, nausea, vomiting, abdominal pain, fever, chills, back pain, or any other complaints. Patient verbalized agreement and understanding with this treatment plan and discharge. Differential Diagnosis Differential Diagnoses: The differential diagnosis associated with the presentation includes Low back pain Back strain Admission/Observation Consideration of admission/observation: Escalation of care including admission/observation considered Patient would have been admitted to the hospital had his clinical presentation warranted hospital admission. Tests considered The following testing was considered but not selected: I considered obtaining a plain x-ray of the lumbar spine however, the patient's current mechanism of injury and presentation does not warrant any imaging. I discussed this with the patient who verbalized agreement and understanding. Discharge Plan Discharge Clinical Impression: Low back pain Patient Disposition: Home, Self-Care Instructions: Acute Low Back Pain (ED) Additional Instructions: Follow up with your primary care provider. Return to the emergency department immediately if your symptoms worsen or if you develop any dizziness, shortness of breath, difficulty breathing, chest pain, blurry vision, loss of vision, nausea, vomiting, abdominal pain, fever, chills, back pain, or any other complaints. Prescriptions: No Action nystatin 100,000 unit/gram powder 1 appl topical TID 10 Days Qty: 60 1RF Benadryl Allergy 50 mg tablet 50 mg PO Q6-8H PRN (Reason: itching) Qty: 20 0RF prednisone 20 mg tablet 40 mg PO DAILY 5 Days Qty: 10 0RF clindamycin HCl 300 mg capsule 300 mg PO TID 5 Days Qty: 15 0RF ibuprofen 800 mg tablet 800 mg PO Q8H PRN (Reason: pain) Qty: 90 1RF Rx Instructions: Take with food Referrals: Martir Kline MD [Primary Care Provider] - Stand Alone Forms: Work/School Release Print Language: Dominican
== END 2023-12-12 01:45 | disposition home or self-care (01) ==
PROVIDERS: Emergency Provider Internal Medicine; PCP Internal Medicine
DX: M54.50 Low back pain, unspecified (principal)
CPT/HCPCS: 99281; 99282